=== PATIENT | male | born 1945 | race Caucasian/White ===

== ENCOUNTER 2019-05-29 05:34 | Outpatient (RCR) | payer MEDICARE, OTHER, SELFPAY | END 2019-06-03 00:01 | LOC: ONCMED 05:34 | PROVIDERS: Family Provider Family Medicine; Visit Provider Internal Medicine Hematology & Oncology | DX: Z51.11 Encounter for antineoplastic chemotherapy (principal); C77.1 Secondary and unspecified malignant neoplasm of intrathoracic lymph nodes; C18.3 Malignant neoplasm of hepatic flexure; C78.01 Secondary malignant neoplasm of right lung; I10 Essential (primary) hypertension; E78.5 Hyperlipidemia, unspecified; E11.9 Type 2 diabetes mellitus without complications; Z79.84 Long term (current) use of oral hypoglycemic drugs; Z90.49 Acquired absence of other specified parts of digestive tract | CPT/HCPCS: 36415; 36591; 80053 ×2; 81003; 85025 ×2; 96367 ×2; 96368 ×2; 96375 ×2; 96413 ×2; 96415 ×2; 96416 ×2; 96417 ×2; 96523 ×2; 99211; 99214 ×2; J0640 ×2; J1100 ×2; J1642 ×3; J2469 ×2; J7050 ×2; J9035 ×2; J9206 ×4 ==

== ENCOUNTER 2019-06-26 05:48 | Outpatient (RCR) | payer MEDICARE, OTHER, SELFPAY ==
[2019-06-10 09:46] LABS: Basophils % 0.4 %; Eosinophils # 0.2 10^3/uL (0.0-0.8); Eosinophils % 2.3 %; Hematocrit 38.8 % (42.0-52.0); Lymphocytes # 1.8 10^3/uL (0.8-4.8); Lymphocytes % 23.1 %; Mean Corpuscular HGB Conc 33.5 g/dL (30.0-36.0); Mean Corpuscular Volume 92.4 fL (80-94); Mean Platelet Volume 9.1 fL (7.4-10.4); Monocytes # 0.7 10^3/uL (0.2-0.9); Monocytes % 9.2 %; Neutrophils % 64.7 %; Nucleated Red Blood Cells % 0 %; Platelet Count 300 10^3/cmm (130-400); Red Cell Distribution Width 13.2 % (12.1-15.1); White Blood Count 7.7 10^3/uL (4.0-10.0)
[2019-06-10 10:00] LABS: Alanine Aminotransferase 27 U/L (0-41); Albumin Level 4.1 g/dL (3.5-5.2); Alkaline Phosphatase 68 IU/L (40-130); Anion Gap 13.7 (5-19); Aspartate Amino Transferase 26 U/L (0-40); Blood Urea Nitrogen 17 mg/dL (8-23); Calcium 9.7 mg/Dl (8.8-10.2); Carbon Dioxide 27 mmol/L (22-29); Chloride 101 mmol/L (98-107); Globulin 2.5 g/dL (1.3-4.6); Glucose 98 mg/dL (74-106); Potassium 4.7 mmol/L (3.5-5.1); Sodium 137 mmol/L (136-145); Total Bilirubin 0.3 mg/dL (0.15-1.2); Total Protein 6.6 g/dL (6.6-8.7)
[2019-06-10] MEDS: sodium chloride 0.9% 250 ML 75 ML IV (14:01)
--- NOTE | 2019-06-16 10:39 | ONC FU_ITS ---
[facility] Patient Note Patient: Geoff Yu Unit #: [id number]: 1945 Dictated By: Tripp GibsonDate of Visit: Jun 10, 2019 Onc MED Follow-Up/Prog Note Chief Complaint: Colon cancer. 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 He had presented with symptoms of abdominal pain and early satiety. CT abdomen/pelvis on 01/05/2017 showed an apple core appearing lesion at the hepatic flexure with associated obstruction involving the ascending colon, cecum, and ileum. The appearance was suspicious for neoplasm. There was a small amount of pelvic ascites. A 6.9 mm right lower lobe noncalcified pulmonary nodule was felt to be nonspecific. There was otherwise no evidence of metastatic disease. Colonoscopy on 01/09/2017 showed a partially obstructing malignant appearing mass at the hepatic flexure estimated at 5 x 4 cm. An additional sessile polyp was noted in the distal sigmoid colon and excised by hot snare. Biopsy of the hepatic flexure mass showed poorly differentiated infiltrating adenocarcinoma. The distal sigmoid lesion was a hyperplastic polyp. He underwent laparoscopic right hemicolectomy with ileocolic anastomosis and partial omentectomy on 01/10/2017. Pathology showed moderately differentiated infiltrating adenocarcinoma with invasion of the muscularis propria into rehana-colic tissue. The tumor measured 2.3 x 1.8 cm. The margins were free of tumor. There was evidence of lymphovascular space invasion. A total of 7 lymph nodes were identified in the sample and all were negative for metastatic disease. Final pathologic staging was T3, N0. He had several high risk features including a near obstructing primary tumor, evidence of lymphovascular space invasion, and less then 12 lymph nodes sampled. 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 Follow-up colonoscopy done on 02/06/2018 showed ileocolic anastomosis looked intact without evidence of recurrence and wide patent. In the proximal transverse colon, an abnormality was noted. He was followed by Dr. Willingham His other medical illnesses include hypertension, hyperlipidemia, and type II diabetes. He is a nonsmoker. Follow-up colonoscopy done on 02/26/2019 showed normal findings. Ileocolic anastomosis is widely patent without evidence of local recurrence. CEA repeated on 03/04/2019 was 7.7 compared to 7.2 on 01/07/2019 CT PET scan done on 03/15/2019 showed 3.1 x 2.2 cm mass in the right middle lobe with SUV of 22.1, and an adjacent right middle lobe FDG positive satellite nodule was noted. The right lower lobe perihilar nodule measuring 1.6 cm with SUV of 21.6. Multiple mediastinal nodes are FDG positive, consistent with metastatic disease and index node in the right 4R peritracheal territory measures 1.6 cm with SUV of 23.0 and other similar nodes are evident in the right pericardial, right superior mediastinal, right periesophageal territory. No evidence of metastatic disease to bone or below diaphragm Underwent mediastinoscopy on 04/28/2019 and lymph node biopsy was obtained from paratracheal, station 4R, final pathology report showed metastatic adenocarcinoma, consistent with GI origin. The tumor was positive for CD X2, CK 20; negative for CK 7 and TTF-1. Dr Goodman recommended 6 cycles of FOLFIRI/Avastin the restage with followup PET/CT. Mr Yu began cycle 1 on 05/13/2019. Mr. Yu is here today for follow-up. He states overall he feels great . His only concern is that his incision at the base of his neck/upper chest had some drainage about 2 days ago. He denies fever or chills. He denies any trouble swallowing. It has not been warm or swollen or painful. It is not been hot to touch. He states he just had spontaneous drainage that looked kind of pussy but has not had any at least 2 days. He denies any other concerns. He denies any pain. States his appetite is good. He is very active. He states his been doing all of his normal chores and feels good. He does tire some but then recovers well with rest. He denies any diarrhea or constipation. He denies any lower extremity edema or shortness of breath. He denies cough. He denies any angina or palpitations. His ECOG is 0. . Past Medical History: Diabetes type II Hyperlipidemia Hypertension Past Surgical History: Pneumonia Vaccine in 2017 - Given in left deltoid./ Flu Vacccine in 2017 - Pt stated he had flu vaccine at [facility] 02/26/17./ Left subclavian venous access device-Dr Willingham in 2017 Right Hemicolectomy in 2017 Allergies: Isosorbide Mononitrate and Succinylcholine Chloride. Medications: Ativan 1 (0.5 mg) Tablet Oral q 4 hours PRN Atorvastatin Calcium 1 Tablet (of 40 mg) Oral daily Cholecalciferol 1 Tablet (of 1000 Units) Oral daily Cinnamon 1 (500 mg) Capsule Oral b.i.d. Compazine Tablet Oral q 4 hours PRN Fish Oil 1 (1000 mg) Capsule Oral daily hydroCHLOROthiazide 1 Capsule (of 12.5 mg) Oral at bedtime Lisinopril 1 Tablet (of 40 mg) Oral daily MetFORMIN HCl 2 Tablet (of 500 mg) Oral b.i.d. Metoprolol Tartrate 0.5 Tablet (of 25 mg) Oral b.i.d. Multivitamin Adult 1 Tablet Oral daily Nitroglycerin 1 (0.4 mg) Tablet, sublingual Sublingual PRN PriLOSEC 1 Capsule (of 20 mg) Capsule Delayed Release Oral daily Family History: Mr. Yu's mother at age 74: lung cancer. Mr. Yu's father at age 48: heart attack. Social History: Mr. Yu is and he is retired. Mr. Yu has never smoked. He has no history of drinking. Mr. Yu reports the following support systems: lives with spouse, significant other, family, or friends, lives in own house, supportive family/friends willing to assist with needs, and adequate transportation available for expected visits. His diet consists of regular meals. He indicates his activity level as: daily activities. Review Of Symptoms: Constitutional Denies fevers, chills, night sweats, excessive fatigue or weight loss. Allergic/Immunologic No reactions. Eyes Denies significant visual changes. No diplopia. No amaurosis. ENMT Denies changes in hearing, sore throat, mouth sores, difficulty or changes in swallowing ability, and/or sinus drainage. He did report drainage from the incision at his neck face/upper chest. He states it was just a little pussy looking for about a day and that has resolved. He is had no further drainage. He said no fever or chills. The drainage was about 2 days ago. Endocrine No diabetes, thyroid disease or hormone replacement. Denies hot flashes or night sweats. Hematologic/Lymphatic Denies easy bruising or bleeding. The patient denies any tender or palpable lymph nodes. Respiratory Denies dyspnea on exertion, chest pain, cough or hemoptysis. Denies orthopnea. Cardiovascular Denies anginal chest pain, palpitations or orthopnea. Gastrointestinal Denies nausea, vomiting, diarrhea, GI bleeding, or constipation. Denies change in bowel habits and/or stool color, no heartburn or early satiety. Genitourinary (M) Denies hematuria, dysuria, increased frequency, urgency, hesitancy or incontinence. Musculoskeletal Denies joint pain, swelling or redness. No decreased range of motion. Integumentary Denies chronic rashes, inflammation, ulcerations or skin changes. Neurologic Denies headache, blurred vision, and no areas of focal weakness or numbness. Normal gait. No sensory problems. Psychiatric Denies insomnia, depression, alex or mood swings. Vital Signs: Performed on Jun 10, 2019 11:17 Height - 64.00 in Weight - 151.2 lbs (HIGH) BSA - 1.74 sq.m BMI - 25.95 Temperature - 97.6 F (LOW) Pulse - 62 /min Respiration - 20 /min BP - 127/64 mm(hg) O2 Sat - 98 % Pain - 0,0 - Fully active, able to carry on all predisease activities without restrictions. (ECOG) Physical Examination: Constitutional Alert, oriented, no acute distress. Skin pink, warm and dry. Head Normocephalic; atraumatic. Eyes Conjunctivae and sclerae are clear and without icterus. Pupils are reactive and equal. ENMT No oral exudates, ulcers, masses, thrush or mucositis. Oropharynx clear. Tongue normal. Neck Supple without masses or thyromegaly. No jugular venous distension. The incision on his lower neck/upper chest area is slightly pink but no active drainage and no swelling or warmth. I can see a slight opening in the incision line but otherwise it is intact. There is no odor. Hematologic/Lymphatic No petechiae or purpura. Respiratory Lungs are clear to auscultation without rhonchi or wheezing. Cardiovascular Regular rate and rhythm of heart without murmurs,clicks, gallops or rubs. Chest Chest is symmetric without chest wall deformities. Left subclavian venous access device insertion site is unremarkable. Back/Spine Non-tender to palpation. Extremities No visible deformities, no cyanosis, clubbing or edema. Pulses 4+ and equal bilaterally. Musculoskeletal No tenderness or swelling, normal range of motion without obvious weakness. Integumentary No rashes or lesions. Neurologic No sensory or motor deficits, normal cerebellar function, normal gait. Psychiatric Alert and oriented times three. Coherent speech. Verbalizes understanding of our discussions today. Laboratory:Test performed on Jun 10, 2019 09:32 Glucose 98 mg/dL BUN 17 mg/dL Creatinine 1.1 mg/dL Cr Clearance (Est) 55.25 mL/min Sodium 137 mmol/L Potassium 4.7 mmol/L Chloride 101 mmol/L CO2 27 mmol/L Calcium 9.7 mg/dL Protein, Total 6.6 g/dL Albumin 4.1 g/dL Globulin 2.5 g/dL Bilirubin, Total 0.3 mg/dL Alkaline Phosphatase 63 IU/L AST (SGOT) 26 IU/L ALT (SGPT) 27 IU/L WBC 7.7 10^9/L RBC 4.20 10^12/L HGB 13.0 g/dL HCT 38.8 % MCV 92.4 fl MCH 31.0 pg MCHC 33.5 g/dL RDW 13.2 % Platelet Count 300 10^9/L MPV 9.1 fL Neutrophils (Gran) 5.0 10^9/L Lymphocytes 1.7787 10^9/L Monocytes 0.7084 10^9/L Eosinophils 0.1771 10^9/L Basophils 0.0308 10^9/L Manual Lymphocytes 1.8 % Manual Monocytes 0.7 % Manual Eosinophils 0.2 % Manual Basophils 0.0 % NRBCs 0.0 /100 WBC Test performed on May 27, 2019 08:35 Anion Gap 13.7 Ua Color YELLOW Ua Appearance CLEAR Ua Glucose NORM Ua Bilirubin NEG Colored urine samples may result in false positive dipstick reactions. Ua Ketones NEG Ua Specific [place] 1.015 Ua Blood NEG Ua pH 5 Ua Protein NEG Ua Nitrites NEG Ua Leukocyte Esterase NEG Neutrophil % 68.7 % Lymphocyte % 20.6 % Monocyte % 7.7 % Eosinophil % 2.2 % Basophils % 0.5 % Test performed on May 05, 2019 13:45 CEA 10.6 ng/mL Impression: 1. Recurrent adenocarcinoma involving paratracheal lymph node per bronchoscopy/ mediastinoscopy done on 04/28/2019 Immunohistochemistry positive for CDX -2, CK 20 Negative for CK 7, TTF-1 and CEA checked on 05/05/2019 was 10.6 2. 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 He underwent laparoscopic right hemicolectomy on 01/10/2017. High risk features included near obstructing primary tumor, pathologic evidence of lymphovascular space invasion, and less than 12 lymph nodes sampled. 3. s/p adjuvant chemotherapy with modified FOLFOX.???4 from 01/30/2017 through 04/02/2017, FOLFOX minus oxaliplatin ???8 from 04/23/2017 through 07/23/2017. 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 4. He has iron deficiency anemia , resolved . His other medical illnesses include: 5. Hypertension. 6. Hyperlipidemia. 7. Type II diabetes .Follow-up colonoscopy done on 02/06/2018 showed ileocolic anastomosis looked intact without evidence of recurrence, and wide patent. In the proximal transverse colon, an abnormality was noted. Follow-up colonoscopy done on 02/26/2019 showed no abnormality seen, ileocolic anastomosis widely patent without evidence of local recurrence. CEA checked on 01/07/2019 was 7.2 compared to 2.4 on 07/05/2018 and repeat CEA on 03/04/[address] PET scan done on 03/15/2019 showed 3.1 x 2.2 cm mass in the right middle lobe with SUV of 22.1, and adjust in the right middle lobe FDG positive satellite nodule noted. The right lower lobe perihilar nodule measuring 1.6 cm with SUV of 21.6. Multiple mediastinal nodes are FDG positive, consistent with metastatic disease and index node in the right 4R peritracheal territory measures 1.6 cm with SUV of 23.0 and other similar nodes are evident in the right pericardial, right superior mediastinal, right periesophageal territory. No evidence of metastatic disease to bone or below diaphragm. Clinically, patient is doing well, tolerated mediastinoscopy well now surgical wound is healing well. And final pathology report came back metastatic adenocarcinoma, probably GI in origin. Discussed with patient regarding treatment options. 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 He began cycle 1 of 6 on 03/13/2019. He has tolerated it extremly well at this time. Plan: 1. Proceed with FOLFIRI (Adding ADDENDUM: Avastin) cycle 3 day 1 He has tolerated it well. 2. Labs from today were reviewed in detail and discussed with and Mrs. Yu and a copy was given to them. CBC 7.7, hemoglobin 13, platelets 300,000, ANC is 5000 creatinine is 1.1 LFTs are normal. His blood pressure today was 127/64. Baseline CEA on 05/05/2019 was 10.6. 3. We will plan to see Mr. Yu back in 1 week for cycle 2 FOLFIRI/Avastin. I have asked for a CBC, CMP and a UA for Avastin monitoring. His blood pressures are normal at this time. 4. We will plan to see Mr. Yu back in 2 weeks for cycle 4 FOLFIRI. He has tolerated it well. He will need a CBC CMP and follow-up UA at that time. He will also need a CEA. 5. Mr. Yu has been instructed to contact us in the interim should questions or problems arise. 6. I did go ahead and send a prescription for Keflex 500 mg 3 times daily to [facility] pharmacy in the event that the incision drained, becomes swollen or warm/red or uncomfortable. Signed By: Tripp Gibson-, AOCNP Hayley Goodman MD <<Signature on File>>
[2019-06-24 09:12] LABS: Add Urine Microscopic? NO
[2019-06-24 09:14] LABS: Basophils % 0.6 %; Eosinophils # 0.2 10^3/uL (0.0-0.8); Eosinophils % 3.1 %; Hematocrit 37.2 % (42.0-52.0); Lymphocytes # 1.5 10^3/uL (0.8-4.8); Lymphocytes % 23.6 %; Mean Corpuscular HGB Conc 34.9 g/dL (30.0-36.0); Mean Corpuscular Hemoglobin 32.3 pg (28.0-34.0); Mean Corpuscular Volume 92.3 fL (80-94); Mean Platelet Volume 9.5 fL (7.4-10.4); Monocytes # 0.6 10^3/uL (0.2-0.9); Monocytes % 9.3 %; Neutrophils # 3.9 10^3/uL (1.8-7.7); Neutrophils % 63.2 %; Nucleated Red Blood Cells % 0 %; Platelet Count 265 10^3/cmm (130-400); Red Blood Count 4.03 10^6/uL (4.1-5.3); Red Cell Distribution Width 13.6 % (12.1-15.1); White Blood Count 6.2 10^3/uL (4.0-10.0)
[2019-06-24 09:16] LABS: Bilirubin Urine Neg (NEGATIVE); Blood Urine Neg (Negative); Glucose Urine UA Norm (Normal); Ketones Urine Negative (Negative); Leukocyte Esterase Urine Negative (Negative); Nitrate Urine Negative (Negative); Protein Urine Neg (Negative); Urine Appearance Clear (CLEAR); Urine Color Straw (Yellow); Urobilinogen Urine Norm (Negative)
[2019-06-24 10:30] LABS: Carcinoembryonic Antigen 6.2 ng/mL (0.0-4.7)
[2019-06-24 10:42] LABS: Alanine Aminotransferase 32 U/L (0-41); Albumin Level 3.8 g/dL (3.5-5.2); Alkaline Phosphatase 62 IU/L (40-130); Anion Gap 16.3 (5-19); Aspartate Amino Transferase 29 U/L (0-40); Blood Urea Nitrogen 18 mg/dL (8-23); Calcium 9.7 mg/Dl (8.8-10.2); Carbon Dioxide 26 mmol/L (22-29); Chloride 100 mmol/L (98-107); Globulin 3.3 g/dL (1.3-4.6); Glucose 125 mg/dL (74-106); Potassium 4.3 mmol/L (3.5-5.1); Sodium 138 mmol/L (136-145); Total Bilirubin 0.4 mg/dL (0.15-1.2); Total Protein 7.1 g/dL (6.6-8.7)
--- NOTE | 2019-06-24 11:13 | ONC FU_ITS ---
Dr. 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 He had presented with symptoms of abdominal pain and early satiety. CT abdomen/pelvis on 01/05/2017 showed an apple core appearing lesion at the hepatic flexure with associated obstruction involving the ascending colon, cecum, and ileum. The appearance was suspicious for neoplasm. There was a small amount of pelvic ascites. A 6.9 mm right lower lobe noncalcified pulmonary nodule was felt to be nonspecific. There was otherwise no evidence of metastatic disease. Colonoscopy on 01/09/2017 showed a partially obstructing malignant appearing mass at the hepatic flexure estimated at 5 x 4 cm. An additional sessile polyp was noted in the distal sigmoid colon and excised by hot snare. Biopsy of the hepatic flexure mass showed poorly differentiated infiltrating adenocarcinoma. The distal sigmoid lesion was a hyperplastic polyp. He underwent laparoscopic right hemicolectomy with ileocolic anastomosis and partial omentectomy on 01/10/2017. Pathology showed moderately differentiated infiltrating adenocarcinoma with invasion of the muscularis propria into rehana-colic tissue. The tumor measured 2.3 x 1.8 cm. The margins were free of tumor. There was evidence of lymphovascular space invasion. A total of 7 lymph nodes were identified in the sample and all were negative for metastatic disease. Final pathologic staging was T3, N0. He had several high risk features including a near obstructing primary tumor, evidence of lymphovascular space invasion, and less then 12 lymph nodes sampled. 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 Follow-up colonoscopy done on 02/06/2018 showed ileocolic anastomosis looked intact without evidence of recurrence and wide patent. In the proximal transverse colon, an abnormality was noted. He was followed by Dr. Willingham His other medical illnesses include hypertension, hyperlipidemia, and type II diabetes. He is a nonsmoker. Follow-up colonoscopy done on 02/26/2019 showed normal findings. Ileocolic anastomosis is widely patent without evidence of local recurrence. CEA repeated on 03/04/2019 was 7.7 compared to 7.2 on 01/07/2019 CT PET scan done on 03/15/2019 showed 3.1 x 2.2 cm mass in the right middle lobe with SUV of 22.1, and an adjacent right middle lobe FDG positive satellite nodule was noted. The right lower lobe perihilar nodule measuring 1.6 cm with SUV of 21.6. Multiple mediastinal nodes are FDG positive, consistent with metastatic disease and index node in the right 4R peritracheal territory measures 1.6 cm with SUV of 23.0 and other similar nodes are evident in the right pericardial, right superior mediastinal, right periesophageal territory. No evidence of metastatic disease to bone or below diaphragm Underwent mediastinoscopy on 04/28/2019 and lymph node biopsy was obtained from paratracheal, station 4R, final pathology report showed metastatic adenocarcinoma, consistent with GI origin. The tumor was positive for CD X2, CK 20; negative for CK 7 and TTF-1. recommended 6 cycles of FOLFIRI/Avastin the restage with followup PET/CT. Mr Yu began cycle 1 on 05/13/2019. Came for follow-up, denies any specific complaints, no fever or chills, no nausea or vomiting, no diarrhea constipation, no mouth sores, no jaundice, no skin rash. Tolerating systemic chemotherapy with Avastin/FOLFIRI well . Medications: Aspirin 1 Tablet (of 81 mg) Oral daily, Ativan 1 (0.5 mg) Tablet Oral q 4 hours PRN, Atorvastatin Calcium 1 Tablet (of 40 mg) Oral daily, B-12 1 Tablet (of 1000 mcg) Oral daily, Calcium Carb-Cholecalciferol 1 Capsule (of 500-125 Units/mg) Oral daily, Cephalexin 1 Capsule (of 500 mg) Oral t.i.d. for 7 days, Cholecalciferol 1 Tablet (of 25 mcg) Oral daily, Cinnamon 1 (500 mg) Capsule Oral b.i.d., Compazine Tablet Oral q 4 hours PRN, Fish Oil 1 (1000 mg) Capsule Oral daily, hydroCHLOROthiazide 1 Capsule (of 12.5 mg) Oral at bedtime, Lisinopril 1 Tablet (of 40 mg) Oral daily, MetFORMIN HCl 1 Tablet (of 500 mg) Oral b.i.d., Metoprolol Tartrate 0.5 Tablet (of 25 mg) Oral b.i.d., Multivitamin Adult 1 Tablet Oral daily, Nitroglycerin 1 (0.4 mg) Tablet, sublingual Sublingual PRN, Pepcid 1 (20 mg) Tablet Oral daily PRN, PriLOSEC 1 Capsule (of 20 mg) Capsule Delayed Release Oral daily PRN, Vitamin C 1 Tablet (of 500 mg) Oral daily, Vitamin E 1 Capsule (of 400 Units) Oral daily Allergies: Isosorbide Mononitrate and Succinylcholine Chloride. Review of Systems: Review of Systems is not available for this patient. Vital Signs: Performed on Jun 24, 2019 09:56 Height - 64.00 in Weight - 150.6 lbs (LOW) BSA - 1.73 sq.m BMI - 25.85 Temperature - 97.1 F (LOW) Pulse - 58 /min (LOW) Respiration - 18 /min BP - 140/67 mm(hg) O2 Sat - 98 % Pain - 0 Performance Status: 1 - No physically strenuous activity, but ambulatory and able to carry out light or sedentary work (e.g. office work, light house work). (ECOG) Physical Examination: ENMT - No oral exudates, ulcers, masses, thrush or mucositis. Oropharynx clear. Tongue normal, Respiratory - Lungs are clear to auscultation without rhonchi or wheezing, Cardiovascular - Regular rate and rhythm of heart, Abdomen - Non-tender, non-distended, . Good bowel sounds. No guarding or rebound tenderness. No pulsatile masses, Extremities - no edema. Lab/Imaging: Test performed on Jun 10, 2019 09:32 Glucose 98 mg/dL BUN 17 mg/dL Creatinine 1.1 mg/dL Cr Clearance (Est) 55.25 mL/min Sodium 137 mmol/L Potassium 4.7 mmol/L Chloride 101 mmol/L CO2 27 mmol/L Calcium 9.7 mg/dL Protein, Total 6.6 g/dL Albumin 4.1 g/dL Globulin 2.5 g/dL Bilirubin, Total 0.3 mg/dL Alkaline Phosphatase 63 IU/L AST (SGOT) 26 IU/L ALT (SGPT) 27 IU/L WBC 7.7 10^9/L RBC 4.20 10^12/L HGB 13.0 g/dL HCT 38.8 % MCV 92.4 fl MCH 31.0 pg MCHC 33.5 g/dL RDW 13.2 % Platelet Count 300 10^9/L MPV 9.1 fL Neutrophils (Gran) 5.0 10^9/L Lymphocytes 1.7787 10^9/L Monocytes 0.7084 10^9/L Eosinophils 0.1771 10^9/L Basophils 0.0308 10^9/L Manual Lymphocytes 1.8 % Manual Monocytes 0.7 % Manual Eosinophils 0.2 % Manual Basophils 0.0 % NRBCs 0.0 /100 WBC Test performed on May 27, 2019 08:35 Anion Gap 13.7 Ua Color YELLOW Ua Appearance CLEAR Ua Glucose NORM Ua Bilirubin NEG Colored urine samples may result in false positive dipstick reactions. Ua Ketones NEG Ua Specific [place] 1.015 Ua Blood NEG Ua pH 5 Ua Protein NEG Ua Nitrites NEG Ua Leukocyte Esterase NEG Neutrophil % 68.7 % Lymphocyte % 20.6 % Monocyte % 7.7 % Eosinophil % 2.2 % Basophils % 0.5 % Test performed on May 21, 2019 09:50 CBC Slide Review SLIDE REVIEW PERFORM Test performed on May 05, 2019 13:45 CEA 10.6 ng/mL Impression: 1. Recurrent adenocarcinoma involving paratracheal lymph node per bronchoscopy/ mediastinoscopy done on 04/28/2019 Immunohistochemistry positive for CDX -2, CK 20 Negative for CK 7, TTF-1 and CEA checked on 05/05/2019 was 10.6 2. 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 He underwent laparoscopic right hemicolectomy on 01/10/2017. High risk features included near obstructing primary tumor, pathologic evidence of lymphovascular space invasion, and less than 12 lymph nodes sampled. 3. s/p adjuvant chemotherapy with modified FOLFOX.???4 from 01/30/2017 through 04/02/2017, FOLFOX minus oxaliplatin ???8 from 04/23/2017 through 07/23/2017. 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 4. He has iron deficiency anemia , resolved . His other medical illnesses include: 5. Hypertension. 6. Hyperlipidemia. 7. Type II diabetes .Follow-up colonoscopy done on 02/06/2018 showed ileocolic anastomosis looked intact without evidence of recurrence, and wide patent. In the proximal transverse colon, an abnormality was noted. Follow-up colonoscopy done on 02/26/2019 showed no abnormality seen, ileocolic anastomosis widely patent without evidence of local recurrence. CEA checked on 01/07/2019 was 7.2 compared to 2.4 on 07/05/2018 and repeat CEA on 03/04/[address] PET scan done on 03/15/2019 showed 3.1 x 2.2 cm mass in the right middle lobe with SUV of 22.1, and adjust in the right middle lobe FDG positive satellite nodule noted. The right lower lobe perihilar nodule measuring 1.6 cm with SUV of 21.6. Multiple mediastinal nodes are FDG positive, consistent with metastatic disease and index node in the right 4R peritracheal territory measures 1.6 cm with SUV of 23.0 and other similar nodes are evident in the right pericardial, right superior mediastinal, right periesophageal territory. No evidence of metastatic disease to bone or below diaphragm. Clinically, patient is doing well, tolerated mediastinoscopy well now surgical wound is healing well. And final pathology report came back metastatic adenocarcinoma, probably GI in origin. Discussed with patient regarding treatment options. 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 He began cycle 1 of 6 on 03/13/2019. He has tolerated it extremly well at this time. Plan: Discussed with patient regarding his labs white blood count 6.2 hemoglobin 13 crit 37.2 platelets 265,000 CMP within normal limits CEA 6.2 compared to 10.6 on 05/05/2019 e.g. prior to initiation of chemotherapy. Clinically, patient is doing well with no signs symptoms suggestive of disease progression his follow-up lab looks reasonable and tumor marker CEA has improved after 3 cycles of chemotherapy, we'll proceed with next cycle #4 chemotherapy with Avastin/FOLFIRI today and then return to clinic in 2 weeks with CBC CMP and planning was to do CT PET scan after 6 cycles of chemotherapy. Signed By: Hayley Goodman M.D. <<Signature on File>>
[2019-06-24] MEDS: sodium chloride 0.9% 250 ML 75 ML IV (11:19)
== END 2019-07-04 23:59 | disposition home or self-care (01) ==
LOC: ONCMED 05:48
PROVIDERS: Nurse Practitioner; Family Provider Family Medicine; Visit Provider Internal Medicine Hematology & Oncology
DX: Z51.11 Encounter for antineoplastic chemotherapy (principal); C77.1 Secondary and unspecified malignant neoplasm of intrathoracic lymph nodes; C78.01 Secondary malignant neoplasm of right lung; Z45.2 Encounter for adjustment and management of vascular access device; Z85.038 Personal history of other malignant neoplasm of large intestine; I10 Essential (primary) hypertension; E78.5 Hyperlipidemia, unspecified; E11.9 Type 2 diabetes mellitus without complications; Z79.84 Long term (current) use of oral hypoglycemic drugs; Z79.82 Long term (current) use of aspirin; Z90.49 Acquired absence of other specified parts of digestive tract
CPT/HCPCS: 80053; 81003; 82378; 85025; 96367; 96368; 96375; 96413; 96415; 96416; 96417; 96523; 99214; A4222; J0461; J0640; J1100; J2469; J7030; J7050; J9035; J9206

== ENCOUNTER 2019-07-24 05:41 | Outpatient (RCR) | payer MEDICARE, OTHER, SELFPAY ==
[2019-07-08 09:27] LABS: Basophils # 0.1 10^3/uL (0.0-0.1); Basophils % 0.7 %; Eosinophils # 0.2 10^3/uL (0.0-0.8); Eosinophils % 3.5 %; Hematocrit 38.3 % (42.0-52.0); Lymphocytes # 1.5 10^3/uL (0.8-4.8); Lymphocytes % 21.9 %; Mean Corpuscular HGB Conc 33.9 g/dL (30.0-36.0); Mean Corpuscular Hemoglobin 32.7 pg (28.0-34.0); Mean Corpuscular Volume 96.5 fL (80-94); Mean Platelet Volume 9.6 fL (7.4-10.4); Monocytes # 0.7 10^3/uL (0.2-0.9); Monocytes % 9.4 %; Neutrophils # 4.4 10^3/uL (1.8-7.7); Neutrophils % 64.2 %; Nucleated Red Blood Cells % 0 %; Platelet Count 254 10^3/cmm (130-400); Red Blood Count 3.97 10^6/uL (4.1-5.3); White Blood Count 6.9 10^3/uL (4.0-10.0)
[2019-07-08 09:47] LABS: Alanine Aminotransferase 30 U/L (0-41); Albumin Level 3.8 g/dL (3.5-5.2); Alkaline Phosphatase 62 IU/L (40-130); Anion Gap 14.5 (5-19); Aspartate Amino Transferase 28 U/L (0-40); Blood Urea Nitrogen 17 mg/dL (8-23); Calcium 9.4 mg/dL (8.5-10.5); Carbon Dioxide 26 mmol/L (22-29); Chloride 104 mmol/L (98-107); Globulin 3.2 g/dL (1.3-4.6); Glucose 115 mg/dL (74-106); Potassium 4.5 mmol/L (3.5-5.1); Sodium 140 mmol/L (136-145); Total Bilirubin 0.4 mg/dL (0.15-1.2)
--- NOTE | 2019-07-08 10:31 | ONC FU_ITS ---
Dr. 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 He had presented with symptoms of abdominal pain and early satiety. CT abdomen/pelvis on 01/05/2017 showed an apple core appearing lesion at the hepatic flexure with associated obstruction involving the ascending colon, cecum, and ileum. The appearance was suspicious for neoplasm. There was a small amount of pelvic ascites. A 6.9 mm right lower lobe noncalcified pulmonary nodule was felt to be nonspecific. There was otherwise no evidence of metastatic disease. Colonoscopy on 01/09/2017 showed a partially obstructing malignant appearing mass at the hepatic flexure estimated at 5 x 4 cm. An additional sessile polyp was noted in the distal sigmoid colon and excised by hot snare. Biopsy of the hepatic flexure mass showed poorly differentiated infiltrating adenocarcinoma. The distal sigmoid lesion was a hyperplastic polyp. He underwent laparoscopic right hemicolectomy with ileocolic anastomosis and partial omentectomy on 01/10/2017. Pathology showed moderately differentiated infiltrating adenocarcinoma with invasion of the muscularis propria into rehana-colic tissue. The tumor measured 2.3 x 1.8 cm. The margins were free of tumor. There was evidence of lymphovascular space invasion. A total of 7 lymph nodes were identified in the sample and all were negative for metastatic disease. Final pathologic staging was T3, N0. He had several high risk features including a near obstructing primary tumor, evidence of lymphovascular space invasion, and less then 12 lymph nodes sampled. 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 Follow-up colonoscopy done on 02/06/2018 showed ileocolic anastomosis looked intact without evidence of recurrence and wide patent. In the proximal transverse colon, an abnormality was noted. He was followed by Dr. Willingham His other medical illnesses include hypertension, hyperlipidemia, and type II diabetes. He is a nonsmoker. Follow-up colonoscopy done on 02/26/2019 showed normal findings. Ileocolic anastomosis is widely patent without evidence of local recurrence. CEA repeated on 03/04/2019 was 7.7 compared to 7.2 on 01/07/2019 CT PET scan done on 03/15/2019 showed 3.1 x 2.2 cm mass in the right middle lobe with SUV of 22.1, and an adjacent right middle lobe FDG positive satellite nodule was noted. The right lower lobe perihilar nodule measuring 1.6 cm with SUV of 21.6. Multiple mediastinal nodes are FDG positive, consistent with metastatic disease and index node in the right 4R peritracheal territory measures 1.6 cm with SUV of 23.0 and other similar nodes are evident in the right pericardial, right superior mediastinal, right periesophageal territory. No evidence of metastatic disease to bone or below diaphragm Underwent mediastinoscopy on 04/28/2019 and lymph node biopsy was obtained from paratracheal, station 4R, final pathology report showed metastatic adenocarcinoma, consistent with GI origin. The tumor was positive for CD X2, CK 20; negative for CK 7 and TTF-1. recommended 6 cycles of FOLFIRI/Avastin the restage with followup PET/CT. Mr Yu began cycle 1 on 05/13/2019. Came for follow-up, denies any specific complaints, no fever or chills, no nausea or vomiting, no diarrhea constipation, no abdominal pain, no mouth sores, no jaundice, tolerating systemic chemotherapy/Avastin well . Medications: Aspirin 1 Tablet (of 81 mg) Oral daily, Ativan 1 (0.5 mg) Tablet Oral q 4 hours PRN, Atorvastatin Calcium 1 Tablet (of 40 mg) Oral daily, B-12 1 Tablet (of 1000 mcg) Oral daily, Calcium Carb-Cholecalciferol 1 Capsule (of 500-125 Units/mg) Oral daily, Cephalexin 1 Capsule (of 500 mg) Oral t.i.d. for 7 days, Cholecalciferol 1 Tablet (of 25 mcg) Oral daily, Cinnamon 1 (500 mg) Capsule Oral b.i.d., Compazine Tablet Oral q 4 hours PRN, Fish Oil 1 (1000 mg) Capsule Oral daily, hydroCHLOROthiazide 1 Capsule (of 12.5 mg) Oral at bedtime, Lisinopril 1 Tablet (of 40 mg) Oral daily, MetFORMIN HCl 1 Tablet (of 500 mg) Oral b.i.d., Metoprolol Tartrate 0.5 Tablet (of 25 mg) Oral b.i.d., Multivitamin Adult 1 Tablet Oral daily, Nitroglycerin 1 (0.4 mg) Tablet, sublingual Sublingual PRN, Pepcid 1 (20 mg) Tablet Oral daily PRN, PriLOSEC 1 Capsule (of 20 mg) Capsule Delayed Release Oral daily PRN, Vitamin C 1 Tablet (of 500 mg) Oral daily, Vitamin E 1 Capsule (of 400 Units) Oral daily Allergies: Isosorbide Mononitrate and Succinylcholine Chloride. Review of Systems: Constitutional - Appetite is good and weight is stable. No fever, chills, hot flashes, or night sweats. Energy level is good, ENMT - No sinus congestion/drainage. No mouth sores. No sore throat or difficulty swallowing, Hematologic/Lymphatic - No abnormal bruising or bleeding, Respiratory - No shortness of breath. No cough. No pleuritic pain or hemoptysis, Cardiovascular - No angina pain. No palpitations, Gastrointestinal - No nausea or vomiting. No heartburn or acid reflux. No diarrhea or constipation. No blood in the stool or black stools, Genitourinary (M) - No dysuria or hematuria. No urinary frequency. No urgency or incontinence, Musculoskeletal - No joint or bone pain, Integumentary - No rashes or lesions, Neurologic - No headache or dizziness. No numbness/paresthesias or other focal neurologic symptoms, Psychiatric - No anxiety or depression. No insomnia. Vital Signs: Performed on Jul 08, 2019 10:09 Height - 64.00 in Weight - 151.8 lbs (HIGH) BSA - 1.74 sq.m BMI - 26.06 Temperature - 97.6 F (LOW) Pulse - 70 /min Respiration - 22 /min BP - 139/71 mm(hg) O2 Sat - 99 % Pain - 0 Performance Status: 0 - Fully active, able to carry on all predisease activities without restrictions. (ECOG) Physical Examination: ENMT - No oral exudates, ulcers, masses, thrush or mucositis. Oropharynx clear. Tongue normal, Respiratory - Lungs are clear to auscultation without rhonchi or wheezing, Cardiovascular - Regular rate and rhythm of heart, Abdomen - Non-tender, non-distended, Good bowel sounds. No guarding or rebound tenderness. No pulsatile masses, Extremities - no edema. Lab/Imaging: Test performed on Jun 24, 2019 08:44 Sodium 138 mmol/L Potassium 4.3 mmol/L Chloride 100 mmol/L CO2 26 mmol/L Anion Gap 16.3 BUN 18 mg/dL Creatinine 1.0 mg/dL Cr Clearance (Est) 60.7700 mL/min Glucose 125 mg/dL Calcium 9.7 mg/Dl Protein, Total 7.1 g/dL Albumin 3.8 g/dL Globulin 3.3 g/dL Bilirubin, Total 0.4 mg/dL ALT (SGPT) 32 U/L AST (SGOT) 29 U/L WBC 6.2 10 3/uL RBC 4.03 10 6/uL HGB 13.0 g/dL HCT 37.2 % MCV 92.3 fL MCH 32.3 pg MCHC 34.9 g/dL RDW 13.6 % Platelet Count 265 10 3/cmm MPV 9.5 fL Neutrophils 3.9 10 3/uL Lymphocytes 1.5 10 3/uL Monocytes 0.6 10 3/uL Eosinophils 0.2 10 3/uL Basophils 0.0 10 3/uL Neutrophil % 63.2 % Lymphocyte % 23.6 % Monocyte % 9.3 % Eosinophil % 3.1 % Basophils % 0.6 % CEA 6.2 ng/mL Test performed on Jun 10, 2019 09:32 Alkaline Phosphatase 63 IU/L Manual Lymphocytes 1.8 % Manual Monocytes 0.7 % Manual Eosinophils 0.2 % Manual Basophils 0.0 % NRBCs 0.0 /100 WBC Test performed on May 27, 2019 08:35 Ua Color YELLOW Ua Appearance CLEAR Ua Glucose NORM Ua Bilirubin NEG Colored urine samples may result in false positive dipstick reactions. Ua Ketones NEG Ua Specific [place] 1.015 Ua Blood NEG Ua pH 5 Ua Protein NEG Ua Nitrites NEG Ua Leukocyte Esterase NEG Test performed on May 21, 2019 09:50 CBC Slide Review SLIDE REVIEW PERFORM Impression: 1. Recurrent adenocarcinoma involving paratracheal lymph node per bronchoscopy/ mediastinoscopy done on 04/28/2019 Immunohistochemistry positive for CDX -2, CK 20 Negative for CK 7, TTF-1 and CEA checked on 05/05/2019 was 10.6 2. 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 He underwent laparoscopic right hemicolectomy on 01/10/2017. High risk features included near obstructing primary tumor, pathologic evidence of lymphovascular space invasion, and less than 12 lymph nodes sampled. 3. s/p adjuvant chemotherapy with modified FOLFOX.???4 from 01/30/2017 through 04/02/2017, FOLFOX minus oxaliplatin ???8 from 04/23/2017 through 07/23/2017. 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 4. He has iron deficiency anemia , resolved . His other medical illnesses include: 5. Hypertension. 6. Hyperlipidemia. 7. Type II diabetes .Follow-up colonoscopy done on 02/06/2018 showed ileocolic anastomosis looked intact without evidence of recurrence, and wide patent. In the proximal transverse colon, an abnormality was noted. Follow-up colonoscopy done on 02/26/2019 showed no abnormality seen, ileocolic anastomosis widely patent without evidence of local recurrence. CEA checked on 01/07/2019 was 7.2 compared to 2.4 on 07/05/2018 and repeat CEA on 03/04/[address] PET scan done on 03/15/2019 showed 3.1 x 2.2 cm mass in the right middle lobe with SUV of 22.1, and adjust in the right middle lobe FDG positive satellite nodule noted. The right lower lobe perihilar nodule measuring 1.6 cm with SUV of 21.6. Multiple mediastinal nodes are FDG positive, consistent with metastatic disease and index node in the right 4R peritracheal territory measures 1.6 cm with SUV of 23.0 and other similar nodes are evident in the right pericardial, right superior mediastinal, right periesophageal territory. No evidence of metastatic disease to bone or below diaphragm. Clinically, patient is doing well, tolerated mediastinoscopy well now surgical wound is healing well. And final pathology report came back metastatic adenocarcinoma, probably GI in origin. Discussed with patient regarding treatment options. 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 He began cycle 1 of 6 on 03/13/2019. He has tolerated it extremly well at this time. Plan: Discussed with patient regarding his labs white blood count 6.9 globin 13 crit 38.3 platelets 254,000 CMP within normal limits Clinically, patient is doing well, tolerating systemic chemotherapy with FOLFIRI/Avastin well but with expected side effects. We'll proceed with next cycle #5 today and then return to clinic in 2 weeks with CBC CMP and if looks reasonable then for cycle #6 of FOLFIRI/Avastin, followed by follow-up CT PET scan to assess disease response. Signed By: Hayley Goodman M.D. <<Signature on File>>
[2019-07-08] MEDS: sodium chloride 0.9% 250 ML 75 ML IV (10:42)
[2019-07-22 09:46] LABS: Basophils % 0.5 %; Eosinophils # 0.2 10^3/uL (0.0-0.8); Eosinophils % 2.3 %; Hematocrit 39.8 % (42.0-52.0); Hemoglobin 13.8 g/dL (11.7-16.6); Lymphocytes # 1.8 10^3/uL (0.8-4.8); Lymphocytes % 27.6 %; Mean Corpuscular HGB Conc 34.7 g/dL (30.0-36.0); Mean Corpuscular Hemoglobin 33.3 pg (28.0-34.0); Mean Corpuscular Volume 95.9 fL (80-94); Mean Platelet Volume 9.4 fL (7.4-10.4); Monocytes # 0.6 10^3/uL (0.2-0.9); Neutrophils # 3.8 10^3/uL (1.8-7.7); Neutrophils % 59.4 %; Nucleated Red Blood Cells % 0 %; Platelet Count 272 10^3/cmm (130-400); Red Blood Count 4.15 10^6/uL (4.1-5.3); Red Cell Distribution Width 14.3 % (12.1-15.1); White Blood Count 6.4 10^3/uL (4.0-10.0)
[2019-07-22 10:04] LABS: Alanine Aminotransferase 32 U/L (0-41); Albumin Level 4.2 g/dL (3.5-5.2); Alkaline Phosphatase 74 IU/L (40-130); Anion Gap 14.7 (5-19); Aspartate Amino Transferase 31 U/L (0-40); Blood Urea Nitrogen 18 mg/dL (8-23); Calcium 9.9 mg/dL (8.5-10.5); Carbon Dioxide 27 mmol/L (22-29); Chloride 100 mmol/L (98-107); Globulin 3.1 g/dL (1.3-4.6); Glucose 109 mg/dL (65-115); Potassium 4.7 mmol/L (3.5-5.1); Sodium 137 mmol/L (136-145); Total Bilirubin 0.4 mg/dL (0.15-1.2); Total Protein 7.3 g/dL (6.6-8.7)
[2019-07-22] MEDS: sodium chloride 0.9% 250 ML 300 ML IV (11:48)
[2019-07-22 15:12] LABS: Add Urine Microscopic? NO
[2019-07-22 15:24] LABS: Bilirubin Urine Neg (NEGATIVE); Blood Urine Neg (Negative); Glucose Urine UA 1+ (Normal); Ketones Urine Negative (Negative); Leukocyte Esterase Urine Negative (Negative); Nitrate Urine Negative (Negative); Protein Urine Neg (Negative); Urine Appearance Clear (CLEAR); Urine Color Yellow (Yellow); Urobilinogen Urine Norm (Negative); pH Urine 6 (5-7)
--- NOTE | 2019-07-24 15:28 | ONC FU_ITS ---
[facility] Patient Note Patient: Geoff Yu Unit #: [id number]: 1945 Dictated By: Tripp GibsonDate of Visit: Jul 22, 2019 Onc MED Follow-Up/Prog Note Chief Complaint: Colon cancer. 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 He had presented with symptoms of abdominal pain and early satiety. CT abdomen/pelvis on 01/05/2017 showed an apple core appearing lesion at the hepatic flexure with associated obstruction involving the ascending colon, cecum, and ileum. The appearance was suspicious for neoplasm. There was a small amount of pelvic ascites. A 6.9 mm right lower lobe noncalcified pulmonary nodule was felt to be nonspecific. There was otherwise no evidence of metastatic disease. Colonoscopy on 01/09/2017 showed a partially obstructing malignant appearing mass at the hepatic flexure estimated at 5 x 4 cm. An additional sessile polyp was noted in the distal sigmoid colon and excised by hot snare. Biopsy of the hepatic flexure mass showed poorly differentiated infiltrating adenocarcinoma. The distal sigmoid lesion was a hyperplastic polyp. He underwent laparoscopic right hemicolectomy with ileocolic anastomosis and partial omentectomy on 01/10/2017. Pathology showed moderately differentiated infiltrating adenocarcinoma with invasion of the muscularis propria into rehana-colic tissue. The tumor measured 2.3 x 1.8 cm. The margins were free of tumor. There was evidence of lymphovascular space invasion. A total of 7 lymph nodes were identified in the sample and all were negative for metastatic disease. Final pathologic staging was T3, N0. He had several high risk features including a near obstructing primary tumor, evidence of lymphovascular space invasion, and less then 12 lymph nodes sampled. 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 Follow-up colonoscopy done on 02/06/2018 showed ileocolic anastomosis looked intact without evidence of recurrence and wide patent. In the proximal transverse colon, an abnormality was noted. He was followed by Dr. Willingham His other medical illnesses include hypertension, hyperlipidemia, and type II diabetes. He is a nonsmoker. Follow-up colonoscopy done on 02/26/2019 showed normal findings. Ileocolic anastomosis is widely patent without evidence of local recurrence. CEA repeated on 03/04/2019 was 7.7 compared to 7.2 on 01/07/2019 CT PET scan done on 03/15/2019 showed 3.1 x 2.2 cm mass in the right middle lobe with SUV of 22.1, and an adjacent right middle lobe FDG positive satellite nodule was noted. The right lower lobe perihilar nodule measuring 1.6 cm with SUV of 21.6. Multiple mediastinal nodes are FDG positive, consistent with metastatic disease and index node in the right 4R peritracheal territory measures 1.6 cm with SUV of 23.0 and other similar nodes are evident in the right pericardial, right superior mediastinal, right periesophageal territory. No evidence of metastatic disease to bone or below diaphragm Underwent mediastinoscopy on 04/28/2019 and lymph node biopsy was obtained from paratracheal, station 4R, final pathology report showed metastatic adenocarcinoma, consistent with GI origin. The tumor was positive for CD X2, CK 20; negative for CK 7 and TTF-1. Dr Goodman recommended 6 cycles of FOLFIRI/Avastin the restage with followup PET/CT. Mr Yu began cycle 1 on 05/13/2019. He has tolerated it well. Mr. Yu had follow-up PET/CT on 07/19/2019 with [facility]. The findings reported were continued physiological tracer activity at the colonic anastomosis. The right middle lobe mass that previously measured 3.1 x 2.2 cm with an SUV of 22.1 now measures 1.0 x 1.3 cm with an SUV of 7.7, indicating a positive response to therapy. There are similar improvement in the secondary right middle lobe nodule and in the right lower lobe nodule. The index node in the right 4R paratracheal territory now measures 1.5 with an SUV of 5.7 and previously was 1.8 cm with an SUV of 23. Multiple other mediastinal nodes demonstrate similar improvement . Dr. Goodman has reviewed the PET/CT and has recommended that Mr. Yu pursue 6 more cycles of chemotherapy. Mr. uY is here today for follow-up. He states overall he continues to feel really good. He states it is hard for him to believe he is even taking chemotherapy he is feeling so good. He remains very active. He denies any nausea or vomiting. He has had no fever or chills. He states his appetite is good. He denies any neuropathy symptoms. He denies any diarrhea. He states he does have some fatigue off and on but recovers well with rest. He remains very active around home and with community activities. His ECOG is 0. . Past Medical History: Diabetes type II Hyperlipidemia Hypertension Past Surgical History: Pneumonia Vaccine in 2017 - Given in left deltoid./lc Flu Vacccine in 2017 - Pt stated he had flu vaccine at [facility] 02/26/17./lc Left subclavian venous access device-Dr Willingham in 2017 Right Hemicolectomy in 2017 Allergies: Isosorbide Mononitrate and Succinylcholine Chloride. Medications: Aspirin 1 Tablet (of 81 mg) Oral daily Ativan 1 (0.5 mg) Tablet Oral q 4 hours PRN Atorvastatin Calcium 1 Tablet (of 40 mg) Oral daily B-12 1 Tablet (of 1000 mcg) Oral daily Calcium Carb-Cholecalciferol 1 Capsule (of 500-125 Units/mg) Oral daily Cholecalciferol 1 Tablet (of 25 mcg) Oral daily Cinnamon 1 (500 mg) Capsule Oral b.i.d. Compazine Tablet Oral q 4 hours PRN Fish Oil 1 (1000 mg) Capsule Oral daily hydroCHLOROthiazide 1 Capsule (of 12.5 mg) Oral at bedtime Lisinopril 1 Tablet (of 40 mg) Oral daily MetFORMIN HCl 1 Tablet (of 500 mg) Oral b.i.d. Metoprolol Tartrate 0.5 Tablet (of 25 mg) Oral b.i.d. Multivitamin Adult 1 Tablet Oral daily Nitroglycerin 1 (0.4 mg) Tablet, sublingual Sublingual PRN Pepcid 1 (20 mg) Tablet Oral daily PRN PriLOSEC 1 Capsule (of 20 mg) Capsule Delayed Release Oral daily PRN Vitamin C 1 Tablet (of 500 mg) Oral daily Vitamin E 1 Capsule (of 400 Units) Oral daily Family History: Mr. Yu's mother at age 74: lung cancer. Mr. Yu's father at age 48: heart attack. Social History: Mr. Yu is and he is retired. Mr. Yu has never smoked. He has no history of drinking. Mr. Yu reports the following support systems: lives with spouse, significant other, family, or friends, lives in own house, supportive family/friends willing to assist with needs, and adequate transportation available for expected visits. His diet consists of regular meals. He indicates his activity level as: daily activities. Review Of Symptoms: Constitutional Denies fevers, chills, night sweats, excessive fatigue or weight loss. Allergic/Immunologic No reactions. Eyes Denies significant visual changes. No diplopia. No amaurosis. ENMT Denies changes in hearing, sore throat, mouth sores, difficulty or changes in swallowing ability, and/or sinus drainage. Endocrine No diabetes, thyroid disease or hormone replacement. Denies hot flashes or night sweats. Hematologic/Lymphatic Denies easy bruising or bleeding. The patient denies any tender or palpable lymph nodes. Respiratory Denies dyspnea on exertion, chest pain, cough or hemoptysis. Denies orthopnea. Cardiovascular Denies anginal chest pain, palpitations or orthopnea. Gastrointestinal Denies nausea, vomiting, diarrhea, GI bleeding, or constipation. Denies change in bowel habits and/or stool color, no heartburn or early satiety. Genitourinary (M) Denies hematuria, dysuria, increased frequency, urgency, hesitancy or incontinence. Musculoskeletal Denies joint pain, swelling or redness. No decreased range of motion. Integumentary Denies chronic rashes, inflammation, ulcerations or skin changes. Neurologic Denies headache, blurred vision, and no areas of focal weakness or numbness. Normal gait. No sensory problems. Psychiatric Denies insomnia, depression, alex or mood swings. Vital Signs: Performed on Jul 22, 2019 10:58 Height - 64.00 in Weight - 150.0 lbs (LOW) BSA - 1.73 sq.m BMI - 25.75 Temperature - 97.3 F (LOW) Pulse - 66 /min Respiration - 16 /min BP - 132/68 mm(hg) O2 Sat - 98 % Pain - 0 Fatigue - 1,0 - Fully active, able to carry on all predisease activities without restrictions. (ECOG) Physical Examination: Constitutional Alert, oriented, no acute distress. Skin pink, warm and dry. Head Normocephalic; atraumatic. Eyes Conjunctivae and sclerae are clear and without icterus. Pupils are reactive and equal. ENMT No oral exudates, ulcers, masses, thrush or mucositis. Oropharynx clear. Tongue normal. Neck Supple without masses or thyromegaly. No jugular venous distension. Hematologic/Lymphatic No petechiae or purpura. Respiratory Lungs are clear to auscultation without rhonchi or wheezing. Cardiovascular Regular rate and rhythm of heart without murmurs,clicks, gallops or rubs. Chest Chest is symmetric without chest wall deformities. Left subclavian venous access device insertion site is unremarkable. Breasts Back/Spine Non-tender to palpation. Extremities No visible deformities, no cyanosis, clubbing or edema. Pulses 4+ and equal bilaterally. Musculoskeletal No tenderness or swelling, normal range of motion without obvious weakness. Integumentary No rashes or lesions. Neurologic No sensory or motor deficits, normal cerebellar function, normal gait. Psychiatric Alert and oriented times three. Coherent speech. Verbalizes understanding of our discussions today. Laboratory:Test performed on Jul 22, 2019 09:25 Sodium 137 mmol/L Potassium 4.7 mmol/L Chloride 100 mmol/L CO2 27 mmol/L Anion Gap 14.7 BUN 18 mg/dL Creatinine 1.2 mg/dL Cr Clearance (Est) 50.6400 mL/min Glucose 109 mg/dL Calcium 9.9 mg/dL Protein, Total 7.3 g/dL Albumin 4.2 g/dL Globulin 3.1 g/dL Bilirubin, Total 0.4 mg/dL ALT (SGPT) 32 U/L AST (SGOT) 31 U/L Alkaline Phosphatase 74 IU/L WBC 6.4 10 3/uL RBC 4.15 10 6/uL HGB 13.8 g/dL HCT 39.8 % MCV 95.9 fL MCH 33.3 pg MCHC 34.7 g/dL RDW 14.3 % Platelet Count 272 10 3/cmm MPV 9.4 fL Neutrophils 3.8 10 3/uL Lymphocytes 1.8 10 3/uL Monocytes 0.6 10 3/uL Eosinophils 0.2 10 3/uL Basophils 0.0 10 3/uL Neutrophil % 59.4 % Lymphocyte % 27.6 % Monocyte % 10.0 % Eosinophil % 2.3 % Basophils % 0.5 % Test performed on Jun 24, 2019 08:44 CEA 6.2 ng/mL Test performed on Jun 10, 2019 09:32 Manual Lymphocytes 1.8 % Manual Monocytes 0.7 % Manual Eosinophils 0.2 % Manual Basophils 0.0 % NRBCs 0.0 /100 WBC Test performed on May 27, 2019 08:35 Ua Color YELLOW Ua Appearance CLEAR Ua Glucose NORM Ua Bilirubin NEG Colored urine samples may result in false positive dipstick reactions. Ua Ketones NEG Ua Specific Wolverine 1.015 Ua Blood NEG Ua pH 5 Ua Protein NEG Ua Nitrites NEG Ua Leukocyte Esterase NEG Test performed on May 21, 2019 09:50 CBC Slide Review SLIDE REVIEW PERFORM Impression: 1. Recurrent adenocarcinoma involving paratracheal lymph node per bronchoscopy/ mediastinoscopy done on 04/28/2019 Immunohistochemistry positive for CDX -2, CK 20 Negative for CK 7, TTF-1 and CEA checked on 05/05/2019 was 10.6 2. 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 He underwent laparoscopic right hemicolectomy on 01/10/2017. High risk features included near obstructing primary tumor, pathologic evidence of lymphovascular space invasion, and less than 12 lymph nodes sampled. 3. s/p adjuvant chemotherapy with modified FOLFOX.???4 from 01/30/2017 through 04/02/2017, FOLFOX minus oxaliplatin ???8 from 04/23/2017 through 07/23/2017. 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 4. He has iron deficiency anemia , resolved . His other medical illnesses include: 5. Hypertension. 6. Hyperlipidemia. 7. Type II diabetes .Follow-up colonoscopy done on 02/06/2018 showed ileocolic anastomosis looked intact without evidence of recurrence, and wide patent. In the proximal transverse colon, an abnormality was noted. Follow-up colonoscopy done on 02/26/2019 showed no abnormality seen, ileocolic anastomosis widely patent without evidence of local recurrence. CEA checked on 01/07/2019 was 7.2 compared to 2.4 on 07/05/2018 and repeat CEA on 03/04/[address] PET scan done on 03/15/2019 showed 3.1 x 2.2 cm mass in the right middle lobe with SUV of 22.1, and adjust in the right middle lobe FDG positive satellite nodule noted. The right lower lobe perihilar nodule measuring 1.6 cm with SUV of 21.6. Multiple mediastinal nodes are FDG positive, consistent with metastatic disease and index node in the right 4R peritracheal territory measures 1.6 cm with SUV of 23.0 and other similar nodes are evident in the right pericardial, right superior mediastinal, right periesophageal territory. No evidence of metastatic disease to bone or below diaphragm. Clinically, patient is doing well, tolerated mediastinoscopy well now surgical wound is healing well. And final pathology report came back metastatic adenocarcinoma, probably GI in origin. Discussed with patient regarding treatment options. 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 He began cycle 1 of 6 on 03/13/2019. He has tolerated it extremly well at this time. Dr Goodman recommended 6 cycles of FOLFIRI/Avastin the restage with followup PET/CT. Mr Yu began cycle 1 on 05/13/2019. He has tolerated it well. After 5 cycles of chemotherapy, Mr. Yu had follow-up PET/CT on 07/19/2019 with [facility]. The findings reported were continued physiological tracer activity at the colonic anastomosis. The right middle lobe mass that previously measured 3.1 x 2.2 cm with an SUV of 22.1 now measures 1.0 x 1.3 cm with an SUV of 7.7, indicating a positive response to therapy. There are similar improvement in the secondary right middle lobe nodule and in the right lower lobe nodule. The index node in the right 4R paratracheal territory now measures 1.5 with an SUV of 5.7 and previously was 1.8 cm with an SUV of 23. Multiple other mediastinal nodes demonstrate similar improvement . Dr. Goodman has reviewed the PET/CT and has recommended that Mr. Yu pursue 6 more cycles of chemotherapy. Plan: 1. Proceed with FOLFIRI/Avastin) cycle 6/12 day 1 He has tolerated it well. 2. Labs from today were reviewed in detail and discussed with and Mrs. Yu and a copy was given to them. CBC 6.4, hemoglobin 13.8, platelets 272,000, ANC is 3800 creatinine is 1.2 LFTs are normal. His blood pressure today was 132/68. Baseline CEA on 05/05/2019 was 10.6 and CEA on 06/24/2019 was 6.2. Urine was negative for protein. 3. We will plan to see Mr. Yu back in 2 week for cycle 7/12 FOLFIRI/Avastin. I have asked for a CBC, CMP and a CEA. He will need a UA for Avastin monitoring with cycle 7 or 8. His blood pressures are normal at this time. 4. We did review the PET/CT from 07/19/2019 in detail and a copy was given to them. They were informed of Dr Bob recommendation to continue with 6 more cycles. 5. Mr. Yu has been instructed to contact us in the interim should questions or problems arise. Signed By: Tripp Gibson-, [facility] Hayley Goodman MD <<Signature on File>>
== END 2019-08-02 23:59 | disposition home or self-care (01) ==
LOC: ONCMED 05:41
PROVIDERS: Internal Medicine Hematology & Oncology; Family Provider Family Medicine; PCP Family Medicine; Visit Provider Nurse Practitioner
DX: Z51.11 Encounter for antineoplastic chemotherapy (principal); C18.0 Malignant neoplasm of cecum; C77.1 Secondary and unspecified malignant neoplasm of intrathoracic lymph nodes; C78.01 Secondary malignant neoplasm of right lung; Z45.2 Encounter for adjustment and management of vascular access device; I10 Essential (primary) hypertension; E78.5 Hyperlipidemia, unspecified; E11.42 Type 2 diabetes mellitus with diabetic polyneuropathy; Z79.899 Other long term (current) drug therapy; Z90.49 Acquired absence of other specified parts of digestive tract; Z79.82 Long term (current) use of aspirin; Z79.84 Long term (current) use of oral hypoglycemic drugs
CPT/HCPCS: 80053; 81003; 85025; 96367; 96368; 96375; 96413; 96415; 96416; 96417; 96523; 99214; J0461; J0640; J1100; J1453; J2469; J3490; J7050; J9035; J9206

== ENCOUNTER 2019-09-02 06:36 | Outpatient (RCR) | payer MEDICARE, OTHER, SELFPAY ==
[2019-08-05] MEDS: alteplase 1 mg/mL SDV 2 mL 2 MG IV (09:10)
[2019-08-05 09:38] LABS: Add Urine Microscopic? NO
[2019-08-05 09:45] LABS: Basophils % 0.3 %; Eosinophils # 0.1 10^3/uL (0.0-0.8); Eosinophils % 1.4 %; Hematocrit 37.3 % (42.0-52.0); Hemoglobin 12.7 g/dL (11.7-16.6); Lymphocytes # 1.6 10^3/uL (0.8-4.8); Lymphocytes % 22.4 %; Mean Corpuscular Hemoglobin 32.2 pg (28.0-34.0); Mean Corpuscular Volume 94.4 fL (80-94); Mean Platelet Volume 9.5 fL (7.4-10.4); Monocytes # 0.6 10^3/uL (0.2-0.9); Monocytes % 8.4 %; Neutrophils # 4.8 10^3/uL (1.8-7.7); Neutrophils % 67.2 %; Nucleated Red Blood Cells % 0 %; Platelet Count 250 10^3/cmm (130-400); Red Blood Count 3.95 10^6/uL (4.1-5.3); Red Cell Distribution Width 14.1 % (12.1-15.1); White Blood Count 7.2 10^3/uL (4.0-10.0)
[2019-08-05 09:45] LABS: Bilirubin Urine Neg (NEGATIVE); Blood Urine Neg (Negative); Glucose Urine UA Norm (Normal); Ketones Urine Negative (Negative); Leukocyte Esterase Urine Negative (Negative); Nitrate Urine Negative (Negative); Protein Urine Neg (Negative); Urine Appearance Clear (CLEAR); Urine Color Yellow (Yellow); Urobilinogen Urine Norm (Negative)
[2019-08-05 10:07] LABS: Carcinoembryonic Antigen 4.1 ng/mL (0.0-4.7)
[2019-08-05 10:18] LABS: Alanine Aminotransferase 35 U/L (0-41); Alkaline Phosphatase 69 IU/L (40-130); Anion Gap 16.6 (5-19); Aspartate Amino Transferase 31 U/L (0-40); Blood Urea Nitrogen 14 mg/dL (8-23); Calcium 9.5 mg/dL (8.5-10.5); Carbon Dioxide 24 mmol/L (22-29); Chloride 101 mmol/L (98-107); Globulin 2.9 g/dL (1.3-4.6); Glucose 95 mg/dL (65-115); Potassium 4.6 mmol/L (3.5-5.1); Sodium 137 mmol/L (136-145); Total Bilirubin 0.3 mg/dL (0.15-1.2); Total Protein 6.9 g/dL (6.6-8.7)
--- NOTE | 2019-08-05 11:07 | ONC FU_ITS ---
[facility] Patient Note Patient: Geoff Yu Unit #: [id number]: [id number] Dictated By: Tripp GibsonDate of Visit: Aug 05, 2019 Onc MED Follow-Up/Prog Note Chief Complaint: Colon cancer. 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 He had presented with symptoms of abdominal pain and early satiety. CT abdomen/pelvis on 01/05/2017 showed an apple core appearing lesion at the hepatic flexure with associated obstruction involving the ascending colon, cecum, and ileum. The appearance was suspicious for neoplasm. There was a small amount of pelvic ascites. A 6.9 mm right lower lobe noncalcified pulmonary nodule was felt to be nonspecific. There was otherwise no evidence of metastatic disease. Colonoscopy on 01/09/2017 showed a partially obstructing malignant appearing mass at the hepatic flexure estimated at 5 x 4 cm. An additional sessile polyp was noted in the distal sigmoid colon and excised by hot snare. Biopsy of the hepatic flexure mass showed poorly differentiated infiltrating adenocarcinoma. The distal sigmoid lesion was a hyperplastic polyp. He underwent laparoscopic right hemicolectomy with ileocolic anastomosis and partial omentectomy on 01/10/2017. Pathology showed moderately differentiated infiltrating adenocarcinoma with invasion of the muscularis propria into rehana-colic tissue. The tumor measured 2.3 x 1.8 cm. The margins were free of tumor. There was evidence of lymphovascular space invasion. A total of 7 lymph nodes were identified in the sample and all were negative for metastatic disease. Final pathologic staging was T3, N0. He had several high risk features including a near obstructing primary tumor, evidence of lymphovascular space invasion, and less then 12 lymph nodes sampled. 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 Follow-up colonoscopy done on 02/06/2018 showed ileocolic anastomosis looked intact without evidence of recurrence and wide patent. In the proximal transverse colon, an abnormality was noted. He was followed by Dr. Willingham His other medical illnesses include hypertension, hyperlipidemia, and type II diabetes. He is a nonsmoker. Follow-up colonoscopy done on 02/26/2019 showed normal findings. Ileocolic anastomosis is widely patent without evidence of local recurrence. CEA repeated on 03/04/2019 was 7.7 compared to 7.2 on 01/07/2019 CT PET scan done on 03/15/2019 showed 3.1 x 2.2 cm mass in the right middle lobe with SUV of 22.1, and an adjacent right middle lobe FDG positive satellite nodule was noted. The right lower lobe perihilar nodule measuring 1.6 cm with SUV of 21.6. Multiple mediastinal nodes are FDG positive, consistent with metastatic disease and index node in the right 4R peritracheal territory measures 1.6 cm with SUV of 23.0 and other similar nodes are evident in the right pericardial, right superior mediastinal, right periesophageal territory. No evidence of metastatic disease to bone or below diaphragm Underwent mediastinoscopy on 04/28/2019 and lymph node biopsy was obtained from paratracheal, station 4R, final pathology report showed metastatic adenocarcinoma, consistent with GI origin. The tumor was positive for CD X2, CK 20; negative for CK 7 and TTF-1. Dr Goodman recommended 6 cycles of FOLFIRI/Avastin the restage with followup PET/CT. Mr Yu began cycle 1 on 05/13/2019. He has tolerated it well. Mr. Yu had follow-up PET/CT on 07/19/2019 with [facility]. The findings reported were continued physiological tracer activity at the colonic anastomosis. The right middle lobe mass that previously measured 3.1 x 2.2 cm with an SUV of 22.1 now measures 1.0 x 1.3 cm with an SUV of 7.7, indicating a positive response to therapy. There are similar improvement in the secondary right middle lobe nodule and in the right lower lobe nodule. The index node in the right 4R paratracheal territory now measures 1.5 with an SUV of 5.7 and previously was 1.8 cm with an SUV of 23. Multiple other mediastinal nodes demonstrate similar improvement . Dr. Goodman has reviewed the PET/CT and has recommended that Mr. Yu pursue 6 more cycles of chemotherapy. Mr. Yu is here today for follow-up. He is due for cycle 7. He states overall he continues to feel really good. He has been working in his yard and fighting with his manju bushes. He remains very active. He did have some cold induced numbness in his lips and tongue after the last chemo, but that resolved a day after the pump was removed. He denies any nausea or vomiting. He has had no fever or chills. He states his appetite is good. He denies any diarrhea. He states he does have some fatigue off and on but recovers well with rest. He states about 2 days after the pump come off, he feels good and can't tell he has had any chemotherapy. His ECOG is 0. . Past Medical History: Diabetes type II Hyperlipidemia Hypertension Past Surgical History: Pneumonia Vaccine in 2017 - Given in left deltoid./lc Flu Vacccine in 2017 - Pt stated he had flu vaccine at [facility] 02/26/17./lc Left subclavian venous access device-Dr Willingham in 2017 Right Hemicolectomy in 2017 Allergies: Isosorbide Mononitrate and Succinylcholine Chloride. Medications: Aspirin 1 Tablet (of 81 mg) Oral daily Ativan 1 (0.5 mg) Tablet Oral q 4 hours PRN Atorvastatin Calcium 1 Tablet (of 40 mg) Oral daily B-12 1 Tablet (of 1000 mcg) Oral daily Calcium Carb-Cholecalciferol 1 Capsule (of 500-125 Units/mg) Oral daily Cholecalciferol 1 Tablet (of 25 mcg) Oral daily Cinnamon 1 (500 mg) Capsule Oral b.i.d. Compazine Tablet Oral q 4 hours PRN Fish Oil 1 (1000 mg) Capsule Oral daily hydroCHLOROthiazide 1 Capsule (of 12.5 mg) Oral at bedtime Lisinopril 1 Tablet (of 40 mg) Oral daily MetFORMIN HCl 1 Tablet (of 500 mg) Oral b.i.d. Metoprolol Tartrate 0.5 Tablet (of 25 mg) Oral b.i.d. Multivitamin Adult 1 Tablet Oral daily Nitroglycerin 1 (0.4 mg) Tablet, sublingual Sublingual PRN Pepcid 1 (20 mg) Tablet Oral daily PRN PriLOSEC 1 Capsule (of 20 mg) Capsule Delayed Release Oral daily PRN Vitamin C 1 Tablet (of 500 mg) Oral daily Vitamin E 1 Capsule (of 400 Units) Oral daily Family History: Mr. Yu's mother at age 74: lung cancer. Mr. Yu's father at age 48: heart attack. Social History: Mr. Yu is and he is retired. Mr. Yu has never smoked. He has no history of drinking. Mr. Yu reports the following support systems: lives with spouse, significant other, family, or friends, lives in own house, supportive family/friends willing to assist with needs, and adequate transportation available for expected visits. His diet consists of regular meals. He indicates his activity level as: daily activities. Review Of Symptoms: Constitutional Denies fevers, chills, night sweats, excessive fatigue or weight loss. Allergic/Immunologic No reactions. Eyes Denies significant visual changes. No diplopia. No amaurosis. ENMT Denies changes in hearing, sore throat, mouth sores, difficulty or changes in swallowing ability, and/or sinus drainage. Endocrine No diabetes, thyroid disease or hormone replacement. Denies hot flashes or night sweats. Hematologic/Lymphatic Denies easy bruising or bleeding. The patient denies any tender or palpable lymph nodes. Respiratory Denies dyspnea on exertion, chest pain, cough or hemoptysis. Denies orthopnea. Cardiovascular Denies anginal chest pain, palpitations or orthopnea. Gastrointestinal Denies nausea, vomiting, diarrhea, GI bleeding, or constipation. Denies change in bowel habits and/or stool color, no heartburn or early satiety. Genitourinary (M) Denies hematuria, dysuria, increased frequency, urgency, hesitancy or incontinence. Musculoskeletal Denies joint pain, swelling or redness. No decreased range of motion. Integumentary Denies chronic rashes, inflammation, ulcerations or skin changes. Neurologic Denies headache, blurred vision, and no areas of focal weakness or numbness. Normal gait. No sensory problems. Psychiatric Denies insomnia, depression, alex or mood swings. Vital Signs: Performed on Aug 05, 2019 10:19 Height - 64.00 in Weight - 151 lbs (HIGH) BSA - 1.74 sq.m BMI - 25.92 Temperature - 98.1 F (LOW) Pulse - 61 /min Respiration - 16 /min BP - 131/70 mm(hg) O2 Sat - 96 % Pain - 0,0 - Fully active, able to carry on all predisease activities without restrictions. (ECOG) Physical Examination: Constitutional Alert, oriented, no acute distress. Skin pink, warm and dry. Head Normocephalic; atraumatic. Eyes Conjunctivae and sclerae are clear and without icterus. Pupils are reactive and equal. Neck Supple without masses or thyromegaly. No jugular venous distension. Hematologic/Lymphatic No petechiae or purpura. Respiratory Lungs are clear to auscultation without rhonchi or wheezing. Cardiovascular Regular rate and rhythm of heart without murmurs,clicks, gallops or rubs. Chest Chest is symmetric without chest wall deformities. Left subclavian venous access device insertion site is unremarkable. Breasts Back/Spine Non-tender to palpation. Extremities No visible deformities, no cyanosis, clubbing or edema. Pulses 4+ and equal bilaterally. Musculoskeletal No tenderness or swelling, normal range of motion without obvious weakness. Integumentary No rashes or lesions. Neurologic No sensory or motor deficits, normal cerebellar function, normal gait. Psychiatric Alert and oriented times three. Coherent speech. Verbalizes understanding of our discussions today. Laboratory:Test performed on Aug 05, 2019 09:30 Sodium 137 mmol/L Potassium 4.6 mmol/L Chloride 101 mmol/L CO2 24 mmol/L Anion Gap 16.6 BUN 14 mg/dL Creatinine 1.0 mg/dL Cr Clearance (Est) 60.7700 mL/min Glucose 95 mg/dL Calcium 9.5 mg/dL Protein, Total 6.9 g/dL Albumin 4.0 g/dL Globulin 2.9 g/dL Bilirubin, Total 0.3 mg/dL ALT (SGPT) 35 U/L AST (SGOT) 31 U/L Alkaline Phosphatase 69 IU/L WBC 7.2 10 3/uL RBC 3.95 10 6/uL HGB 12.7 g/dL HCT 37.3 % MCV 94.4 fL MCH 32.2 pg MCHC 34.0 g/dL RDW 14.1 % Platelet Count 250 10 3/cmm MPV 9.5 fL Neutrophils 4.8 10 3/uL Lymphocytes 1.6 10 3/uL Monocytes 0.6 10 3/uL Eosinophils 0.1 10 3/uL Basophils 0.0 10 3/uL Neutrophil % 67.2 % Lymphocyte % 22.4 % Monocyte % 8.4 % Eosinophil % 1.4 % Basophils % 0.3 % CEA 4.1 ng/mL Impression: 1. Recurrent adenocarcinoma involving paratracheal lymph node per bronchoscopy/ mediastinoscopy done on 04/28/2019 Immunohistochemistry positive for CDX -2, CK 20 Negative for CK 7, TTF-1 and CEA checked on 05/05/2019 was 10.6 2. 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 He underwent laparoscopic right hemicolectomy on 01/10/2017. High risk features included near obstructing primary tumor, pathologic evidence of lymphovascular space invasion, and less than 12 lymph nodes sampled. 3. s/p adjuvant chemotherapy with modified FOLFOX.???4 from 01/30/2017 through 04/02/2017, FOLFOX minus oxaliplatin ???8 from 04/23/2017 through 07/23/2017. 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 4. He has iron deficiency anemia , resolved . His other medical illnesses include: 5. Hypertension. 6. Hyperlipidemia. 7. Type II diabetes .Follow-up colonoscopy done on 02/06/2018 showed ileocolic anastomosis looked intact without evidence of recurrence, and wide patent. In the proximal transverse colon, an abnormality was noted. Follow-up colonoscopy done on 02/26/2019 showed no abnormality seen, ileocolic anastomosis widely patent without evidence of local recurrence. CEA checked on 01/07/2019 was 7.2 compared to 2.4 on 07/05/2018 and repeat CEA on 03/04/[address] PET scan done on 03/15/2019 showed 3.1 x 2.2 cm mass in the right middle lobe with SUV of 22.1, and adjust in the right middle lobe FDG positive satellite nodule noted. The right lower lobe perihilar nodule measuring 1.6 cm with SUV of 21.6. Multiple mediastinal nodes are FDG positive, consistent with metastatic disease and index node in the right 4R peritracheal territory measures 1.6 cm with SUV of 23.0 and other similar nodes are evident in the right pericardial, right superior mediastinal, right periesophageal territory. No evidence of metastatic disease to bone or below diaphragm. Clinically, patient is doing well, tolerated mediastinoscopy well now surgical wound is healing well. And final pathology report came back metastatic adenocarcinoma, probably GI in origin. Discussed with patient regarding treatment options. 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 He began cycle 1 of 6 on 03/13/2019. He has tolerated it extremly well at this time. Dr Goodman recommended 6 cycles of FOLFIRI/Avastin the restage with followup PET/CT. Mr Yu began cycle 1 on 05/13/2019. He has tolerated it well. After 5 cycles of chemotherapy, Mr. Yu had follow-up PET/CT on 07/19/2019 with [facility] radiology out [facility]. The findings reported were continued physiological tracer activity at the colonic anastomosis. The right middle lobe mass that previously measured 3.1 x 2.2 cm with an SUV of 22.1 now measures 1.0 x 1.3 cm with an SUV of 7.7, indicating a positive response to therapy. There are similar improvement in the secondary right middle lobe nodule and in the right lower lobe nodule. The index node in the right 4R paratracheal territory now measures 1.5 with an SUV of 5.7 and previously was 1.8 cm with an SUV of 23. Multiple other mediastinal nodes demonstrate similar improvement . Dr. Goodman has reviewed the PET/CT and has recommended that Mr. Yu pursue 6 more cycles of chemotherapy. Mr Yu will proceed with cycle 7 today. Plan: 1. Proceed with FOLFIRI/Avastin day 1 of cycle 12/13. He continues to tolerate it well. 2. Labs from today were reviewed in detail and discussed with and Mrs. Yu and a copy was given to them. CBC 67.2, hemoglobin 12.7, platelets 250,000, ANC is 4800 creatinine is 1.0 LFTs are normal. His blood pressure today was 131/70.. Baseline CEA on 05/05/2019 was 10.6 and CEA on 06/24/2019 was 6.2. Urine was negative for protein in May 2019-pending for today. 3. We will plan to see Mr. Yu back in 2 week for cycle 8/ FOLFIRI/Avastin. I have asked for a CBC, CMP and CEA. 4. Mr. Yu has been instructed to contact us in the interim should questions or problems arise. Signed By: Tripp Gibson-, [facility] Hayley Goodman MD <<Signature on File>>
[2019-08-05] MEDS: sodium chloride 0.9% 250 ML 75 ML IV (11:10)
[2019-08-19 09:46] LABS: Add Urine Microscopic? NO
[2019-08-19 09:52] LABS: Basophils # 0.1 10^3/uL (0.0-0.1); Basophils % 0.7 %; Eosinophils # 0.4 10^3/uL (0.0-0.8); Hemoglobin 13.2 g/dL (11.7-16.6); Lymphocytes # 1.6 10^3/uL (0.8-4.8); Lymphocytes % 22.9 %; Mean Corpuscular HGB Conc 33.8 g/dL (30.0-36.0); Mean Corpuscular Hemoglobin 32.9 pg (28.0-34.0); Mean Corpuscular Volume 97.3 fL (80-94); Mean Platelet Volume 9.6 fL (7.4-10.4); Monocytes # 0.7 10^3/uL (0.2-0.9); Monocytes % 10.1 %; Neutrophils # 4.3 10^3/uL (1.8-7.7); Nucleated Red Blood Cells % 0 %; Platelet Count 274 10^3/cmm (130-400); Red Blood Count 4.01 10^6/uL (4.1-5.3); Red Cell Distribution Width 14.3 % (12.1-15.1); White Blood Count 7.1 10^3/uL (4.0-10.0)
[2019-08-19 09:52] LABS: Bilirubin Urine Neg (NEGATIVE); Blood Urine Neg (Negative); Glucose Urine UA Norm (Normal); Ketones Urine Negative (Negative); Leukocyte Esterase Urine Negative (Negative); Nitrate Urine Negative (Negative); Protein Urine Neg (Negative); Urine Appearance Clear (CLEAR); Urine Color Yellow (Yellow); Urobilinogen Urine Norm (Negative); pH Urine 6 (5-7)
[2019-08-19 10:14] LABS: Carcinoembryonic Antigen 3.6 ng/mL (0.0-4.7)
[2019-08-19 10:25] LABS: Alanine Aminotransferase 35 U/L (0-41); Albumin Level 3.8 g/dL (3.5-5.2); Alkaline Phosphatase 67 IU/L (40-130); Anion Gap 11.6 (5-19); Aspartate Amino Transferase 31 U/L (0-40); Blood Urea Nitrogen 15 mg/dL (8-23); Carbon Dioxide 29 mmol/L (22-29); Chloride 103 mmol/L (98-107); Globulin 3.3 g/dL (1.3-4.6); Glucose 104 mg/dL (65-115); Osmolality Calculated 285 mOsm/kg (285-295); Potassium 4.6 mmol/L (3.5-5.1); Sodium 139 mmol/L (136-145); Total Bilirubin 0.3 mg/dL (0.15-1.2); Total Protein 7.1 g/dL (6.6-8.7)
[2019-08-19] MEDS: sodium chloride 0.9% 250 ML 300 ML IV (11:32)
--- NOTE | 2019-08-19 11:58 | ONC FU_ITS ---
[facility] Patient Note Patient: Geoff Yu Unit #: [id number]: 1945 Dictated By: Tripp GibsonDate of Visit: Aug 19, 2019 Onc MED Follow-Up/Prog Note Chief Complaint: Colon cancer. 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 He had presented with symptoms of abdominal pain and early satiety. CT abdomen/pelvis on 01/05/2017 showed an apple core appearing lesion at the hepatic flexure with associated obstruction involving the ascending colon, cecum, and ileum. The appearance was suspicious for neoplasm. There was a small amount of pelvic ascites. A 6.9 mm right lower lobe noncalcified pulmonary nodule was felt to be nonspecific. There was otherwise no evidence of metastatic disease. Colonoscopy on 01/09/2017 showed a partially obstructing malignant appearing mass at the hepatic flexure estimated at 5 x 4 cm. An additional sessile polyp was noted in the distal sigmoid colon and excised by hot snare. Biopsy of the hepatic flexure mass showed poorly differentiated infiltrating adenocarcinoma. The distal sigmoid lesion was a hyperplastic polyp. He underwent laparoscopic right hemicolectomy with ileocolic anastomosis and partial omentectomy on 01/10/2017. Pathology showed moderately differentiated infiltrating adenocarcinoma with invasion of the muscularis propria into rehana-colic tissue. The tumor measured 2.3 x 1.8 cm. The margins were free of tumor. There was evidence of lymphovascular space invasion. A total of 7 lymph nodes were identified in the sample and all were negative for metastatic disease. Final pathologic staging was T3, N0. He had several high risk features including a near obstructing primary tumor, evidence of lymphovascular space invasion, and less then 12 lymph nodes sampled. 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 Follow-up colonoscopy done on 02/06/2018 showed ileocolic anastomosis looked intact without evidence of recurrence and wide patent. In the proximal transverse colon, an abnormality was noted. He was followed by Dr. Willingham His other medical illnesses include hypertension, hyperlipidemia, and type II diabetes. He is a nonsmoker. Follow-up colonoscopy done on 02/26/2019 showed normal findings. Ileocolic anastomosis is widely patent without evidence of local recurrence. CEA repeated on 03/04/2019 was 7.7 compared to 7.2 on 01/07/2019 CT PET scan done on 03/15/2019 showed 3.1 x 2.2 cm mass in the right middle lobe with SUV of 22.1, and an adjacent right middle lobe FDG positive satellite nodule was noted. The right lower lobe perihilar nodule measuring 1.6 cm with SUV of 21.6. Multiple mediastinal nodes are FDG positive, consistent with metastatic disease and index node in the right 4R peritracheal territory measures 1.6 cm with SUV of 23.0 and other similar nodes are evident in the right pericardial, right superior mediastinal, right periesophageal territory. No evidence of metastatic disease to bone or below diaphragm Underwent mediastinoscopy on 04/28/2019 and lymph node biopsy was obtained from paratracheal, station 4R, final pathology report showed metastatic adenocarcinoma, consistent with GI origin. The tumor was positive for CD X2, CK 20; negative for CK 7 and TTF-1. Dr Goodman recommended 6 cycles of FOLFIRI/Avastin the restage with followup PET/CT. Mr Yu began cycle 1 on 05/13/2019. He has tolerated it well. Mr. Yu had follow-up PET/CT on 07/19/2019 with [facility]. The findings reported were continued physiological tracer activity at the colonic anastomosis. The right middle lobe mass that previously measured 3.1 x 2.2 cm with an SUV of 22.1 now measures 1.0 x 1.3 cm with an SUV of 7.7, indicating a positive response to therapy. There are similar improvement in the secondary right middle lobe nodule and in the right lower lobe nodule. The index node in the right 4R paratracheal territory now measures 1.5 with an SUV of 5.7 and previously was 1.8 cm with an SUV of 23. Multiple other mediastinal nodes demonstrate similar improvement . Dr. Goodman has reviewed the PET/CT and has recommended that Mr. Yu pursue 6 more cycles of chemotherapy. Mr. Yu is here today for follow-up. He is due for cycle 8. He continues to do well overall. He is working in his yard and tolerating this well. He states his post treatment nausea that had been having previous cycles was gone with what ever we did last treatment . I did add Emend on cycle 7. His appetite is good. He denies any pain. He has no new concerns today. He denies any fever or chills. He has had no cough or shortness of breath. He denies any diarrhea. He has had no mouth sores. His ECOG is 0. . Past Medical History: Diabetes type II Hyperlipidemia Hypertension Past Surgical History: Pneumonia Vaccine in 2017 - Given in left deltoid./lc Flu Vacccine in 2017 - Pt stated he had flu vaccine at [facility] 02/26/17./lc Left subclavian venous access device-Dr Willingham in 2017 Right Hemicolectomy in 2017 Allergies: Isosorbide Mononitrate and Succinylcholine Chloride. Medications: Aspirin 1 Tablet (of 81 mg) Oral daily Ativan 1 (0.5 mg) Tablet Oral q 4 hours PRN Atorvastatin Calcium 1 Tablet (of 40 mg) Oral daily B-12 1 Tablet (of 1000 mcg) Oral daily Calcium Carb-Cholecalciferol 1 Capsule (of 500-125 Units/mg) Oral daily Cinnamon 1 (500 mg) Capsule Oral b.i.d. Compazine Tablet Oral q 4 hours PRN Fish Oil 1 (1000 mg) Capsule Oral daily hydroCHLOROthiazide 1 Capsule (of 12.5 mg) Oral at bedtime Lisinopril 1 Tablet (of 40 mg) Oral daily MetFORMIN HCl 1 Tablet (of 500 mg) Oral b.i.d. Metoprolol Tartrate 0.5 Tablet (of 25 mg) Oral b.i.d. Multivitamin Adult 1 Tablet Oral daily Nitroglycerin 1 (0.4 mg) Tablet, sublingual Sublingual PRN Pepcid 1 (20 mg) Tablet Oral daily PRN PriLOSEC 1 Capsule (of 20 mg) Capsule Delayed Release Oral daily PRN Vitamin C 1 Tablet (of 500 mg) Oral daily Vitamin E 1 Capsule (of 400 Units) Oral daily Family History: Mr. Yu's mother at age 74: lung cancer. Mr. Yu's father at age 48: heart attack. Social History: Mr. Yu is and he is retired. Mr. Yu has never smoked. He has no history of drinking. Mr. Yu reports the following support systems: lives with spouse, significant other, family, or friends, lives in own house, supportive family/friends willing to assist with needs, and adequate transportation available for expected visits. His diet consists of regular meals. He indicates his activity level as: daily activities. Review Of Symptoms: Constitutional Denies fevers, chills, night sweats, excessive fatigue or weight loss. Has been working in his yard. Allergic/Immunologic No reactions. Eyes Denies significant visual changes. No diplopia. No amaurosis. ENMT Denies changes in hearing, sore throat, mouth sores, difficulty or changes in swallowing ability, and/or sinus drainage. Endocrine No diabetes, thyroid disease or hormone replacement. Denies hot flashes or night sweats. Hematologic/Lymphatic Denies easy bruising or bleeding. The patient denies any tender or palpable lymph nodes. Respiratory Denies dyspnea on exertion, chest pain, cough or hemoptysis. Denies orthopnea. Cardiovascular Denies anginal chest pain, palpitations or orthopnea. Gastrointestinal Denies nausea, vomiting, diarrhea, GI bleeding, or constipation. Denies change in bowel habits and/or stool color, no heartburn or early satiety. Nausea post chemo from previous cycles did not occur last cycle with addition of Emend. Genitourinary (M) Denies hematuria, dysuria, increased frequency, urgency, hesitancy or incontinence. Musculoskeletal Denies joint pain, swelling or redness. No decreased range of motion. Integumentary Denies chronic rashes, inflammation, ulcerations or skin changes. Neurologic Denies headache, blurred vision, and no areas of focal weakness or numbness. Normal gait. No sensory problems. Psychiatric Denies insomnia, depression, alex or mood swings. Vital Signs: Performed on Aug 19, 2019 10:54 Height - 64.00 in Weight - 151.0 lbs BSA - 1.74 sq.m BMI - 25.92 Temperature - 97.7 F (LOW) Pulse - 62 /min Respiration - 18 /min BP - 144/68 mm(hg) (HIGH) O2 Sat - 97 % Pain - 0,0 - Fully active, able to carry on all predisease activities without restrictions. (ECOG) Physical Examination: Constitutional Alert, oriented, no acute distress. Skin pink, warm and dry. Head Normocephalic; atraumatic. Eyes Conjunctivae and sclerae are clear and without icterus. Pupils are reactive and equal. Neck Supple without masses or thyromegaly. No jugular venous distension. Hematologic/Lymphatic No petechiae or purpura. Respiratory Lungs are clear to auscultation without rhonchi or wheezing. Cardiovascular Regular rate and rhythm of heart without murmurs,clicks, gallops or rubs. Chest Left subclavian venous access device insertion site is unremarkable. Back/Spine Non-tender to palpation. Extremities No visible deformities, no cyanosis, clubbing or edema. Musculoskeletal No tenderness or swelling, normal range of motion without obvious weakness. Integumentary No rashes or lesions. Neurologic No sensory or motor deficits, normal cerebellar function, normal gait. Psychiatric Alert and oriented times three. Coherent speech. Verbalizes understanding of our discussions today. Laboratory:Test performed on Aug 19, 2019 09:28 Sodium 139 mmol/L Potassium 4.6 mmol/L Chloride 103 mmol/L CO2 29 mmol/L Anion Gap 11.6 BUN 15 mg/dL Creatinine 1.0 mg/dL Cr Clearance (Est) 60.7700 mL/min Glucose 104 mg/dL Calcium 9.0 mg/dL Protein, Total 7.1 g/dL Albumin 3.8 g/dL Globulin 3.3 g/dL Bilirubin, Total 0.3 mg/dL ALT (SGPT) 35 U/L AST (SGOT) 31 U/L Alkaline Phosphatase 67 IU/L WBC 7.1 10 3/uL RBC 4.01 10 6/uL HGB 13.2 g/dL HCT 39.0 % MCV 97.3 fL MCH 32.9 pg MCHC 33.8 g/dL RDW 14.3 % Platelet Count 274 10 3/cmm MPV 9.6 fL Neutrophils 4.3 10 3/uL Lymphocytes 1.6 10 3/uL Monocytes 0.7 10 3/uL Eosinophils 0.4 10 3/uL Basophils 0.1 10 3/uL Neutrophil % 61.0 % Lymphocyte % 22.9 % Monocyte % 10.1 % Eosinophil % 5.0 % Basophils % 0.7 % CEA 3.6 ng/mL Impression: 1. Recurrent adenocarcinoma involving paratracheal lymph node per bronchoscopy/ mediastinoscopy done on 04/28/2019 Immunohistochemistry positive for CDX -2, CK 20 Negative for CK 7, TTF-1 and CEA checked on 05/05/2019 was 10.6 2. 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 He underwent laparoscopic right hemicolectomy on 01/10/2017. High risk features included near obstructing primary tumor, pathologic evidence of lymphovascular space invasion, and less than 12 lymph nodes sampled. 3. s/p adjuvant chemotherapy with modified FOLFOX.???4 from 01/30/2017 through 04/02/2017, FOLFOX minus oxaliplatin ???8 from 04/23/2017 through 07/23/2017. 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 4. He has iron deficiency anemia , resolved . His other medical illnesses include: 5. Hypertension. 6. Hyperlipidemia. 7. Type II diabetes .Follow-up colonoscopy done on 02/06/2018 showed ileocolic anastomosis looked intact without evidence of recurrence, and wide patent. In the proximal transverse colon, an abnormality was noted. Follow-up colonoscopy done on 02/26/2019 showed no abnormality seen, ileocolic anastomosis widely patent without evidence of local recurrence. CEA checked on 01/07/2019 was 7.2 compared to 2.4 on 07/05/2018 and repeat CEA on 03/04/[address] PET scan done on 03/15/2019 showed 3.1 x 2.2 cm mass in the right middle lobe with SUV of 22.1, and adjust in the right middle lobe FDG positive satellite nodule noted. The right lower lobe perihilar nodule measuring 1.6 cm with SUV of 21.6. Multiple mediastinal nodes are FDG positive, consistent with metastatic disease and index node in the right 4R peritracheal territory measures 1.6 cm with SUV of 23.0 and other similar nodes are evident in the right pericardial, right superior mediastinal, right periesophageal territory. No evidence of metastatic disease to bone or below diaphragm. Clinically, patient is doing well, tolerated mediastinoscopy well now surgical wound is healing well. And final pathology report came back metastatic adenocarcinoma, probably GI in origin. Discussed with patient regarding treatment options. 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 He began cycle 1 of 6 on 03/13/2019. He has tolerated it extremly well at this time. Dr Goodman recommended 6 cycles of FOLFIRI/Avastin the restage with followup PET/CT. Mr Yu began cycle 1 on 05/13/2019. He has tolerated it well. After 5 cycles of chemotherapy, Mr. Yu had follow-up PET/CT on 07/19/2019 with [facility] radiology out [facility]. The findings reported were continued physiological tracer activity at the colonic anastomosis. The right middle lobe mass that previously measured 3.1 x 2.2 cm with an SUV of 22.1 now measures 1.0 x 1.3 cm with an SUV of 7.7, indicating a positive response to therapy. There are similar improvement in the secondary right middle lobe nodule and in the right lower lobe nodule. The index node in the right 4R paratracheal territory now measures 1.5 with an SUV of 5.7 and previously was 1.8 cm with an SUV of 23. Multiple other mediastinal nodes demonstrate similar improvement . Dr. Goodman has reviewed the PET/CT and has recommended that Mr. Yu pursue 6 more cycles of chemotherapy. Mr Yu will proceed with cycle 8/12 today. Plan: 1. Proceed with FOLFIRI/Avastin day 1 of cycle 8/12. He continues to tolerate it well. 2. Continue with Emend premed (it was added on cycle 7 for post treatment nausea) as he did not have the post treatment nausea last cycle. 3. Labs from today were reviewed in detail and discussed with and Mrs. Yu and a copy was given to them. WBC 7.1, hemoglobin 13.2, platelets 274,000, ANC is 4300 creatinine is 1.0 LFTs are normal. His blood pressure today was 144/68.. Baseline CEA on 05/05/2019 was 10.6 and CEA on 08/19/2019 was 3.6. Urine was negative for protein in May 2019-and is still negative today. 3. We will plan to see Mr. Yu back in 2 week for cycle 02/13 FOLFIRI/Avastin. I have asked for a CBC, CMP and CEA. His UA's have not reported any protein, so I will decrease the frequency to every other treatment as he nears completion of the current plan of care/ 4. Mr. Yu has been instructed to contact us in the interim should questions or problems arise. Signed By: Tripp Gibson-, AOCNP Hayley Goodman MD <<Signature on File>>
[2019-09-02 10:00] LABS: Add Urine Microscopic? NO
[2019-09-02 10:14] LABS: Basophils # 0.1 10^3/uL (0.0-0.1); Basophils % 0.7 %; Eosinophils # 0.3 10^3/uL (0.0-0.8); Eosinophils % 4.4 %; Hematocrit 37.5 % (42.0-52.0); Hemoglobin 12.7 g/dL (11.7-16.6); Lymphocytes # 1.5 10^3/uL (0.8-4.8); Mean Corpuscular HGB Conc 33.9 g/dL (30.0-36.0); Mean Corpuscular Hemoglobin 33.3 pg (28.0-34.0); Mean Corpuscular Volume 98.4 fL (80-94); Mean Platelet Volume 9.7 fL (7.4-10.4); Monocytes # 0.7 10^3/uL (0.2-0.9); Monocytes % 9.6 %; Neutrophils # 4.8 10^3/uL (1.8-7.7); Nucleated Red Blood Cells % 0 %; Platelet Count 258 10^3/cmm (130-400); Red Blood Count 3.81 10^6/uL (4.1-5.3); White Blood Count 7.3 10^3/uL (4.0-10.0)
[2019-09-02 10:20] LABS: Bilirubin Urine Neg (NEGATIVE); Blood Urine Neg (Negative); Glucose Urine UA Norm (Normal); Ketones Urine Negative (Negative); Leukocyte Esterase Urine Negative (Negative); Nitrate Urine Negative (Negative); Protein Urine Neg (Negative); Specific Gravity, Urine 1.015 (1.005-1.030); Urine Appearance Clear (CLEAR); Urine Color Yellow (Yellow); Urobilinogen Urine Norm (Negative)
[2019-09-02 10:30] LABS: Carcinoembryonic Antigen 3.9 ng/mL (0.0-4.7)
[2019-09-02 10:41] LABS: Alanine Aminotransferase 27 U/L (0-41); Albumin Level 3.9 g/dL (3.5-5.2); Alkaline Phosphatase 70 IU/L (40-130); Anion Gap 14.5 (5-19); Aspartate Amino Transferase 27 U/L (0-40); Blood Urea Nitrogen 14 mg/dL (8-23); Calcium 9.1 mg/dL (8.5-10.5); Carbon Dioxide 25 mmol/L (22-29); Chloride 101 mmol/L (98-107); Globulin 2.5 g/dL (1.3-4.6); Glucose 133 mg/dL (65-115); Osmolality Calculated 280 mOsm/kg (285-295); Potassium 4.5 mmol/L (3.5-5.1); Sodium 136 mmol/L (136-145); Total Bilirubin 0.3 mg/dL (0.15-1.2); Total Protein 6.4 g/dL (6.6-8.7)
[2019-09-02] MEDS: sodium chloride 0.9% 250 ML 75 ML IV (11:40)
--- NOTE | 2019-09-03 15:01 | ONC FU_ITS ---
Dr. 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 He had presented with symptoms of abdominal pain and early satiety. CT abdomen/pelvis on 01/05/2017 showed an apple core appearing lesion at the hepatic flexure with associated obstruction involving the ascending colon, cecum, and ileum. The appearance was suspicious for neoplasm. There was a small amount of pelvic ascites. A 6.9 mm right lower lobe noncalcified pulmonary nodule was felt to be nonspecific. There was otherwise no evidence of metastatic disease. Colonoscopy on 01/09/2017 showed a partially obstructing malignant appearing mass at the hepatic flexure estimated at 5 x 4 cm. An additional sessile polyp was noted in the distal sigmoid colon and excised by hot snare. Biopsy of the hepatic flexure mass showed poorly differentiated infiltrating adenocarcinoma. The distal sigmoid lesion was a hyperplastic polyp. He underwent laparoscopic right hemicolectomy with ileocolic anastomosis and partial omentectomy on 01/10/2017. Pathology showed moderately differentiated infiltrating adenocarcinoma with invasion of the muscularis propria into rehana-colic tissue. The tumor measured 2.3 x 1.8 cm. The margins were free of tumor. There was evidence of lymphovascular space invasion. A total of 7 lymph nodes were identified in the sample and all were negative for metastatic disease. Final pathologic staging was T3, N0. He had several high risk features including a near obstructing primary tumor, evidence of lymphovascular space invasion, and less then 12 lymph nodes sampled. 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 Follow-up colonoscopy done on 02/06/2018 showed ileocolic anastomosis looked intact without evidence of recurrence and wide patent. In the proximal transverse colon, an abnormality was noted. He was followed by Dr. Willingham His other medical illnesses include hypertension, hyperlipidemia, and type II diabetes. He is a nonsmoker. Follow-up colonoscopy done on 02/26/2019 showed normal findings. Ileocolic anastomosis is widely patent without evidence of local recurrence. CEA repeated on 03/04/2019 was 7.7 compared to 7.2 on 01/07/2019 CT PET scan done on 03/15/2019 showed 3.1 x 2.2 cm mass in the right middle lobe with SUV of 22.1, and an adjacent right middle lobe FDG positive satellite nodule was noted. The right lower lobe perihilar nodule measuring 1.6 cm with SUV of 21.6. Multiple mediastinal nodes are FDG positive, consistent with metastatic disease and index node in the right 4R peritracheal territory measures 1.6 cm with SUV of 23.0 and other similar nodes are evident in the right pericardial, right superior mediastinal, right periesophageal territory. No evidence of metastatic disease to bone or below diaphragm Underwent mediastinoscopy on 04/28/2019 and lymph node biopsy was obtained from paratracheal, station 4R, final pathology report showed metastatic adenocarcinoma, consistent with GI origin. The tumor was positive for CD X2, CK 20; negative for CK 7 and TTF-1. recommended 6 cycles of FOLFIRI/Avastin the restage with followup PET/CT. Mr Yu began cycle 1 on 05/13/2019. He has tolerated it well. Mr. uY had follow-up PET/CT on 07/19/2019 with [facility] radiology out [facility]. The findings reported were continued physiological tracer activity at the colonic anastomosis. The right middle lobe mass that previously measured 3.1 x 2.2 cm with an SUV of 22.1 now measures 1.0 x 1.3 cm with an SUV of 7.7, indicating a positive response to therapy. There are similar improvement in the secondary right middle lobe nodule and in the right lower lobe nodule. The index node in the right 4R paratracheal territory now measures 1.5 with an SUV of 5.7 and previously was 1.8 cm with an SUV of 23. Multiple other mediastinal nodes demonstrate similar improvement . has reviewed the PET/CT and has recommended that Mr. Yu pursue 6 more cycles of chemotherapy. Came for follow-up came for follow-up, denies any specific complaint today, no fever or chills, no nausea or vomiting, no diarrhea constipation, no abdominal pain, tolerating systemic therapy with folfiri/Avastin well . Medications: Aspirin 1 Tablet (of 81 mg) Oral daily, Ativan 1 (0.5 mg) Tablet Oral q 4 hours PRN, Atorvastatin Calcium 1 Tablet (of 40 mg) Oral daily, B-12 1 Tablet (of 1000 mcg) Oral daily, Calcium Carb-Cholecalciferol 1 Capsule (of 500-125 Units/mg) Oral daily, Cinnamon 1 (500 mg) Capsule Oral b.i.d., Compazine Tablet Oral q 4 hours PRN, Fish Oil 1 (1000 mg) Capsule Oral daily, hydroCHLOROthiazide 1 Capsule (of 12.5 mg) Oral at bedtime, Lisinopril 1 Tablet (of 40 mg) Oral daily, MetFORMIN HCl 1 Tablet (of 500 mg) Oral b.i.d., Metoprolol Tartrate 0.5 Tablet (of 25 mg) Oral b.i.d., Multivitamin Adult 1 Tablet Oral daily, Nitroglycerin 1 (0.4 mg) Tablet, sublingual Sublingual PRN, Pepcid 1 (20 mg) Tablet Oral daily PRN, PriLOSEC 1 Capsule (of 20 mg) Capsule Delayed Release Oral daily PRN, Vitamin C 1 Tablet (of 500 mg) Oral daily, Vitamin E 1 Capsule (of 400 Units) Oral daily Allergies: Isosorbide Mononitrate and Succinylcholine Chloride. Review of Systems: Review of Systems is not available for this patient. Vital Signs: Performed on Sep 02, 2019 10:51 Height - 64.00 in Weight - 152.2 lbs (HIGH) BSA - 1.74 sq.m BMI - 26.13 Temperature - 98.1 F (LOW) Pulse - 67 /min Respiration - 18 /min BP - 153/85 mm(hg) (HIGH) O2 Sat - 98 % Pain - 0 Performance Status: 0 - Fully active, able to carry on all predisease activities without restrictions. (ECOG) Physical Examination: ENMT - No oral exudates, ulcers, masses, thrush or mucositis. Oropharynx clear. Tongue normal, Respiratory - Lungs are clear to auscultation without rhonchi or wheezing, Cardiovascular - Regular rate and rhythm of heart, Abdomen - Non-tender, non-distended, . Good bowel sounds. No guarding or rebound tenderness. No pulsatile masses, Extremities - no edema. Lab/Imaging: Test performed on Sep 02, 2019 09:28 Sodium 136 mmol/L Potassium 4.5 mmol/L Chloride 101 mmol/L CO2 25 mmol/L Anion Gap 14.5 BUN 14 mg/dL Creatinine 1.1 mg/dL Cr Clearance (Est) 55.2500 mL/min Glucose 133 mg/dL Calcium 9.1 mg/dL Protein, Total 6.4 g/dL Albumin 3.9 g/dL Globulin 2.5 g/dL Bilirubin, Total 0.3 mg/dL ALT (SGPT) 27 U/L AST (SGOT) 27 U/L Alkaline Phosphatase 70 IU/L WBC 7.3 10 3/uL RBC 3.81 10 6/uL HGB 12.7 g/dL HCT 37.5 % MCV 98.4 fL MCH 33.3 pg MCHC 33.9 g/dL RDW 14.0 % Platelet Count 258 10 3/cmm MPV 9.7 fL Neutrophils 4.8 10 3/uL Lymphocytes 1.5 10 3/uL Monocytes 0.7 10 3/uL Eosinophils 0.3 10 3/uL Basophils 0.1 10 3/uL Neutrophil % 65.0 % Lymphocyte % 20.0 % Monocyte % 9.6 % Eosinophil % 4.4 % Basophils % 0.7 % CEA 3.9 ng/mL Test performed on Aug 19, 2019 09:30 Ua Color Yellow Ua Appearance Clear Ua Specific [place] 1.010 Ua pH 6 Ua Protein Neg Ua Glucose Norm Ua Ketones Negative Ua Blood Neg Ua Leuk Esterase Negative Ua Nitrites Negative Ua Bilirubin Neg Ua Urobilinogen Norm Test performed on Jun 10, 2019 09:32 Manual Lymphocytes 1.8 % Manual Monocytes 0.7 % Manual Eosinophils 0.2 % Manual Basophils 0.0 % NRBCs 0.0 /100 WBC Test performed on May 21, 2019 09:50 CBC Slide Review SLIDE REVIEW PERFORM Impression: 1. Recurrent adenocarcinoma involving paratracheal lymph node per bronchoscopy/ mediastinoscopy done on 04/28/2019 Immunohistochemistry positive for CDX -2, CK 20 Negative for CK 7, TTF-1 and CEA checked on 05/05/2019 was 10.6 2. 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 He underwent laparoscopic right hemicolectomy on 01/10/2017. High risk features included near obstructing primary tumor, pathologic evidence of lymphovascular space invasion, and less than 12 lymph nodes sampled. 3. s/p adjuvant chemotherapy with modified FOLFOX.???4 from 01/30/2017 through 04/02/2017, FOLFOX minus oxaliplatin ???8 from 04/23/2017 through 07/23/2017. 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 4. He has iron deficiency anemia , resolved . His other medical illnesses include: 5. Hypertension. 6. Hyperlipidemia. 7. Type II diabetes .Follow-up colonoscopy done on 02/06/2018 showed ileocolic anastomosis looked intact without evidence of recurrence, and wide patent. In the proximal transverse colon, an abnormality was noted. Follow-up colonoscopy done on 02/26/2019 showed no abnormality seen, ileocolic anastomosis widely patent without evidence of local recurrence. CEA checked on 01/07/2019 was 7.2 compared to 2.4 on 07/05/2018 and repeat CEA on 03/04/[address] PET scan done on 03/15/2019 showed 3.1 x 2.2 cm mass in the right middle lobe with SUV of 22.1, and adjust in the right middle lobe FDG positive satellite nodule noted. The right lower lobe perihilar nodule measuring 1.6 cm with SUV of 21.6. Multiple mediastinal nodes are FDG positive, consistent with metastatic disease and index node in the right 4R peritracheal territory measures 1.6 cm with SUV of 23.0 and other similar nodes are evident in the right pericardial, right superior mediastinal, right periesophageal territory. No evidence of metastatic disease to bone or below diaphragm. Clinically, patient is doing well, tolerated mediastinoscopy well now surgical wound is healing well. And final pathology report came back metastatic adenocarcinoma, probably GI in origin. Discussed with patient regarding treatment options. 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 He began cycle 1 of 6 on 03/13/2019. He has tolerated it extremly well at this time. recommended 6 cycles of FOLFIRI/Avastin the restage with followup PET/CT. Mr Yu began cycle 1 on 05/13/2019. He has tolerated it well. After 5 cycles of chemotherapy, Mr. Yu had follow-up PET/CT on 07/19/2019 with [facility] radiology out [facility]. The findings reported were continued physiological tracer activity at the colonic anastomosis. The right middle lobe mass that previously measured 3.1 x 2.2 cm with an SUV of 22.1 now measures 1.0 x 1.3 cm with an SUV of 7.7, indicating a positive response to therapy. There are similar improvement in the secondary right middle lobe nodule and in the right lower lobe nodule. The index node in the right 4R paratracheal territory now measures 1.5 with an SUV of 5.7 and previously was 1.8 cm with an SUV of 23. Multiple other mediastinal nodes demonstrate similar improvement . has reviewed the PET/CT and has recommended that Mr. Yu pursue 6 more cycles of chemotherapy. Mr Yu will proceed with cycle 8/12 today. Plan: Discussed with patient regarding his labs white blood count 7.3 hemoglobin 12.7 crit 37.5 platelets 258,000 CMP within normal limits except glucose 133 and CEA 3.9 Clinically, patient is doing well, tolerating systemic therapy with Avastin/ folfiri well but with expected side effects. We'll proceed with cycle #9 with folfiri/Avastin today and then return to clinic in 2 weeks with CBC CMP Signed By: Hayley Goodman M.D. <<Signature on File>>
== END 2019-09-02 23:59 | disposition home or self-care (01) ==
LOC: ONCMED 06:36
PROVIDERS: Nurse Practitioner; Family Provider Family Medicine; PCP Family Medicine; Visit Provider Internal Medicine Hematology & Oncology
DX: Z51.11 Encounter for antineoplastic chemotherapy (principal); C78.01 Secondary malignant neoplasm of right lung; C77.8 Secondary and unspecified malignant neoplasm of lymph nodes of multiple regions; T82.594A Other mechanical complication of infusion catheter, initial encounter; Y80.1 Therapeutic (nonsurgical) and rehabilitative physical medicine devices associated with adverse incidents; Z45.2 Encounter for adjustment and management of vascular access device; I10 Essential (primary) hypertension; E78.5 Hyperlipidemia, unspecified; E11.9 Type 2 diabetes mellitus without complications; Z79.82 Long term (current) use of aspirin; Z79.84 Long term (current) use of oral hypoglycemic drugs; Z79.899 Other long term (current) drug therapy; Z85.038 Personal history of other malignant neoplasm of large intestine; Z90.49 Acquired absence of other specified parts of digestive tract
CPT/HCPCS: 36593; 80053; 81003; 82378; 85025; 96367; 96368; 96375; 96413; 96415; 96416; 96417; 96523; 99214; J0461; J0640; J1100; J1453; J2469; J2997; J3490; J7050; J9035; J9206

== ENCOUNTER 2019-10-01 06:39 | Outpatient (RCR) | payer MEDICARE, OTHER, SELFPAY ==
[2019-09-17] MEDS: alteplase 1 mg/mL SDV 2 mL 2 MG IV (09:40)
[2019-09-17 10:36] LABS: Add Urine Microscopic? NO
[2019-09-17 10:38] LABS: Basophils # 0.1 10^3/uL (0.0-0.1); Basophils % 0.9 %; Eosinophils # 0.4 10^3/uL (0.0-0.8); Eosinophils % 5.6 %; Hemoglobin 12.3 g/dL (11.7-16.6); Lymphocytes # 1.4 10^3/uL (0.8-4.8); Lymphocytes % 21.4 %; Mean Corpuscular HGB Conc 33.2 g/dL (30.0-36.0); Mean Corpuscular Volume 99.2 fL (80-94); Mean Platelet Volume 9.2 fL (7.4-10.4); Monocytes # 0.8 10^3/uL (0.2-0.9); Monocytes % 11.3 %; Neutrophils % 60.5 %; Nucleated Red Blood Cells % 0 %; Platelet Count 251 10^3/cmm (130-400); Red Blood Count 3.73 10^6/uL (4.1-5.3); Red Cell Distribution Width 13.6 % (12.1-15.1); White Blood Count 6.6 10^3/uL (4.0-10.0)
[2019-09-17 11:06] LABS: Bilirubin Urine Neg (NEGATIVE); Blood Urine Neg (Negative); Glucose Urine UA Norm (Normal); Ketones Urine Negative (Negative); Leukocyte Esterase Urine Negative (Negative); Nitrate Urine Negative (Negative); Protein Urine Neg (Negative); Specific Gravity, Urine 1.015 (1.005-1.030); Urine Appearance Clear (CLEAR); Urine Color Yellow (Yellow); Urobilinogen Urine Norm (Negative); pH Urine 5 (5-7)
[2019-09-17 11:07] LABS: Alanine Aminotransferase 27 U/L (0-41); Albumin Level 3.9 g/dL (3.5-5.2); Alkaline Phosphatase 67 IU/L (40-130); Anion Gap 15.8 (5-19); Aspartate Amino Transferase 26 U/L (0-40); Blood Urea Nitrogen 19 mg/dL (8-23); Calcium 9.4 mg/dL (8.5-10.5); Carbon Dioxide 25 mmol/L (22-29); Chloride 102 mmol/L (98-107); Globulin 2.7 g/dL (1.3-4.6); Glucose 149 mg/dL (65-115); Osmolality Calculated 285 mOsm/kg (285-295); Potassium 4.8 mmol/L (3.5-5.1); Sodium 138 mmol/L (136-145); Total Bilirubin 0.3 mg/dL (0.15-1.2); Total Protein 6.6 g/dL (6.6-8.7)
[2019-09-17] MEDS: sodium chloride 0.9% 250 ML 75 ML IV (12:00)
--- NOTE | 2019-09-17 12:17 | ONC FU_ITS ---
Dr. 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 He had presented with symptoms of abdominal pain and early satiety. CT abdomen/pelvis on 01/05/2017 showed an apple core appearing lesion at the hepatic flexure with associated obstruction involving the ascending colon, cecum, and ileum. The appearance was suspicious for neoplasm. There was a small amount of pelvic ascites. A 6.9 mm right lower lobe noncalcified pulmonary nodule was felt to be nonspecific. There was otherwise no evidence of metastatic disease. Colonoscopy on 01/09/2017 showed a partially obstructing malignant appearing mass at the hepatic flexure estimated at 5 x 4 cm. An additional sessile polyp was noted in the distal sigmoid colon and excised by hot snare. Biopsy of the hepatic flexure mass showed poorly differentiated infiltrating adenocarcinoma. The distal sigmoid lesion was a hyperplastic polyp. He underwent laparoscopic right hemicolectomy with ileocolic anastomosis and partial omentectomy on 01/10/2017. Pathology showed moderately differentiated infiltrating adenocarcinoma with invasion of the muscularis propria into rehana-colic tissue. The tumor measured 2.3 x 1.8 cm. The margins were free of tumor. There was evidence of lymphovascular space invasion. A total of 7 lymph nodes were identified in the sample and all were negative for metastatic disease. Final pathologic staging was T3, N0. He had several high risk features including a near obstructing primary tumor, evidence of lymphovascular space invasion, and less then 12 lymph nodes sampled. 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 Follow-up colonoscopy done on 02/06/2018 showed ileocolic anastomosis looked intact without evidence of recurrence and wide patent. In the proximal transverse colon, an abnormality was noted. He was followed by Dr. Willingham His other medical illnesses include hypertension, hyperlipidemia, and type II diabetes. He is a nonsmoker. Follow-up colonoscopy done on 02/26/2019 showed normal findings. Ileocolic anastomosis is widely patent without evidence of local recurrence. CEA repeated on 03/04/2019 was 7.7 compared to 7.2 on 01/07/2019 CT PET scan done on 03/15/2019 showed 3.1 x 2.2 cm mass in the right middle lobe with SUV of 22.1, and an adjacent right middle lobe FDG positive satellite nodule was noted. The right lower lobe perihilar nodule measuring 1.6 cm with SUV of 21.6. Multiple mediastinal nodes are FDG positive, consistent with metastatic disease and index node in the right 4R peritracheal territory measures 1.6 cm with SUV of 23.0 and other similar nodes are evident in the right pericardial, right superior mediastinal, right periesophageal territory. No evidence of metastatic disease to bone or below diaphragm Underwent mediastinoscopy on 04/28/2019 and lymph node biopsy was obtained from paratracheal, station 4R, final pathology report showed metastatic adenocarcinoma, consistent with GI origin. The tumor was positive for CD X2, CK 20; negative for CK 7 and TTF-1. recommended 6 cycles of FOLFIRI/Avastin the restage with followup PET/CT. Mr Yu began cycle 1 on 05/13/2019. He has tolerated it well. Mr. Yu had follow-up PET/CT on 07/19/2019 with [facility] radiology out [facility]. The findings reported were continued physiological tracer activity at the colonic anastomosis. The right middle lobe mass that previously measured 3.1 x 2.2 cm with an SUV of 22.1 now measures 1.0 x 1.3 cm with an SUV of 7.7, indicating a positive response to therapy. There are similar improvement in the secondary right middle lobe nodule and in the right lower lobe nodule. The index node in the right 4R paratracheal territory now measures 1.5 with an SUV of 5.7 and previously was 1.8 cm with an SUV of 23. Multiple other mediastinal nodes demonstrate similar improvement . has reviewed the PET/CT and has recommended that Mr. Yu pursue 6 more cycles of chemotherapy .Came for follow-up, denies any specific complaints, no fever or chills, no nausea or vomiting, no diarrhea constipation no abdominal pain. No melena or hematochezia. No jaundice. Tolerating systemic therapy with folfiri /Avastin well . Medications: Aspirin 1 Tablet (of 81 mg) Oral daily, Ativan 1 (0.5 mg) Tablet Oral q 4 hours PRN, Atorvastatin Calcium 1 Tablet (of 40 mg) Oral daily, B-12 1 Tablet (of 1000 mcg) Oral daily, Calcium Carb-Cholecalciferol 1 Capsule (of 500-125 Units/mg) Oral daily, Cinnamon 1 (500 mg) Capsule Oral b.i.d., Compazine Tablet Oral q 4 hours PRN, Fish Oil 1 (1000 mg) Capsule Oral daily, hydroCHLOROthiazide 1 Capsule (of 12.5 mg) Oral at bedtime, Lisinopril 1 Tablet (of 40 mg) Oral daily, MetFORMIN HCl 1 Tablet (of 500 mg) Oral b.i.d., Metoprolol Tartrate 0.5 Tablet (of 25 mg) Oral b.i.d., Multivitamin Adult 1 Tablet Oral daily, Nitroglycerin 1 (0.4 mg) Tablet, sublingual Sublingual PRN, Pepcid 1 (20 mg) Tablet Oral daily PRN, PriLOSEC 1 Capsule (of 20 mg) Capsule Delayed Release Oral daily PRN, Vitamin C 1 Tablet (of 500 mg) Oral daily, Vitamin E 1 Capsule (of 400 Units) Oral daily Allergies: Isosorbide Mononitrate and Succinylcholine Chloride. Review of Systems: Review of Systems is not available for this patient. Vital Signs: Performed on Sep 17, 2019 10:45 Height - 64.00 in Weight - 151.2 lbs (LOW) BSA - 1.74 sq.m BMI - 25.95 Temperature - 97.7 F (LOW) Pulse - 77 /min Respiration - 18 /min BP - 178/65 mm(hg) (HIGH) O2 Sat - 96 % Pain - 5 Performance Status: 0 - Fully active, able to carry on all predisease activities without restrictions. (ECOG) Physical Examination: ENMT - No oral exudates, ulcers, masses, thrush or mucositis. Tongue normal, Respiratory - Lungs are clear, Cardiovascular - Regular rate and rhythm, Abdomen - Non-tender, Good bowel sounds, Extremities - no edema. Lab/Imaging: Test performed on Sep 02, 2019 09:28 Sodium 136 mmol/L Potassium 4.5 mmol/L Chloride 101 mmol/L CO2 25 mmol/L Anion Gap 14.5 BUN 14 mg/dL Creatinine 1.1 mg/dL Cr Clearance (Est) 55.2500 mL/min Glucose 133 mg/dL Calcium 9.1 mg/dL Protein, Total 6.4 g/dL Albumin 3.9 g/dL Globulin 2.5 g/dL Bilirubin, Total 0.3 mg/dL ALT (SGPT) 27 U/L AST (SGOT) 27 U/L Alkaline Phosphatase 70 IU/L WBC 7.3 10 3/uL RBC 3.81 10 6/uL HGB 12.7 g/dL HCT 37.5 % MCV 98.4 fL MCH 33.3 pg MCHC 33.9 g/dL RDW 14.0 % Platelet Count 258 10 3/cmm MPV 9.7 fL Neutrophils 4.8 10 3/uL Lymphocytes 1.5 10 3/uL Monocytes 0.7 10 3/uL Eosinophils 0.3 10 3/uL Basophils 0.1 10 3/uL Neutrophil % 65.0 % Lymphocyte % 20.0 % Monocyte % 9.6 % Eosinophil % 4.4 % Basophils % 0.7 % CEA 3.9 ng/mL Test performed on Aug 19, 2019 09:30 Ua Color Yellow Ua Appearance Clear Ua Specific [place] 1.010 Ua pH 6 Ua Protein Neg Ua Glucose Norm Ua Ketones Negative Ua Blood Neg Ua Leuk Esterase Negative Ua Nitrites Negative Ua Bilirubin Neg Ua Urobilinogen Norm Test performed on Jun 10, 2019 09:32 Manual Lymphocytes 1.8 % Manual Monocytes 0.7 % Manual Eosinophils 0.2 % Manual Basophils 0.0 % NRBCs 0.0 /100 WBC Test performed on May 21, 2019 09:50 CBC Slide Review SLIDE REVIEW PERFORM Impression: 1. Recurrent adenocarcinoma involving paratracheal lymph node per bronchoscopy/ mediastinoscopy done on 04/28/2019 Immunohistochemistry positive for CDX -2, CK 20 Negative for CK 7, TTF-1 and CEA checked on 05/05/2019 was 10.6 2. 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 He underwent laparoscopic right hemicolectomy on 01/10/2017. High risk features included near obstructing primary tumor, pathologic evidence of lymphovascular space invasion, and less than 12 lymph nodes sampled. 3. s/p adjuvant chemotherapy with modified FOLFOX.???4 from 01/30/2017 through 04/02/2017, FOLFOX minus oxaliplatin ???8 from 04/23/2017 through 07/23/2017. 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 4. He has iron deficiency anemia , resolved . His other medical illnesses include: 5. Hypertension. 6. Hyperlipidemia. 7. Type II diabetes .Follow-up colonoscopy done on 02/06/2018 showed ileocolic anastomosis looked intact without evidence of recurrence, and wide patent. In the proximal transverse colon, an abnormality was noted. Follow-up colonoscopy done on 02/26/2019 showed no abnormality seen, ileocolic anastomosis widely patent without evidence of local recurrence. CEA checked on 01/07/2019 was 7.2 compared to 2.4 on 07/05/2018 and repeat CEA on 03/04/[address] PET scan done on 03/15/2019 showed 3.1 x 2.2 cm mass in the right middle lobe with SUV of 22.1, and adjust in the right middle lobe FDG positive satellite nodule noted. The right lower lobe perihilar nodule measuring 1.6 cm with SUV of 21.6. Multiple mediastinal nodes are FDG positive, consistent with metastatic disease and index node in the right 4R peritracheal territory measures 1.6 cm with SUV of 23.0 and other similar nodes are evident in the right pericardial, right superior mediastinal, right periesophageal territory. No evidence of metastatic disease to bone or below diaphragm. Clinically, patient is doing well, tolerated mediastinoscopy well now surgical wound is healing well. And final pathology report came back metastatic adenocarcinoma, probably GI in origin. Discussed with patient regarding treatment options. 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 He began cycle 1 of 6 on 03/13/2019. He has tolerated it extremly well at this time. recommended 6 cycles of FOLFIRI/Avastin the restage with followup PET/CT. Mr Yu began cycle 1 on 05/13/2019. He has tolerated it well. After 5 cycles of chemotherapy, Mr. Yu had follow-up PET/CT on 07/19/2019 with [facility] radiology out [facility]. The findings reported were continued physiological tracer activity at the colonic anastomosis. The right middle lobe mass that previously measured 3.1 x 2.2 cm with an SUV of 22.1 now measures 1.0 x 1.3 cm with an SUV of 7.7, indicating a positive response to therapy. There are similar improvement in the secondary right middle lobe nodule and in the right lower lobe nodule. The index node in the right 4R paratracheal territory now measures 1.5 with an SUV of 5.7 and previously was 1.8 cm with an SUV of 23. Multiple other mediastinal nodes demonstrate similar improvement . has reviewed the PET/CT and has recommended that Mr. Yu pursue 6 more cycles of chemotherapy. Mr Yu will proceed with cycle 12 today. Plan: Discussed with patient regarding his labs white blood count 6.6 and globin 12.3 crit 37 platelets 251,000 CMP within normal limit except glucose 149 Clinically, patient is doing well, tolerating systemic therapy with folfiri/Avastin well but with expected side effects. Occasionally mouth sores for day or 2. We'll proceed with next biweekly dose of folfiri /Avastin today and then he will return to clinic in 2 weeks with CBC CMP Signed By: Hayley Goodman M.D. <<Signature on File>>
[2019-10-01 08:39] LABS: Add Urine Microscopic? NO
[2019-10-01 08:41] LABS: Basophils % 0.5 %; Eosinophils # 0.4 10^3/uL (0.0-0.8); Eosinophils % 4.7 %; Hemoglobin 12.1 g/dL (11.7-16.6); Lymphocytes # 1.4 10^3/uL (0.8-4.8); Lymphocytes % 18.2 %; Mean Corpuscular HGB Conc 33.6 g/dL (30.0-36.0); Mean Corpuscular Hemoglobin 34.3 pg (28.0-34.0); Mean Platelet Volume 9.4 fL (7.4-10.4); Monocytes # 0.7 10^3/uL (0.2-0.9); Monocytes % 9.4 %; Neutrophils % 66.9 %; Nucleated Red Blood Cells % 0 %; Platelet Count 245 10^3/cmm (130-400); Red Blood Count 3.53 10^6/uL (4.1-5.3); Red Cell Distribution Width 13.6 % (12.1-15.1); White Blood Count 7.4 10^3/uL (4.0-10.0)
[2019-10-01 08:46] LABS: Bilirubin Urine Neg (NEGATIVE); Blood Urine Neg (Negative); Glucose Urine UA Norm (Normal); Ketones Urine Negative (Negative); Leukocyte Esterase Urine Negative (Negative); Nitrate Urine Negative (Negative); Protein Urine Neg (Negative); Urine Appearance Clear (CLEAR); Urine Color Yellow (Yellow); Urobilinogen Urine Norm (Negative)
[2019-10-01 09:02] LABS: Alanine Aminotransferase 30 U/L (0-41); Alkaline Phosphatase 68 IU/L (40-130); Anion Gap 13.5 (5-19); Aspartate Amino Transferase 26 U/L (0-40); Blood Urea Nitrogen 16 mg/dL (8-23); Calcium 9.3 mg/dL (8.5-10.5); Carbon Dioxide 26 mmol/L (22-29); Chloride 103 mmol/L (98-107); Globulin 2.7 g/dL (1.3-4.6); Glucose 185 mg/dL (65-115); Osmolality Calculated 287 mOsm/kg (285-295); Potassium 4.5 mmol/L (3.5-5.1); Sodium 138 mmol/L (136-145); Total Bilirubin 0.2 mg/dL (0.15-1.2); Total Protein 6.7 g/dL (6.6-8.7)
[2019-10-01] MEDS: sodium chloride 0.9% 250 ML 75 ML IV (10:30)
--- NOTE | 2019-10-01 10:53 | ONC FU_ITS ---
Dr. 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 He had presented with symptoms of abdominal pain and early satiety. CT abdomen/pelvis on 01/05/2017 showed an apple core appearing lesion at the hepatic flexure with associated obstruction involving the ascending colon, cecum, and ileum. The appearance was suspicious for neoplasm. There was a small amount of pelvic ascites. A 6.9 mm right lower lobe noncalcified pulmonary nodule was felt to be nonspecific. There was otherwise no evidence of metastatic disease. Colonoscopy on 01/09/2017 showed a partially obstructing malignant appearing mass at the hepatic flexure estimated at 5 x 4 cm. An additional sessile polyp was noted in the distal sigmoid colon and excised by hot snare. Biopsy of the hepatic flexure mass showed poorly differentiated infiltrating adenocarcinoma. The distal sigmoid lesion was a hyperplastic polyp. He underwent laparoscopic right hemicolectomy with ileocolic anastomosis and partial omentectomy on 01/10/2017. Pathology showed moderately differentiated infiltrating adenocarcinoma with invasion of the muscularis propria into rehana-colic tissue. The tumor measured 2.3 x 1.8 cm. The margins were free of tumor. There was evidence of lymphovascular space invasion. A total of 7 lymph nodes were identified in the sample and all were negative for metastatic disease. Final pathologic staging was T3, N0. He had several high risk features including a near obstructing primary tumor, evidence of lymphovascular space invasion, and less then 12 lymph nodes sampled. 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 Follow-up colonoscopy done on 02/06/2018 showed ileocolic anastomosis looked intact without evidence of recurrence and wide patent. In the proximal transverse colon, an abnormality was noted. He was followed by Dr. Willingham His other medical illnesses include hypertension, hyperlipidemia, and type II diabetes. He is a nonsmoker. Follow-up colonoscopy done on 02/26/2019 showed normal findings. Ileocolic anastomosis is widely patent without evidence of local recurrence. CEA repeated on 03/04/2019 was 7.7 compared to 7.2 on 01/07/2019 CT PET scan done on 03/15/2019 showed 3.1 x 2.2 cm mass in the right middle lobe with SUV of 22.1, and an adjacent right middle lobe FDG positive satellite nodule was noted. The right lower lobe perihilar nodule measuring 1.6 cm with SUV of 21.6. Multiple mediastinal nodes are FDG positive, consistent with metastatic disease and index node in the right 4R peritracheal territory measures 1.6 cm with SUV of 23.0 and other similar nodes are evident in the right pericardial, right superior mediastinal, right periesophageal territory. No evidence of metastatic disease to bone or below diaphragm Underwent mediastinoscopy on 04/28/2019 and lymph node biopsy was obtained from paratracheal, station 4R, final pathology report showed metastatic adenocarcinoma, consistent with GI origin. The tumor was positive for CD X2, CK 20; negative for CK 7 and TTF-1. recommended 6 cycles of FOLFIRI/Avastin the restage with followup PET/CT. Mr Yu began cycle 1 on 05/13/2019. He has tolerated it well. Mr. Yu had follow-up PET/CT on 07/19/[address] [facility] out [facility]. The findings reported were continued physiological tracer activity at the colonic anastomosis. The right middle lobe mass that previously measured 3.1 x 2.2 cm with an SUV of 22.1 now measures 1.0 x 1.3 cm with an SUV of 7.7, indicating a positive response to therapy. There are similar improvement in the secondary right middle lobe nodule and in the right lower lobe nodule. The index node in the right 4R paratracheal territory now measures 1.5 with an SUV of 5.7 and previously was 1.8 cm with an SUV of 23. Multiple other mediastinal nodes demonstrate similar improvement . has reviewed the PET/CT and has recommended that Mr. Yu pursue 6 -8 more cycles of chemotherapy Came for follow-up, denies any specific complaints, no fever or chills, no nausea or vomiting, no mouth sores, no jaundice, no diarrhea constipation. Tolerating systemic therapy well . Medications: Aspirin 1 Tablet (of 81 mg) Oral daily, Ativan 1 (0.5 mg) Tablet Oral q 4 hours PRN, Atorvastatin Calcium 1 Tablet (of 40 mg) Oral daily, B-12 1 Tablet (of 1000 mcg) Oral daily, Calcium Carb-Cholecalciferol 1 Capsule (of 500-125 Units/mg) Oral daily, Cinnamon 1 (500 mg) Capsule Oral b.i.d., Compazine Tablet Oral q 4 hours PRN, Fish Oil 1 (1000 mg) Capsule Oral daily, hydroCHLOROthiazide 1 Capsule (of 12.5 mg) Oral at bedtime, Lisinopril 1 Tablet (of 40 mg) Oral daily, MetFORMIN HCl 1 Tablet (of 500 mg) Oral b.i.d., Metoprolol Tartrate 0.5 Tablet (of 25 mg) Oral b.i.d., Multivitamin Adult 1 Tablet Oral daily, Nitroglycerin 1 (0.4 mg) Tablet, sublingual Sublingual PRN, Pepcid 1 (20 mg) Tablet Oral daily PRN, Vitamin C 1 Tablet (of 500 mg) Oral daily, Vitamin E 1 Capsule (of 400 Units) Oral daily Allergies: Isosorbide Mononitrate and Succinylcholine Chloride. Review of Systems: Constitutional - Appetite is good and weight is stable. No fever, chills, hot flashes, or night sweats. Energy level is good, ENMT - No sinus congestion/drainage. No mouth sores. No sore throat or difficulty swallowing, Hematologic/Lymphatic - No abnormal bruising or bleeding, Respiratory - No shortness of breath. No cough. No pleuritic pain or hemoptysis, Cardiovascular - No angina pain. No palpitations, Gastrointestinal - No nausea or vomiting. No heartburn or acid reflux. No diarrhea or constipation. No blood in the stool or black stools, Genitourinary (M) - No dysuria or hematuria. No urinary frequency. No urgency or incontinence, Musculoskeletal - No joint or bone pain, Integumentary - No rashes or lesions, Neurologic - No headache or dizziness. No numbness/paresthesias or other focal neurologic symptoms, Psychiatric - No anxiety or depression. No insomnia. Vital Signs: Performed on Oct 01, 2019 09:42 Height - 64.00 in Weight - 151.4 lbs (HIGH) BSA - 1.74 sq.m BMI - 25.99 Temperature - 98.3 F (LOW) Pulse - 70 /min Respiration - 18 /min BP - 165/69 mm(hg) (HIGH) O2 Sat - 98 % Pain - 0 Performance Status: 0 - Fully active, able to carry on all predisease activities without restrictions. (ECOG) Physical Examination: ENMT - no mouth sores, no thrush, Respiratory - Lungs are clear, Cardiovascular - Regular rate and rhythm of heart, Abdomen - bowel sounds present, nontender, Extremities - no visible edema. Lab/Imaging: Test performed on Sep 17, 2019 10:15 Sodium 138 mmol/L Potassium 4.8 mmol/L Chloride 102 mmol/L CO2 25 mmol/L Anion Gap 15.8 BUN 19 mg/dL Creatinine 1.0 mg/dL Cr Clearance (Est) 60.7700 mL/min Glucose 149 mg/dL Calcium 9.4 mg/dL Protein, Total 6.6 g/dL Albumin 3.9 g/dL Globulin 2.7 g/dL Bilirubin, Total 0.3 mg/dL ALT (SGPT) 27 U/L AST (SGOT) 26 U/L Alkaline Phosphatase 67 IU/L WBC 6.6 10 3/uL RBC 3.73 10 6/uL HGB 12.3 g/dL HCT 37.0 % MCV 99.2 fL MCH 33.0 pg MCHC 33.2 g/dL RDW 13.6 % Platelet Count 251 10 3/cmm MPV 9.2 fL Neutrophils 4.0 10 3/uL Lymphocytes 1.4 10 3/uL Monocytes 0.8 10 3/uL Eosinophils 0.4 10 3/uL Basophils 0.1 10 3/uL Neutrophil % 60.5 % Lymphocyte % 21.4 % Monocyte % 11.3 % Eosinophil % 5.6 % Basophils % 0.9 % Test performed on Sep 02, 2019 09:28 CEA 3.9 ng/mL Test performed on Aug 19, 2019 09:30 Ua Color Yellow Ua Appearance Clear Ua Specific [place] 1.010 Ua pH 6 Ua Protein Neg Ua Glucose Norm Ua Ketones Negative Ua Blood Neg Ua Leuk Esterase Negative Ua Nitrites Negative Ua Bilirubin Neg Ua Urobilinogen Norm Test performed on Jun 10, 2019 09:32 Manual Lymphocytes 1.8 % Manual Monocytes 0.7 % Manual Eosinophils 0.2 % Manual Basophils 0.0 % NRBCs 0.0 /100 WBC Test performed on May 21, 2019 09:50 CBC Slide Review SLIDE REVIEW PERFORM Impression: 1. Recurrent adenocarcinoma involving paratracheal lymph node per bronchoscopy/ mediastinoscopy done on 04/28/2019 Immunohistochemistry positive for CDX -2, CK 20 Negative for CK 7, TTF-1 and CEA checked on 05/05/2019 was 10.6 2. 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 He underwent laparoscopic right hemicolectomy on 01/10/2017. High risk features included near obstructing primary tumor, pathologic evidence of lymphovascular space invasion, and less than 12 lymph nodes sampled. 3. s/p adjuvant chemotherapy with modified FOLFOX.???4 from 01/30/2017 through 04/02/2017, FOLFOX minus oxaliplatin ???8 from 04/23/2017 through 07/23/2017. 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 4. He has iron deficiency anemia , resolved . His other medical illnesses include: 5. Hypertension. 6. Hyperlipidemia. 7. Type II diabetes .Follow-up colonoscopy done on 02/06/2018 showed ileocolic anastomosis looked intact without evidence of recurrence, and wide patent. In the proximal transverse colon, an abnormality was noted. Follow-up colonoscopy done on 02/26/2019 showed no abnormality seen, ileocolic anastomosis widely patent without evidence of local recurrence. CEA checked on 01/07/2019 was 7.2 compared to 2.4 on 07/05/2018 and repeat CEA on 03/04/[address] PET scan done on 03/15/2019 showed 3.1 x 2.2 cm mass in the right middle lobe with SUV of 22.1, and adjust in the right middle lobe FDG positive satellite nodule noted. The right lower lobe perihilar nodule measuring 1.6 cm with SUV of 21.6. Multiple mediastinal nodes are FDG positive, consistent with metastatic disease and index node in the right 4R peritracheal territory measures 1.6 cm with SUV of 23.0 and other similar nodes are evident in the right pericardial, right superior mediastinal, right periesophageal territory. No evidence of metastatic disease to bone or below diaphragm. Clinically, patient is doing well, tolerated mediastinoscopy well now surgical wound is healing well. And final pathology report came back metastatic adenocarcinoma, probably GI in origin. Discussed with patient regarding treatment options. 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 He began cycle 1 of 6 on 03/13/2019. He has tolerated it extremly well at this time. recommended 6 cycles of FOLFIRI/Avastin the restage with followup PET/CT. Mr Yu began cycle 1 on 05/13/2019. He has tolerated it well. After 5 cycles of chemotherapy, Mr. Yu had follow-up PET/CT on 07/19/[address] [facility] out [facility]. The findings reported were continued physiological tracer activity at the colonic anastomosis. The right middle lobe mass that previously measured 3.1 x 2.2 cm with an SUV of 22.1 now measures 1.0 x 1.3 cm with an SUV of 7.7, indicating a positive response to therapy. There are similar improvement in the secondary right middle lobe nodule and in the right lower lobe nodule. The index node in the right 4R paratracheal territory now measures 1.5 with an SUV of 5.7 and previously was 1.8 cm with an SUV of 23. Multiple other mediastinal nodes demonstrate similar improvement . has reviewed the PET/CT and has recommended that Mr. Yu pursue 6 more cycles of chemotherapy. Mr Yu will proceed with cycle 8/12 today. Plan: Discussed with patient regarding his labs white blood count 7.4 hemoglobin 12.1 crit 36 platelets 245,000 CMP within normal limits Clinically, patient doing well tolerating systemic therapy with Avastin/folfiri well but with expected side effects. We'll proceed with the next cycle today and then return to clinic in 2 weeks with CBC CMP if looks reasonable, per the chemotherapy and planning to repeat follow-up CT PET scan after next dose of chemotherapy. Signed By: Hayley Goodman M.D. <<Signature on File>>
== END 2019-10-02 23:59 | disposition home or self-care (01) ==
LOC: ONCMED 06:39
PROVIDERS: Family Provider Family Medicine; PCP Family Medicine; Visit Provider Internal Medicine Hematology & Oncology
DX: Z51.11 Encounter for antineoplastic chemotherapy (principal); C18.0 Malignant neoplasm of cecum; C77.1 Secondary and unspecified malignant neoplasm of intrathoracic lymph nodes; I10 Essential (primary) hypertension; E78.5 Hyperlipidemia, unspecified; E11.42 Type 2 diabetes mellitus with diabetic polyneuropathy; Z90.49 Acquired absence of other specified parts of digestive tract; Z79.899 Other long term (current) drug therapy; Z45.2 Encounter for adjustment and management of vascular access device; T82.594A Other mechanical complication of infusion catheter, initial encounter; Y80.1 Therapeutic (nonsurgical) and rehabilitative physical medicine devices associated with adverse incidents
CPT/HCPCS: 36593; 80053; 81003; 85025; 96367; 96368; 96375; 96413; 96415; 96416; 96417; 96523; 99214; J0461; J0640; J1100; J1453; J2469; J2997; J3490; J7050; J9035; J9206

== ENCOUNTER 2019-10-29 06:41 | Outpatient (RCR) | payer MEDICARE, OTHER, SELFPAY ==
[2019-10-15 08:27] LABS: Add Urine Microscopic? NO
[2019-10-15 08:29] LABS: Hemoglobin 12.5 g/dL (11.7-16.6); Mean Corpuscular HGB Conc 32.9 g/dL (30.0-36.0); Mean Corpuscular Hemoglobin 33.2 pg (28.0-34.0); Mean Corpuscular Volume 100.8 fL (80-94); Mean Platelet Volume 9.7 fL (7.4-10.4); Platelet Count 267 10^3/cmm (130-400); Red Blood Count 3.77 10^6/uL (4.1-5.3); Red Cell Distribution Width 13.2 % (12.1-15.1); White Blood Count 6.4 10^3/uL (4.0-10.0)
[2019-10-15 08:33] LABS: Bilirubin Urine Neg (NEGATIVE); Blood Urine Neg (Negative); Glucose Urine UA Norm (Normal); Ketones Urine Negative (Negative); Leukocyte Esterase Urine Negative (Negative); Nitrate Urine Negative (Negative); Protein Urine Neg (Negative); Urine Appearance Clear (CLEAR); Urine Color Yellow (Yellow); Urobilinogen Urine Norm (Negative)
[2019-10-15 08:55] LABS: Absolute Eosinophils 0.4 10^3/cmm (0.0-0.7); Absolute Segmented Neutrophil 3.9 10/cmm (1.6-7.1); Band Neutrophils Absolute 0.1 10^3/cmm (0.0-1.2); Eosinophils 7 %; Lymphocytes 22 %; Monocytes Absolute 0.4 10^3/cmm (0.1-0.6); Segmented Neutrophils 62 %; Total Cells Counted 100 (0-100)
[2019-10-15 08:56] LABS: Platelet Estimate Normal (Normal)
[2019-10-15 09:11] LABS: Alanine Aminotransferase 33 U/L (0-41); Alkaline Phosphatase 66 IU/L (40-130); Anion Gap 14.5 (5-19); Aspartate Amino Transferase 27 U/L (0-40); Blood Urea Nitrogen 17 mg/dL (8-23); Calcium 9.5 mg/dL (8.5-10.5); Carbon Dioxide 23 mmol/L (22-29); Chloride 102 mmol/L (98-107); Globulin 2.9 g/dL (1.3-4.6); Glucose 171 mg/dL (65-115); Osmolality Calculated 280 mOsm/kg (285-295); Potassium 4.5 mmol/L (3.5-5.1); Sodium 135 mmol/L (136-145); Total Bilirubin 0.2 mg/dL (0.15-1.2); Total Protein 6.9 g/dL (6.6-8.7)
[2019-10-15] MEDS: sodium chloride 0.9% 250 ML 75 ML IV (10:30)
--- NOTE | 2019-10-15 10:30 | ONC FU_ITS ---
Dr. 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 He had presented with symptoms of abdominal pain and early satiety. CT abdomen/pelvis on 01/05/2017 showed an apple core appearing lesion at the hepatic flexure with associated obstruction involving the ascending colon, cecum, and ileum. The appearance was suspicious for neoplasm. There was a small amount of pelvic ascites. A 6.9 mm right lower lobe noncalcified pulmonary nodule was felt to be nonspecific. There was otherwise no evidence of metastatic disease. Colonoscopy on 01/09/2017 showed a partially obstructing malignant appearing mass at the hepatic flexure estimated at 5 x 4 cm. An additional sessile polyp was noted in the distal sigmoid colon and excised by hot snare. Biopsy of the hepatic flexure mass showed poorly differentiated infiltrating adenocarcinoma. The distal sigmoid lesion was a hyperplastic polyp. He underwent laparoscopic right hemicolectomy with ileocolic anastomosis and partial omentectomy on 01/10/2017. Pathology showed moderately differentiated infiltrating adenocarcinoma with invasion of the muscularis propria into rehana-colic tissue. The tumor measured 2.3 x 1.8 cm. The margins were free of tumor. There was evidence of lymphovascular space invasion. A total of 7 lymph nodes were identified in the sample and all were negative for metastatic disease. Final pathologic staging was T3, N0. He had several high risk features including a near obstructing primary tumor, evidence of lymphovascular space invasion, and less then 12 lymph nodes sampled. 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 Follow-up colonoscopy done on 02/06/2018 showed ileocolic anastomosis looked intact without evidence of recurrence and wide patent. In the proximal transverse colon, an abnormality was noted. He was followed by Dr. Willingham His other medical illnesses include hypertension, hyperlipidemia, and type II diabetes. He is a nonsmoker. Follow-up colonoscopy done on 02/26/2019 showed normal findings. Ileocolic anastomosis is widely patent without evidence of local recurrence. CEA repeated on 03/04/2019 was 7.7 compared to 7.2 on 01/07/2019 CT PET scan done on 03/15/2019 showed 3.1 x 2.2 cm mass in the right middle lobe with SUV of 22.1, and an adjacent right middle lobe FDG positive satellite nodule was noted. The right lower lobe perihilar nodule measuring 1.6 cm with SUV of 21.6. Multiple mediastinal nodes are FDG positive, consistent with metastatic disease and index node in the right 4R peritracheal territory measures 1.6 cm with SUV of 23.0 and other similar nodes are evident in the right pericardial, right superior mediastinal, right periesophageal territory. No evidence of metastatic disease to bone or below diaphragm Underwent mediastinoscopy on 04/28/2019 and lymph node biopsy was obtained from paratracheal, station 4R, final pathology report showed metastatic adenocarcinoma, consistent with GI origin. The tumor was positive for CD X2, CK 20; negative for CK 7 and TTF-1. recommended 6 cycles of FOLFIRI/Avastin the restage with followup PET/CT. Mr Yu began cycle 1 on 05/13/2019. He has tolerated it well. Mr. Yu had follow-up PET/CT on 07/19/2019 with [facility] radiology out [facility]. The findings reported were continued physiological tracer activity at the colonic anastomosis. The right middle lobe mass that previously measured 3.1 x 2.2 cm with an SUV of 22.1 now measures 1.0 x 1.3 cm with an SUV of 7.7, indicating a positive response to therapy. There are similar improvement in the secondary right middle lobe nodule and in the right lower lobe nodule. The index node in the right 4R paratracheal territory now measures 1.5 with an SUV of 5.7 and previously was 1.8 cm with an SUV of 23. Multiple other mediastinal nodes demonstrate similar improvement . has reviewed the PET/CT and has recommended that Mr. Yu pursue 6 -8 more cycles of chemotherapy Came for follow-up, denies any specific complaints, no nausea vomiting no fever or chills no diarrhea constipation, no hematuria. No skin rash no jaundice, no abdominal pain. Tolerating systemic chemotherapy with folfiri /Avastin well . Medications: Aspirin 1 Tablet (of 81 mg) Oral daily, Ativan 1 (0.5 mg) Tablet Oral q 4 hours PRN, Atorvastatin Calcium 1 Tablet (of 40 mg) Oral daily, B-12 1 Tablet (of 1000 mcg) Oral daily, Calcium Carb-Cholecalciferol 1 Capsule (of 500-125 Units/mg) Oral daily, Cinnamon 1 (500 mg) Capsule Oral b.i.d., Compazine Tablet Oral q 4 hours PRN, Fish Oil 1 (1000 mg) Capsule Oral daily, hydroCHLOROthiazide 1 Capsule (of 12.5 mg) Oral at bedtime, Lisinopril 1 Tablet (of 40 mg) Oral daily, MetFORMIN HCl 1 Tablet (of 500 mg) Oral b.i.d., Metoprolol Tartrate 0.5 Tablet (of 25 mg) Oral b.i.d., Multivitamin Adult 1 Tablet Oral daily, Nitroglycerin 1 (0.4 mg) Tablet, sublingual Sublingual PRN, Pepcid 1 (20 mg) Tablet Oral daily PRN, Vitamin C 1 Tablet (of 500 mg) Oral daily, Vitamin E 1 Capsule (of 400 Units) Oral daily Allergies: Isosorbide Mononitrate and Succinylcholine Chloride. Review of Systems: Constitutional - Appetite is good and weight is stable. No fever, chills, hot flashes, or night sweats. Energy level is good, ENMT - No sinus congestion/drainage. No mouth sores. No sore throat or difficulty swallowing, Hematologic/Lymphatic - No abnormal bruising or bleeding, Respiratory - No shortness of breath. No cough. No pleuritic pain or hemoptysis, Cardiovascular - No angina pain. No palpitations, Gastrointestinal - No nausea or vomiting. No heartburn or acid reflux. No diarrhea or constipation. No blood in the stool or black stools, Genitourinary (M) - No dysuria or hematuria. No urinary frequency. No urgency or incontinence, Musculoskeletal - No joint or bone pain, Integumentary - No rashes or lesions, Neurologic - No headache or dizziness. No numbness/paresthesias or other focal neurologic symptoms, Psychiatric - No anxiety or depression. No insomnia. Vital Signs: Performed on October 15, 2019 09:21 Height - 64.00 in Weight - 151.2 lbs (LOW) BSA - 1.74 sq.m BMI - 25.95 Temperature - 98.0 F (LOW) Pulse - 60 /min Respiration - 18 /min BP - 160/73 mm(hg) (HIGH) O2 Sat - 96 % Pain - 0 Performance Status: 0 - Fully active, able to carry on all predisease activities without restrictions. (ECOG) Physical Examination: ENMT - no mouth sores, or thrush, Respiratory - Lungs are clear, Cardiovascular - Regular rate and rhythm of heart, Abdomen - soft, bowel sounds present, Extremities - no edema or rash. Lab/Imaging: Test performed on October 15, 2019 09:33 Ua Color Yellow Ua Appearance Clear Ua Specific [place] 1.020 Ua pH 5.0 Ua Protein Negative Ua Glucose Normal Ua Ketones Negative Ua Blood Negative Ua Leuk Esterase Negative Ua Nitrites Negative Ua Bilirubin Negative Ua Urobilinogen Normal Test performed on October 15, 2019 09:27 Glucose 171 mg/dL BUN 17 mg/dL Creatinine 1.0 mg/dL Cr Clearance (Est) 60.77 mL/min Sodium 135 mmol/L Potassium 4.5 mmol/L Chloride 102 mmol/L CO2 23 mmol/L Calcium 9.5 mg/dL Protein, Total 6.9 g/dL Albumin 4.0 g/dL Globulin 2.9 g/dL Bilirubin, Total 0.2 mg/dL Alkaline Phosphatase 66 IU/L AST (SGOT) 27 IU/L ALT (SGPT) 33 IU/L WBC 6.4 10^9/L RBC 3.77 10^12/L HGB 12.5 g/dL HCT 38.0 % MCV 100.8 fl MCH 33.2 pg MCHC 32.9 g/dL RDW 13.2 % Platelet Count 267 10^9/L MPV 9.7 fL Manual Lymphocytes 22 % Manual Monocytes 7.0 % Manual Eosinophils 7 % Test performed on October 15, 2019 09:23 Lymphocytes 1.408 10^9/L Monocytes 0.448 10^9/L Eosinophils 0.448 10^9/L Manual Segs 3.9 % Manual Bands 2.0 % Platelet Estimate normal Test performed on Oct 01, 2019 08:20 Anion Gap 13.5 Neutrophils 5.0 10 3/uL Basophils 0.0 10 3/uL Neutrophil % 66.9 % Lymphocyte % 18.2 % Monocyte % 9.4 % Eosinophil % 4.7 % Basophils % 0.5 % Test performed on Sep 02, 2019 09:28 CEA 3.9 ng/mL Test performed on Jun 10, 2019 09:32 Manual Basophils 0.0 % NRBCs 0.0 /100 WBC Test performed on May 21, 2019 09:50 CBC Slide Review SLIDE REVIEW PERFORM Impression: 1. Recurrent adenocarcinoma involving paratracheal lymph node per bronchoscopy/ mediastinoscopy done on 04/28/2019 Immunohistochemistry positive for CDX -2, CK 20 Negative for CK 7, TTF-1 and CEA checked on 05/05/2019 was 10.6 2. 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 He underwent laparoscopic right hemicolectomy on 01/10/2017. High risk features included near obstructing primary tumor, pathologic evidence of lymphovascular space invasion, and less than 12 lymph nodes sampled. 3. s/p adjuvant chemotherapy with modified FOLFOX.???4 from 01/30/2017 through 04/02/2017, FOLFOX minus oxaliplatin ???8 from 04/23/2017 through 07/23/2017. 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 4. He has iron deficiency anemia , resolved . His other medical illnesses include: 5. Hypertension. 6. Hyperlipidemia. 7. Type II diabetes .Follow-up colonoscopy done on 02/06/2018 showed ileocolic anastomosis looked intact without evidence of recurrence, and wide patent. In the proximal transverse colon, an abnormality was noted. Follow-up colonoscopy done on 02/26/2019 showed no abnormality seen, ileocolic anastomosis widely patent without evidence of local recurrence. CEA checked on 01/07/2019 was 7.2 compared to 2.4 on 07/05/2018 and repeat CEA on 03/04/[address] PET scan done on 03/15/2019 showed 3.1 x 2.2 cm mass in the right middle lobe with SUV of 22.1, and adjust in the right middle lobe FDG positive satellite nodule noted. The right lower lobe perihilar nodule measuring 1.6 cm with SUV of 21.6. Multiple mediastinal nodes are FDG positive, consistent with metastatic disease and index node in the right 4R peritracheal territory measures 1.6 cm with SUV of 23.0 and other similar nodes are evident in the right pericardial, right superior mediastinal, right periesophageal territory. No evidence of metastatic disease to bone or below diaphragm. Clinically, patient is doing well, tolerated mediastinoscopy well now surgical wound is healing well. And final pathology report came back metastatic adenocarcinoma, probably GI in origin. Discussed with patient regarding treatment options. 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 He began cycle 1 of 6 on 03/13/2019. He has tolerated it extremly well at this time. recommended 6 cycles of FOLFIRI/Avastin the restage with followup PET/CT. Mr Yu began cycle 1 on 05/13/2019. He has tolerated it well. After 5 cycles of chemotherapy, Mr. Yu had follow-up PET/CT on 07/19/2019 with [facility] radiology out [facility]. The findings reported were continued physiological tracer activity at the colonic anastomosis. The right middle lobe mass that previously measured 3.1 x 2.2 cm with an SUV of 22.1 now measures 1.0 x 1.3 cm with an SUV of 7.7, indicating a positive response to therapy. There are similar improvement in the secondary right middle lobe nodule and in the right lower lobe nodule. The index node in the right 4R paratracheal territory now measures 1.5 with an SUV of 5.7 and previously was 1.8 cm with an SUV of 23. Multiple other mediastinal nodes demonstrate similar improvement . has reviewed the PET/CT and has recommended that Mr. Yu pursue 6 more cycles of chemotherapy. Mr Yu will proceed with cycle 12 today. Plan: Discussed with patient regarding his labs white blood count 6.4 hemoglobin 12.5 crit 38 platelets 267,000 and CMP within normal limits except glucose 171 Clinically, patient is doing well, tolerating systemic chemotherapy with folfiri and Avastin well but with expected side effects. We'll proceed with next dose today and then he will return to clinic in 2 weeks with CBC CMP and follow-up CT PET scan and based on that we will make further recommendations e.g. to continue same or consider maintenance therapy or changing the treatment. Signed By: Hayley Goodman M.D. <<Signature on File>>
[2019-10-29 08:42] LABS: Add Urine Microscopic? NO
[2019-10-29 08:45] LABS: Basophils % 0.6 %; Eosinophils # 0.3 10^3/uL (0.0-0.8); Eosinophils % 3.8 %; Hematocrit 36.7 % (42.0-52.0); Hemoglobin 12.3 g/dL (11.7-16.6); Lymphocytes # 1.3 10^3/uL (0.8-4.8); Lymphocytes % 19.1 %; Mean Corpuscular HGB Conc 33.5 g/dL (30.0-36.0); Mean Corpuscular Hemoglobin 33.8 pg (28.0-34.0); Mean Corpuscular Volume 100.8 fL (80-94); Mean Platelet Volume 9.7 fL (7.4-10.4); Monocytes # 0.7 10^3/uL (0.2-0.9); Neutrophils # 4.3 10^3/uL (1.8-7.7); Neutrophils % 66.3 %; Nucleated Red Blood Cells % 0 %; Platelet Count 253 10^3/cmm (130-400); Red Blood Count 3.64 10^6/uL (4.1-5.3); Red Cell Distribution Width 13.2 % (12.1-15.1); White Blood Count 6.5 10^3/uL (4.0-10.0)
[2019-10-29 09:00] LABS: Bilirubin Urine Neg (NEGATIVE); Blood Urine Neg (Negative); Glucose Urine UA Norm (Normal); Ketones Urine Negative (Negative); Leukocyte Esterase Urine Negative (Negative); Nitrate Urine Negative (Negative); Protein Urine Neg (Negative); Urine Appearance Clear (CLEAR); Urine Color Yellow (Yellow); Urobilinogen Urine Norm (Negative)
[2019-10-29 09:28] LABS: Alanine Aminotransferase 37 U/L (0-41); Alkaline Phosphatase 67 IU/L (40-130); Aspartate Amino Transferase 31 U/L (0-40); Blood Urea Nitrogen 17 mg/dL (8-23); Calcium 9.5 mg/dL (8.5-10.5); Carbon Dioxide 23 mmol/L (22-29); Globulin 2.9 g/dL (1.3-4.6); Glucose 154 mg/dL (65-115); Total Bilirubin 0.3 mg/dL (0.15-1.2); Total Protein 6.9 g/dL (6.6-8.7)
[2019-10-29 09:44] LABS: Anion Gap 16.5 (5-19); Chloride 102 mmol/L (98-107); Osmolality Calculated 285 mOsm/kg (285-295); Potassium 4.5 mmol/L (3.5-5.1); Sodium 138 mmol/L (136-145)
[2019-10-29] MEDS: sodium chloride 0.9% 250 ML 75 ML IV (11:00)
--- NOTE | 2019-10-30 09:11 | ONC FU_ITS ---
Dr. 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 He had presented with symptoms of abdominal pain and early satiety. CT abdomen/pelvis on 01/05/2017 showed an apple core appearing lesion at the hepatic flexure with associated obstruction involving the ascending colon, cecum, and ileum. The appearance was suspicious for neoplasm. There was a small amount of pelvic ascites. A 6.9 mm right lower lobe noncalcified pulmonary nodule was felt to be nonspecific. There was otherwise no evidence of metastatic disease. Colonoscopy on 01/09/2017 showed a partially obstructing malignant appearing mass at the hepatic flexure estimated at 5 x 4 cm. An additional sessile polyp was noted in the distal sigmoid colon and excised by hot snare. Biopsy of the hepatic flexure mass showed poorly differentiated infiltrating adenocarcinoma. The distal sigmoid lesion was a hyperplastic polyp. He underwent laparoscopic right hemicolectomy with ileocolic anastomosis and partial omentectomy on 01/10/2017. Pathology showed moderately differentiated infiltrating adenocarcinoma with invasion of the muscularis propria into rehana-colic tissue. The tumor measured 2.3 x 1.8 cm. The margins were free of tumor. There was evidence of lymphovascular space invasion. A total of 7 lymph nodes were identified in the sample and all were negative for metastatic disease. Final pathologic staging was T3, N0. He had several high risk features including a near obstructing primary tumor, evidence of lymphovascular space invasion, and less then 12 lymph nodes sampled. 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 Follow-up colonoscopy done on 02/06/2018 showed ileocolic anastomosis looked intact without evidence of recurrence and wide patent. In the proximal transverse colon, an abnormality was noted. He was followed by Dr. Willingham His other medical illnesses include hypertension, hyperlipidemia, and type II diabetes. He is a nonsmoker. Follow-up colonoscopy done on 02/26/2019 showed normal findings. Ileocolic anastomosis is widely patent without evidence of local recurrence. CEA repeated on 03/04/2019 was 7.7 compared to 7.2 on 01/07/2019 CT PET scan done on 03/15/2019 showed 3.1 x 2.2 cm mass in the right middle lobe with SUV of 22.1, and an adjacent right middle lobe FDG positive satellite nodule was noted. The right lower lobe perihilar nodule measuring 1.6 cm with SUV of 21.6. Multiple mediastinal nodes are FDG positive, consistent with metastatic disease and index node in the right 4R peritracheal territory measures 1.6 cm with SUV of 23.0 and other similar nodes are evident in the right pericardial, right superior mediastinal, right periesophageal territory. No evidence of metastatic disease to bone or below diaphragm Underwent mediastinoscopy on 04/28/2019 and lymph node biopsy was obtained from paratracheal, station 4R, final pathology report showed metastatic adenocarcinoma, consistent with GI origin. The tumor was positive for CD X2, CK 20; negative for CK 7 and TTF-1. recommended 6 cycles of FOLFIRI/Avastin the restage with followup PET/CT. Mr Yu began cycle 1 on 05/13/2019. He has tolerated it well. Mr. Yu had follow-up PET/CT on 07/19/2019 with [facility] radiology out [facility]. The findings reported were continued physiological tracer activity at the colonic anastomosis. The right middle lobe mass that previously measured 3.1 x 2.2 cm with an SUV of 22.1 now measures 1.0 x 1.3 cm with an SUV of 7.7, indicating a positive response to therapy. There are similar improvement in the secondary right middle lobe nodule and in the right lower lobe nodule. The index node in the right 4R paratracheal territory now measures 1.5 with an SUV of 5.7 and previously was 1.8 cm with an SUV of 23. Multiple other mediastinal nodes demonstrate similar improvement . has reviewed the PET/CT and has recommended that Mr. Yu pursue 6 -8 more cycles of chemotherapy Follow-up CT PET scan done on 10/25/2019, showed right middle lobe nodule that previously measured 1.0 x 1.3 cm with SUV of 7.7, now measure 1.1 x 0.7 cm with SUV of 4.3. A secondary right middle lobe nodule and the right lower lobe nodule are FDG negative. Similar improvement is noted in the mediastinal lymph nodes in the right paratracheal (4R) node now has SUV of 4.7 compared to 5.7 previously. Other nodes since subcarinal, right hilar, right pericardial regions are FDG negative Came for follow-up, denies any specific complaints, no fever or chills, no nausea or vomiting, no diarrhea constipation, no jaundice, no skin rash, no melena or hematochezia, no hemoptysis or hematemesis, mild stable peripheral neuropathy. Otherwise tolerating FOLFIRI/Avastin well . Medications: Aspirin 1 Tablet (of 81 mg) Oral daily, Ativan 1 (0.5 mg) Tablet Oral q 4 hours PRN, Atorvastatin Calcium 1 Tablet (of 40 mg) Oral daily, B-12 1 Tablet (of 1000 mcg) Oral daily, Calcium Carb-Cholecalciferol 1 Capsule (of 500-125 Units/mg) Oral daily, Cinnamon 1 (500 mg) Capsule Oral b.i.d., Compazine Tablet Oral q 4 hours PRN, Fish Oil 1 (1000 mg) Capsule Oral daily, hydroCHLOROthiazide 1 Capsule (of 12.5 mg) Oral at bedtime, Lisinopril 1 Tablet (of 40 mg) Oral daily, MetFORMIN HCl 1 Tablet (of 500 mg) Oral b.i.d., Metoprolol Tartrate 0.5 Tablet (of 25 mg) Oral b.i.d., Multivitamin Adult 1 Tablet Oral daily, Nitroglycerin 1 (0.4 mg) Tablet, sublingual Sublingual PRN, Pepcid 1 (20 mg) Tablet Oral daily PRN, Vitamin C 1 Tablet (of 500 mg) Oral daily, Vitamin E 1 Capsule (of 400 Units) Oral daily Allergies: Isosorbide Mononitrate and Succinylcholine Chloride. Review of Systems: Constitutional - Appetite is good and weight is stable. No fever, chills, hot flashes, or night sweats. Energy level is good, ENMT - No sinus congestion/drainage. No mouth sores. No sore throat or difficulty swallowing, Hematologic/Lymphatic - No abnormal bruising or bleeding, Respiratory - No shortness of breath. No cough. No pleuritic pain or hemoptysis, Cardiovascular - No angina pain. No palpitations, Gastrointestinal - No nausea or vomiting. No heartburn or acid reflux. No diarrhea or constipation. No blood in the stool or black stools, Genitourinary (M) - No dysuria or hematuria. No urinary frequency. No urgency or incontinence, Musculoskeletal - No joint or bone pain, Integumentary - No rashes or lesions, Neurologic - No headache or dizziness. No numbness/paresthesias or other focal neurologic symptoms, Psychiatric - No anxiety or depression. No insomnia. Vital Signs: Performed on October 29, 2019 10:29 Height - 64.00 in Weight - 148.8 lbs (LOW) BSA - 1.73 sq.m BMI - 25.54 Temperature - 97.9 F (LOW) Pulse - 68 /min Respiration - 18 /min BP - 147/74 mm(hg) (HIGH) O2 Sat - 97 % Pain - 0 Performance Status: 0 - Fully active, able to carry on all predisease activities without restrictions. (ECOG) Physical Examination: ENMT - no mouth sores, no thrush, Respiratory - Lungs are clear, Cardiovascular - Regular rate and rhythm of heart, Abdomen - soft, bowel sounds present, Extremities - no visible edema or rash. Lab/Imaging: Test performed on October 15, 2019 09:33 Ua Color Yellow Ua Appearance Clear Ua Specific [place] 1.020 Ua pH 5.0 Ua Protein Negative Ua Glucose Normal Ua Ketones Negative Ua Blood Negative Ua Leuk Esterase Negative Ua Nitrites Negative Ua Bilirubin Negative Ua Urobilinogen Normal Test performed on October 15, 2019 09:27 Glucose 171 mg/dL BUN 17 mg/dL Creatinine 1.0 mg/dL Cr Clearance (Est) 60.77 mL/min Sodium 135 mmol/L Potassium 4.5 mmol/L Chloride 102 mmol/L CO2 23 mmol/L Calcium 9.5 mg/dL Protein, Total 6.9 g/dL Albumin 4.0 g/dL Globulin 2.9 g/dL Bilirubin, Total 0.2 mg/dL Alkaline Phosphatase 66 IU/L AST (SGOT) 27 IU/L ALT (SGPT) 33 IU/L WBC 6.4 10^9/L RBC 3.77 10^12/L HGB 12.5 g/dL HCT 38.0 % MCV 100.8 fl MCH 33.2 pg MCHC 32.9 g/dL RDW 13.2 % Platelet Count 267 10^9/L MPV 9.7 fL Manual Lymphocytes 22 % Manual Monocytes 7.0 % Manual Eosinophils 7 % Test performed on October 15, 2019 09:23 Lymphocytes 1.408 10^9/L Monocytes 0.448 10^9/L Eosinophils 0.448 10^9/L Manual Segs 3.9 % Manual Bands 2.0 % Platelet Estimate normal Test performed on October 15, 2019 08:05 Manual Bands Abs 0.1 10 3/cmm Manual Monocytes Abs 0.4 10 3/cmm Manual Eosinophils Abs 0.4 10 3/cmm Test performed on Oct 01, 2019 08:20 Neutrophils 5.0 10 3/uL Basophils 0.0 10 3/uL Neutrophil % 66.9 % Lymphocyte % 18.2 % Monocyte % 9.4 % Eosinophil % 4.7 % Basophils % 0.5 % Test performed on Sep 02, 2019 09:28 CEA 3.9 ng/mL Test performed on Jun 10, 2019 09:32 Manual Basophils 0.0 % NRBCs 0.0 /100 WBC Test performed on May 21, 2019 09:50 CBC Slide Review SLIDE REVIEW PERFORM Impression: 1. Recurrent adenocarcinoma involving paratracheal lymph node per bronchoscopy/ mediastinoscopy done on 04/28/2019 Immunohistochemistry positive for CDX -2, CK 20 Negative for CK 7, TTF-1 and CEA checked on 05/05/2019 was 10.6 2. 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 He underwent laparoscopic right hemicolectomy on 01/10/2017. High risk features included near obstructing primary tumor, pathologic evidence of lymphovascular space invasion, and less than 12 lymph nodes sampled. 3. s/p adjuvant chemotherapy with modified FOLFOX.???4 from 01/30/2017 through 04/02/2017, FOLFOX minus oxaliplatin ???8 from 04/23/2017 through 07/23/2017. 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 4. He has iron deficiency anemia , resolved . His other medical illnesses include: 5. Hypertension. 6. Hyperlipidemia. 7. Type II diabetes .Follow-up colonoscopy done on 02/06/2018 showed ileocolic anastomosis looked intact without evidence of recurrence, and wide patent. In the proximal transverse colon, an abnormality was noted. Follow-up colonoscopy done on 02/26/2019 showed no abnormality seen, ileocolic anastomosis widely patent without evidence of local recurrence. CEA checked on 01/07/2019 was 7.2 compared to 2.4 on 07/05/2018 and repeat CEA on 03/04/[address] PET scan done on 03/15/2019 showed 3.1 x 2.2 cm mass in the right middle lobe with SUV of 22.1, and adjust in the right middle lobe FDG positive satellite nodule noted. The right lower lobe perihilar nodule measuring 1.6 cm with SUV of 21.6. Multiple mediastinal nodes are FDG positive, consistent with metastatic disease and index node in the right 4R peritracheal territory measures 1.6 cm with SUV of 23.0 and other similar nodes are evident in the right pericardial, right superior mediastinal, right periesophageal territory. No evidence of metastatic disease to bone or below diaphragm. Clinically, patient is doing well, tolerated mediastinoscopy well now surgical wound is healing well. And final pathology report came back metastatic adenocarcinoma, probably GI in origin. Discussed with patient regarding treatment options. Patient completed his adjuvant chemotherapy with FOLFOX( oxaliplatin was discontinued after 4 cycles of FOLFOX because of progressive neuropathy) more than 12 months ago, Mr uY was offered treatment with FOLFIRI/Avastin every 2 weeks ???[address] PET scan to assess disease response and also consider next generation sequencing to assess targetable therapy. He began cycle 1 of 6 on 03/13/2019. He has tolerated it extremly well at this time. recommended 6 cycles of FOLFIRI/Avastin the restage with followup PET/CT. Mr Yu began cycle 1 on 05/13/2019. He has tolerated it well. After 5 cycles of chemotherapy, Mr. Yu had follow-up PET/CT on 07/19/2019 with [facility]. The findings reported were continued physiological tracer activity at the colonic anastomosis. The right middle lobe mass that previously measured 3.1 x 2.2 cm with an SUV of 22.1 now measures 1.0 x 1.3 cm with an SUV of 7.7, indicating a positive response to therapy. There are similar improvement in the secondary right middle lobe nodule and in the right lower lobe nodule. The index node in the right 4R paratracheal territory now measures 1.5 with an SUV of 5.7 and previously was 1.8 cm with an SUV of 23. Multiple other mediastinal nodes demonstrate similar improvement . has reviewed the PET/CT and has recommended that Mr. Yu pursue 6 more cycles of chemotherapy. Mr Yu will proceed with cycle / today. Plan: Discussed with patient regarding his labs white blood count 6.5 hemoglobin 12.3 hematocrit 36.7 platelets 253,000 CMP within normal limits CEA 5.0 and follow-up CT PET scan findings which continued to show improvement in the lung and mediastinal lymph nodes Clinically, patient is doing well, with no new signs symptoms, tolerating FOLFIRI/Avastin well but with expected side effects e.g. mild peripheral neuropathy. His follow-up CT PET scan showed excellent response to the treatment is a further improvement in the right middle lobe lung lesions as well as extensive mediastinal lymphadenopathy both in size and SUV uptake. At this point we'll continue with same regimen for 6 doses and then repeat follow-up CT PET scan and if it shows complete remission then will consider consolidation followed by maintenance therapy, if it shows stable disease then will switch him to maintenance therapy with Avastin/Xeloda. In the meantime we'll proceed with next cycle of FOLFIRI/Avastin today then return to clinic in 2 weeks with CBC CMP, if reasonable, for next biweekly dose. Signed By: Hayley Goodman M.D. <<Signature on File>>
== END 2019-11-02 23:59 | disposition home or self-care (01) ==
LOC: ONCMED 06:41
PROVIDERS: Family Provider Family Medicine; PCP Family Medicine; Visit Provider Internal Medicine Hematology & Oncology
DX: Z51.11 Encounter for antineoplastic chemotherapy (principal); C18.0 Malignant neoplasm of cecum; C77.1 Secondary and unspecified malignant neoplasm of intrathoracic lymph nodes; D50.9 Iron deficiency anemia, unspecified; I10 Essential (primary) hypertension; E78.5 Hyperlipidemia, unspecified; E11.9 Type 2 diabetes mellitus without complications; Z79.899 Other long term (current) drug therapy
CPT/HCPCS: 80053; 81003; 82378; 85007; 85025; 85027; 96367; 96368; 96375; 96413; 96415; 96416; 96417; 96523; 99214; J0461; J0640; J1100; J1453; J2469; J3490; J7050; J9035; J9206

== ENCOUNTER 2019-11-26 06:50 | Outpatient (RCR) | payer MEDICARE, OTHER, SELFPAY ==
[2019-11-12 08:28] LABS: Basophils # 0.1 10^3/uL (0.0-0.1); Basophils % 0.8 %; Eosinophils # 0.3 10^3/uL (0.0-0.8); Eosinophils % 4.6 %; Hematocrit 39.7 % (42.0-52.0); Hemoglobin 13.3 g/dL (11.7-16.6); Lymphocytes # 1.3 10^3/uL (0.8-4.8); Lymphocytes % 17.4 %; Mean Corpuscular HGB Conc 33.5 g/dL (30.0-36.0); Mean Corpuscular Hemoglobin 34.1 pg (28.0-34.0); Mean Corpuscular Volume 101.8 fL (80-94); Mean Platelet Volume 9.6 fL (7.4-10.4); Monocytes # 0.7 10^3/uL (0.2-0.9); Monocytes % 8.8 %; Nucleated Red Blood Cells % 0 %; Platelet Count 251 10^3/cmm (130-400); Red Cell Distribution Width 13.3 % (12.1-15.1); White Blood Count 7.4 10^3/uL (4.0-10.0)
[2019-11-12 08:39] LABS: Alanine Aminotransferase 37 U/L (0-41); Albumin Level 4.3 g/dL (3.5-5.2); Alkaline Phosphatase 72 IU/L (40-130); Anion Gap 14.6 (5-19); Aspartate Amino Transferase 32 U/L (0-40); Blood Urea Nitrogen 15 mg/dL (8-23); Calcium 9.2 mg/dL (8.5-10.5); Carbon Dioxide 27 mmol/L (22-29); Chloride 102 mmol/L (98-107); Globulin 2.5 g/dL (1.3-4.6); Glucose 172 mg/dL (65-115); Osmolality Calculated 288 mOsm/kg (285-295); Potassium 4.6 mmol/L (3.5-5.1); Sodium 139 mmol/L (136-145); Total Bilirubin 0.4 mg/dL (0.15-1.2); Total Protein 6.8 g/dL (6.6-8.7)
[2019-11-12] MEDS: sodium chloride 0.9% 250 ML 75 ML IV (10:38)
--- NOTE | 2019-11-12 13:24 | ONC FU_ITS ---
Dr. 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 He had presented with symptoms of abdominal pain and early satiety. CT abdomen/pelvis on 01/05/2017 showed an apple core appearing lesion at the hepatic flexure with associated obstruction involving the ascending colon, cecum, and ileum. The appearance was suspicious for neoplasm. There was a small amount of pelvic ascites. A 6.9 mm right lower lobe noncalcified pulmonary nodule was felt to be nonspecific. There was otherwise no evidence of metastatic disease. Colonoscopy on 01/09/2017 showed a partially obstructing malignant appearing mass at the hepatic flexure estimated at 5 x 4 cm. An additional sessile polyp was noted in the distal sigmoid colon and excised by hot snare. Biopsy of the hepatic flexure mass showed poorly differentiated infiltrating adenocarcinoma. The distal sigmoid lesion was a hyperplastic polyp. He underwent laparoscopic right hemicolectomy with ileocolic anastomosis and partial omentectomy on 01/10/2017. Pathology showed moderately differentiated infiltrating adenocarcinoma with invasion of the muscularis propria into rehana-colic tissue. The tumor measured 2.3 x 1.8 cm. The margins were free of tumor. There was evidence of lymphovascular space invasion. A total of 7 lymph nodes were identified in the sample and all were negative for metastatic disease. Final pathologic staging was T3, N0. He had several high risk features including a near obstructing primary tumor, evidence of lymphovascular space invasion, and less then 12 lymph nodes sampled. 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 Follow-up colonoscopy done on 02/06/2018 showed ileocolic anastomosis looked intact without evidence of recurrence and wide patent. In the proximal transverse colon, an abnormality was noted. He was followed by Dr. Willingham His other medical illnesses include hypertension, hyperlipidemia, and type II diabetes. He is a nonsmoker. Follow-up colonoscopy done on 02/26/2019 showed normal findings. Ileocolic anastomosis is widely patent without evidence of local recurrence. CEA repeated on 03/04/2019 was 7.7 compared to 7.2 on 01/07/2019 CT PET scan done on 03/15/2019 showed 3.1 x 2.2 cm mass in the right middle lobe with SUV of 22.1, and an adjacent right middle lobe FDG positive satellite nodule was noted. The right lower lobe perihilar nodule measuring 1.6 cm with SUV of 21.6. Multiple mediastinal nodes are FDG positive, consistent with metastatic disease and index node in the right 4R peritracheal territory measures 1.6 cm with SUV of 23.0 and other similar nodes are evident in the right pericardial, right superior mediastinal, right periesophageal territory. No evidence of metastatic disease to bone or below diaphragm Underwent mediastinoscopy on 04/28/2019 and lymph node biopsy was obtained from paratracheal, station 4R, final pathology report showed metastatic adenocarcinoma, consistent with GI origin. The tumor was positive for CD X2, CK 20; negative for CK 7 and TTF-1. recommended 6 cycles of FOLFIRI/Avastin the restage with followup PET/CT. Mr Yu began cycle 1 on 05/13/2019. He has tolerated it well. Mr. Yu had follow-up PET/CT on 07/19/2019 with [facility]ology out [facility]. The findings reported were continued physiological tracer activity at the colonic anastomosis. The right middle lobe mass that previously measured 3.1 x 2.2 cm with an SUV of 22.1 now measures 1.0 x 1.3 cm with an SUV of 7.7, indicating a positive response to therapy. There are similar improvement in the secondary right middle lobe nodule and in the right lower lobe nodule. The index node in the right 4R paratracheal territory now measures 1.5 with an SUV of 5.7 and previously was 1.8 cm with an SUV of 23. Multiple other mediastinal nodes demonstrate similar improvement . has reviewed the PET/CT and has recommended that Mr. Yu pursue 6 -8 more cycles of chemotherapy Follow-up CT PET scan done on 10/25/2019, showed right middle lobe nodule that previously measured 1.0 x 1.3 cm with SUV of 7.7, now measure 1.1 x 0.7 cm with SUV of 4.3. A secondary right middle lobe nodule and the right lower lobe nodule are FDG negative. Similar improvement is noted in the mediastinal lymph nodes in the right paratracheal (4R) node now has SUV of 4.7 compared to 5.7 previously. Other nodes since subcarinal, right hilar, right pericardial regions are FDG negative Came for follow-up, denies any specific complaints, no nausea vomiting, no fever chills, no mouth sores, no jaundice, no peripheral neuropathy, no skin rash, no abdominal pain Otherwise tolerating FOLFIRI/Avastin well . Medications: Aspirin 1 Tablet (of 81 mg) Oral daily, Ativan 1 (0.5 mg) Tablet Oral q 4 hours PRN, Atorvastatin Calcium 1 Tablet (of 40 mg) Oral daily, B-12 1 Tablet (of 1000 mcg) Oral daily, Calcium Carb-Cholecalciferol 1 Capsule (of 500-125 Units/mg) Oral daily, Cinnamon 1 (500 mg) Capsule Oral b.i.d., Compazine Tablet Oral q 4 hours PRN, Fish Oil 1 (1000 mg) Capsule Oral daily, hydroCHLOROthiazide 1 Capsule (of 12.5 mg) Oral at bedtime, Lisinopril 1 Tablet (of 40 mg) Oral daily, MetFORMIN HCl 1 Tablet (of 500 mg) Oral b.i.d., Metoprolol Tartrate 0.5 Tablet (of 25 mg) Oral b.i.d., Multivitamin Adult 1 Tablet Oral daily, Nitroglycerin 1 (0.4 mg) Tablet, sublingual Sublingual PRN, Pepcid 1 (20 mg) Tablet Oral daily PRN, Vitamin C 1 Tablet (of 500 mg) Oral daily, Vitamin E 1 Capsule (of 400 Units) Oral daily Allergies: Isosorbide Mononitrate and Succinylcholine Chloride. Review of Systems: Review of Systems is not available for this patient. Vital Signs: Performed on Nov 12, 2019 09:28 Height - 64.00 in Weight - 148.8 lbs BSA - 1.73 sq.m BMI - 25.54 Temperature - 98.0 F (LOW) Pulse - 60 /min Respiration - 18 /min BP - 147/72 mm(hg) (HIGH) O2 Sat - 97 % Pain - 0 Performance Status: 0 - Fully active, able to carry on all predisease activities without restrictions. (ECOG) Physical Examination: ENMT - No mouth sores, no thrush, no jaundice, Respiratory - Lungs are clear, Cardiovascular - Regular rate and rhythm of heart, Abdomen - Soft, bowel sounds present, nontender, Extremities - No visible edema or rash. Lab/Imaging: Test performed on October 29, 2019 09:09 Ua Color Yellow Ua Appearance Clear Ua Glucose Norm Ua Bilirubin Neg Ua Ketones Negative Ua Specific [place] 1.020 Ua Blood Neg Ua pH 5.0 Ua Protein Neg Ua Nitrites Negative Ua Leukocyte Esterase Negative Test performed on October 29, 2019 08:23 Sodium 138 mmol/L Potassium 4.5 mmol/L Chloride 102 mmol/L CO2 23 mmol/L Anion Gap 16.5 BUN 17 mg/dL Creatinine 1.0 mg/dL Cr Clearance (Est) 59.8300 mL/min Glucose 154 mg/dL Calcium 9.5 mg/dL Protein, Total 6.9 g/dL Albumin 4.0 g/dL Globulin 2.9 g/dL Bilirubin, Total 0.3 mg/dL ALT (SGPT) 37 U/L AST (SGOT) 31 U/L Alkaline Phosphatase 67 IU/L WBC 6.5 10 3/uL RBC 3.64 10 6/uL HGB 12.3 g/dL HCT 36.7 % MCV 100.8 fL MCH 33.8 pg MCHC 33.5 g/dL RDW 13.2 % Platelet Count 253 10 3/cmm MPV 9.7 fL Neutrophils 4.3 10 3/uL Lymphocytes 1.3 10 3/uL Monocytes 0.7 10 3/uL Eosinophils 0.3 10 3/uL Basophils 0.0 10 3/uL Neutrophil % 66.3 % Lymphocyte % 19.1 % Monocyte % 10.0 % Eosinophil % 3.8 % Basophils % 0.6 % CEA 5.0 ng/mL Test performed on October 15, 2019 09:33 Ua Urobilinogen Normal Test performed on October 15, 2019 09:27 Manual Lymphocytes 22 % Manual Monocytes 7.0 % Manual Eosinophils 7 % Test performed on October 15, 2019 09:23 Manual Segs 3.9 % Manual Bands 2.0 % Platelet Estimate normal Test performed on October 15, 2019 08:05 Manual Bands Abs 0.1 10 3/cmm Manual Monocytes Abs 0.4 10 3/cmm Manual Eosinophils Abs 0.4 10 3/cmm Test performed on Jun 10, 2019 09:32 Manual Basophils 0.0 % NRBCs 0.0 /100 WBC Test performed on May 21, 2019 09:50 CBC Slide Review SLIDE REVIEW PERFORM Impression: 1. Recurrent adenocarcinoma involving paratracheal lymph node per bronchoscopy/ mediastinoscopy done on 04/28/2019 Immunohistochemistry positive for CDX -2, CK 20 Negative for CK 7, TTF-1 and CEA checked on 05/05/2019 was 10.6 2. 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 He underwent laparoscopic right hemicolectomy on 01/10/2017. High risk features included near obstructing primary tumor, pathologic evidence of lymphovascular space invasion, and less than 12 lymph nodes sampled. 3. s/p adjuvant chemotherapy with modified FOLFOX.???4 from 01/30/2017 through 04/02/2017, FOLFOX minus oxaliplatin ???8 from 04/23/2017 through 07/23/2017. 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 4. He has iron deficiency anemia , resolved . His other medical illnesses include: 5. Hypertension. 6. Hyperlipidemia. 7. Type II diabetes .Follow-up colonoscopy done on 02/06/2018 showed ileocolic anastomosis looked intact without evidence of recurrence, and wide patent. In the proximal transverse colon, an abnormality was noted. Follow-up colonoscopy done on 02/26/2019 showed no abnormality seen, ileocolic anastomosis widely patent without evidence of local recurrence. CEA checked on 01/07/2019 was 7.2 compared to 2.4 on 07/05/2018 and repeat CEA on 03/04/[address] PET scan done on 03/15/2019 showed 3.1 x 2.2 cm mass in the right middle lobe with SUV of 22.1, and adjust in the right middle lobe FDG positive satellite nodule noted. The right lower lobe perihilar nodule measuring 1.6 cm with SUV of 21.6. Multiple mediastinal nodes are FDG positive, consistent with metastatic disease and index node in the right 4R peritracheal territory measures 1.6 cm with SUV of 23.0 and other similar nodes are evident in the right pericardial, right superior mediastinal, right periesophageal territory. No evidence of metastatic disease to bone or below diaphragm. Clinically, patient is doing well, tolerated mediastinoscopy well now surgical wound is healing well. And final pathology report came back metastatic adenocarcinoma, probably GI in origin. Discussed with patient regarding treatment options. 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 He began cycle 1 of 6 on 03/13/2019. He has tolerated it extremly well at this time. recommended 6 cycles of FOLFIRI/Avastin the restage with followup PET/CT. Mr Yu began cycle 1 on 05/13/2019. He has tolerated it well. After 5 cycles of chemotherapy, Mr. Yu had follow-up PET/CT on 07/19/2019 with [facility] radiology out [facility]. The findings reported were continued physiological tracer activity at the colonic anastomosis. The right middle lobe mass that previously measured 3.1 x 2.2 cm with an SUV of 22.1 now measures 1.0 x 1.3 cm with an SUV of 7.7, indicating a positive response to therapy. There are similar improvement in the secondary right middle lobe nodule and in the right lower lobe nodule. The index node in the right 4R paratracheal territory now measures 1.5 with an SUV of 5.7 and previously was 1.8 cm with an SUV of 23. Multiple other mediastinal nodes demonstrate similar improvement . has reviewed the PET/CT and has recommended that Mr. Yu pursue 6 more cycles of chemotherapy. Mr Yu will proceed with cycle 8/12 today. Plan: Discussed with patient regarding his labs white blood count 7.4 hemoglobin 13.3. Hematocrit 39.7 platelets 251,000 CMP within normal limits Clinically, patient doing well, no signs symptom suggestive of recurrence of disease, tolerating palliative systemic therapy well. His lab work-up looks reasonable we'll proceed with next cycle of FOLFIRI/Avastin today then return to clinic in 2 weeks with CBC CMP, if reasonable, for next biweekly dose. Signed By: Hayley Goodman M.D. <<Signature on File>>
[2019-11-26 09:18] LABS: Basophils # 0.1 10^3/uL (0.0-0.1); Basophils % 0.7 %; Eosinophils # 0.3 10^3/uL (0.0-0.8); Eosinophils % 3.6 %; Hematocrit 37.3 % (42.0-52.0); Hemoglobin 12.4 g/dL (11.7-16.6); Lymphocytes # 1.4 10^3/uL (0.8-4.8); Lymphocytes % 19.9 %; Mean Corpuscular HGB Conc 33.2 g/dL (30.0-36.0); Mean Corpuscular Hemoglobin 33.9 pg (28.0-34.0); Mean Corpuscular Volume 101.9 fL (80-94); Mean Platelet Volume 10.2 fL (7.4-10.4); Monocytes # 0.7 10^3/uL (0.2-0.9); Monocytes % 10.3 %; Neutrophils # 4.7 10^3/uL (1.8-7.7); Neutrophils % 65.2 %; Nucleated Red Blood Cells % 0 %; Platelet Count 265 10^3/cmm (130-400); Red Blood Count 3.66 10^6/uL (4.1-5.3); White Blood Count 7.2 10^3/uL (4.0-10.0)
[2019-11-26 09:29] LABS: Alanine Aminotransferase 33 U/L (0-41); Albumin Level 3.9 g/dL (3.5-5.2); Alkaline Phosphatase 64 IU/L (40-130); Anion Gap 15.6 (5-19); Aspartate Amino Transferase 31 U/L (0-40); Blood Urea Nitrogen 19 mg/dL (8-23); Carbon Dioxide 24 mmol/L (22-29); Chloride 105 mmol/L (98-107); Chol HDL Ratio 4.12 mg/dL (1.0-5.00); Cholesterol 140 mg/dL (0-200); Globulin 2.9 g/dL (1.3-4.6); Glucose 118 mg/dL (65-115); HDL Cholesterol 34 mg/dL (60-100); LDL Cholesterol Calculated 86 mg/dL (50-129); LDL HDL Ratio 2.53 RATIO (0.00-3.22); Osmolality Calculated 288 mOsm/kg (285-295); Potassium 4.6 mmol/L (3.5-5.1); Sodium 140 mmol/L (136-145); Total Bilirubin 0.3 mg/dL (0.15-1.2); Total Protein 6.8 g/dL (6.6-8.7); Triglycerides 99 mg/dL (0-150)
[2019-11-26] MEDS: sodium chloride 0.9% 250 ML 75 ML IV (10:40)
--- NOTE | 2019-11-29 15:19 | ONC FU_ITS ---
[facility] Patient Note Patient: Geoff Yu Unit #: [id number]: 1945 Dictated By: Tripp GibsonDate of Visit: Nov 26, 2019 Onc MED Follow-Up/Prog Note Chief Complaint: Colon cancer. 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 He had presented with symptoms of abdominal pain and early satiety. CT abdomen/pelvis on 01/05/2017 showed an apple core appearing lesion at the hepatic flexure with associated obstruction involving the ascending colon, cecum, and ileum. The appearance was suspicious for neoplasm. There was a small amount of pelvic ascites. A 6.9 mm right lower lobe noncalcified pulmonary nodule was felt to be nonspecific. There was otherwise no evidence of metastatic disease. Colonoscopy on 01/09/2017 showed a partially obstructing malignant appearing mass at the hepatic flexure estimated at 5 x 4 cm. An additional sessile polyp was noted in the distal sigmoid colon and excised by hot snare. Biopsy of the hepatic flexure mass showed poorly differentiated infiltrating adenocarcinoma. The distal sigmoid lesion was a hyperplastic polyp. He underwent laparoscopic right hemicolectomy with ileocolic anastomosis and partial omentectomy on 01/10/2017. Pathology showed moderately differentiated infiltrating adenocarcinoma with invasion of the muscularis propria into rehana-colic tissue. The tumor measured 2.3 x 1.8 cm. The margins were free of tumor. There was evidence of lymphovascular space invasion. A total of 7 lymph nodes were identified in the sample and all were negative for metastatic disease. Final pathologic staging was T3, N0. He had several high risk features including a near obstructing primary tumor, evidence of lymphovascular space invasion, and less then 12 lymph nodes sampled. 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 Follow-up colonoscopy done on 02/06/2018 showed ileocolic anastomosis looked intact without evidence of recurrence and wide patent. In the proximal transverse colon, an abnormality was noted. He was followed by Dr. Willingham His other medical illnesses include hypertension, hyperlipidemia, and type II diabetes. He is a nonsmoker. Follow-up colonoscopy done on 02/26/2019 showed normal findings. Ileocolic anastomosis is widely patent without evidence of local recurrence. CEA repeated on 03/04/2019 was 7.7 compared to 7.2 on 01/07/2019 CT PET scan done on 03/15/2019 showed 3.1 x 2.2 cm mass in the right middle lobe with SUV of 22.1, and an adjacent right middle lobe FDG positive satellite nodule was noted. The right lower lobe perihilar nodule measuring 1.6 cm with SUV of 21.6. Multiple mediastinal nodes are FDG positive, consistent with metastatic disease and index node in the right 4R peritracheal territory measures 1.6 cm with SUV of 23.0 and other similar nodes are evident in the right pericardial, right superior mediastinal, right periesophageal territory. No evidence of metastatic disease to bone or below diaphragm Underwent mediastinoscopy on 04/28/2019 and lymph node biopsy was obtained from paratracheal, station 4R, final pathology report showed metastatic adenocarcinoma, consistent with GI origin. The tumor was positive for CD X2, CK 20; negative for CK 7 and TTF-1. recommended 6 cycles of FOLFIRI/Avastin the restage with followup PET/CT. Mr Yu began cycle 1 on 05/13/2019. He has tolerated it well. Mr. Yu had follow-up PET/CT on 07/19/2019 with [facility] out [facility]. The findings reported were continued physiological tracer activity at the colonic anastomosis. The right middle lobe mass that previously measured 3.1 x 2.2 cm with an SUV of 22.1 now measures 1.0 x 1.3 cm with an SUV of 7.7, indicating a positive response to therapy. There are similar improvement in the secondary right middle lobe nodule and in the right lower lobe nodule. The index node in the right 4R paratracheal territory now measures 1.5 with an SUV of 5.7 and previously was 1.8 cm with an SUV of 23. Multiple other mediastinal nodes demonstrate similar improvement . has reviewed the PET/CT and has recommended that Mr. Yu pursue 6 -8 more cycles of chemotherapy Follow-up CT PET scan done on 10/25/2019, showed right middle lobe nodule that previously measured 1.0 x 1.3 cm with SUV of 7.7, now measure 1.1 x 0.7 cm with SUV of 4.3. A secondary right middle lobe nodule and the right lower lobe nodule are FDG negative. Similar improvement is noted in the mediastinal lymph nodes in the right paratracheal (4R) node now has SUV of 4.7 compared to 5.7 previously. Other nodes since subcarinal, right hilar, right pericardial regions are FDG negative. He has tolerated treatment well. Dr Goodman did recommend 6 additional cycles of treatment then restage to determin further plan of care. Mr. Yu is here today for follow-up. He continues to do well. This is cycle 15/18 FOLFIRI and Avastin. He is tolerating it well. His performance status is good. He has been working in his yard and staying very busy. He denies any new concerns. He denies any neuropathy, diarrhea, headaches vision changes. He states he has had no nausea or vomiting. He states he is eating well. His energy is good. He denies any neuropathy. He denies any urinary complaints. He denies any headaches he states he really has been doing well and feels good overall. His ECOG is 0. . Past Medical History: Diabetes type II Hyperlipidemia Hypertension Past Surgical History: Pneumonia Vaccine in 2017 - Given in left deltoid./lc Flu Vacccine in 2017 - Pt stated he had flu vaccine at [facility] 02/26/17./lc Left subclavian venous access device-Dr Willingham in 2017 Right Hemicolectomy in 2017 Allergies: Isosorbide Mononitrate and Succinylcholine Chloride. Medications: Aspirin 1 Tablet (of 81 mg) Oral daily Ativan 1 (0.5 mg) Tablet Oral q 4 hours PRN Atorvastatin Calcium 1 Tablet (of 40 mg) Oral daily B-12 1 Tablet (of 1000 mcg) Oral daily Calcium Carb-Cholecalciferol 1 Capsule (of 500-125 Units/mg) Oral daily Cinnamon 1 (500 mg) Capsule Oral b.i.d. Compazine Tablet Oral q 4 hours PRN Fish Oil 1 (1000 mg) Capsule Oral daily hydroCHLOROthiazide 1 Capsule (of 12.5 mg) Oral at bedtime Lisinopril 1 Tablet (of 40 mg) Oral daily MetFORMIN HCl 1 Tablet (of 500 mg) Oral b.i.d. Metoprolol Tartrate 0.5 Tablet (of 25 mg) Oral b.i.d. Multivitamin Adult 1 Tablet Oral daily Nitroglycerin 1 (0.4 mg) Tablet, sublingual Sublingual PRN Pepcid 1 (20 mg) Tablet Oral daily PRN Vitamin C 1 Tablet (of 500 mg) Oral daily Vitamin E 1 Capsule (of 400 Units) Oral daily Family History: Mr. Yu's mother at age 74: lung cancer. Mr. Yu's father at age 48: heart attack. Social History: Mr. Yu is and he is retired. Mr. Yu has never smoked. He has no history of drinking. Mr. Yu reports the following support systems: lives with spouse, significant other, family, or friends, lives in own house, supportive family/friends willing to assist with needs, and adequate transportation available for expected visits. His diet consists of regular meals. He indicates his activity level as: daily activities. Review Of Symptoms: Constitutional Denies fevers, chills, night sweats, excessive fatigue or weight loss. Has been working in his yard. Allergic/Immunologic No reactions. Eyes Denies significant visual changes. No diplopia. No amaurosis. ENMT Denies changes in hearing, sore throat, mouth sores, difficulty or changes in swallowing ability, and/or sinus drainage. Endocrine No diabetes, thyroid disease or hormone replacement. Denies hot flashes or night sweats. Hematologic/Lymphatic Denies easy bruising or bleeding. The patient denies any tender or palpable lymph nodes. Respiratory Denies dyspnea on exertion, chest pain, cough or hemoptysis. Denies orthopnea. Cardiovascular Denies anginal chest pain, palpitations or orthopnea. Gastrointestinal Denies nausea, vomiting, diarrhea, GI bleeding, or constipation. Denies change in bowel habits and/or stool color, no heartburn or early satiety. Genitourinary (M) Denies hematuria, dysuria, increased frequency, urgency, hesitancy or incontinence. Musculoskeletal Denies joint pain, swelling or redness. No decreased range of motion. Integumentary Denies chronic rashes, inflammation, ulcerations or skin changes. Neurologic Denies headache, blurred vision, and no areas of focal weakness or numbness. Normal gait. No sensory problems. Psychiatric Denies insomnia, depression, alex or mood swings. Vital Signs: Performed on Nov 26, 2019 10:02 Height - 64.00 in Weight - 151.2 lbs (HIGH) BSA - 1.74 sq.m BMI - 25.95 Temperature - 98.1 F (LOW) Pulse - 74 /min Respiration - 20 /min BP - 163/74 mm(hg) (HIGH) O2 Sat - 96 % Pain - 0,0 - Fully active, able to carry on all predisease activities without restrictions. (ECOG) Physical Examination: Constitutional Alert, oriented, no acute distress. Skin pink, warm and dry. Head Normocephalic; atraumatic. Eyes Conjunctivae and sclerae are clear and without icterus. Pupils are reactive and equal. Neck Supple without masses or thyromegaly. No jugular venous distension. Hematologic/Lymphatic No petechiae or purpura. Respiratory Lungs are clear to auscultation without rhonchi or wheezing. Cardiovascular Regular rate and rhythm of heart without murmurs,clicks, gallops or rubs. Chest Left subclavian venous access device insertion site is unremarkable. Back/Spine Non-tender to palpation. Extremities No visible deformities, no cyanosis, clubbing or edema. Musculoskeletal No tenderness or swelling, normal range of motion without obvious weakness. Integumentary No rashes or lesions. Neurologic No sensory or motor deficits, normal cerebellar function, normal gait. Psychiatric Alert and oriented times three. Coherent speech. Verbalizes understanding of our discussions today. Laboratory:Test performed on Nov 26, 2019 08:25 Cholesterol, Total 140 mg/dL Sodium 140 mmol/L Potassium 4.6 mmol/L Triglycerides 99 mg/dL Chloride 105 mmol/L LDL Cholesterol 86 mg/dL CO2 24 mmol/L Anion Gap 15.6 HDL Cholesterol 34 mg/dL BUN 19 mg/dL Cholesterol/HDL Ratio 4.12 mg/dL Creatinine 0.9 mg/dL LDL / HDL Ratio 2.53 RATIO Cr Clearance (Est) 66.4800 mL/min Glucose 118 mg/dL Calcium 9.0 mg/dL Protein, Total 6.8 g/dL Albumin 3.9 g/dL Globulin 2.9 g/dL Bilirubin, Total 0.3 mg/dL ALT (SGPT) 33 U/L AST (SGOT) 31 U/L Alkaline Phosphatase 64 IU/L WBC 7.2 10 3/uL RBC 3.66 10 6/uL HGB 12.4 g/dL HCT 37.3 % MCV 101.9 fL MCH 33.9 pg MCHC 33.2 g/dL RDW 13.0 % Platelet Count 265 10 3/cmm MPV 10.2 fL Neutrophils 4.7 10 3/uL Lymphocytes 1.4 10 3/uL Monocytes 0.7 10 3/uL Eosinophils 0.3 10 3/uL Basophils 0.1 10 3/uL Neutrophil % 65.2 % Lymphocyte % 19.9 % Monocyte % 10.3 % Eosinophil % 3.6 % Basophils % 0.7 % NRBC % 0 % Test performed on October 29, 2019 09:09 Ua Color Yellow Ua Appearance Clear Ua Glucose Norm Ua Bilirubin Neg Ua Ketones Negative Ua Specific [place] 1.020 Ua Blood Neg Ua pH 5.0 Ua Protein Neg Ua Nitrites Negative Ua Leukocyte Esterase Negative Test performed on October 29, 2019 08:23 CEA 5.0 ng/mL Test performed on October 15, 2019 09:33 Ua Urobilinogen Normal Test performed on October 15, 2019 09:27 Manual Lymphocytes 22 % Manual Monocytes 7.0 % Manual Eosinophils 7 % Test performed on October 15, 2019 09:23 Manual Segs 3.9 % Manual Bands 2.0 % Platelet Estimate normal Test performed on October 15, 2019 08:05 Manual Bands Abs 0.1 10 3/cmm Manual Monocytes Abs 0.4 10 3/cmm Manual Eosinophils Abs 0.4 10 3/cmm Test performed on Jun 10, 2019 09:32 Manual Basophils 0.0 % NRBCs 0.0 /100 WBC Impression: 1. Recurrent adenocarcinoma involving paratracheal lymph node per bronchoscopy/ mediastinoscopy done on 04/28/2019 Immunohistochemistry positive for CDX -2, CK 20 Negative for CK 7, TTF-1 and CEA checked on 05/05/2019 was 10.6 2. 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 He underwent laparoscopic right hemicolectomy on 01/10/2017. High risk features included near obstructing primary tumor, pathologic evidence of lymphovascular space invasion, and less than 12 lymph nodes sampled. 3. s/p adjuvant chemotherapy with modified FOLFOX.???4 from 01/30/2017 through 04/02/2017, FOLFOX minus oxaliplatin ???8 from 04/23/2017 through 07/23/2017. 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 4. He has iron deficiency anemia , resolved . His other medical illnesses include: 5. Hypertension. 6. Hyperlipidemia. 7. Type II diabetes Follow-up colonoscopy done on 02/06/2018 showed ileocolic anastomosis looked intact without evidence of recurrence, and wide patent. In the proximal transverse colon, an abnormality was noted. Follow-up colonoscopy done on 02/26/2019 showed no abnormality seen, ileocolic anastomosis widely patent without evidence of local recurrence. CEA checked on 01/07/2019 was 7.2 compared to 2.4 on 07/05/2018 and repeat CEA on 03/04/[address] PET scan done on 03/15/2019 showed 3.1 x 2.2 cm mass in the right middle lobe with SUV of 22.1, and adjust in the right middle lobe FDG positive satellite nodule noted. The right lower lobe perihilar nodule measuring 1.6 cm with SUV of 21.6. Multiple mediastinal nodes are FDG positive, consistent with metastatic disease and index node in the right 4R peritracheal territory measures 1.6 cm with SUV of 23.0 and other similar nodes are evident in the right pericardial, right superior mediastinal, right periesophageal territory. No evidence of metastatic disease to bone or below diaphragm. Clinically, patient is doing well, tolerated mediastinoscopy well now surgical wound is healing well. And final pathology report came back metastatic adenocarcinoma, probably GI in origin. Discussed with patient regarding treatment options. 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 He began cycle 1 of 6 on 03/13/2019. He has tolerated it extremly well at this time. Dr Goodman recommended 6 cycles of FOLFIRI/Avastin the restage with followup PET/CT. Mr Yu began cycle 1 on 05/13/2019. He has tolerated it well. After 5 cycles of chemotherapy, Mr. Yu had follow-up PET/CT on 07/19/2019 with [facility] radiology out [facility]. The findings reported were continued physiological tracer activity at the colonic anastomosis. The right middle lobe mass that previously measured 3.1 x 2.2 cm with an SUV of 22.1 now measures 1.0 x 1.3 cm with an SUV of 7.7, indicating a positive response to therapy. There are similar improvement in the secondary right middle lobe nodule and in the right lower lobe nodule. The index node in the right 4R paratracheal territory now measures 1.5 with an SUV of 5.7 and previously was 1.8 cm with an SUV of 23. Multiple other mediastinal nodes demonstrate similar improvement . Dr Goodman has reviewed the PET/CT and has recommended that Mr. Yu pursue 6 more cycles of chemotherapy. Mr Yu will proceed with cycle 15/18 today. He is tolerating it well. Plan: 1. Proceed with FOLFIRI/Avastin day 1 of cycle 15/18. He continues to tolerate it well. 2. Continue with Emend premed (it was added on cycle 7 for post treatment nausea) as he did not have the post treatment nausea last cycle. 3. Labs from today were reviewed in detail and discussed with Mr. Yu and a copy was given to them. WBC 7.2, hemoglobin 12.4, platelets 265,000, ANC is 10,200 creatinine is 0.9. LFTs are normal. His blood pressure today was 163/74. Baseline CEA on 05/05/2019 was 10.6 and CEA on 10/29/2019 was 5.0. Urine has been negative for protein. 3. We will plan to see Mr. Yu back in 2 week for cycle 16/18 FOLFIRI/Avastin. I have asked for a CBC, CMP, UA and CEA. 4. Mr. Yu has been instructed to contact us in the interim should questions or problems arise. Signed By: Tripp Gibson <<Signature on File>>
== END 2019-12-02 23:59 | disposition home or self-care (01) ==
LOC: ONCMED 06:50
PROVIDERS: Internal Medicine Hematology & Oncology; PCP Family Medicine; Visit Provider Nurse Practitioner
DX: Z51.11 Encounter for antineoplastic chemotherapy (principal); C18.0 Malignant neoplasm of cecum; C77.1 Secondary and unspecified malignant neoplasm of intrathoracic lymph nodes; E11.9 Type 2 diabetes mellitus without complications; E78.5 Hyperlipidemia, unspecified; I10 Essential (primary) hypertension; Z79.899 Other long term (current) drug therapy
CPT/HCPCS: 36415; 80053; 80061; 85025; 96367; 96368; 96375; 96413; 96415; 96416; 96417; 99214; G0463; J0461; J0640; J1100; J1453; J2469; J3490; J7050; J9035; J9206

== ENCOUNTER 2019-12-24 06:42 | Outpatient (RCR) | payer MEDICARE, OTHER, SELFPAY ==
[2019-12-10 08:29] LABS: Basophils # 0.1 10^3/uL (0.0-0.1); Basophils % 0.7 %; Eosinophils # 0.3 10^3/uL (0.0-0.8); Eosinophils % 3.7 %; Hematocrit 38.1 % (42.0-52.0); Hemoglobin 12.8 g/dL (11.7-16.6); Lymphocytes # 1.5 10^3/uL (0.8-4.8); Lymphocytes % 21.6 %; Mean Corpuscular HGB Conc 33.6 g/dL (30.0-36.0); Mean Corpuscular Hemoglobin 33.9 pg (28.0-34.0); Mean Corpuscular Volume 100.8 fL (80-94); Mean Platelet Volume 9.8 fL (7.4-10.4); Monocytes # 0.7 10^3/uL (0.2-0.9); Monocytes % 9.8 %; Neutrophils # 4.3 10^3/uL (1.8-7.7); Neutrophils % 64.1 %; Nucleated Red Blood Cells % 0 %; Platelet Count 232 10^3/cmm (130-400); Red Blood Count 3.78 10^6/uL (4.1-5.3); Red Cell Distribution Width 12.9 % (12.1-15.1); White Blood Count 6.8 10^3/uL (4.0-10.0)
[2019-12-10 09:00] LABS: Carcinoembryonic Antigen 5.6 ng/mL (0.0-4.7)
[2019-12-10 09:04] LABS: Bilirubin Urine Neg (NEGATIVE); Blood Urine Neg (Negative); Glucose Urine UA Norm (Normal); Ketones Urine Negative (Negative); Leukocyte Esterase Urine Negative (Negative); Nitrate Urine Negative (Negative); Protein Urine Neg (Negative); Specific Gravity, Urine 1.015 (1.005-1.030); Urine Appearance Clear (CLEAR); Urine Color Yellow (Yellow); Urobilinogen Urine Norm (Negative); pH Urine 5 (5-7)
[2019-12-10 09:11] LABS: Add Urine Culture? No; Alanine Aminotransferase 30 U/L (0-41); Alkaline Phosphatase 66 IU/L (40-130); Anion Gap 14.4 (5-19); Aspartate Amino Transferase 25 U/L (0-40); Bacteria Urine TRACE; Blood Urea Nitrogen 17 mg/dL (8-23); Calcium 9.2 mg/dL (8.5-10.5); Carbon Dioxide 25 mmol/L (22-29); Chloride 102 mmol/L (98-107); Globulin 2.8 g/dL (1.3-4.6); Glucose 166 mg/dL (65-115); Hyaline Casts Urine 0-4; Mucus Urine 1+; Osmolality Calculated 284 mOsm/kg (285-295); Potassium 4.4 mmol/L (3.5-5.1); RBC Urine 0-4 /hpf (0-2); Sodium 137 mmol/L (136-145); Squamous Epithelial Cell Urine 0-4 (0-5); Total Bilirubin 0.2 mg/dL (0.15-1.2); Total Protein 6.8 g/dL (6.6-8.7); WBC Urine 0-4 /hpf (0-5)
[2019-12-10] MEDS: sodium chloride 0.9% 250 ML 75 ML IV (11:00)
[2019-12-10] MEDS: atropine 1 mg/mL SDV 1 mL 0.4 MG IV (11:33)
--- NOTE | 2019-12-10 14:21 | ONC FU_ITS ---
Dr. 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 He had presented with symptoms of abdominal pain and early satiety. CT abdomen/pelvis on 01/05/2017 showed an apple core appearing lesion at the hepatic flexure with associated obstruction involving the ascending colon, cecum, and ileum. The appearance was suspicious for neoplasm. There was a small amount of pelvic ascites. A 6.9 mm right lower lobe noncalcified pulmonary nodule was felt to be nonspecific. There was otherwise no evidence of metastatic disease. Colonoscopy on 01/09/2017 showed a partially obstructing malignant appearing mass at the hepatic flexure estimated at 5 x 4 cm. An additional sessile polyp was noted in the distal sigmoid colon and excised by hot snare. Biopsy of the hepatic flexure mass showed poorly differentiated infiltrating adenocarcinoma. The distal sigmoid lesion was a hyperplastic polyp. He underwent laparoscopic right hemicolectomy with ileocolic anastomosis and partial omentectomy on 01/10/2017. Pathology showed moderately differentiated infiltrating adenocarcinoma with invasion of the muscularis propria into rehana-colic tissue. The tumor measured 2.3 x 1.8 cm. The margins were free of tumor. There was evidence of lymphovascular space invasion. A total of 7 lymph nodes were identified in the sample and all were negative for metastatic disease. Final pathologic staging was T3, N0. He had several high risk features including a near obstructing primary tumor, evidence of lymphovascular space invasion, and less then 12 lymph nodes sampled. 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 Follow-up colonoscopy done on 02/06/2018 showed ileocolic anastomosis looked intact without evidence of recurrence and wide patent. In the proximal transverse colon, an abnormality was noted. He was followed by Dr. Willingham His other medical illnesses include hypertension, hyperlipidemia, and type II diabetes. He is a nonsmoker. Follow-up colonoscopy done on 02/26/2019 showed normal findings. Ileocolic anastomosis is widely patent without evidence of local recurrence. CEA repeated on 03/04/2019 was 7.7 compared to 7.2 on 01/07/2019 CT PET scan done on 03/15/2019 showed 3.1 x 2.2 cm mass in the right middle lobe with SUV of 22.1, and an adjacent right middle lobe FDG positive satellite nodule was noted. The right lower lobe perihilar nodule measuring 1.6 cm with SUV of 21.6. Multiple mediastinal nodes are FDG positive, consistent with metastatic disease and index node in the right 4R peritracheal territory measures 1.6 cm with SUV of 23.0 and other similar nodes are evident in the right pericardial, right superior mediastinal, right periesophageal territory. No evidence of metastatic disease to bone or below diaphragm Underwent mediastinoscopy on 04/28/2019 and lymph node biopsy was obtained from paratracheal, station 4R, final pathology report showed metastatic adenocarcinoma, consistent with GI origin. The tumor was positive for CD X2, CK 20; negative for CK 7 and TTF-1. recommended 6 cycles of FOLFIRI/Avastin the restage with followup PET/CT. Mr Yu began cycle 1 on 05/13/2019. He has tolerated it well. Mr. Yu had follow-up PET/CT on 07/19/2019 with [facility] radiology out [facility]. The findings reported were continued physiological tracer activity at the colonic anastomosis. The right middle lobe mass that previously measured 3.1 x 2.2 cm with an SUV of 22.1 now measures 1.0 x 1.3 cm with an SUV of 7.7, indicating a positive response to therapy. There are similar improvement in the secondary right middle lobe nodule and in the right lower lobe nodule. The index node in the right 4R paratracheal territory now measures 1.5 with an SUV of 5.7 and previously was 1.8 cm with an SUV of 23. Multiple other mediastinal nodes demonstrate similar improvement . has reviewed the PET/CT and has recommended that Mr. Yu pursue 6 -8 more cycles of chemotherapy Follow-up CT PET scan done on 10/25/2019, showed right middle lobe nodule that previously measured 1.0 x 1.3 cm with SUV of 7.7, now measure 1.1 x 0.7 cm with SUV of 4.3. A secondary right middle lobe nodule and the right lower lobe nodule are FDG negative. Similar improvement is noted in the mediastinal lymph nodes in the right paratracheal (4R) node now has SUV of 4.7 compared to 5.7 previously. Other nodes since subcarinal, right hilar, right pericardial regions are FDG negative. He has tolerated treatment well. did recommend 6 additional cycles of treatment then restage to determin further plan of care. Came for follow-up, denies any specific complaints, no fever chills, no nausea or vomiting, no diarrhea or constipation, no skin rash, no jaundice, tolerating systemic therapy with a Avastin/FOLFIRI well . Medications: Aspirin 1 Tablet (of 81 mg) Oral daily, Ativan 1 (0.5 mg) Tablet Oral q 4 hours PRN, Atorvastatin Calcium 1 Tablet (of 40 mg) Oral daily, B-12 1 Tablet (of 1000 mcg) Oral daily, Calcium Carb-Cholecalciferol 1 Capsule (of 500-125 Units/mg) Oral daily, Cinnamon 1 (500 mg) Capsule Oral b.i.d., Compazine Tablet Oral q 4 hours PRN, Fish Oil 1 (1000 mg) Capsule Oral daily, hydroCHLOROthiazide 1 Capsule (of 12.5 mg) Oral at bedtime, Lisinopril 1 Tablet (of 40 mg) Oral daily, MetFORMIN HCl 1 Tablet (of 500 mg) Oral b.i.d., Metoprolol Tartrate 0.5 Tablet (of 25 mg) Oral b.i.d., Multivitamin Adult 1 Tablet Oral daily, Nitroglycerin 1 (0.4 mg) Tablet, sublingual Sublingual PRN, Pepcid 1 (20 mg) Tablet Oral daily PRN, Vitamin C 1 Tablet (of 500 mg) Oral daily, Vitamin E 1 Capsule (of 400 Units) Oral daily Allergies: Isosorbide Mononitrate and Succinylcholine Chloride. Review of Systems: Constitutional - Appetite is good and weight is stable. No fever, chills, hot flashes, or night sweats. Energy level is good, ENMT - No sinus congestion/drainage. No mouth sores. No sore throat or difficulty swallowing, Hematologic/Lymphatic - No abnormal bruising or bleeding, Respiratory - No shortness of breath. No cough. No pleuritic pain or hemoptysis, Cardiovascular - No angina pain. No palpitations, Gastrointestinal - No nausea or vomiting. No heartburn or acid reflux. No diarrhea or constipation. No blood in the stool or black stools, Genitourinary (M) - No dysuria or hematuria. No urinary frequency. No urgency or incontinence, Musculoskeletal - No joint or bone pain, Integumentary - No rashes or lesions, Neurologic - No headache or dizziness. No numbness/paresthesias or other focal neurologic symptoms, Psychiatric - No anxiety or depression. No insomnia. Vital Signs: Performed on Dec 10, 2019 09:33 Height - 64.00 in Weight - 150 lbs (LOW) BSA - 1.73 sq.m BMI - 25.75 Temperature - 98.1 F (LOW) Pulse - 68 /min Respiration - 18 /min BP - 155/73 mm(hg) (HIGH) O2 Sat - 96 % Pain - 0 Performance Status: 0 - Fully active, able to carry on all predisease activities without restrictions. (ECOG) Physical Examination: ENMT - No mouth sores, no thrush, no jaundice, Respiratory - Lungs are clear, Cardiovascular - Regular rate and rhythm of heart, Abdomen - Soft, bowel sounds present, Extremities - No visible edema or rash. Lab/Imaging: Test performed on Dec 10, 2019 09:37 Ua Color Yellow Ua Appearance Clear Ua Specific [place] 1.015 Ua pH 5 Ua Protein Neg Ua Glucose Norm Ua Ketones Negative Ua Blood Neg Ua Leuk Esterase Negative Ua Nitrites Negative Ua Bilirubin Neg Ua Urobilinogen Norm U Micro: WBC 0-4 U Micro: RBC 0-4 U Micro: Bacteria Trace U Micro: Epithelial Cells 0-4 U Micro: Mucus 1+ Test performed on Nov 26, 2019 08:25 Cholesterol, Total 140 mg/dL Sodium 140 mmol/L Potassium 4.6 mmol/L Triglycerides 99 mg/dL Chloride 105 mmol/L LDL Cholesterol 86 mg/dL CO2 24 mmol/L Anion Gap 15.6 HDL Cholesterol 34 mg/dL BUN 19 mg/dL Cholesterol/HDL Ratio 4.12 mg/dL Creatinine 0.9 mg/dL LDL / HDL Ratio 2.53 RATIO Cr Clearance (Est) 66.4800 mL/min Glucose 118 mg/dL Calcium 9.0 mg/dL Protein, Total 6.8 g/dL Albumin 3.9 g/dL Globulin 2.9 g/dL Bilirubin, Total 0.3 mg/dL ALT (SGPT) 33 U/L AST (SGOT) 31 U/L Alkaline Phosphatase 64 IU/L WBC 7.2 10 3/uL RBC 3.66 10 6/uL HGB 12.4 g/dL HCT 37.3 % MCV 101.9 fL MCH 33.9 pg MCHC 33.2 g/dL RDW 13.0 % Platelet Count 265 10 3/cmm MPV 10.2 fL Neutrophils 4.7 10 3/uL Lymphocytes 1.4 10 3/uL Monocytes 0.7 10 3/uL Eosinophils 0.3 10 3/uL Basophils 0.1 10 3/uL Neutrophil % 65.2 % Lymphocyte % 19.9 % Monocyte % 10.3 % Eosinophil % 3.6 % Basophils % 0.7 % NRBC % 0 % Test performed on October 29, 2019 08:23 CEA 5.0 ng/mL Test performed on October 15, 2019 09:27 Manual Lymphocytes 22 % Manual Monocytes 7.0 % Manual Eosinophils 7 % Test performed on October 15, 2019 09:23 Manual Segs 3.9 % Manual Bands 2.0 % Platelet Estimate normal Test performed on October 15, 2019 08:05 Manual Bands Abs 0.1 10 3/cmm Manual Monocytes Abs 0.4 10 3/cmm Manual Eosinophils Abs 0.4 10 3/cmm Impression: 1. Recurrent adenocarcinoma involving paratracheal lymph node per bronchoscopy/ mediastinoscopy done on 04/28/2019 Immunohistochemistry positive for CDX -2, CK 20 Negative for CK 7, TTF-1 and CEA checked on 05/05/2019 was 10.6 2. 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 He underwent laparoscopic right hemicolectomy on 01/10/2017. High risk features included near obstructing primary tumor, pathologic evidence of lymphovascular space invasion, and less than 12 lymph nodes sampled. 3. s/p adjuvant chemotherapy with modified FOLFOX.???4 from 01/30/2017 through 04/02/2017, FOLFOX minus oxaliplatin ???8 from 04/23/2017 through 07/23/2017. 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 4. He has iron deficiency anemia , resolved . His other medical illnesses include: 5. Hypertension. 6. Hyperlipidemia. 7. Type II diabetes .Follow-up colonoscopy done on 02/06/2018 showed ileocolic anastomosis looked intact without evidence of recurrence, and wide patent. In the proximal transverse colon, an abnormality was noted. Follow-up colonoscopy done on 02/26/2019 showed no abnormality seen, ileocolic anastomosis widely patent without evidence of local recurrence. CEA checked on 01/07/2019 was 7.2 compared to 2.4 on 07/05/2018 and repeat CEA on 03/04/[address] PET scan done on 03/15/2019 showed 3.1 x 2.2 cm mass in the right middle lobe with SUV of 22.1, and adjust in the right middle lobe FDG positive satellite nodule noted. The right lower lobe perihilar nodule measuring 1.6 cm with SUV of 21.6. Multiple mediastinal nodes are FDG positive, consistent with metastatic disease and index node in the right 4R peritracheal territory measures 1.6 cm with SUV of 23.0 and other similar nodes are evident in the right pericardial, right superior mediastinal, right periesophageal territory. No evidence of metastatic disease to bone or below diaphragm. Clinically, patient is doing well, tolerated mediastinoscopy well now surgical wound is healing well. And final pathology report came back metastatic adenocarcinoma, probably GI in origin. Discussed with patient regarding treatment options. 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 He began cycle 1 of 6 on 03/13/2019. He has tolerated it extremly well at this time. recommended 6 cycles of FOLFIRI/Avastin the restage with followup PET/CT. Mr Yu began cycle 1 on 05/13/2019. He has tolerated it well. After 5 cycles of chemotherapy, Mr. Yu had follow-up PET/CT on 07/19/2019 with [facility] radiology out [facility]. The findings reported were continued physiological tracer activity at the colonic anastomosis. The right middle lobe mass that previously measured 3.1 x 2.2 cm with an SUV of 22.1 now measures 1.0 x 1.3 cm with an SUV of 7.7, indicating a positive response to therapy. There are similar improvement in the secondary right middle lobe nodule and in the right lower lobe nodule. The index node in the right 4R paratracheal territory now measures 1.5 with an SUV of 5.7 and previously was 1.8 cm with an SUV of 23. Multiple other mediastinal nodes demonstrate similar improvement . has reviewed the PET/CT and has recommended that Mr. Yu pursue 6 more cycles of chemotherapy. Mr Yu will proceed with cycle 15/18 today. He is tolerating it well. Plan: Discussed with patient regarding his labs white blood count 6.8 hemoglobin 12.8 hematocrit 38.1 platelets 232,000 within normal limits Clinically, patient is doing well with no signs symptoms suggestive of disease progression, tolerating Avastin/FOLFIRI well. We will proceed with next cycle today and then he will return to clinic in 2 weeks with CBC CMP if reasonable for next treatment Signed By: Hayley Goodman M.D. <<Signature on File>>
[2019-12-10] MEDS: LORazepam 2 mg/mL INJ 1 mL 0.5 MG IV (15:05)
[2019-12-24 09:40] LABS: Add Urine Microscopic? NO
[2019-12-24 09:44] LABS: Basophils # 0.1 10^3/uL (0.0-0.1); Basophils % 0.8 %; Eosinophils # 0.2 10^3/uL (0.0-0.8); Eosinophils % 3.8 %; Hematocrit 38.5 % (42.0-52.0); Hemoglobin 12.6 g/dL (11.7-16.6); Lymphocytes # 1.5 10^3/uL (0.8-4.8); Lymphocytes % 24.5 %; Mean Corpuscular HGB Conc 32.7 g/dL (30.0-36.0); Mean Corpuscular Hemoglobin 33.3 pg (28.0-34.0); Mean Corpuscular Volume 101.9 fL (80-94); Mean Platelet Volume 9.9 fL (7.4-10.4); Monocytes # 0.7 10^3/uL (0.2-0.9); Monocytes % 10.9 %; Neutrophils # 3.63 10^3/uL (1.8-7.7); Neutrophils % 59.8 %; Nucleated Red Blood Cells % 0 %; Platelet Count 262 10^3/cmm (130-400); Red Blood Count 3.78 10^6/uL (4.1-5.3); Red Cell Distribution Width 13.2 % (12.1-15.1); White Blood Count 6.1 10^3/uL (4.0-10.0)
[2019-12-24 09:49] LABS: Bilirubin Urine Neg (NEGATIVE); Blood Urine Neg (Negative); Glucose Urine UA Norm (Normal); Ketones Urine Negative (Negative); Leukocyte Esterase Urine Negative (Negative); Nitrate Urine Negative (Negative); Protein Urine Neg (Negative); Specific Gravity, Urine 1.015 (1.005-1.030); Urine Appearance Clear (CLEAR); Urine Color Yellow (Yellow); Urobilinogen Urine Norm (Negative); pH Urine 6 (5-7)
[2019-12-24 10:17] LABS: Alanine Aminotransferase 35 U/L (0-41); Alkaline Phosphatase 66 IU/L (40-130); Anion Gap 15.3 (5-19); Aspartate Amino Transferase 35 U/L (0-40); Blood Urea Nitrogen 22 mg/dL (8-23); Calcium 8.1 mg/dL (8.5-10.5); Carbon Dioxide 24 mmol/L (22-29); Chloride 100 mmol/L (98-107); Glucose 232 mg/dL (65-115); Osmolality Calculated 284 mOsm/kg (285-295); Potassium 4.3 mmol/L (3.5-5.1); Sodium 135 mmol/L (136-145); Total Bilirubin 0.5 mg/dL (0.15-1.2)
[2019-12-24] MEDS: LORazepam 2 mg/mL INJ 1 mL 0.5 MG IV (11:10)
[2019-12-24] MEDS: atropine 1 mg/mL SDV 1 mL 0.4 MG IV (11:10)
[2019-12-24] MEDS: sodium chloride 0.9% 250 ML 75 ML IV (11:10)
--- NOTE | 2019-12-24 11:14 | ONC FU_ITS ---
[facility] Patient Note Patient: Geoff Yu Unit #: [id number]: 1945 Dictated By: rTipp GibsonDate of Visit: Dec 24, 2019 Onc MED Follow-Up/Prog Note Chief Complaint: Colon cancer. 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 He had presented with symptoms of abdominal pain and early satiety. CT abdomen/pelvis on 01/05/2017 showed an apple core appearing lesion at the hepatic flexure with associated obstruction involving the ascending colon, cecum, and ileum. The appearance was suspicious for neoplasm. There was a small amount of pelvic ascites. A 6.9 mm right lower lobe noncalcified pulmonary nodule was felt to be nonspecific. There was otherwise no evidence of metastatic disease. Colonoscopy on 01/09/2017 showed a partially obstructing malignant appearing mass at the hepatic flexure estimated at 5 x 4 cm. An additional sessile polyp was noted in the distal sigmoid colon and excised by hot snare. Biopsy of the hepatic flexure mass showed poorly differentiated infiltrating adenocarcinoma. The distal sigmoid lesion was a hyperplastic polyp. He underwent laparoscopic right hemicolectomy with ileocolic anastomosis and partial omentectomy on 01/10/2017. Pathology showed moderately differentiated infiltrating adenocarcinoma with invasion of the muscularis propria into rehana-colic tissue. The tumor measured 2.3 x 1.8 cm. The margins were free of tumor. There was evidence of lymphovascular space invasion. A total of 7 lymph nodes were identified in the sample and all were negative for metastatic disease. Final pathologic staging was T3, N0. He had several high risk features including a near obstructing primary tumor, evidence of lymphovascular space invasion, and less then 12 lymph nodes sampled. 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 Follow-up colonoscopy done on 02/06/2018 showed ileocolic anastomosis looked intact without evidence of recurrence and wide patent. In the proximal transverse colon, an abnormality was noted. He was followed by Dr. Willingham His other medical illnesses include hypertension, hyperlipidemia, and type II diabetes. He is a nonsmoker. Follow-up colonoscopy done on 02/26/2019 showed normal findings. Ileocolic anastomosis is widely patent without evidence of local recurrence. CEA repeated on 03/04/2019 was 7.7 compared to 7.2 on 01/07/2019 CT PET scan done on 03/15/2019 showed 3.1 x 2.2 cm mass in the right middle lobe with SUV of 22.1, and an adjacent right middle lobe FDG positive satellite nodule was noted. The right lower lobe perihilar nodule measuring 1.6 cm with SUV of 21.6. Multiple mediastinal nodes are FDG positive, consistent with metastatic disease and index node in the right 4R peritracheal territory measures 1.6 cm with SUV of 23.0 and other similar nodes are evident in the right pericardial, right superior mediastinal, right periesophageal territory. No evidence of metastatic disease to bone or below diaphragm Underwent mediastinoscopy on 04/28/2019 and lymph node biopsy was obtained from paratracheal, station 4R, final pathology report showed metastatic adenocarcinoma, consistent with GI origin. The tumor was positive for CD X2, CK 20; negative for CK 7 and TTF-1. recommended 6 cycles of FOLFIRI/Avastin the restage with followup PET/CT. Mr Yu began cycle 1 on 05/13/2019. He has tolerated it well. Mr. Yu had follow-up PET/CT on 07/19/2019 with [facility] out [facility]. The findings reported were continued physiological tracer activity at the colonic anastomosis. The right middle lobe mass that previously measured 3.1 x 2.2 cm with an SUV of 22.1 now measures 1.0 x 1.3 cm with an SUV of 7.7, indicating a positive response to therapy. There are similar improvement in the secondary right middle lobe nodule and in the right lower lobe nodule. The index node in the right 4R paratracheal territory now measures 1.5 with an SUV of 5.7 and previously was 1.8 cm with an SUV of 23. Multiple other mediastinal nodes demonstrate similar improvement . Dr Goodman reviewed the PET/CT and recommended that Mr. Yu pursue 6 -8 more cycles of chemotherapy. Follow-up CT PET scan done on 10/25/2019, showed right middle lobe nodule that previously measured 1.0 x 1.3 cm with SUV of 7.7, now measure 1.1 x 0.7 cm with SUV of 4.3. A secondary right middle lobe nodule and the right lower lobe nodule are FDG negative. Similar improvement is noted in the mediastinal lymph nodes in the right paratracheal (4R) node now has SUV of 4.7 compared to 5.7 previously. Other nodes since subcarinal, right hilar, right pericardial regions are FDG negative. He has tolerated treatment well. It was recommended that he have 6 additional cycles of treatment then restage to determine further plan of care. He has now completed 4 of those 6 additional treatments. Mr. Yu is here today for follow-up. He is due for cycle 17 FOLFIRI. He continues to tolerate it extremely well. He remains active around the house. He has been camping. He denies any new concerns. He denies any pain. He has had no shortness of breath orthopnea. He states he has occasional numbness in his lips right after treatment but on last a couple days and it is not getting worse with continued treatments. He denies any diarrhea or constipation. He has had no lower extremity edema. He denies mouth sores, sore throat or difficulty swallowing. He denies fever or chills. He states overall he is doing well. His ECOG is 0. Past Medical History: Diabetes type II Hyperlipidemia Hypertension Past Surgical History: Pneumonia Vaccine in 2017 - Given in left deltoid./lc Flu Vacccine in 2017 - Pt stated he had flu vaccine at [facility] 02/26/17./lc Left subclavian venous access device-Dr Willingham in 2017 Right Hemicolectomy in 2017 Allergies: Isosorbide Mononitrate and Succinylcholine Chloride. Medications: Aspirin 1 Tablet (of 81 mg) Oral daily Ativan 1 (0.5 mg) Tablet Oral q 4 hours PRN Atorvastatin Calcium 1 Tablet (of 40 mg) Oral daily B-12 1 Tablet (of 1000 mcg) Oral daily Calcium Carb-Cholecalciferol 1 Capsule (of 500-125 Units/mg) Oral daily Cinnamon 1 (500 mg) Capsule Oral b.i.d. Compazine Tablet Oral q 4 hours PRN Fish Oil 1 (1000 mg) Capsule Oral daily hydroCHLOROthiazide 1 Capsule (of 12.5 mg) Oral at bedtime Lisinopril 1 Tablet (of 40 mg) Oral daily MetFORMIN HCl 1 Tablet (of 500 mg) Oral b.i.d. Metoprolol Tartrate 0.5 Tablet (of 25 mg) Oral b.i.d. Multivitamin Adult 1 Tablet Oral daily Nitroglycerin 1 (0.4 mg) Tablet, sublingual Sublingual PRN Pepcid 1 (20 mg) Tablet Oral daily PRN Vitamin C 1 Tablet (of 500 mg) Oral daily Vitamin E 1 Capsule (of 400 Units) Oral daily Family History: Mr. Yu's mother at age 74: lung cancer. Mr. Yu's father at age 48: heart attack. Social History: Mr. Yu is and he is retired. Mr. uY has never smoked. He has no history of drinking. Mr. Yu reports the following support systems: lives with spouse, significant other, family, or friends, lives in own house, supportive family/friends willing to assist with needs, and adequate transportation available for expected visits. His diet consists of regular meals. He indicates his activity level as: daily activities. Review Of Symptoms: Constitutional Denies fevers, chills, night sweats, excessive fatigue or weight loss. Has been working in his yard and camping. Allergic/Immunologic No reactions. Eyes Denies significant visual changes. No diplopia. No amaurosis. ENMT Denies changes in hearing, sore throat, mouth sores, difficulty or changes in swallowing ability, and/or sinus drainage. Lips a little numb after treatment but no worse than what it has been. Endocrine No diabetes, thyroid disease or hormone replacement. Denies hot flashes or night sweats. Hematologic/Lymphatic Denies easy bruising or bleeding. The patient denies any tender or palpable lymph nodes. Respiratory Denies dyspnea on exertion, chest pain, cough or hemoptysis. Denies orthopnea. Cardiovascular Denies anginal chest pain, palpitations or orthopnea. Gastrointestinal Denies nausea, vomiting, diarrhea, GI bleeding, or constipation. Denies change in bowel habits and/or stool color, no heartburn or early satiety. Genitourinary (M) Denies hematuria, dysuria, increased frequency, urgency, hesitancy or incontinence. Musculoskeletal Denies joint pain, swelling or redness. No decreased range of motion. Integumentary Denies chronic rashes, inflammation, ulcerations or skin changes. Neurologic Denies headache, blurred vision, and no areas of focal weakness or numbness. Normal gait. No sensory problems. Psychiatric Denies insomnia, depression, alex or mood swings. Vital Signs: Performed on Dec 24, 2019 10:28 Height - 64.00 in Weight - 149.0 lbs (LOW) BSA - 1.73 sq.m BMI - 25.58 Temperature - 97.6 F (LOW) Pulse - 78 /min Respiration - 17 /min BP - 141/65 mm(hg) (HIGH) O2 Sat - 97 % Pain - 0,0 - Fully active, able to carry on all predisease activities without restrictions. (ECOG) Physical Examination: Constitutional Alert, oriented, no acute distress. Skin pink, warm and dry. Head Normocephalic; atraumatic. Eyes Conjunctivae and sclerae are clear and without icterus. Pupils are reactive and equal. Wears glasses. Neck Supple without masses or thyromegaly. No jugular venous distension. Hematologic/Lymphatic No petechiae or purpura. Respiratory Lungs are clear to auscultation without rhonchi or wheezing. Cardiovascular Regular rate and rhythm of heart without murmurs,clicks, gallops or rubs. Chest Left subclavian venous access device insertion site is unremarkable. Back/Spine Non-tender to palpation. Extremities No visible deformities, no cyanosis, clubbing or edema. Musculoskeletal No tenderness or swelling, normal range of motion without obvious weakness. Integumentary No rashes or lesions. Neurologic No sensory or motor deficits, normal cerebellar function, normal gait. Psychiatric Alert and oriented times three. Coherent speech. Verbalizes understanding of our discussions today. Laboratory:Test performed on Dec 24, 2019 08:56 Sodium 135 mmol/L Potassium 4.3 mmol/L Chloride 100 mmol/L CO2 24 mmol/L Anion Gap 15.3 BUN 22 mg/dL Creatinine 1.1 mg/dL Cr Clearance (Est) 54.4000 mL/min Glucose 232 mg/dL Calcium 8.1 mg/dL Protein, Total 7.0 g/dL Albumin 4.0 g/dL Globulin 3.0 g/dL Bilirubin, Total 0.5 mg/dL ALT (SGPT) 35 U/L AST (SGOT) 35 U/L Alkaline Phosphatase 66 IU/L WBC 6.1 10 3/uL RBC 3.78 10 6/uL HGB 12.6 g/dL HCT 38.5 % MCV 101.9 fL MCH 33.3 pg MCHC 32.7 g/dL RDW 13.2 % Platelet Count 262 10 3/cmm MPV 9.9 fL Neutrophils 3.63 10 3/uL Lymphocytes 1.5 10 3/uL Monocytes 0.7 10 3/uL Eosinophils 0.2 10 3/uL Basophils 0.1 10 3/uL Neutrophil % 59.8 % Lymphocyte % 24.5 % Monocyte % 10.9 % Eosinophil % 3.8 % Basophils % 0.8 % NRBC % 0 % Test performed on Dec 10, 2019 09:37 Ua Color Yellow Ua Appearance Clear Ua Specific [place] 1.015 Ua pH 5 Ua Protein Neg Ua Glucose Norm Ua Ketones Negative Ua Blood Neg Ua Leuk Esterase Negative Ua Nitrites Negative Ua Bilirubin Neg Ua Urobilinogen Norm U Micro: WBC 0-4 U Micro: RBC 0-4 U Micro: Bacteria Trace U Micro: Epithelial Cells 0-4 U Micro: Mucus 1+ Test performed on Nov 26, 2019 08:25 Cholesterol, Total 140 mg/dL Triglycerides 99 mg/dL LDL Cholesterol 86 mg/dL HDL Cholesterol 34 mg/dL Cholesterol/HDL Ratio 4.12 mg/dL LDL / HDL Ratio 2.53 RATIO Impression: 1. Recurrent adenocarcinoma involving paratracheal lymph node per bronchoscopy/ mediastinoscopy done on 04/28/2019 Immunohistochemistry positive for CDX -2, CK 20 Negative for CK 7, TTF-1 and CEA checked on 05/05/2019 was 10.6 2. 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 He underwent laparoscopic right hemicolectomy on 01/10/2017. High risk features included near obstructing primary tumor, pathologic evidence of lymphovascular space invasion, and less than 12 lymph nodes sampled. 3. s/p adjuvant chemotherapy with modified FOLFOX.???4 from 01/30/2017 through 04/02/2017, FOLFOX minus oxaliplatin ???8 from 04/23/2017 through 07/23/2017. 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 4. He has iron deficiency anemia , resolved . His other medical illnesses include: 5. Hypertension. 6. Hyperlipidemia. 7. Type II diabetes .Follow-up colonoscopy done on 02/06/2018 showed ileocolic anastomosis looked intact without evidence of recurrence, and wide patent. In the proximal transverse colon, an abnormality was noted. Follow-up colonoscopy done on 02/26/2019 showed no abnormality seen, ileocolic anastomosis widely patent without evidence of local recurrence. CEA checked on 01/07/2019 was 7.2 compared to 2.4 on 07/05/2018 and repeat CEA on 03/04/[address] PET scan done on 03/15/2019 showed 3.1 x 2.2 cm mass in the right middle lobe with SUV of 22.1, and adjust in the right middle lobe FDG positive satellite nodule noted. The right lower lobe perihilar nodule measuring 1.6 cm with SUV of 21.6. Multiple mediastinal nodes are FDG positive, consistent with metastatic disease and index node in the right 4R peritracheal territory measures 1.6 cm with SUV of 23.0 and other similar nodes are evident in the right pericardial, right superior mediastinal, right periesophageal territory. No evidence of metastatic disease to bone or below diaphragm. Clinically, patient is doing well, tolerated mediastinoscopy well now surgical wound is healing well. And final pathology report came back metastatic adenocarcinoma, probably GI in origin. Discussed with patient regarding treatment options. 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 He began cycle 1 of 6 on 03/13/2019. He has tolerated it extremly well at this time. recommended 6 cycles of FOLFIRI/Avastin the restage with followup PET/CT. Mr Yu began cycle 1 on 05/13/2019. He has tolerated it well. After 5 cycles of chemotherapy, Mr. Yu had follow-up PET/CT on 07/19/2019 with [facility] radiology out [facility]. The findings reported were continued physiological tracer activity at the colonic anastomosis. The right middle lobe mass that previously measured 3.1 x 2.2 cm with an SUV of 22.1 now measures 1.0 x 1.3 cm with an SUV of 7.7, indicating a positive response to therapy. There are similar improvement in the secondary right middle lobe nodule and in the right lower lobe nodule. The index node in the right 4R paratracheal territory now measures 1.5 with an SUV of 5.7 and previously was 1.8 cm with an SUV of 23. Multiple other mediastinal nodes demonstrate similar improvement . has reviewed the PET/CT and has recommended that Mr. Yu pursue 6 more cycles of chemotherapy. Mr Yu will proceed with cycle 17/18 today. He is tolerating it well. Plan: 1. Proceed with FOLFIRI/Avastin day 1 of cycle 17/18. He continues to tolerate it well. 2. Continue with Emend premed (it was added on cycle 7 for post treatment nausea) as he did not have the post treatment nausea last cycle. 3. Labs from today were reviewed in detail and discussed with Mr. Yu and a copy was given to him. WBC 6.1 , hemoglobin 12.6 , platelets 262,000, ANC is 3600 creatinine is 1.1. LFTs are normal. His blood pressure today was 141/65. Baseline CEA on 05/05/2019 was 10.6 and CEA on 12/10/2019 was 5.8. Urine has been negative for protein. We did discuss his random glucose today of 232. He states he has been eating more sweets. He states he will watch his diet little closer. 3. We will plan to see Mr. Yu back in 2 week for cycle 18/18 FOLFIRI/Avastin. I have asked for a CBC, CMP, UA and CEA. 4. Mr. Yu has been instructed to contact us in the interim should questions or problems arise. 5. The current plan is to complete the next cycle of chemotherapy then restage to determine further plan of care. Signed By: Tripp Gibson-JACK, AOCNKarli Goodman MD <<Signature on File>>
== END 2020-01-02 23:59 | disposition home or self-care (01) ==
LOC: ONCMED 06:42
PROVIDERS: Internal Medicine Hematology & Oncology; PCP Family Medicine; Visit Provider Nurse Practitioner
DX: Z51.11 Encounter for antineoplastic chemotherapy (principal); C18.0 Malignant neoplasm of cecum; C77.1 Secondary and unspecified malignant neoplasm of intrathoracic lymph nodes; I10 Essential (primary) hypertension; E78.5 Hyperlipidemia, unspecified; E11.9 Type 2 diabetes mellitus without complications; Z79.82 Long term (current) use of aspirin; Z79.84 Long term (current) use of oral hypoglycemic drugs; Z90.49 Acquired absence of other specified parts of digestive tract
CPT/HCPCS: 80053; 81001; 81003; 82378; 85025; 96367; 96368; 96375; 96413; 96415; 96416; 96417; 99214; J0461; J0640; J1100; J1453; J2060; J2469; J3490; J7050; J9035; J9206

== ENCOUNTER 2020-01-27 05:36 | Outpatient (RCR) | payer MEDICARE, OTHER, SELFPAY ==
[2020-01-07 08:40] LABS: Basophils # 0.1 10^3/uL (0.0-0.1); Basophils % 0.6 %; Eosinophils # 0.3 10^3/uL (0.0-0.8); Eosinophils % 3.2 %; Hematocrit 39.1 % (42.0-52.0); Hemoglobin 12.7 g/dL (11.7-16.6); Lymphocytes # 1.3 10^3/uL (0.8-4.8); Lymphocytes % 17.2 %; Mean Corpuscular HGB Conc 32.5 g/dL (30.0-36.0); Mean Corpuscular Hemoglobin 32.6 pg (28.0-34.0); Mean Corpuscular Volume 100.3 fL (80-94); Mean Platelet Volume 9.8 fL (7.4-10.4); Monocytes # 0.7 10^3/uL (0.2-0.9); Monocytes % 9.3 %; Neutrophils # 5.42 10^3/uL (1.8-7.7); Neutrophils % 69.4 %; Nucleated Red Blood Cells % 0 %; Platelet Count 236 10^3/cmm (130-400); Red Cell Distribution Width 12.8 % (12.1-15.1); White Blood Count 7.8 10^3/uL (4.0-10.0)
[2020-01-07 08:48] LABS: Add Urine Microscopic? NO
[2020-01-07 08:54] LABS: Bilirubin Urine Neg (NEGATIVE); Blood Urine Neg (Negative); Glucose Urine UA Norm (Normal); Ketones Urine Negative (Negative); Leukocyte Esterase Urine Negative (Negative); Nitrate Urine Negative (Negative); Protein Urine Neg (Negative); Urine Appearance Clear (CLEAR); Urine Color Yellow (Yellow); Urobilinogen Urine Norm (Negative)
[2020-01-07 09:16] LABS: Carcinoembryonic Antigen 5.8 ng/mL (0.0-4.7)
[2020-01-07 09:27] LABS: Alanine Aminotransferase 28 U/L (0-41); Alkaline Phosphatase 67 IU/L (40-130); Anion Gap 14.3 (5-19); Aspartate Amino Transferase 23 U/L (0-40); Blood Urea Nitrogen 15 mg/dL (8-23); Calcium 8.9 mg/dL (8.5-10.5); Carbon Dioxide 26 mmol/L (22-29); Chloride 103 mmol/L (98-107); Globulin 2.9 g/dL (1.3-4.6); Glucose 172 mg/dL (65-115); Osmolality Calculated 288 mOsm/kg (285-295); Potassium 4.3 mmol/L (3.5-5.1); Sodium 139 mmol/L (136-145); Total Bilirubin 0.2 mg/dL (0.15-1.2); Total Protein 6.9 g/dL (6.6-8.7)
[2020-01-07] MEDS: sodium chloride 0.9% 250 ML 75 ML IV (10:35)
[2020-01-07] MEDS: atropine 1 mg/mL SDV 1 mL 0.4 MG IV (11:50)
--- NOTE | 2020-01-07 15:47 | ONC FU_ITS ---
Dr. 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 He had presented with symptoms of abdominal pain and early satiety. CT abdomen/pelvis on 01/05/2017 showed an apple core appearing lesion at the hepatic flexure with associated obstruction involving the ascending colon, cecum, and ileum. The appearance was suspicious for neoplasm. There was a small amount of pelvic ascites. A 6.9 mm right lower lobe noncalcified pulmonary nodule was felt to be nonspecific. There was otherwise no evidence of metastatic disease. Colonoscopy on 01/09/2017 showed a partially obstructing malignant appearing mass at the hepatic flexure estimated at 5 x 4 cm. An additional sessile polyp was noted in the distal sigmoid colon and excised by hot snare. Biopsy of the hepatic flexure mass showed poorly differentiated infiltrating adenocarcinoma. The distal sigmoid lesion was a hyperplastic polyp. He underwent laparoscopic right hemicolectomy with ileocolic anastomosis and partial omentectomy on 01/10/2017. Pathology showed moderately differentiated infiltrating adenocarcinoma with invasion of the muscularis propria into rehana-colic tissue. The tumor measured 2.3 x 1.8 cm. The margins were free of tumor. There was evidence of lymphovascular space invasion. A total of 7 lymph nodes were identified in the sample and all were negative for metastatic disease. Final pathologic staging was T3, N0. He had several high risk features including a near obstructing primary tumor, evidence of lymphovascular space invasion, and less then 12 lymph nodes sampled. 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 Follow-up colonoscopy done on 02/06/2018 showed ileocolic anastomosis looked intact without evidence of recurrence and wide patent. In the proximal transverse colon, an abnormality was noted. He was followed by Dr. Willingham His other medical illnesses include hypertension, hyperlipidemia, and type II diabetes. He is a nonsmoker. Follow-up colonoscopy done on 02/26/2019 showed normal findings. Ileocolic anastomosis is widely patent without evidence of local recurrence. CEA repeated on 03/04/2019 was 7.7 compared to 7.2 on 01/07/2019 CT PET scan done on 03/15/2019 showed 3.1 x 2.2 cm mass in the right middle lobe with SUV of 22.1, and an adjacent right middle lobe FDG positive satellite nodule was noted. The right lower lobe perihilar nodule measuring 1.6 cm with SUV of 21.6. Multiple mediastinal nodes are FDG positive, consistent with metastatic disease and index node in the right 4R peritracheal territory measures 1.6 cm with SUV of 23.0 and other similar nodes are evident in the right pericardial, right superior mediastinal, right periesophageal territory. No evidence of metastatic disease to bone or below diaphragm Underwent mediastinoscopy on 04/28/2019 and lymph node biopsy was obtained from paratracheal, station 4R, final pathology report showed metastatic adenocarcinoma, consistent with GI origin. The tumor was positive for CD X2, CK 20; negative for CK 7 and TTF-1. recommended 6 cycles of FOLFIRI/Avastin the restage with followup PET/CT. Mr Yu began cycle 1 on 05/13/2019. He has tolerated it well. Mr. uY had follow-up PET/CT on 07/19/2019 with [facility] radiology out [facility]. The findings reported were continued physiological tracer activity at the colonic anastomosis. The right middle lobe mass that previously measured 3.1 x 2.2 cm with an SUV of 22.1 now measures 1.0 x 1.3 cm with an SUV of 7.7, indicating a positive response to therapy. There are similar improvement in the secondary right middle lobe nodule and in the right lower lobe nodule. The index node in the right 4R paratracheal territory now measures 1.5 with an SUV of 5.7 and previously was 1.8 cm with an SUV of 23. Multiple other mediastinal nodes demonstrate similar improvement . Dr Goodman reviewed the PET/CT and recommended that Mr. Yu pursue 6 -8 more cycles of chemotherapy. Follow-up CT PET scan done on 10/25/2019, showed right middle lobe nodule that previously measured 1.0 x 1.3 cm with SUV of 7.7, now measure 1.1 x 0.7 cm with SUV of 4.3. A secondary right middle lobe nodule and the right lower lobe nodule are FDG negative. Similar improvement is noted in the mediastinal lymph nodes in the right paratracheal (4R) node now has SUV of 4.7 compared to 5.7 previously. Other nodes since subcarinal, right hilar, right pericardial regions are FDG negative. He has tolerated treatment well. It was recommended that he have 6 additional cycles of treatment then restage to determine further plan of care. Came for follow-up, denies any specific complaints, no fever chills, no nausea or vomiting, no diarrhea or constipation, no peripheral neuropathy. No mouth sores, no jaundice, no skin rash. Tolerating systemic treatment with a Avastin and FOLFIRI well. . Medications: Aspirin 1 Tablet (of 81 mg) Oral daily, Ativan 1 (0.5 mg) Tablet Oral q 4 hours PRN, Atorvastatin Calcium 1 Tablet (of 40 mg) Oral daily, B-12 1 Tablet (of 1000 mcg) Oral daily, Calcium Carb-Cholecalciferol 1 Capsule (of 500-125 Units/mg) Oral daily, Cinnamon 1 (500 mg) Capsule Oral b.i.d., Compazine Tablet Oral q 4 hours PRN, Fish Oil 1 (1000 mg) Capsule Oral daily, hydroCHLOROthiazide 1 Capsule (of 12.5 mg) Oral at bedtime, Lisinopril 1 Tablet (of 40 mg) Oral daily, MetFORMIN HCl 1 Tablet (of 500 mg) Oral b.i.d., Metoprolol Tartrate 0.5 Tablet (of 25 mg) Oral b.i.d., Multivitamin Adult 1 Tablet Oral daily, Nitroglycerin 1 (0.4 mg) Tablet, sublingual Sublingual PRN, Pepcid 1 (20 mg) Tablet Oral daily PRN, Vitamin C 1 Tablet (of 500 mg) Oral daily, Vitamin E 1 Capsule (of 400 Units) Oral daily Allergies: Isosorbide Mononitrate and Succinylcholine Chloride. Review of Systems: Constitutional - Appetite is good and weight is stable. No fever, chills, hot flashes, or night sweats. Energy level is good, ENMT - No sinus congestion/drainage. No mouth sores. No sore throat or difficulty swallowing, Hematologic/Lymphatic - No abnormal bruising or bleeding, Respiratory - No shortness of breath. No cough. No pleuritic pain or hemoptysis, Cardiovascular - No angina pain. No palpitations, Gastrointestinal - No nausea or vomiting. No heartburn or acid reflux. No diarrhea or constipation. No blood in the stool or black stools, Genitourinary (M) - No dysuria or hematuria. No urinary frequency. No urgency or incontinence, Musculoskeletal - No joint or bone pain, Integumentary - No rashes or lesions, Neurologic - No headache or dizziness. No numbness/paresthesias or other focal neurologic symptoms, Psychiatric - No anxiety or depression. No insomnia. Vital Signs: Performed on Jan 07, 2020 10:08 Height - 64.00 in Weight - 150.8 lbs (HIGH) BSA - 1.73 sq.m BMI - 25.88 Temperature - 97.9 F (LOW) Pulse - 67 /min Respiration - 18 /min BP - 181/87 mm(hg) (HIGH) O2 Sat - 97 % Pain - 0 Performance Status: 0 - Fully active, able to carry on all predisease activities without restrictions. (ECOG) Physical Examination: ENMT - No mouth sores, no thrush, no jaundice, Respiratory - Lungs are clear, Cardiovascular - Regular rate and rhythm of heart, Abdomen - Soft, bowel sounds, Extremities - No visible edema. Lab/Imaging: Test performed on Jan 07, 2020 08:10 WBC 7.8 10 3/uL RBC 3.90 10 6/uL HGB 12.7 g/dL HCT 39.1 % MCV 100.3 fL MCH 32.6 pg MCHC 32.5 g/dL RDW 12.8 % Platelet Count 236 10 3/cmm MPV 9.8 fL Neutrophils 5.42 10 3/uL Lymphocytes 1.3 10 3/uL Monocytes 0.7 10 3/uL Eosinophils 0.3 10 3/uL Basophils 0.1 10 3/uL Neutrophil % 69.4 % Lymphocyte % 17.2 % Monocyte % 9.3 % Eosinophil % 3.2 % Basophils % 0.6 % NRBC % 0 % Test performed on Dec 24, 2019 08:56 Sodium 135 mmol/L Potassium 4.3 mmol/L Chloride 100 mmol/L CO2 24 mmol/L Anion Gap 15.3 BUN 22 mg/dL Creatinine 1.1 mg/dL Cr Clearance (Est) 54.4000 mL/min Glucose 232 mg/dL Calcium 8.1 mg/dL Protein, Total 7.0 g/dL Albumin 4.0 g/dL Globulin 3.0 g/dL Bilirubin, Total 0.5 mg/dL ALT (SGPT) 35 U/L AST (SGOT) 35 U/L Alkaline Phosphatase 66 IU/L Test performed on Dec 10, 2019 09:37 Ua Color Yellow Ua Appearance Clear Ua Specific [place] 1.015 Ua pH 5 Ua Protein Neg Ua Glucose Norm Ua Ketones Negative Ua Blood Neg Ua Leuk Esterase Negative Ua Nitrites Negative Ua Bilirubin Neg Ua Urobilinogen Norm U Micro: WBC 0-4 U Micro: RBC 0-4 U Micro: Bacteria Trace U Micro: Epithelial Cells 0-4 U Micro: Mucus 1+ Test performed on Dec 10, 2019 08:11 CEA 5.6 ng/mL Test performed on Nov 26, 2019 08:25 Cholesterol, Total 140 mg/dL Triglycerides 99 mg/dL LDL Cholesterol 86 mg/dL HDL Cholesterol 34 mg/dL Cholesterol/HDL Ratio 4.12 mg/dL LDL / HDL Ratio 2.53 RATIO Test performed on October 15, 2019 09:27 Manual Lymphocytes 22 % Manual Monocytes 7.0 % Manual Eosinophils 7 % Test performed on October 15, 2019 09:23 Manual Segs 3.9 % Manual Bands 2.0 % Platelet Estimate normal Test performed on October 15, 2019 08:05 Manual Bands Abs 0.1 10 3/cmm Manual Monocytes Abs 0.4 10 3/cmm Manual Eosinophils Abs 0.4 10 3/cmm Impression: 1. Recurrent adenocarcinoma involving paratracheal lymph node per bronchoscopy/ mediastinoscopy done on 04/28/2019 Immunohistochemistry positive for CDX -2, CK 20 Negative for CK 7, TTF-1 and CEA checked on 05/05/2019 was 10.6 2. 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 He underwent laparoscopic right hemicolectomy on 01/10/2017. High risk features included near obstructing primary tumor, pathologic evidence of lymphovascular space invasion, and less than 12 lymph nodes sampled. 3. s/p adjuvant chemotherapy with modified FOLFOX.???4 from 01/30/2017 through 04/02/2017, FOLFOX minus oxaliplatin ???8 from 04/23/2017 through 07/23/2017. 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 4. He has iron deficiency anemia , resolved . His other medical illnesses include: 5. Hypertension. 6. Hyperlipidemia. 7. Type II diabetes .Follow-up colonoscopy done on 02/06/2018 showed ileocolic anastomosis looked intact without evidence of recurrence, and wide patent. In the proximal transverse colon, an abnormality was noted. Follow-up colonoscopy done on 02/26/2019 showed no abnormality seen, ileocolic anastomosis widely patent without evidence of local recurrence. CEA checked on 01/07/2019 was 7.2 compared to 2.4 on 07/05/2018 and repeat CEA on 03/04/[address] PET scan done on 03/15/2019 showed 3.1 x 2.2 cm mass in the right middle lobe with SUV of 22.1, and adjust in the right middle lobe FDG positive satellite nodule noted. The right lower lobe perihilar nodule measuring 1.6 cm with SUV of 21.6. Multiple mediastinal nodes are FDG positive, consistent with metastatic disease and index node in the right 4R peritracheal territory measures 1.6 cm with SUV of 23.0 and other similar nodes are evident in the right pericardial, right superior mediastinal, right periesophageal territory. No evidence of metastatic disease to bone or below diaphragm. Clinically, patient is doing well, tolerated mediastinoscopy well now surgical wound is healing well. And final pathology report came back metastatic adenocarcinoma, probably GI in origin. Discussed with patient regarding treatment options. 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 He began cycle 1 of 6 on 03/13/2019. He has tolerated it extremly well at this time. recommended 6 cycles of FOLFIRI/Avastin the restage with followup PET/CT. Mr Yu began cycle 1 on 05/13/2019. He has tolerated it well. After 5 cycles of chemotherapy, Mr. Yu had follow-up PET/CT on 07/19/2019 with [facility] radiology out of [place]. The findings reported were continued physiological tracer activity at the colonic anastomosis. The right middle lobe mass that previously measured 3.1 x 2.2 cm with an SUV of 22.1 now measures 1.0 x 1.3 cm with an SUV of 7.7, indicating a positive response to therapy. There are similar improvement in the secondary right middle lobe nodule and in the right lower lobe nodule. The index node in the right 4R paratracheal territory now measures 1.5 with an SUV of 5.7 and previously was 1.8 cm with an SUV of 23. Multiple other mediastinal nodes demonstrate similar improvement . has reviewed the PET/CT and has recommended that Mr. Yu pursue 6 more cycles of chemotherapy. Plan: Discussed with the patient regarding his labs white blood count 7.8 hemoglobin 12.7 hematocrit 39.1 platelets 226,000 CMP within normal limits Clinically, patient doing well with no signs suggestive of disease progression, tolerating systemic therapy with a Avastin/FOLFIRI well. We will proceed with next dose today and then he will return to clinic in 2 weeks with CBC CMP and follow-up CT PET scan, based on that we will make further recommendations. Signed By: Hayley Goodman M.D. <<Signature on File>>
[2020-01-27 14:50] LABS: Add Urine Microscopic? NO
[2020-01-27 14:55] LABS: Basophils % 0.7 %; Eosinophils # 0.3 10^3/uL (0.0-0.8); Eosinophils % 5.6 %; Hematocrit 41.3 % (42.0-52.0); Lymphocytes # 1.8 10^3/uL (0.8-4.8); Lymphocytes % 33.5 %; Mean Corpuscular HGB Conc 33.9 g/dL (30.0-36.0); Mean Corpuscular Hemoglobin 34.4 pg (28.0-34.0); Mean Corpuscular Volume 101.5 fL (80-94); Mean Platelet Volume 9.6 fL (7.4-10.4); Monocytes # 0.9 10^3/uL (0.2-0.9); Monocytes % 16.2 %; Neutrophils # 2.41 10^3/uL (1.8-7.7); Neutrophils % 43.8 %; Nucleated Red Blood Cells % 0 %; Platelet Count 283 10^3/cmm (130-400); Red Blood Count 4.07 10^6/uL (4.1-5.3); Red Cell Distribution Width 12.9 % (12.1-15.1); White Blood Count 5.5 10^3/uL (4.0-10.0)
[2020-01-27 14:58] LABS: Bilirubin Urine Neg (NEGATIVE); Blood Urine Neg (Negative); Glucose Urine UA Norm (Normal); Ketones Urine Negative (Negative); Leukocyte Esterase Urine Negative (Negative); Nitrate Urine Negative (Negative); Protein Urine Neg (Negative); Urine Appearance Clear (CLEAR); Urine Color Yellow (Yellow); Urobilinogen Urine 1 mg/dL (Negative); pH Urine 6.5 (5-7)
[2020-01-27 15:21] LABS: Alanine Aminotransferase 30 U/L (0-41); Albumin Level 4.2 g/dL (3.5-5.2); Alkaline Phosphatase 79 IU/L (40-130); Anion Gap 14.4 (5-19); Aspartate Amino Transferase 31 U/L (0-40); Blood Urea Nitrogen 23 mg/dL (8-23); Calcium 9.3 mg/dL (8.5-10.5); Carbon Dioxide 27 mmol/L (22-29); Chloride 102 mmol/L (98-107); Globulin 2.9 g/dL (1.3-4.6); Glucose 111 mg/dL (65-115); Osmolality Calculated 285 mOsm/kg (285-295); Potassium 4.4 mmol/L (3.5-5.1); Sodium 139 mmol/L (136-145); Total Bilirubin 0.2 mg/dL (0.15-1.2); Total Protein 7.1 g/dL (6.6-8.7)
[2020-01-27 16:10] LABS: Carcinoembryonic Antigen 7.1 ng/mL (0.0-4.7)
--- NOTE | 2020-01-27 16:47 | ONC FU_ITS ---
Dr. 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 He had presented with symptoms of abdominal pain and early satiety. CT abdomen/pelvis on 01/05/2017 showed an apple core appearing lesion at the hepatic flexure with associated obstruction involving the ascending colon, cecum, and ileum. The appearance was suspicious for neoplasm. There was a small amount of pelvic ascites. A 6.9 mm right lower lobe noncalcified pulmonary nodule was felt to be nonspecific. There was otherwise no evidence of metastatic disease. Colonoscopy on 01/09/2017 showed a partially obstructing malignant appearing mass at the hepatic flexure estimated at 5 x 4 cm. An additional sessile polyp was noted in the distal sigmoid colon and excised by hot snare. Biopsy of the hepatic flexure mass showed poorly differentiated infiltrating adenocarcinoma. The distal sigmoid lesion was a hyperplastic polyp. He underwent laparoscopic right hemicolectomy with ileocolic anastomosis and partial omentectomy on 01/10/2017. Pathology showed moderately differentiated infiltrating adenocarcinoma with invasion of the muscularis propria into rehana-colic tissue. The tumor measured 2.3 x 1.8 cm. The margins were free of tumor. There was evidence of lymphovascular space invasion. A total of 7 lymph nodes were identified in the sample and all were negative for metastatic disease. Final pathologic staging was T3, N0. He had several high risk features including a near obstructing primary tumor, evidence of lymphovascular space invasion, and less then 12 lymph nodes sampled. 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 Follow-up colonoscopy done on 02/06/2018 showed ileocolic anastomosis looked intact without evidence of recurrence and wide patent. In the proximal transverse colon, an abnormality was noted. He was followed by Dr. Willingham His other medical illnesses include hypertension, hyperlipidemia, and type II diabetes. He is a nonsmoker. Follow-up colonoscopy done on 02/26/2019 showed normal findings. Ileocolic anastomosis is widely patent without evidence of local recurrence. CEA repeated on 03/04/2019 was 7.7 compared to 7.2 on 01/07/2019 CT PET scan done on 03/15/2019 showed 3.1 x 2.2 cm mass in the right middle lobe with SUV of 22.1, and an adjacent right middle lobe FDG positive satellite nodule was noted. The right lower lobe perihilar nodule measuring 1.6 cm with SUV of 21.6. Multiple mediastinal nodes are FDG positive, consistent with metastatic disease and index node in the right 4R peritracheal territory measures 1.6 cm with SUV of 23.0 and other similar nodes are evident in the right pericardial, right superior mediastinal, right periesophageal territory. No evidence of metastatic disease to bone or below diaphragm Underwent mediastinoscopy on 04/28/2019 and lymph node biopsy was obtained from paratracheal, station 4R, final pathology report showed metastatic adenocarcinoma, consistent with GI origin. The tumor was positive for CD X2, CK 20; negative for CK 7 and TTF-1. recommended 6 cycles of FOLFIRI/Avastin the restage with followup PET/CT. Mr Yu began cycle 1 on 05/13/2019. He has tolerated it well. Mr. Yu had follow-up PET/CT on 07/19/2019 with [facility] radiology out [facility]. The findings reported were continued physiological tracer activity at the colonic anastomosis. The right middle lobe mass that previously measured 3.1 x 2.2 cm with an SUV of 22.1 now measures 1.0 x 1.3 cm with an SUV of 7.7, indicating a positive response to therapy. There are similar improvement in the secondary right middle lobe nodule and in the right lower lobe nodule. The index node in the right 4R paratracheal territory now measures 1.5 with an SUV of 5.7 and previously was 1.8 cm with an SUV of 23. Multiple other mediastinal nodes demonstrate similar improvement . Dr Goodman reviewed the PET/CT and recommended that Mr. Yu pursue 6 -8 more cycles of chemotherapy. Follow-up CT PET scan done on 10/25/2019, showed right middle lobe nodule that previously measured 1.0 x 1.3 cm with SUV of 7.7, now measure 1.1 x 0.7 cm with SUV of 4.3. A secondary right middle lobe nodule and the right lower lobe nodule are FDG negative. Similar improvement is noted in the mediastinal lymph nodes in the right paratracheal (4R) node now has SUV of 4.7 compared to 5.7 previously. Other nodes since subcarinal, right hilar, right pericardial regions are FDG negative. He has tolerated treatment well. It was recommended that he have 6 additional cycles of treatment then restage to determine further plan of care. Follow-up CT PET scan done on January 10, 2020 showed minimal progression is present in the dominant right middle lobe nodule now SUV 5.6 compared to 4.3. Secondary right middle lobe nodule now has SUV of 4.0 compared to negative on prior study. Medial right lower lobe nodule is unchanged at size 8 mm and remained FDG negative. FDG positive mediastinal adenopathy is generally unchanged, however a right sides. Prevascular node has SUV of 3.6. Came for follow-up, denies any specific complaints, no fever chills, no nausea or vomiting, no diarrhea or constipation, no jaundice, no hemoptysis or hematemesis. . Medications: Aspirin 1 Tablet (of 81 mg) Oral daily, Ativan 1 (0.5 mg) Tablet Oral q 4 hours PRN, Atorvastatin Calcium 1 Tablet (of 40 mg) Oral daily, B-12 1 Tablet (of 1000 mcg) Oral daily, Calcium Carb-Cholecalciferol 1 Capsule (of 500-125 Units/mg) Oral daily, Cinnamon 1 (500 mg) Capsule Oral b.i.d., Compazine Tablet Oral q 4 hours PRN, Fish Oil 1 (1000 mg) Capsule Oral daily, hydroCHLOROthiazide 1 Capsule (of 12.5 mg) Oral at bedtime, Lisinopril 1 Tablet (of 40 mg) Oral daily, MetFORMIN HCl 1 Tablet (of 500 mg) Oral b.i.d., Metoprolol Tartrate 0.5 Tablet (of 25 mg) Oral b.i.d., Multivitamin Adult 1 Tablet Oral daily, Nitroglycerin 1 (0.4 mg) Tablet, sublingual Sublingual PRN, Pepcid 1 (20 mg) Tablet Oral daily PRN, Vitamin C 1 Tablet (of 500 mg) Oral daily, Vitamin E 1 Capsule (of 400 Units) Oral daily Allergies: Isosorbide Mononitrate and Succinylcholine Chloride. Review of Systems: Constitutional - Appetite is good and weight is stable. No fever, chills, hot flashes, or night sweats. Energy level is good, ENMT - No sinus congestion/drainage. No mouth sores. No sore throat or difficulty swallowing, Hematologic/Lymphatic - No abnormal bruising or bleeding, Respiratory - No shortness of breath. No cough. No pleuritic pain or hemoptysis, Cardiovascular - No angina pain. No palpitations, Gastrointestinal - No nausea or vomiting. No heartburn or acid reflux. No diarrhea or constipation. No blood in the stool or black stools, Genitourinary (M) - No dysuria or hematuria. No urinary frequency. No urgency or incontinence, Musculoskeletal - No joint or bone pain, Integumentary - No rashes or lesions, Neurologic - No headache or dizziness. No numbness/paresthesias or other focal neurologic symptoms, Psychiatric - No anxiety or depression. No insomnia. Vital Signs: Performed on Jan 27, 2020 15:39 Height - 64.00 in Weight - 149.6 lbs (LOW) BSA - 1.73 sq.m BMI - 25.68 Temperature - 97.8 F (LOW) Pulse - 76 /min Respiration - 20 /min BP - 155/77 mm(hg) (HIGH) O2 Sat - 97 % Pain - 0 Performance Status: 0 - Fully active, able to carry on all predisease activities without restrictions. (ECOG) Physical Examination: ENMT - No mouth sores, no thrush, no jaundice, Respiratory - Lungs are clear, Cardiovascular - Regular rate and rhythm of heart, Abdomen - Soft, bowel sounds present, Extremities - No visible edema or rash. Lab/Imaging: Test performed on Jan 07, 2020 08:10 WBC 7.8 10 3/uL RBC 3.90 10 6/uL HGB 12.7 g/dL HCT 39.1 % MCV 100.3 fL MCH 32.6 pg MCHC 32.5 g/dL RDW 12.8 % Platelet Count 236 10 3/cmm MPV 9.8 fL Neutrophils 5.42 10 3/uL Lymphocytes 1.3 10 3/uL Monocytes 0.7 10 3/uL Eosinophils 0.3 10 3/uL Basophils 0.1 10 3/uL Neutrophil % 69.4 % Lymphocyte % 17.2 % Monocyte % 9.3 % Eosinophil % 3.2 % Basophils % 0.6 % NRBC % 0 % Test performed on Dec 24, 2019 08:56 Sodium 135 mmol/L Potassium 4.3 mmol/L Chloride 100 mmol/L CO2 24 mmol/L Anion Gap 15.3 BUN 22 mg/dL Creatinine 1.1 mg/dL Cr Clearance (Est) 54.4000 mL/min Glucose 232 mg/dL Calcium 8.1 mg/dL Protein, Total 7.0 g/dL Albumin 4.0 g/dL Globulin 3.0 g/dL Bilirubin, Total 0.5 mg/dL ALT (SGPT) 35 U/L AST (SGOT) 35 U/L Alkaline Phosphatase 66 IU/L Test performed on Dec 10, 2019 09:37 Ua Color Yellow Ua Appearance Clear Ua Specific [place] 1.015 Ua pH 5 Ua Protein Neg Ua Glucose Norm Ua Ketones Negative Ua Blood Neg Ua Leuk Esterase Negative Ua Nitrites Negative Ua Bilirubin Neg Ua Urobilinogen Norm U Micro: WBC 0-4 U Micro: RBC 0-4 U Micro: Bacteria Trace U Micro: Epithelial Cells 0-4 U Micro: Mucus 1+ Test performed on Dec 10, 2019 08:11 CEA 5.6 ng/mL Test performed on Nov 26, 2019 08:25 Cholesterol, Total 140 mg/dL Triglycerides 99 mg/dL LDL Cholesterol 86 mg/dL HDL Cholesterol 34 mg/dL Cholesterol/HDL Ratio 4.12 mg/dL LDL / HDL Ratio 2.53 RATIO Test performed on October 15, 2019 09:27 Manual Lymphocytes 22 % Manual Monocytes 7.0 % Manual Eosinophils 7 % Test performed on October 15, 2019 09:23 Manual Segs 3.9 % Manual Bands 2.0 % Platelet Estimate normal Test performed on October 15, 2019 08:05 Manual Bands Abs 0.1 10 3/cmm Manual Monocytes Abs 0.4 10 3/cmm Manual Eosinophils Abs 0.4 10 3/cmm Impression: 1. Recurrent adenocarcinoma involving paratracheal lymph node per bronchoscopy/ mediastinoscopy done on 04/28/2019 Immunohistochemistry positive for CDX -2, CK 20 Negative for CK 7, TTF-1 and CEA checked on 05/05/2019 was 10.6 2. 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 He underwent laparoscopic right hemicolectomy on 01/10/2017. High risk features included near obstructing primary tumor, pathologic evidence of lymphovascular space invasion, and less than 12 lymph nodes sampled. 3. s/p adjuvant chemotherapy with modified FOLFOX.???4 from 01/30/2017 through 04/02/2017, FOLFOX minus oxaliplatin ???8 from 04/23/2017 through 07/23/2017. 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 4. He has iron deficiency anemia , resolved . His other medical illnesses include: 5. Hypertension. 6. Hyperlipidemia. 7. Type II diabetes .Follow-up colonoscopy done on 02/06/2018 showed ileocolic anastomosis looked intact without evidence of recurrence, and wide patent. In the proximal transverse colon, an abnormality was noted. Follow-up colonoscopy done on 02/26/2019 showed no abnormality seen, ileocolic anastomosis widely patent without evidence of local recurrence. CEA checked on 01/07/2019 was 7.2 compared to 2.4 on 07/05/2018 and repeat CEA on 03/04/[address] PET scan done on 03/15/2019 showed 3.1 x 2.2 cm mass in the right middle lobe with SUV of 22.1, and adjust in the right middle lobe FDG positive satellite nodule noted. The right lower lobe perihilar nodule measuring 1.6 cm with SUV of 21.6. Multiple mediastinal nodes are FDG positive, consistent with metastatic disease and index node in the right 4R peritracheal territory measures 1.6 cm with SUV of 23.0 and other similar nodes are evident in the right pericardial, right superior mediastinal, right periesophageal territory. No evidence of metastatic disease to bone or below diaphragm. Clinically, patient is doing well, tolerated mediastinoscopy well now surgical wound is healing well. And final pathology report came back metastatic adenocarcinoma, probably GI in origin. Discussed with patient regarding treatment options. 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 He began cycle 1 of 6 on 03/13/2019. He has tolerated it extremly well at this time. recommended 6 cycles of FOLFIRI/Avastin the restage with followup PET/CT. Mr Yu began cycle 1 on 05/13/2019. He has tolerated it well. After 5 cycles of chemotherapy, Mr. Yu had follow-up PET/CT on 07/19/2019 with [facility] radiology out of [place]. The findings reported were continued physiological tracer activity at the colonic anastomosis. The right middle lobe mass that previously measured 3.1 x 2.2 cm with an SUV of 22.1 now measures 1.0 x 1.3 cm with an SUV of 7.7, indicating a positive response to therapy. There are similar improvement in the secondary right middle lobe nodule and in the right lower lobe nodule. The index node in the right 4R paratracheal territory now measures 1.5 with an SUV of 5.7 and previously was 1.8 cm with an SUV of 23. Multiple other mediastinal nodes demonstrate similar improvement . has reviewed the PET/CT and has recommended that Mr. Yu pursue 6 more cycles of chemotherapy. Plan: Discussed with patient regarding his labs white blood count 5.5 hemoglobin 14 crit 41.3 platelets 283,000 CMP within normal limits and follow-up CT PET scan report which shows minimal disease progression but no new lesion Clinically, patient is doing well with no signs symptom suggestive of disease progression tolerating systemic therapy with a Avastin and FOLFIRI well but with expected side effects his follow-up CT PET scan shows no new lesion but mild increase in SUV value in the right middle lobe lung nodule as well as another right middle lobe nodule, could be disease progression or inflammation. At this point we will refer him to GI oncology at [place] for second opinion or for clinical trial if available. We will hold his chemotherapy until his visit to [place]. Patient return to clinic 1 week after his visit to [place] for further discussion unless patient decides to go on clinical trial, if available. Signed By: Hayley Goodman M.D. <<Signature on File>>
== END 2020-02-02 23:59 | disposition home or self-care (01) ==
LOC: ONCMED 05:36
PROVIDERS: PCP Family Medicine; Visit Provider Internal Medicine Hematology & Oncology
DX: Z51.11 Encounter for antineoplastic chemotherapy (principal); C18.0 Malignant neoplasm of cecum; C77.1 Secondary and unspecified malignant neoplasm of intrathoracic lymph nodes; D50.9 Iron deficiency anemia, unspecified; E11.9 Type 2 diabetes mellitus without complications; E78.5 Hyperlipidemia, unspecified; I10 Essential (primary) hypertension
CPT/HCPCS: 36591; 36593; 80053; 81003; 82378; 85025; 96367; 96368; 96374; 96375; 96413; 96415; 96416; 96417; 99214; J0461; J0640; J1100; J1453; J2469; J3490; J7050; J9035; J9206

== ENCOUNTER 2020-03-02 06:00 | Outpatient (CLI) | payer MEDICARE, OTHER, SELFPAY | END 2020-03-02 06:01 | disposition home or self-care (01) | LOC: ONCMED 06:03 | PROVIDERS: PCP Family Medicine; Visit Provider Internal Medicine Hematology & Oncology | DX: Z45.2 Encounter for adjustment and management of vascular access device (principal) | CPT/HCPCS: 96523 ==

== ENCOUNTER 2020-03-09 12:39 | Outpatient (CLI) | payer MEDICARE, OTHER, SELFPAY ==
--- NOTE | 2020-03-09 12:56 | CT_ITS ---
WS: [id number] CT CHEST, ABDOMEN AND PELVIS WITH CONTRAST. HISTORY: COLON CANCER TECHNIQUE: Contiguous 5 mm axial imaging performed through the chest, abdomen and pelvis with IV cont rast, oral contrast has been provided. Coronal and sagittal reformats chest. Coronal and sagittal ref ormats through the abdomen and pelvis. All CT scans at [facility] use at least one of the se dose optimization techniques: automated exposure control; mA and/or kV adjustment per patient size (includes targeted exams where dose is matched to clinical indication); or iterative reconstruction. CONTRAST: Omnipaque 300; 95 mL IV. DLP: 2244.17 mGycm COMPARISON: 01/05/2017 and 01/10/[address]: Mild progression in size of the RIGHT pulmonary nodules since 01/10/2020. Lobulated cluster o f nodules at the RIGHT lung base in the RIGHT middle lobe measures 17 x 15 mm. There is an additional separate nodule measuring 8 x 13 mm. Posterior medial RIGHT lower lobe nodule measures 6 mm. No nodu les identified in the LEFT lung. Again noted are indeterminate mediastinal and hilar lymph nodes. Sev eral these lymph nodes were positive on the recent PET/CT. Largest lymph node in the subcarina measur es 11 mm. 8mm RIGHT hilar and 7 mm RIGHT inferior paratracheal lymph node. Additional pulmonary vein lymph node on the RIGHT at 8 mm. Heart size remains normal. No pleural effusions. Port-A-Cath with ti p terminating in the mid SVC. Abdomen CT: Hepatic steatosis. No metastatic disease in the liver. Negative gallbladder. Normal splee n and pancreas. No adrenal mass. Normal aorta other than mild atherosclerosis. No mesenteric or retro peritoneal adenopathy. No GI tract obstruction. Postsurgical changes in the RIGHT lower quadrant. There is a very small amou nt of soft tissue thickening adjacent to the sutures in the mid RIGHT abdomen at the anastomotic site with a few adjacent small lymph nodes. Sigmoid diverticulosis. Pelvic CT: No free fluid in the pelvis. Negative urinary bladder. Inguinal canals are patent containi ng fat. No osteoblastic or osteolytic disease is identified. CT/CT chest abd pel w con* IMPRESSION: 1. Numerous right-sided pulmonary nodules which have been previously described . These nodules have all increased slightly in size. 2. Indeterminate mediastinal and RIGHT hilar lymph nodes and subcarinal lymph nodes are all unchanged in size. Several of these were positive on the recent P ET/CT. 3. Small amount of soft tissue at the anastomotic site in the RIGHT abdomen wi th a few small adjacent lymph nodes. Recommend close follow-up evaluation. Cons ider CT evaluation in 2-3 months. 4. No adrenal mass.
[2020-03-09] MEDS: iohexol 300 mg/mL 50 mL Btl PO (13:53)
[2020-03-09] MEDS: iohexol 300 mg/mL 100 mL Btl IV (14:35)
[2020-03-12 11:21] LABS: Blood Urea Nitrogen 15 mg/dL (8-23)
== END 2020-03-09 12:40 | disposition home or self-care (01) ==
LOC: RADWPI 12:43
PROVIDERS: PCP Family Medicine; Visit Provider Internal Medicine Hematology & Oncology
DX: C18.0 Malignant neoplasm of cecum (principal); R91.8 Other nonspecific abnormal finding of lung field
CPT/HCPCS: 71260; 74177; 82565; 84520; Q9967

== ENCOUNTER 2020-03-29 05:58 | Outpatient (CLI) | payer MEDICARE, OTHER, SELFPAY ==
[2020-03-29 10:24] LABS: Basophils % 0.4 %; Eosinophils # 0.2 10^3/uL (0.0-0.8); Eosinophils % 2.2 %; Hematocrit 41.4 % (42.0-52.0); Hemoglobin 13.7 g/dL (11.7-16.6); Lymphocytes % 22.3 %; Mean Corpuscular HGB Conc 33.1 g/dL (30.0-36.0); Mean Corpuscular Hemoglobin 32.5 pg (28.0-34.0); Mean Corpuscular Volume 98.1 fL (80-94); Mean Platelet Volume 9.8 fL (7.4-10.4); Monocytes # 0.8 10^3/uL (0.2-0.9); Monocytes % 8.9 %; Neutrophils # 5.92 10^3/uL (1.8-7.7); Neutrophils % 66.1 %; Nucleated Red Blood Cells % 0 %; Platelet Count 261 10^3/cmm (130-400); Red Blood Count 4.22 10^6/uL (4.1-5.3); Red Cell Distribution Width 11.9 % (12.1-15.1)
[2020-03-29 10:46] LABS: Alanine Aminotransferase 23 U/L (0-41); Albumin Level 4.2 g/dL (3.5-5.2); Alkaline Phosphatase 71 IU/L (40-130); Anion Gap 12.3 (5-19); Aspartate Amino Transferase 24 U/L (0-40); Blood Urea Nitrogen 14 mg/dL (8-23); Carbon Dioxide 27 mmol/L (22-29); Chloride 102 mmol/L (98-107); Globulin 2.7 g/dL (1.3-4.6); Glucose 119 mg/dL (65-115); Osmolality Calculated 286 mOsm/kg (285-295); Potassium 4.3 mmol/L (3.5-5.1); Sodium 137 mmol/L (136-145); Total Bilirubin 0.2 mg/dL (0.15-1.2); Total Protein 6.9 g/dL (6.6-8.7)
--- NOTE | 2020-03-29 16:14 | ONC FU_ITS ---
Dr. 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 He had presented with symptoms of abdominal pain and early satiety. CT abdomen/pelvis on 01/05/2017 showed an apple core appearing lesion at the hepatic flexure with associated obstruction involving the ascending colon, cecum, and ileum. The appearance was suspicious for neoplasm. There was a small amount of pelvic ascites. A 6.9 mm right lower lobe noncalcified pulmonary nodule was felt to be nonspecific. There was otherwise no evidence of metastatic disease. Colonoscopy on 01/09/2017 showed a partially obstructing malignant appearing mass at the hepatic flexure estimated at 5 x 4 cm. An additional sessile polyp was noted in the distal sigmoid colon and excised by hot snare. Biopsy of the hepatic flexure mass showed poorly differentiated infiltrating adenocarcinoma. The distal sigmoid lesion was a hyperplastic polyp. He underwent laparoscopic right hemicolectomy with ileocolic anastomosis and partial omentectomy on 01/10/2017. Pathology showed moderately differentiated infiltrating adenocarcinoma with invasion of the muscularis propria into rehana-colic tissue. The tumor measured 2.3 x 1.8 cm. The margins were free of tumor. There was evidence of lymphovascular space invasion. A total of 7 lymph nodes were identified in the sample and all were negative for metastatic disease. Final pathologic staging was T3, N0. He had several high risk features including a near obstructing primary tumor, evidence of lymphovascular space invasion, and less then 12 lymph nodes sampled. 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 Follow-up colonoscopy done on 02/06/2018 showed ileocolic anastomosis looked intact without evidence of recurrence and wide patent. In the proximal transverse colon, an abnormality was noted. He was followed by Dr. Willingham His other medical illnesses include hypertension, hyperlipidemia, and type II diabetes. He is a nonsmoker. Follow-up colonoscopy done on 02/26/2019 showed normal findings. Ileocolic anastomosis is widely patent without evidence of local recurrence. CEA repeated on 03/04/2019 was 7.7 compared to 7.2 on 01/07/2019 CT PET scan done on 03/15/2019 showed 3.1 x 2.2 cm mass in the right middle lobe with SUV of 22.1, and an adjacent right middle lobe FDG positive satellite nodule was noted. The right lower lobe perihilar nodule measuring 1.6 cm with SUV of 21.6. Multiple mediastinal nodes are FDG positive, consistent with metastatic disease and index node in the right 4R peritracheal territory measures 1.6 cm with SUV of 23.0 and other similar nodes are evident in the right pericardial, right superior mediastinal, right periesophageal territory. No evidence of metastatic disease to bone or below diaphragm Underwent mediastinoscopy on 04/28/2019 and lymph node biopsy was obtained from paratracheal, station 4R, final pathology report showed metastatic adenocarcinoma, consistent with GI origin. The tumor was positive for CD X2, CK 20; negative for CK 7 and TTF-1. recommended 6 cycles of FOLFIRI/Avastin the restage with followup PET/CT. Mr Yu began cycle 1 on 05/13/2019. He has tolerated it well. Mr. Yu had follow-up PET/CT on 07/19/2019 with [facility] radiology out [facility]. The findings reported were continued physiological tracer activity at the colonic anastomosis. The right middle lobe mass that previously measured 3.1 x 2.2 cm with an SUV of 22.1 now measures 1.0 x 1.3 cm with an SUV of 7.7, indicating a positive response to therapy. There are similar improvement in the secondary right middle lobe nodule and in the right lower lobe nodule. The index node in the right 4R paratracheal territory now measures 1.5 with an SUV of 5.7 and previously was 1.8 cm with an SUV of 23. Multiple other mediastinal nodes demonstrate similar improvement . reviewed the PET/CT and recommended that Mr. Yu pursue 6 -8 more cycles of chemotherapy. Follow-up CT PET scan done on 10/25/2019, showed right middle lobe nodule that previously measured 1.0 x 1.3 cm with SUV of 7.7, now measure 1.1 x 0.7 cm with SUV of 4.3. A secondary right middle lobe nodule and the right lower lobe nodule are FDG negative. Similar improvement is noted in the mediastinal lymph nodes in the right paratracheal (4R) node now has SUV of 4.7 compared to 5.7 previously. Other nodes since subcarinal, right hilar, right pericardial regions are FDG negative. He has tolerated treatment well. It was recommended that he have 6 additional cycles of treatment then restage to determine further plan of care. Follow-up CT PET scan done on January 10, 2020 showed minimal progression is present in the dominant right middle lobe nodule now SUV 5.6 compared to 4.3. Secondary right middle lobe nodule now has SUV of 4.0 compared to negative on prior study. Medial right lower lobe nodule is unchanged at size 8 mm and remained FDG negative. FDG positive mediastinal adenopathy is generally unchanged, however a right sides. Prevascular node has SUV of 3.6.No herpetic involvement Patient was referred to GI oncology at [facility], as per patient's they were told that there is no clinical trial available at this point that the continue with the treatment locally. Follow-up CT scan of chest abdomen pelvis done on March 09, 2020 showed numerous right-sided pulmonary nodules which have been previously described. Nodules have all increased slight in size. Indeterminate mediastinal mass and right hilar lymph nodes and subcarinal lymph nodes are all unchanged in size. Small amount of soft tissue at anastomotic site in the right abdomen with a few smaller adjacent lymph nodes. No renal mass, no liver mets seen Came for follow-up, denies any specific complaints, no fever chills, no nausea or vomiting, no diarrhea constipation, no melena or hematochezia, no abdominal pain, no jaundice, no weight loss. . Medications: Aspirin 1 Tablet (of 81 mg) Oral daily, Ativan 1 (0.5 mg) Tablet Oral q 4 hours PRN, Atorvastatin Calcium 1 Tablet (of 40 mg) Oral daily, B-12 1 Tablet (of 1000 mcg) Oral daily, Calcium Carb-Cholecalciferol 1 Capsule (of 500-125 Units/mg) Oral daily, Cinnamon 1 (500 mg) Capsule Oral b.i.d., Compazine Tablet Oral q 4 hours PRN, Fish Oil 1 (1000 mg) Capsule Oral daily, hydroCHLOROthiazide 1 Capsule (of 12.5 mg) Oral at bedtime, Lisinopril 1 Tablet (of 40 mg) Oral daily, MetFORMIN HCl 1 Tablet (of 500 mg) Oral b.i.d., Metoprolol Tartrate 0.5 Tablet (of 25 mg) Oral b.i.d., Multivitamin Adult 1 Tablet Oral daily, Nitroglycerin 1 (0.4 mg) Tablet, sublingual Sublingual PRN, Pepcid 1 (20 mg) Tablet Oral daily PRN, Vitamin C 1 Tablet (of 500 mg) Oral daily, Vitamin E 1 Capsule (of 400 Units) Oral daily Allergies: Isosorbide Mononitrate and Succinylcholine Chloride. Review of Systems: Review of Systems is not available for this patient. Vital Signs: Performed on Mar 29, 2020 11:23 Height - 64.00 in Weight - 152.6 lbs (HIGH) BSA - 1.74 sq.m BMI - 26.19 Temperature - 97.4 F (LOW) Pulse - 75 /min Respiration - 16 /min BP - 156/63 mm(hg) (HIGH) O2 Sat - 98 % Pain - 0 Performance Status: 0 - Fully active, able to carry on all predisease activities without restrictions. (ECOG) Physical Examination: ENMT - No mouth sores, no thrush, no jaundice, Respiratory - Lungs are clear to auscultation, Cardiovascular - Regular rate and rhythm of heart, Abdomen - Soft, bowel sounds present, Extremities - No visible edema. Lab/Imaging: Test performed on Dec 24, 2019 08:56 Sodium 135 mmol/L Potassium 4.3 mmol/L Chloride 100 mmol/L CO2 24 mmol/L Anion Gap 15.3 BUN 22 mg/dL Creatinine 1.1 mg/dL Cr Clearance (Est) 54.4000 mL/min Glucose 232 mg/dL Calcium 8.1 mg/dL Protein, Total 7.0 g/dL Albumin 4.0 g/dL Globulin 3.0 g/dL Bilirubin, Total 0.5 mg/dL ALT (SGPT) 35 U/L AST (SGOT) 35 U/L Alkaline Phosphatase 66 IU/L Test performed on Dec 10, 2019 09:37 Ua Color Yellow Ua Appearance Clear Ua Specific [place] 1.015 Ua pH 5 Ua Protein Neg Ua Glucose Norm Ua Ketones Negative Ua Blood Neg Ua Leuk Esterase Negative Ua Nitrites Negative Ua Bilirubin Neg Ua Urobilinogen Norm U Micro: WBC 0-4 U Micro: RBC 0-4 U Micro: Bacteria Trace U Micro: Epithelial Cells 0-4 U Micro: Mucus 1+ Test performed on Dec 10, 2019 08:11 WBC 6.8 10 3/uL RBC 3.78 10 6/uL HGB 12.8 g/dL HCT 38.1 % MCV 100.8 fL MCH 33.9 pg MCHC 33.6 g/dL RDW 12.9 % Platelet Count 232 10 3/cmm MPV 9.8 fL Neutrophils 4.3 10 3/uL Lymphocytes 1.5 10 3/uL Monocytes 0.7 10 3/uL Eosinophils 0.3 10 3/uL Basophils 0.1 10 3/uL Neutrophil % 64.1 % Lymphocyte % 21.6 % Monocyte % 9.8 % Eosinophil % 3.7 % Basophils % 0.7 % NRBC % 0 % CEA 5.6 ng/mL Test performed on Nov 26, 2019 08:25 Cholesterol, Total 140 mg/dL Triglycerides 99 mg/dL LDL Cholesterol 86 mg/dL HDL Cholesterol 34 mg/dL Cholesterol/HDL Ratio 4.12 mg/dL LDL / HDL Ratio 2.53 RATIO Test performed on October 15, 2019 09:27 Manual Lymphocytes 22 % Manual Monocytes 7.0 % Manual Eosinophils 7 % Test performed on October 15, 2019 09:23 Manual Segs 3.9 % Manual Bands 2.0 % Platelet Estimate normal Test performed on October 15, 2019 08:05 Manual Bands Abs 0.1 10 3/cmm Manual Monocytes Abs 0.4 10 3/cmm Manual Eosinophils Abs 0.4 10 3/cmm Impression: 1. Recurrent adenocarcinoma involving paratracheal lymph node per bronchoscopy/ mediastinoscopy done on 04/28/2019 Immunohistochemistry positive for CDX -2, CK 20 Negative for CK 7, TTF-1 and CEA checked on 05/05/2019 was 10.6 2. 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 He underwent laparoscopic right hemicolectomy on 01/10/2017. High risk features included near obstructing primary tumor, pathologic evidence of lymphovascular space invasion, and less than 12 lymph nodes sampled. 3. s/p adjuvant chemotherapy with modified FOLFOX.???4 from 01/30/2017 through 04/02/2017, FOLFOX minus oxaliplatin ???8 from 04/23/2017 through 07/23/2017. 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 4. He has iron deficiency anemia , resolved . His other medical illnesses include: 5. Hypertension. 6. Hyperlipidemia. 7. Type II diabetes .Follow-up colonoscopy done on 02/06/2018 showed ileocolic anastomosis looked intact without evidence of recurrence, and wide patent. In the proximal transverse colon, an abnormality was noted. Follow-up colonoscopy done on 02/26/2019 showed no abnormality seen, ileocolic anastomosis widely patent without evidence of local recurrence. CEA checked on 01/07/2019 was 7.2 compared to 2.4 on 07/05/2018 and repeat CEA on 03/04/[address] PET scan done on 03/15/2019 showed 3.1 x 2.2 cm mass in the right middle lobe with SUV of 22.1, and adjust in the right middle lobe FDG positive satellite nodule noted. The right lower lobe perihilar nodule measuring 1.6 cm with SUV of 21.6. Multiple mediastinal nodes are FDG positive, consistent with metastatic disease and index node in the right 4R peritracheal territory measures 1.6 cm with SUV of 23.0 and other similar nodes are evident in the right pericardial, right superior mediastinal, right periesophageal territory. No evidence of metastatic disease to bone or below diaphragm. Clinically, patient is doing well, tolerated mediastinoscopy well now surgical wound is healing well. And final pathology report came back metastatic adenocarcinoma, probably GI in origin. Discussed with patient regarding treatment options. 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 He began cycle 1 of 6 on 03/13/2019. He has tolerated it extremly well at this time. recommended 6 cycles of FOLFIRI/Avastin the restage with followup PET/CT. Mr Yu began cycle 1 on 05/13/2019. He has tolerated it well. After 5 cycles of chemotherapy, Mr. Yu had follow-up PET/CT on 07/19/2019 with [facility] radiology out of [place]. The findings reported were continued physiological tracer activity at the colonic anastomosis. The right middle lobe mass that previously measured 3.1 x 2.2 cm with an SUV of 22.1 now measures 1.0 x 1.3 cm with an SUV of 7.7, indicating a positive response to therapy. There are similar improvement in the secondary right middle lobe nodule and in the right lower lobe nodule. The index node in the right 4R paratracheal territory now measures 1.5 with an SUV of 5.7 and previously was 1.8 cm with an SUV of 23. Multiple other mediastinal nodes demonstrate similar improvement . has reviewed the PET/CT and has recommended that Mr. Yu pursue 6 more cycles of chemotherapy. Plan: Discussed with patient regarding his labs white blood count 9 hemoglobin 13.7 hematocrit 41.4 platelets 261,000 CMP within normal limits and CT scan of chest abdomen findings Clinically, patient doing well with no new signs symptoms, he was referred to Dr. Willingham, for colonoscopy to evaluate abnormality seen around anastomotic site on CT scan as per patient he is scheduled for colonoscopy in mid April 2020. At this point, we will obtain records from [facility] regarding their evaluation regarding clinical trial or further treatment options. Patient will return to clinic in 1 week for further discussion regarding treatment plan. Signed By: Hayley Goodman M.D. <<Signature on File>>
== END 2020-03-29 05:59 | disposition home or self-care (01) ==
LOC: ONCMED 06:00
PROVIDERS: PCP Family Medicine; Visit Provider Internal Medicine Hematology & Oncology
DX: C77.1 Secondary and unspecified malignant neoplasm of intrathoracic lymph nodes (principal); Z85.038 Personal history of other malignant neoplasm of large intestine; R93.3 Abnormal findings on diagnostic imaging of other parts of digestive tract; R91.8 Other nonspecific abnormal finding of lung field; Z90.49 Acquired absence of other specified parts of digestive tract; Z92.21 Personal history of antineoplastic chemotherapy; I10 Essential (primary) hypertension; E78.5 Hyperlipidemia, unspecified; E11.9 Type 2 diabetes mellitus without complications
CPT/HCPCS: 36591; 80053; 85025; G0463

== ENCOUNTER 2020-04-21 05:30 | Outpatient (RCR) | payer MEDICARE, OTHER, SELFPAY ==
[2020-04-07 08:33] LABS: Basophils % 0.6 %; Eosinophils # 0.2 10^3/uL (0.0-0.8); Eosinophils % 2.5 %; Hematocrit 39.8 % (42.0-52.0); Hemoglobin 13.4 g/dL (11.7-16.6); Lymphocytes # 1.8 10^3/uL (0.8-4.8); Lymphocytes % 28.3 %; Mean Corpuscular HGB Conc 33.7 g/dL (30.0-36.0); Mean Corpuscular Hemoglobin 32.8 pg (28.0-34.0); Mean Corpuscular Volume 97.5 fL (80-94); Mean Platelet Volume 9.9 fL (7.4-10.4); Monocytes # 0.6 10^3/uL (0.2-0.9); Monocytes % 10.1 %; Neutrophils # 3.68 10^3/uL (1.8-7.7); Neutrophils % 58.3 %; Nucleated Red Blood Cells % 0 %; Platelet Count 225 10^3/cmm (130-400); Red Blood Count 4.08 10^6/uL (4.1-5.3); Red Cell Distribution Width 11.9 % (12.1-15.1); White Blood Count 6.3 10^3/uL (4.0-10.0)
[2020-04-07 08:56] LABS: Alanine Aminotransferase 26 U/L (0-41); Albumin Level 3.9 g/dL (3.5-5.2); Alkaline Phosphatase 69 IU/L (40-130); Anion Gap 12.2 (5-19); Aspartate Amino Transferase 25 U/L (0-40); Blood Urea Nitrogen 20 mg/dL (8-23); Calcium 8.6 mg/dL (8.5-10.5); Carbon Dioxide 27 mmol/L (22-29); Chloride 103 mmol/L (98-107); Globulin 2.7 g/dL (1.3-4.6); Glucose 182 mg/dL (65-115); Osmolality Calculated 293 mOsm/kg (285-295); Potassium 4.2 mmol/L (3.5-5.1); Sodium 138 mmol/L (136-145); Total Bilirubin 0.3 mg/dL (0.15-1.2); Total Protein 6.6 g/dL (6.6-8.7)
[2020-04-07] MEDS: sodium chloride 0.9% 250 ML 75 ML IV (10:45)
--- NOTE | 2020-04-07 10:52 | ONC FU_ITS ---
Dr. 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 He had presented with symptoms of abdominal pain and early satiety. CT abdomen/pelvis on 01/05/2017 showed an apple core appearing lesion at the hepatic flexure with associated obstruction involving the ascending colon, cecum, and ileum. The appearance was suspicious for neoplasm. There was a small amount of pelvic ascites. A 6.9 mm right lower lobe noncalcified pulmonary nodule was felt to be nonspecific. There was otherwise no evidence of metastatic disease. Colonoscopy on 01/09/2017 showed a partially obstructing malignant appearing mass at the hepatic flexure estimated at 5 x 4 cm. An additional sessile polyp was noted in the distal sigmoid colon and excised by hot snare. Biopsy of the hepatic flexure mass showed poorly differentiated infiltrating adenocarcinoma. The distal sigmoid lesion was a hyperplastic polyp. He underwent laparoscopic right hemicolectomy with ileocolic anastomosis and partial omentectomy on 01/10/2017. Pathology showed moderately differentiated infiltrating adenocarcinoma with invasion of the muscularis propria into rehana-colic tissue. The tumor measured 2.3 x 1.8 cm. The margins were free of tumor. There was evidence of lymphovascular space invasion. A total of 7 lymph nodes were identified in the sample and all were negative for metastatic disease. Final pathologic staging was T3, N0. He had several high risk features including a near obstructing primary tumor, evidence of lymphovascular space invasion, and less then 12 lymph nodes sampled. 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 Follow-up colonoscopy done on 02/06/2018 showed ileocolic anastomosis looked intact without evidence of recurrence and wide patent. In the proximal transverse colon, an abnormality was noted. He was followed by Dr. Willingham His other medical illnesses include hypertension, hyperlipidemia, and type II diabetes. He is a nonsmoker. Follow-up colonoscopy done on 02/26/2019 showed normal findings. Ileocolic anastomosis is widely patent without evidence of local recurrence. CEA repeated on 03/04/2019 was 7.7 compared to 7.2 on 01/07/2019 CT PET scan done on 03/15/2019 showed 3.1 x 2.2 cm mass in the right middle lobe with SUV of 22.1, and an adjacent right middle lobe FDG positive satellite nodule was noted. The right lower lobe perihilar nodule measuring 1.6 cm with SUV of 21.6. Multiple mediastinal nodes are FDG positive, consistent with metastatic disease and index node in the right 4R peritracheal territory measures 1.6 cm with SUV of 23.0 and other similar nodes are evident in the right pericardial, right superior mediastinal, right periesophageal territory. No evidence of metastatic disease to bone or below diaphragm Underwent mediastinoscopy on 04/28/2019 and lymph node biopsy was obtained from paratracheal, station 4R, final pathology report showed metastatic adenocarcinoma, consistent with GI origin. The tumor was positive for CD X2, CK 20; negative for CK 7 and TTF-1. recommended 6 cycles of FOLFIRI/Avastin the restage with followup PET/CT. Mr Yu began cycle 1 on 05/13/2019. He has tolerated it well. Mr. Yu had follow-up PET/CT on 07/19/2019 with [facility] radiology out [facility]. The findings reported were continued physiological tracer activity at the colonic anastomosis. The right middle lobe mass that previously measured 3.1 x 2.2 cm with an SUV of 22.1 now measures 1.0 x 1.3 cm with an SUV of 7.7, indicating a positive response to therapy. There are similar improvement in the secondary right middle lobe nodule and in the right lower lobe nodule. The index node in the right 4R paratracheal territory now measures 1.5 with an SUV of 5.7 and previously was 1.8 cm with an SUV of 23. Multiple other mediastinal nodes demonstrate similar improvement . reviewed the PET/CT and recommended that Mr. Yu pursue 6 -8 more cycles of chemotherapy. Follow-up CT PET scan done on 10/25/2019, showed right middle lobe nodule that previously measured 1.0 x 1.3 cm with SUV of 7.7, now measure 1.1 x 0.7 cm with SUV of 4.3. A secondary right middle lobe nodule and the right lower lobe nodule are FDG negative. Similar improvement is noted in the mediastinal lymph nodes in the right paratracheal (4R) node now has SUV of 4.7 compared to 5.7 previously. Other nodes since subcarinal, right hilar, right pericardial regions are FDG negative. He has tolerated treatment well. It was recommended that he have 6 additional cycles of treatment then restage to determine further plan of care. Follow-up CT PET scan done on January 10, 2020 showed minimal progression is present in the dominant right middle lobe nodule now SUV 5.6 compared to 4.3. Secondary right middle lobe nodule now has SUV of 4.0 compared to negative on prior study. Medial right lower lobe nodule is unchanged at size 8 mm and remained FDG negative. FDG positive mediastinal adenopathy is generally unchanged, however a right sides. Prevascular node has SUV of 3.6.No herpetic involvement Patient was referred to GI oncology at [facility], as per patient's they were told that there is no clinical trial available at this point that the continue with the treatment locally. Follow-up CT scan of chest abdomen pelvis done on March 09, 2020 showed numerous right-sided pulmonary nodules which have been previously described. Nodules have all increased slight in size. Indeterminate mediastinal mass and right hilar lymph nodes and subcarinal lymph nodes are all unchanged in size. Small amount of soft tissue at anastomotic site in the right abdomen with a few smaller adjacent lymph nodes. No renal mass, no liver mets seen Came for follow-up, denies any specific complaints, no fever chills, no nausea or vomiting, no diarrhea constipation, no mouth sores, no abdominal pain. . Medications: Aspirin 1 Tablet (of 81 mg) Oral daily, Ativan 1 (0.5 mg) Tablet Oral q 4 hours PRN, Atorvastatin Calcium 1 Tablet (of 40 mg) Oral daily, B-12 1 Tablet (of 1000 mcg) Oral daily, Calcium Carb-Cholecalciferol 1 Capsule (of 500-125 Units/mg) Oral daily, Cinnamon 1 (500 mg) Capsule Oral b.i.d., Compazine Tablet Oral q 4 hours PRN, Fish Oil 1 (1000 mg) Capsule Oral daily, hydroCHLOROthiazide 1 Capsule (of 12.5 mg) Oral at bedtime, Lisinopril 1 Tablet (of 40 mg) Oral daily, MetFORMIN HCl 1 Tablet (of 500 mg) Oral b.i.d., Metoprolol Tartrate 0.5 Tablet (of 25 mg) Oral b.i.d., Multivitamin Adult 1 Tablet Oral daily, Nitroglycerin 1 (0.4 mg) Tablet, sublingual Sublingual PRN, Pepcid 1 (20 mg) Tablet Oral daily PRN, Vitamin C 1 Tablet (of 500 mg) Oral daily, Vitamin E 1 Capsule (of 400 Units) Oral daily Allergies: Isosorbide Mononitrate and Succinylcholine Chloride. Review of Systems: Review of Systems is not available for this patient. Vital Signs: Performed on Apr 07, 2020 09:56 Height - 64.00 in Weight - 152.8 lbs (HIGH) BSA - 1.74 sq.m BMI - 26.23 Temperature - 98.2 F (LOW) Pulse - 72 /min Respiration - 24 /min BP - 151/65 mm(hg) (HIGH) O2 Sat - 97 % Pain - 0 Performance Status: 0 - Fully active, able to carry on all predisease activities without restrictions. (ECOG) Physical Examination: ENMT - No mouth sores, no thrush, no jaundice, Respiratory - Lungs are clear to auscultation, Cardiovascular - Regular rate and rhythm of heart, Abdomen - Soft, bowel sounds present, Extremities - No visible edema. Lab/Imaging: Test performed on Mar 29, 2020 10:00 Sodium 137 mmol/L Potassium 4.3 mmol/L Chloride 102 mmol/L CO2 27 mmol/L Anion Gap 12.3 BUN 14 mg/dL Creatinine 0.9 mg/dL Cr Clearance (Est) 66.4800 mL/min Glucose 119 mg/dL Osmolality - Calculated 286 mOsm/kg Calcium 9.0 mg/dL Protein, Total 6.9 g/dL Albumin 4.2 g/dL Globulin 2.7 g/dL Bilirubin, Total 0.2 mg/dL ALT (SGPT) 23 U/L AST (SGOT) 24 U/L Alkaline Phosphatase 71 IU/L WBC 9.0 10 3/uL RBC 4.22 10 6/uL HGB 13.7 g/dL HCT 41.4 % MCV 98.1 fL MCH 32.5 pg MCHC 33.1 g/dL RDW 11.9 % Platelet Count 261 10 3/cmm MPV 9.8 fL Neutrophils 5.92 10 3/uL Lymphocytes 2.0 10 3/uL Monocytes 0.8 10 3/uL Eosinophils 0.2 10 3/uL Basophils 0.0 10 3/uL Neutrophil % 66.1 % Lymphocyte % 22.3 % Monocyte % 8.9 % Eosinophil % 2.2 % Basophils % 0.4 % NRBC % 0 % Test performed on Jan 27, 2020 14:35 CEA 7.1 ng/mL Test performed on Jan 27, 2020 14:30 Ua Color Yellow Ua Appearance Clear Ua Glucose Norm Ua Bilirubin Neg Ua Ketones Negative Ua Specific [place] 1.010 Ua Blood Neg Ua pH 6.5 Ua Protein Neg Ua Urobilinogen 1 mg/dL Ua Nitrites Negative Ua Leukocyte Esterase Negative Test performed on Dec 10, 2019 09:37 Ua Urobilinogen Norm U Micro: WBC 0-4 U Micro: RBC 0-4 U Micro: Bacteria Trace U Micro: Epithelial Cells 0-4 U Micro: Mucus 1+ Test performed on Dec 10, 2019 08:11 Ua Micro: Hyaline Casts 0-4 Ua Micro: Squam Epith Cells 0-4 Test performed on Nov 26, 2019 08:25 Cholesterol, Total 140 mg/dL Triglycerides 99 mg/dL LDL Cholesterol 86 mg/dL HDL Cholesterol 34 mg/dL Cholesterol/HDL Ratio 4.12 mg/dL LDL / HDL Ratio 2.53 RATIO Test performed on October 15, 2019 09:27 Manual Lymphocytes 22 % Manual Monocytes 7.0 % Manual Eosinophils 7 % Test performed on October 15, 2019 09:23 Manual Segs 3.9 % Manual Bands 2.0 % Platelet Estimate normal Test performed on October 15, 2019 08:05 Manual Bands Abs 0.1 10 3/cmm Manual Monocytes Abs 0.4 10 3/cmm Manual Eosinophils Abs 0.4 10 3/cmm Impression: 1. Recurrent adenocarcinoma involving paratracheal lymph node per bronchoscopy/ mediastinoscopy done on 04/28/2019 Immunohistochemistry positive for CDX -2, CK 20 Negative for CK 7, TTF-1 and CEA checked on 05/05/2019 was 10.6 2. 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 He underwent laparoscopic right hemicolectomy on 01/10/2017. High risk features included near obstructing primary tumor, pathologic evidence of lymphovascular space invasion, and less than 12 lymph nodes sampled. 3. s/p adjuvant chemotherapy with modified FOLFOX.???4 from 01/30/2017 through 04/02/2017, FOLFOX minus oxaliplatin ???8 from 04/23/2017 through 07/23/2017. 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 4. He has iron deficiency anemia , resolved . His other medical illnesses include: 5. Hypertension. 6. Hyperlipidemia. 7. Type II diabetes .Follow-up colonoscopy done on 02/06/2018 showed ileocolic anastomosis looked intact without evidence of recurrence, and wide patent. In the proximal transverse colon, an abnormality was noted. Follow-up colonoscopy done on 02/26/2019 showed no abnormality seen, ileocolic anastomosis widely patent without evidence of local recurrence. CEA checked on 01/07/2019 was 7.2 compared to 2.4 on 07/05/2018 and repeat CEA on 03/04/[address] PET scan done on 03/15/2019 showed 3.1 x 2.2 cm mass in the right middle lobe with SUV of 22.1, and adjust in the right middle lobe FDG positive satellite nodule noted. The right lower lobe perihilar nodule measuring 1.6 cm with SUV of 21.6. Multiple mediastinal nodes are FDG positive, consistent with metastatic disease and index node in the right 4R peritracheal territory measures 1.6 cm with SUV of 23.0 and other similar nodes are evident in the right pericardial, right superior mediastinal, right periesophageal territory. No evidence of metastatic disease to bone or below diaphragm. Clinically, patient is doing well, tolerated mediastinoscopy well now surgical wound is healing well. And final pathology report came back metastatic adenocarcinoma, probably GI in origin. Discussed with patient regarding treatment options. 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 He began cycle 1 of 6 on 03/13/2019. He has tolerated it extremly well at this time. recommended 6 cycles of FOLFIRI/Avastin the restage with followup PET/CT. Mr Yu began cycle 1 on 05/13/2019. He has tolerated it well. After 5 cycles of chemotherapy, Mr. Yu had follow-up PET/CT on 07/19/2019 with [facility] radiology out [facility]. The findings reported were continued physiological tracer activity at the colonic anastomosis. The right middle lobe mass that previously measured 3.1 x 2.2 cm with an SUV of 22.1 now measures 1.0 x 1.3 cm with an SUV of 7.7, indicating a positive response to therapy. There are similar improvement in the secondary right middle lobe nodule and in the right lower lobe nodule. The index node in the right 4R paratracheal territory now measures 1.5 with an SUV of 5.7 and previously was 1.8 cm with an SUV of 23. Multiple other mediastinal nodes demonstrate similar improvement . has reviewed the PET/CT and has recommended that Mr. Yu pursue 6 more cycles of chemotherapy. Plan: Discussed with patient regarding his labs white blood count 6.3 hemoglobin 13.4 hematocrit 39.8 platelets 225,000 CMP within normal limits except glucose 182 Clinically, patient is doing well with no new signs symptoms, will proceed with next cycle of chemotherapy with FOLFIRI/Avastin today and planning to get in [address] PET scan to assess disease response. Patient is scheduled for colonoscopy on May 05, 2020 to assess anastomosis site to rule out local recurrence Clinic in 2 weeks with CBC CMP Signed By: Hayley Goodman M.D. <<Signature on File>>
[2020-04-07] MEDS: atropine 1 mg/mL SDV 1 mL 0.4 MG IV (11:21)
[2020-04-21 09:29] LABS: Add Urine Microscopic? NO
[2020-04-21 09:35] LABS: Basophils % 0.7 %; Eosinophils # 0.1 10^3/uL (0.0-0.8); Eosinophils % 2.3 %; Hematocrit 39.6 % (42.0-52.0); Hemoglobin 13.1 g/dL (11.7-16.6); Lymphocytes # 1.7 10^3/uL (0.8-4.8); Lymphocytes % 27.3 %; Mean Corpuscular HGB Conc 33.1 g/dL (30.0-36.0); Mean Corpuscular Hemoglobin 32.2 pg (28.0-34.0); Mean Corpuscular Volume 97.3 fL (80-94); Mean Platelet Volume 9.4 fL (7.4-10.4); Monocytes # 0.5 10^3/uL (0.2-0.9); Neutrophils # 3.77 10^3/uL (1.8-7.7); Neutrophils % 61.5 %; Nucleated Red Blood Cells % 0 %; Platelet Count 268 10^3/cmm (130-400); Red Blood Count 4.07 10^6/uL (4.1-5.3); Red Cell Distribution Width 12.1 % (12.1-15.1); White Blood Count 6.1 10^3/uL (4.0-10.0)
[2020-04-21 09:46] LABS: Bilirubin Urine Neg (Negative); Blood Urine Neg (Negative); Glucose Urine UA Norm (Normal); Ketones Urine Negative (Negative); Leukocyte Esterase Urine Negative (Negative); Nitrate Urine Negative (Negative); Protein Urine Neg (Negative); Specific Gravity, Urine 1.015 (1.005-1.030); Urine Appearance Clear (CLEAR); Urine Color Yellow (Yellow); Urobilinogen Urine Norm (Negative); pH Urine 6.5 (5-7)
[2020-04-21 09:55] LABS: Alanine Aminotransferase 28 U/L (0-41); Albumin Level 3.9 g/dL (3.5-5.2); Alkaline Phosphatase 77 IU/L (40-130); Anion Gap 12.6 (5-19); Aspartate Amino Transferase 23 U/L (0-40); Blood Urea Nitrogen 16 mg/dL (8-23); Calcium 8.6 mg/dL (8.5-10.5); Carbon Dioxide 26 mmol/L (22-29); Chloride 103 mmol/L (98-107); Globulin 2.8 g/dL (1.3-4.6); Glucose 164 mg/dL (65-115); Osmolality Calculated 289 mOsm/kg (285-295); Potassium 4.6 mmol/L (3.5-5.1); Sodium 137 mmol/L (136-145); Total Bilirubin 0.2 mg/dL (0.15-1.2); Total Protein 6.7 g/dL (6.6-8.7)
[2020-04-21] MEDS: sodium chloride 0.9% 250 ML 75 ML IV (11:45)
[2020-04-21] MEDS: atropine 1 mg/mL SDV 1 mL 0.4 MG IV (12:18)
--- NOTE | 2020-04-26 22:23 | ONC FU_ITS ---
[facility] Patient Note Patient: Geoff Yu Unit #: [id number]: 1945 Dictated By: Tripp GibsonDate of Visit: Apr 21, 2020 Onc MED Follow-Up/Prog Note Chief Complaint: Colon cancer. 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 He had presented with symptoms of abdominal pain and early satiety. CT abdomen/pelvis on 01/05/2017 showed an apple core appearing lesion at the hepatic flexure with associated obstruction involving the ascending colon, cecum, and ileum. The appearance was suspicious for neoplasm. There was a small amount of pelvic ascites. A 6.9 mm right lower lobe noncalcified pulmonary nodule was felt to be nonspecific. There was otherwise no evidence of metastatic disease. Colonoscopy on 01/09/2017 showed a partially obstructing malignant appearing mass at the hepatic flexure estimated at 5 x 4 cm. An additional sessile polyp was noted in the distal sigmoid colon and excised by hot snare. Biopsy of the hepatic flexure mass showed poorly differentiated infiltrating adenocarcinoma. The distal sigmoid lesion was a hyperplastic polyp. He underwent laparoscopic right hemicolectomy with ileocolic anastomosis and partial omentectomy on 01/10/2017. Pathology showed moderately differentiated infiltrating adenocarcinoma with invasion of the muscularis propria into rehana-colic tissue. The tumor measured 2.3 x 1.8 cm. The margins were free of tumor. There was evidence of lymphovascular space invasion. A total of 7 lymph nodes were identified in the sample and all were negative for metastatic disease. Final pathologic staging was T3, N0. He had several high risk features including a near obstructing primary tumor, evidence of lymphovascular space invasion, and less then 12 lymph nodes sampled. 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 Follow-up colonoscopy done on 02/06/2018 showed ileocolic anastomosis looked intact without evidence of recurrence and wide patent. In the proximal transverse colon, an abnormality was noted. He was followed by Dr. Willingham His other medical illnesses include hypertension, hyperlipidemia, and type II diabetes. He is a nonsmoker. Follow-up colonoscopy done on 02/26/2019 showed normal findings. Ileocolic anastomosis is widely patent without evidence of local recurrence. CEA repeated on 03/04/2019 was 7.7 compared to 7.2 on 01/07/2019 CT PET scan done on 03/15/2019 showed 3.1 x 2.2 cm mass in the right middle lobe with SUV of 22.1, and an adjacent right middle lobe FDG positive satellite nodule was noted. The right lower lobe perihilar nodule measuring 1.6 cm with SUV of 21.6. Multiple mediastinal nodes are FDG positive, consistent with metastatic disease and index node in the right 4R peritracheal territory measures 1.6 cm with SUV of 23.0 and other similar nodes are evident in the right pericardial, right superior mediastinal, right periesophageal territory. No evidence of metastatic disease to bone or below diaphragm Underwent mediastinoscopy on 04/28/2019 and lymph node biopsy was obtained from paratracheal, station 4R, final pathology report showed metastatic adenocarcinoma, consistent with GI origin. The tumor was positive for CD X2, CK 20; negative for CK 7 and TTF-1. recommended 6 cycles of FOLFIRI/Avastin the restage with followup PET/CT. Mr Yu began cycle 1 on 05/13/2019. He has tolerated it well. Mr. Yu had follow-up PET/CT on 07/19/2019 with [facility] out [facility]. The findings reported were continued physiological tracer activity at the colonic anastomosis. The right middle lobe mass that previously measured 3.1 x 2.2 cm with an SUV of 22.1 now measures 1.0 x 1.3 cm with an SUV of 7.7, indicating a positive response to therapy. There are similar improvement in the secondary right middle lobe nodule and in the right lower lobe nodule. The index node in the right 4R paratracheal territory now measures 1.5 with an SUV of 5.7 and previously was 1.8 cm with an SUV of 23. Multiple other mediastinal nodes demonstrate similar improvement . reviewed the PET/CT and recommended that Mr. Yu pursue 6 -8 more cycles of chemotherapy. Follow-up CT PET scan done on 10/25/2019, showed right middle lobe nodule that previously measured 1.0 x 1.3 cm with SUV of 7.7, now measure 1.1 x 0.7 cm with SUV of 4.3. A secondary right middle lobe nodule and the right lower lobe nodule are FDG negative. Similar improvement is noted in the mediastinal lymph nodes in the right paratracheal (4R) node now has SUV of 4.7 compared to 5.7 previously. Other nodes since subcarinal, right hilar, right pericardial regions are FDG negative. He has tolerated treatment well. It was recommended that he have 6 additional cycles of treatment then restage to determine further plan of care. Follow-up CT PET scan done on January 10, 2020 showed minimal progression is present in the dominant right middle lobe nodule now SUV 5.6 compared to 4.3. Secondary right middle lobe nodule now has SUV of 4.0 compared to negative on prior study. Medial right lower lobe nodule is unchanged at size 8 mm and remained FDG negative. FDG positive mediastinal adenopathy is generally unchanged, however a right sides. Prevascular node has SUV of 3.6.No herpetic involvement Patient was referred to GI oncology at [facility], as per patient's they were told that there is no clinical trial available at this point that the continue with the treatment locally. Follow-up CT scan of chest abdomen pelvis done on March 09, 2020 showed numerous right-sided pulmonary nodules which have been previously described. Nodules have all increased slight in size. Indeterminate mediastinal mass and right hilar lymph nodes and subcarinal lymph nodes are all unchanged in size. Small amount of soft tissue at anastomotic site in the right abdomen with a few smaller adjacent lymph nodes. No renal mass, no liver mets seen Mr. Yu resumed chemotherapy with FOLFIRI and Avastin on April 07, 2020. He has tolerated that well thus far. Mr. Yu is here today for follow-up. He is due for cycle 2 of his resume chemotherapy. The plan is to do 600 and repeat his PET/CT. He states overall he is doing well. He has a good appetite. He denies any fever or chills. He said no diarrhea or constipation. 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 He has been camping some. He denies any concerns. He states he has not had diarrhea and Mrs. Yu states she is unaware of any as well. He denies any neuropathy symptoms. Denies any urinary symptoms. His ECOG is 0. . Past Medical History: Diabetes type II Hyperlipidemia Hypertension Past Surgical History: Pneumonia Vaccine in 2017 - Given in left deltoid./lc Flu Vacccine in 2017 - Pt stated he had flu vaccine at [facility] 02/26/17./lc Left subclavian venous access device-Dr Willingham in 2017 Right Hemicolectomy in 2017 Allergies: Isosorbide Mononitrate and Succinylcholine Chloride. Medications: Aspirin 1 Tablet (of 81 mg) Oral daily Ativan 1 (0.5 mg) Tablet Oral q 4 hours PRN Atorvastatin Calcium 1 Tablet (of 40 mg) Oral daily B-12 1 Tablet (of 1000 mcg) Oral daily Calcium Carb-Cholecalciferol 1 Capsule (of 500-125 Units/mg) Oral daily Cinnamon 1 (500 mg) Capsule Oral b.i.d. Compazine Tablet Oral q 4 hours PRN Fish Oil 1 (1000 mg) Capsule Oral daily hydroCHLOROthiazide 1 Capsule (of 12.5 mg) Oral at bedtime Lisinopril 1 Tablet (of 40 mg) Oral daily MetFORMIN HCl 1 Tablet (of 500 mg) Oral b.i.d. Metoprolol Tartrate 0.5 Tablet (of 25 mg) Oral b.i.d. Multivitamin Adult 1 Tablet Oral daily Nitroglycerin 1 (0.4 mg) Tablet, sublingual Sublingual PRN Pepcid 1 (20 mg) Tablet Oral daily PRN Vitamin C 1 Tablet (of 500 mg) Oral daily Vitamin E 1 Capsule (of 400 Units) Oral daily Family History: Mr. Yu's mother at age 74: lung cancer. Mr. Yu's father at age 48: heart attack. Social History: Mr. Yu is and he is retired. Mr. Yu has never smoked. He has no history of drinking. Mr. Yu reports the following support systems: lives with spouse, significant other, family, or friends, lives in own house, supportive family/friends willing to assist with needs, and adequate transportation available for expected visits. His diet consists of regular meals. He indicates his activity level as: daily activities. Review Of Symptoms: Constitutional Denies fevers, chills, night sweats, excessive fatigue or weight loss. Has been working in his yard and camping. Allergic/Immunologic No reactions. Eyes Denies significant visual changes. No diplopia. No amaurosis. ENMT Denies changes in hearing, sore throat, mouth sores, difficulty or changes in swallowing ability, and/or sinus drainage. Endocrine No diabetes, thyroid disease or hormone replacement. Denies hot flashes or night sweats. Hematologic/Lymphatic Denies easy bruising or bleeding. The patient denies any tender or palpable lymph nodes. Respiratory Denies dyspnea on exertion, chest pain, cough or hemoptysis. Denies orthopnea. Cardiovascular Denies anginal chest pain, palpitations or orthopnea. Gastrointestinal Denies nausea, vomiting, diarrhea, GI bleeding, or constipation. Denies change in bowel habits and/or stool color, no heartburn or early satiety. Genitourinary (M) Denies hematuria, dysuria, increased frequency, urgency, hesitancy or incontinence. Musculoskeletal Denies joint pain, swelling or redness. No decreased range of motion. Integumentary Denies chronic rashes, inflammation, ulcerations or skin changes. Neurologic Denies headache, blurred vision, and no areas of focal weakness or numbness. Normal gait. No sensory problems. Psychiatric Denies insomnia, depression, alex or mood swings. Vital Signs: Performed on Apr 21, 2020 10:31 Height - 64.00 in Weight - 153.0 lbs (HIGH) BSA - 1.75 sq.m BMI - 26.26 Temperature - 98.0 F (LOW) Pulse - 60 /min Respiration - 20 /min BP - 150/69 mm(hg) (HIGH) O2 Sat - 95 % (LOW) Pain - 0,0 - Fully active, able to carry on all predisease activities without restrictions. (ECOG) Physical Examination: Constitutional Alert, oriented, no acute distress. Skin pink, warm and dry. Head Normocephalic; atraumatic. Eyes Conjunctivae and sclerae are clear and without icterus. Pupils are reactive and equal. Wears glasses. Neck Supple without masses or thyromegaly. No jugular venous distension. Hematologic/Lymphatic No petechiae or purpura. Respiratory Lungs are clear to auscultation without rhonchi or wheezing. Cardiovascular Regular rate and rhythm of heart without murmurs,clicks, gallops or rubs. Chest Left subclavian venous access device insertion site is unremarkable. Back/Spine Non-tender to palpation. Extremities No visible deformities, no cyanosis, clubbing or edema. Musculoskeletal No tenderness or swelling, normal range of motion without obvious weakness. Integumentary No rashes or lesions. Neurologic No sensory or motor deficits, normal cerebellar function, normal gait. Psychiatric Alert and oriented times three. Coherent speech. Verbalizes understanding of our discussions today. Laboratory:Test performed on Apr 21, 2020 09:08 Ua Color Yellow Ua Appearance Clear Ua Glucose Norm Ua Bilirubin Neg Ua Ketones Negative Ua Specific [place] 1.015 Ua Blood Neg Ua pH 6.5 Ua Protein Neg Ua Nitrites Negative Ua Leukocyte Esterase Negative Test performed on Apr 21, 2020 09:05 Sodium 137 mmol/L Potassium 4.6 mmol/L Chloride 103 mmol/L CO2 26 mmol/L Anion Gap 12.6 BUN 16 mg/dL Creatinine 0.9 mg/dL Cr Clearance (Est) 66.4800 mL/min Glucose 164 mg/dL Osmolality - Calculated 289 mOsm/kg Calcium 8.6 mg/dL Protein, Total 6.7 g/dL Albumin 3.9 g/dL Globulin 2.8 g/dL Bilirubin, Total 0.2 mg/dL ALT (SGPT) 28 U/L AST (SGOT) 23 U/L Alkaline Phosphatase 77 IU/L WBC 6.1 10 3/uL RBC 4.07 10 6/uL HGB 13.1 g/dL HCT 39.6 % MCV 97.3 fL MCH 32.2 pg MCHC 33.1 g/dL RDW 12.1 % Platelet Count 268 10 3/cmm MPV 9.4 fL Neutrophils 3.77 10 3/uL Lymphocytes 1.7 10 3/uL Monocytes 0.5 10 3/uL Eosinophils 0.1 10 3/uL Basophils 0.0 10 3/uL Neutrophil % 61.5 % Lymphocyte % 27.3 % Monocyte % 8.0 % Eosinophil % 2.3 % Basophils % 0.7 % NRBC % 0 % Test performed on Jan 27, 2020 14:35 CEA 7.1 ng/mL Test performed on Jan 27, 2020 14:30 Ua Urobilinogen 1 mg/dL Test performed on Dec 10, 2019 09:37 Ua Urobilinogen Norm U Micro: WBC 0-4 U Micro: RBC 0-4 U Micro: Bacteria Trace U Micro: Epithelial Cells 0-4 U Micro: Mucus 1+ Test performed on Dec 10, 2019 08:11 Ua Micro: Hyaline Casts 0-4 Ua Micro: Squam Epith Cells 0-4 Test performed on Nov 26, 2019 08:25 Cholesterol, Total 140 mg/dL Triglycerides 99 mg/dL LDL Cholesterol 86 mg/dL HDL Cholesterol 34 mg/dL Cholesterol/HDL Ratio 4.12 mg/dL LDL / HDL Ratio 2.53 RATIO Impression: 1.Recurrent adenocarcinoma involving paratracheal lymph node per bronchoscopy/ mediastinoscopy done on 04/28/2019 Immunohistochemistry positive for CDX -2, CK 20 Negative for CK 7, TTF-1 and CEA checked on 05/05/2019 was 10.6 2. 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 He underwent laparoscopic right hemicolectomy on 01/10/2017. High risk features included near obstructing primary tumor, pathologic evidence of lymphovascular space invasion, and less than 12 lymph nodes sampled. 3. s/p adjuvant chemotherapy with modified FOLFOX.???4 from 01/30/2017 through 04/02/2017, FOLFOX minus oxaliplatin ???8 from 04/23/2017 through 07/23/2017. 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 4. He has iron deficiency anemia , resolved . His other medical illnesses include: 5. Hypertension. 6. Hyperlipidemia. 7. Type II diabetes .Follow-up colonoscopy done on 02/06/2018 showed ileocolic anastomosis looked intact without evidence of recurrence, and wide patent. In the proximal transverse colon, an abnormality was noted. Follow-up colonoscopy done on 02/26/2019 showed no abnormality seen, ileocolic anastomosis widely patent without evidence of local recurrence. CEA checked on 01/07/2019 was 7.2 compared to 2.4 on 07/05/2018 and repeat CEA on 03/04/[address] PET scan done on 03/15/2019 showed 3.1 x 2.2 cm mass in the right middle lobe with SUV of 22.1, and adjust in the right middle lobe FDG positive satellite nodule noted. The right lower lobe perihilar nodule measuring 1.6 cm with SUV of 21.6. Multiple mediastinal nodes are FDG positive, consistent with metastatic disease and index node in the right 4R peritracheal territory measures 1.6 cm with SUV of 23.0 and other similar nodes are evident in the right pericardial, right superior mediastinal, right periesophageal territory. No evidence of metastatic disease to bone or below diaphragm. Clinically, patient is doing well, tolerated mediastinoscopy well now surgical wound is healing well. And final pathology report came back metastatic adenocarcinoma, probably GI in origin. Discussed with patient regarding treatment options. 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 He began cycle 1 of 6 on 03/13/2019. He has tolerated it extremly well at this time. recommended 6 cycles of FOLFIRI/Avastin the restage with followup PET/CT. Mr Yu began cycle 1 on 05/13/2019. He has tolerated it well. After 5 cycles of chemotherapy, Mr. Yu had follow-up PET/CT on 07/19/2019 with [facility] radiology out [facility]. The findings reported were continued physiological tracer activity at the colonic anastomosis. The right middle lobe mass that previously measured 3.1 x 2.2 cm with an SUV of 22.1 now measures 1.0 x 1.3 cm with an SUV of 7.7, indicating a positive response to therapy. There are similar improvement in the secondary right middle lobe nodule and in the right lower lobe nodule. The index node in the right 4R paratracheal territory now measures 1.5 with an SUV of 5.7 and previously was 1.8 cm with an SUV of 23. Multiple other mediastinal nodes demonstrate similar improvement . Dr Hernandez has reviewed the PET/CT and has recommended that Mr. Yu pursue 6 more cycles of chemotherapy. Plan: 1. Proceed with cycle 2 of chemotherapy with FOLFIRI/Avastin today and planning to get in [address] PET scan to assess disease response. 2. Mr Yu is scheduled for colonoscopy on May 05, 2020 to assess anastomosis site to rule out local recurrence 3. Today's labs were reviewed in detail and discussed with Mr. Mrs. Yu and a copy was given to them. WBC 6.1, hemoglobin 13.1 platelets are 68,000 ANC is 3770. UA is negative for protein; creatinine 0.9 LFTs are normal random glucose is 164. 4. We will plan to see Mr. Yu back in 2 weeks with CBC CMP & UA. His blood pressure is 150/69 today which is his normal. 5. Mr. Yu has been encouraged to contact us in the interim should questions or problems arise. Signed By: Tripp Gibson-, AOCNP Hayley Goodman MD <<Signature on File>>
== END 2020-05-03 23:59 | disposition home or self-care (01) ==
LOC: ONCMED 05:30
PROVIDERS: Internal Medicine Hematology & Oncology; PCP Family Medicine; Visit Provider Nurse Practitioner
DX: Z51.11 Encounter for antineoplastic chemotherapy (principal); C18.0 Malignant neoplasm of cecum; C77.1 Secondary and unspecified malignant neoplasm of intrathoracic lymph nodes; I10 Essential (primary) hypertension; E78.5 Hyperlipidemia, unspecified; E11.9 Type 2 diabetes mellitus without complications; Z79.899 Other long term (current) drug therapy
CPT/HCPCS: 80053; 81003; 85025; 96367; 96368; 96375; 96413; 96415; 96416; 96417; 99214; J0461; J0640; J1100; J1453; J2469; J3490; J7050; J9035; J9190; J9206

== ENCOUNTER → 2020-04-30 11:56 | Outpatient (BNVA) | payer MEDICARE, OTHER, SELFPAY | PROVIDERS: PCP Family Medicine; Visit Provider Surgery | DX: Z85.038 Personal history of other malignant neoplasm of large intestine (principal) | CPT/HCPCS: 87635 ==

== ENCOUNTER 2020-05-05 09:01 | Day surgery (SDC) | payer MEDICARE, OTHER, SELFPAY ==
[2020-05-05 09:46] LABS: Glucose Point of Care 126 mg/dL (70-110)
--- NOTE | 2020-05-05 09:51 | ANES.PREANE2 ---
Pre-Anesthetic Assessment Pre-Anesthetic Assessment: Height/Weight: Height 1.63 m Weight 67.132 kg Preop Diagnosis: History of colon cancer Proposed Procedure: Operation Date: 05/05/20 10:30 Proposed Procedures p Colonoscopy(Not Applicable) - Tony Willingham MD Was Beta Bozena taken within 24 hours: Yes Social: Social History: No alcohol and No tobacco Exam: Pre-Anes Outpt Exam: alert, oriented x 3, clear to auscultation bilaterally and regular rate & rhythm Airway: Submandibular: WNL Cervical ROM: WNL MP: 2 Dentition: Full Pulmonary: Pulmonary: None reported CV/HEM: CV/HEM: HTN : : None reported Hepatic: Hepatic: None reported GI: GI: None reported Metabolic: Metabolic: DM Musc/skel: Musc/skel: None reported Neuropsych: Neuropsych: None reported Anesthetic Plan: ASA status: 3 Anesthesia: MAC Risk of > 500 ml blood loss (7ml/kg in children): No Other Pertinent Information: Family H/O MH (daughter and grandson with actual episodes) PFSH Anesthesia PFSH: Medical History History of colon cancer Family History Denies family history of Anesthesia complication Bleeding disorder Social History Smoking and tobacco status: never smoked Alcohol intake: never Data Anesthesia Other Labs: Laboratory Results - last 48 hr 05/05/20 09:42 POC Glucose 126 Cardiac Studies: No Data to Display
[2020-05-05] MEDS: sodium chloride 0.9% 1,000 ML 30 ML IV (09:52)
--- NOTE | 2020-05-05 10:13 | W.PM.OPSFHP ---
Same Day Surgery H&P Indication for Procedure/HPI DATE OF PROCEDURE: May 05, 2020 CHIEF COMPLAINT/INDICATIONFOR SURGICAL PROCEDURE: Surveillance colonoscopy PREOP DIAGNOSIS: History of colon cancer PLANNED PROCEDRUE: Operation Date: 05/05/20 10:30 Proposed Procedures p Colonoscopy(Not Applicable) - Tony Willingham MD This is a pleasant 74 years old gentleman well-known to me from previous clinical encounter as he did undergo a laparoscopic right hemicolectomy for colon cancer back in 2017. Also the patient had a Port-A-Cath for chemotherapy. As he continues to do so,patient comes today to discuss surveillance colonoscopy, denies any bleeding per rectum or nonintentional weight loss. Interim history 05/05/2020 Patient comes today for surveillance colonoscopy status post laparoscopic right hemicolectomy for colon cancer. ROS All systems have been reviewed negative except as per the above or per problem list. Medications/Allergies* Home Medications Medication Instructions Recorded Confirmed Type aspirin [Baby Aspirin] 81 mg PO DAILY 05/05/20 05/05/20 History atorvastatin 40 mg PO DAILY 05/05/20 05/05/20 History metformin 500 mg PO DAILY 05/05/20 05/05/20 History metoprolol tartrate 25 mg PO DAILY 05/05/20 05/05/20 History Allergies/Adverse Reactions Allergy/AdvReac Type Severity Reaction Status Date / Time latex Allergy ADR-Itching Verified 05/05/20 10:14 morphine Allergy ADR/ALGY-Hy Verified 05/05/20 10:14 potension succinylcholine AdvReac Unknown Unknown Verified 05/05/20 10:14 Current Medications: Generic Name Dose Route Start Last Admin Trade Name Freq PRN Reason Stop Dose Admin Sodium Chloride 1,000 mls @ 30 mls/hr 05/05/20 09:30 05/05/20 09:52 Sodium Chloride 0.9% IV 30 mls/hr .Q24H [place] Administration Pertinent History/Comorbid Conditions* Medical History (Updated 04/01/20 @ 09:24 by Tony Willingham MD) History of colon cancer Family History (Updated 04/01/20 @ 09:20 by GRUPO Ramos) Denies family history of Anesthesia complication Bleeding disorder Social History Smoking and tobacco status: never smoked Alcohol intake: never Pertinent Exam Findings alert, oriented x 3, clear to auscultation bilaterally, regular rate & rhythm and procedure specific exam findings (Abdominal examination nontender nondistended soft) Recommendations Surgery/Procedure today (Surveillance colonoscopy) Coding Level of Care Code Acute Customer Experience Retail Clerk for [employer]
[2020-05-05 11:53] VITALS: BP 110/62; PULSE 61; RESP 18; TEMP 36.2; O2SAT 100
[2020-05-05 12:04] VITALS: BP 123/59; PULSE 63; RESP 18; O2SAT 100
--- NOTE | 2020-05-05 13:56 | ANE.PACU2 ---
Inpatient post-anesthesia follow up: Airway intact: Yes Vital signs: Temperature 97.1 F Pulse Rate 63 Respiratory Rate 18 Blood Pressure 123/59 Pulse Oximetry 100 Oxygen Delivery Me thod Room Air Oxygen Flow Rate Fraction of Inspir ed Oxygen Hydration adequate: Yes Nausea and vomiting: No Pain level: 1 Mental status: Baseline
== END 2020-05-05 12:18 | disposition home or self-care (01) ==
PROVIDERS: PCP Family Medicine; Visit Provider Surgery
PROC: 0DJD8ZZ Inspection of Lower Intestinal Tract, Via Natural or Artificial Opening Endoscopic (ICD-10-PCS; CPT 45378; principal; 2020-05-05 10:30)
DX: Z12.11 Encounter for screening for malignant neoplasm of colon (principal); Z85.038 Personal history of other malignant neoplasm of large intestine; I10 Essential (primary) hypertension; Z79.82 Long term (current) use of aspirin; E11.9 Type 2 diabetes mellitus without complications; Z79.84 Long term (current) use of oral hypoglycemic drugs; Z90.49 Acquired absence of other specified parts of digestive tract
CPT/HCPCS: 12345; 36416; 45378; 45386; 82962; J2704; J7030

== ENCOUNTER 2020-06-03 05:40 | Outpatient (RCR) | payer MEDICARE, OTHER, SELFPAY ==
[2020-05-06 10:07] LABS: Add Urine Microscopic? NO
[2020-05-06 10:11] LABS: Basophils % 0.6 %; Eosinophils # 0.1 10^3/uL (0.0-0.8); Eosinophils % 1.7 %; Hematocrit 40.2 % (42.0-52.0); Hemoglobin 13.5 g/dL (11.7-16.6); Lymphocytes # 1.9 10^3/uL (0.8-4.8); Lymphocytes % 29.3 %; Mean Corpuscular HGB Conc 33.6 g/dL (30.0-36.0); Mean Corpuscular Hemoglobin 32.1 pg (28.0-34.0); Mean Corpuscular Volume 95.7 fL (80-94); Mean Platelet Volume 9.5 fL (7.4-10.4); Monocytes # 0.8 10^3/uL (0.2-0.9); Neutrophils # 3.56 10^3/uL (1.8-7.7); Neutrophils % 56.2 %; Nucleated Red Blood Cells % 0 %; Platelet Count 235 10^3/cmm (130-400); Red Cell Distribution Width 12.9 % (12.1-15.1); White Blood Count 6.3 10^3/uL (4.0-10.0)
[2020-05-06 10:27] LABS: Alanine Aminotransferase 42 U/L (0-41); Alkaline Phosphatase 83 IU/L (40-130); Anion Gap 15.4 (5-19); Aspartate Amino Transferase 30 U/L (0-40); Blood Urea Nitrogen 15 mg/dL (8-23); Calcium 8.7 mg/dL (8.5-10.5); Carbon Dioxide 23 mmol/L (22-29); Chloride 102 mmol/L (98-107); Globulin 2.6 g/dL (1.3-4.6); Glucose 174 mg/dL (65-115); Osmolality Calculated 287 mOsm/kg (285-295); Potassium 4.4 mmol/L (3.5-5.1); Sodium 136 mmol/L (136-145); Total Bilirubin 0.3 mg/dL (0.15-1.2); Total Protein 6.6 g/dL (6.6-8.7)
[2020-05-06 10:44] LABS: Bilirubin Urine Neg (Negative); Blood Urine Neg (Negative); Glucose Urine UA Norm (Normal); Ketones Urine Negative (Negative); Leukocyte Esterase Urine Negative (Negative); Nitrate Urine Negative (Negative); Protein Urine Neg (Negative); Specific Gravity, Urine 1.025 (1.005-1.030); Urine Appearance Clear (CLEAR); Urine Color Yellow (Yellow); Urobilinogen Urine Norm (Negative); pH Urine 5 (5-7)
[2020-05-06] MEDS: sodium chloride 0.9% 250 ML 75 ML IV (11:15)
[2020-05-06] MEDS: famotidine 20 mg/2 mL INJ IVP (11:20)
[2020-05-06] MEDS: palonosetron 0.25 mg/5 mL SDV IV (11:41)
[2020-05-19 08:42] LABS: Add Urine Microscopic? NO
[2020-05-19 08:47] LABS: Basophils % 0.6 %; Eosinophils # 0.2 10^3/uL (0.0-0.8); Eosinophils % 2.1 %; Hematocrit 40.1 % (42.0-52.0); Hemoglobin 13.6 g/dL (11.7-16.6); Lymphocytes # 1.5 10^3/uL (0.8-4.8); Lymphocytes % 20.4 %; Mean Corpuscular HGB Conc 33.9 g/dL (30.0-36.0); Mean Corpuscular Hemoglobin 32.5 pg (28.0-34.0); Mean Corpuscular Volume 95.9 fL (80-94); Mean Platelet Volume 9.4 fL (7.4-10.4); Monocytes # 0.6 10^3/uL (0.2-0.9); Monocytes % 7.7 %; Neutrophils # 4.91 10^3/uL (1.8-7.7); Neutrophils % 68.9 %; Nucleated Red Blood Cells % 0 %; Platelet Count 248 10^3/cmm (130-400); Red Blood Count 4.18 10^6/uL (4.1-5.3); Red Cell Distribution Width 13.1 % (12.1-15.1); White Blood Count 7.1 10^3/uL (4.0-10.0)
[2020-05-19 09:04] LABS: Alanine Aminotransferase 31 U/L (0-41); Albumin Level 4.1 g/dL (3.5-5.2); Alkaline Phosphatase 83 IU/L (40-130); Anion Gap 13.6 (5-19); Aspartate Amino Transferase 25 U/L (0-40); Blood Urea Nitrogen 14 mg/dL (8-23); Carbon Dioxide 26 mmol/L (22-29); Chloride 100 mmol/L (98-107); Globulin 2.6 g/dL (1.3-4.6); Glucose 168 mg/dL (65-115); Osmolality Calculated 284 mOsm/kg (285-295); Potassium 4.6 mmol/L (3.5-5.1); Sodium 135 mmol/L (136-145); Total Bilirubin 0.2 mg/dL (0.15-1.2); Total Protein 6.7 g/dL (6.6-8.7)
[2020-05-19 09:13] LABS: Bilirubin Urine Neg (Negative); Blood Urine Neg (Negative); Glucose Urine UA Norm (Normal); Ketones Urine Negative (Negative); Leukocyte Esterase Urine Negative (Negative); Nitrate Urine Negative (Negative); Protein Urine Neg (Negative); Urine Appearance Clear (CLEAR); Urine Color Yellow (Yellow); Urobilinogen Urine Norm (Negative); pH Urine 5 (5-7)
[2020-05-19] MEDS: famotidine 20 mg/2 mL INJ IVP (11:03)
[2020-05-19] MEDS: sodium chloride 0.9% 250 ML 300 ML IV (11:08)
[2020-05-19 11:39] LABS: Carcinoembryonic Antigen 12.3 ng/mL (0.0-4.7)
[2020-05-19] MEDS: atropine 1 mg/mL SDV 1 mL 0.4 MG IVP (11:40)
[2020-05-19] MEDS: palonosetron 0.25 mg/5 mL SDV IVP (11:43)
--- NOTE | 2020-05-23 22:40 | ONC FU_ITS ---
[facility] Patient Note Patient: Geoff Yu Unit #: [id number]: 1945 Dictated By: Tripp GibsonDate of Visit: May 19, 2020 Onc MED Follow-Up/Prog Note Chief Complaint: Colon cancer. 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 He had presented with symptoms of abdominal pain and early satiety. CT abdomen/pelvis on 01/05/2017 showed an apple core appearing lesion at the hepatic flexure with associated obstruction involving the ascending colon, cecum, and ileum. The appearance was suspicious for neoplasm. There was a small amount of pelvic ascites. A 6.9 mm right lower lobe noncalcified pulmonary nodule was felt to be nonspecific. There was otherwise no evidence of metastatic disease. Colonoscopy on 01/09/2017 showed a partially obstructing malignant appearing mass at the hepatic flexure estimated at 5 x 4 cm. An additional sessile polyp was noted in the distal sigmoid colon and excised by hot snare. Biopsy of the hepatic flexure mass showed poorly differentiated infiltrating adenocarcinoma. The distal sigmoid lesion was a hyperplastic polyp. He underwent laparoscopic right hemicolectomy with ileocolic anastomosis and partial omentectomy on 01/10/2017. Pathology showed moderately differentiated infiltrating adenocarcinoma with invasion of the muscularis propria into rehana-colic tissue. The tumor measured 2.3 x 1.8 cm. The margins were free of tumor. There was evidence of lymphovascular space invasion. A total of 7 lymph nodes were identified in the sample and all were negative for metastatic disease. Final pathologic staging was T3, N0. He had several high risk features including a near obstructing primary tumor, evidence of lymphovascular space invasion, and less then 12 lymph nodes sampled. 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 Follow-up colonoscopy done on 02/06/2018 showed ileocolic anastomosis looked intact without evidence of recurrence and wide patent. In the proximal transverse colon, an abnormality was noted. He was followed by Dr. Willingham His other medical illnesses include hypertension, hyperlipidemia, and type II diabetes. He is a nonsmoker. Follow-up colonoscopy done on 02/26/2019 showed normal findings. Ileocolic anastomosis is widely patent without evidence of local recurrence. CEA repeated on 03/04/2019 was 7.7 compared to 7.2 on 01/07/2019 CT PET scan done on 03/15/2019 showed 3.1 x 2.2 cm mass in the right middle lobe with SUV of 22.1, and an adjacent right middle lobe FDG positive satellite nodule was noted. The right lower lobe perihilar nodule measuring 1.6 cm with SUV of 21.6. Multiple mediastinal nodes are FDG positive, consistent with metastatic disease and index node in the right 4R peritracheal territory measures 1.6 cm with SUV of 23.0 and other similar nodes are evident in the right pericardial, right superior mediastinal, right periesophageal territory. No evidence of metastatic disease to bone or below diaphragm Underwent mediastinoscopy on 04/28/2019 and lymph node biopsy was obtained from paratracheal, station 4R, final pathology report showed metastatic adenocarcinoma, consistent with GI origin. The tumor was positive for CD X2, CK 20; negative for CK 7 and TTF-1. recommended 6 cycles of FOLFIRI/Avastin the restage with followup PET/CT. Mr Yu began cycle 1 on 05/13/2019. He has tolerated it well. Mr. Yu had follow-up PET/CT on 07/19/2019 with [facility]. The findings reported were continued physiological tracer activity at the colonic anastomosis. The right middle lobe mass that previously measured 3.1 x 2.2 cm with an SUV of 22.1 now measures 1.0 x 1.3 cm with an SUV of 7.7, indicating a positive response to therapy. There are similar improvement in the secondary right middle lobe nodule and in the right lower lobe nodule. The index node in the right 4R paratracheal territory now measures 1.5 with an SUV of 5.7 and previously was 1.8 cm with an SUV of 23. Multiple other mediastinal nodes demonstrate similar improvement . reviewed the PET/CT and recommended that Mr. Yu pursue 6 -8 more cycles of chemotherapy. Follow-up CT PET scan done on 10/25/2019, showed right middle lobe nodule that previously measured 1.0 x 1.3 cm with SUV of 7.7, now measure 1.1 x 0.7 cm with SUV of 4.3. A secondary right middle lobe nodule and the right lower lobe nodule are FDG negative. Similar improvement is noted in the mediastinal lymph nodes in the right paratracheal (4R) node now has SUV of 4.7 compared to 5.7 previously. Other nodes since subcarinal, right hilar, right pericardial regions are FDG negative. He has tolerated treatment well. It was recommended that he have 6 additional cycles of treatment then restage to determine further plan of care. Follow-up CT PET scan done on January 10, 2020 showed minimal progression is present in the dominant right middle lobe nodule now SUV 5.6 compared to 4.3. Secondary right middle lobe nodule now has SUV of 4.0 compared to negative on prior study. Medial right lower lobe nodule is unchanged at size 8 mm and remained FDG negative. FDG positive mediastinal adenopathy is generally unchanged, however a right sides. Prevascular node has SUV of 3.6.No herpetic involvement Patient was referred to GI oncology at [facility], as per patient's they were told that there is no clinical trial available at this point that the continue with the treatment locally. Follow-up CT scan of chest abdomen pelvis done on March 09, 2020 showed numerous right-sided pulmonary nodules which have been previously described. Nodules have all increased slight in size. Indeterminate mediastinal mass and right hilar lymph nodes and subcarinal lymph nodes are all unchanged in size. Small amount of soft tissue at anastomotic site in the right abdomen with a few smaller adjacent lymph nodes. No renal mass, no liver mets seen Mr. Yu resumed chemotherapy with FOLFIRI and Avastin on April 07, 2020. He has tolerated that well thus far. Mr. Yu is here today for follow-up. He is due for cycle 4/6 of his resumed chemotherapy. The plan is to do 6 cycles and repeat his PET/CT. He states overall he feels well now. He did have about 3-4 days post treatment that he felt washed out and didn't do too much those days . That has resolved now. He states it wasn't anything real severe, he was just tired. He denies any nausea of vomiting. He has a good appetite. He denies any fever or chills. He states he has not had any diarrhea or constipation. 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 He denies any concerns. He denies any neuropathy symptoms. He denies any urinary symptoms. His ECOG is 0. . Past Medical History: Diabetes type II Hyperlipidemia Hypertension Past Surgical History: Pneumonia Vaccine in 2017 - Given in left deltoid./lc Flu Vacccine in 2017 - Pt stated he had flu vaccine at [facility] 02/26/17./ Left subclavian venous access device-Dr Willingham in 2017 Right Hemicolectomy in 2017 Allergies: Isosorbide Mononitrate and Succinylcholine Chloride. Medications: Aspirin 1 Tablet (of 81 mg) Oral daily Ativan 1 (0.5 mg) Tablet Oral q 4 hours PRN Atorvastatin Calcium 1 Tablet (of 40 mg) Oral daily B-12 1 Tablet (of 1000 mcg) Oral daily Calcium Carb-Cholecalciferol 1 Capsule (of 500-125 Units/mg) Oral daily Cinnamon 1 (500 mg) Capsule Oral b.i.d. Compazine Tablet Oral q 4 hours PRN Fish Oil 1 (1000 mg) Capsule Oral daily hydroCHLOROthiazide 1 Capsule (of 12.5 mg) Oral at bedtime Lisinopril 1 Tablet (of 40 mg) Oral daily MetFORMIN HCl 1 Tablet (of 500 mg) Oral b.i.d. Metoprolol Tartrate 0.5 Tablet (of 25 mg) Oral b.i.d. Multivitamin Adult 1 Tablet Oral daily Nitroglycerin 1 (0.4 mg) Tablet, sublingual Sublingual PRN Pepcid 1 (20 mg) Tablet Oral daily PRN Vitamin C 1 Tablet (of 500 mg) Oral daily Vitamin E 1 Capsule (of 400 Units) Oral daily Family History: Mr. Yu's mother at age 74: lung cancer. Mr. Yu's father at age 48: heart attack. Social History: Mr. Yu is and he is retired. Mr. Yu has never smoked. He has no history of drinking. Mr. Yu reports the following support systems: lives with spouse, significant other, family, or friends, lives in own house, supportive family/friends willing to assist with needs, and adequate transportation available for expected visits. His diet consists of regular meals. He indicates his activity level as: daily activities. Review Of Symptoms: Constitutional Denies fevers, chills, night sweats, excessive fatigue or weight loss. see above. Allergic/Immunologic No reactions. Eyes Denies significant visual changes. No diplopia. No amaurosis. ENMT Denies changes in hearing, sore throat, mouth sores, difficulty or changes in swallowing ability, and/or sinus drainage. Hematologic/Lymphatic Denies easy bruising or bleeding. The patient denies any tender or palpable lymph nodes. Respiratory Denies dyspnea on exertion, chest pain, cough or hemoptysis. Denies orthopnea. Cardiovascular Denies anginal chest pain, palpitations or orthopnea. Gastrointestinal Denies nausea, vomiting, diarrhea, GI bleeding, or constipation. Denies change in bowel habits and/or stool color, no heartburn or early satiety. Genitourinary (M) Denies hematuria, dysuria, increased frequency, urgency, hesitancy or incontinence. Musculoskeletal Denies joint pain, swelling or redness. No decreased range of motion. Integumentary Denies chronic rashes, inflammation, ulcerations or skin changes. Neurologic Denies headache, blurred vision, and no areas of focal weakness or numbness. Normal gait. No sensory problems. Psychiatric Denies insomnia, depression, alex or mood swings. Vital Signs: Performed on May 19, 2020 10:07 Height - 64.00 in Weight - 151.2 lbs (LOW) BSA - 1.74 sq.m BMI - 25.95 Temperature - 97.7 F (LOW) Pulse - 65 /min Respiration - 18 /min BP - 147/72 mm(hg) (HIGH) O2 Sat - 98 % Pain - 0,0 - Fully active, able to carry on all predisease activities without restrictions. (ECOG) Physical Examination: Constitutional Alert, oriented, no acute distress. Skin pink, warm and dry. Head Normocephalic; atraumatic. Eyes Conjunctivae and sclerae are clear and without icterus. Pupils are reactive and equal. Wears glasses. ENMT No oral exudates, ulcers, masses, thrush or mucositis. Oropharynx clear. Tongue normal. Neck Supple without masses or thyromegaly. No jugular venous distension. Hematologic/Lymphatic No petechiae or purpura. Respiratory Lungs are clear to auscultation without rhonchi or wheezing. Cardiovascular Regular rate and rhythm of heart without murmurs,clicks, gallops or rubs. Back/Spine Non-tender to palpation. Extremities No visible deformities, no cyanosis, clubbing or edema. Musculoskeletal No tenderness or swelling, normal range of motion without obvious weakness. Integumentary No rashes or lesions. Neurologic No sensory or motor deficits, normal cerebellar function, normal gait. Psychiatric Alert and oriented times three. Coherent speech. Verbalizes understanding of our discussions today. Laboratory:Test performed on May 19, 2020 08:26 Ua Color Yellow Ua Appearance Clear Ua Glucose Norm Ua Bilirubin Neg Ua Ketones Negative Ua Specific [place] 1.020 Ua Blood Neg Ua pH 5 Ua Protein Neg Ua Nitrites Negative Ua Leukocyte Esterase Negative Test performed on May 19, 2020 08:25 Sodium 135 mmol/L Potassium 4.6 mmol/L Chloride 100 mmol/L CO2 26 mmol/L Anion Gap 13.6 BUN 14 mg/dL Creatinine 0.9 mg/dL Cr Clearance (Est) 66.4800 mL/min Glucose 168 mg/dL Osmolality - Calculated 284 mOsm/kg Calcium 9.0 mg/dL Protein, Total 6.7 g/dL Albumin 4.1 g/dL Globulin 2.6 g/dL Bilirubin, Total 0.2 mg/dL ALT (SGPT) 31 U/L AST (SGOT) 25 U/L Alkaline Phosphatase 83 IU/L WBC 7.1 10 3/uL RBC 4.18 10 6/uL HGB 13.6 g/dL HCT 40.1 % MCV 95.9 fL MCH 32.5 pg MCHC 33.9 g/dL RDW 13.1 % Platelet Count 248 10 3/cmm MPV 9.4 fL Neutrophils 4.91 10 3/uL Lymphocytes 1.5 10 3/uL Monocytes 0.6 10 3/uL Eosinophils 0.2 10 3/uL Basophils 0.0 10 3/uL Neutrophil % 68.9 % Lymphocyte % 20.4 % Monocyte % 7.7 % Eosinophil % 2.1 % Basophils % 0.6 % NRBC % 0 % CEA 12.3 ng/mL Test performed on Jan 27, 2020 14:30 Ua Urobilinogen 1 mg/dL Test performed on Dec 10, 2019 09:37 Ua Urobilinogen Norm U Micro: WBC 0-4 U Micro: RBC 0-4 U Micro: Bacteria Trace U Micro: Epithelial Cells 0-4 U Micro: Mucus 1+ Test performed on Dec 10, 2019 08:11 Ua Micro: Hyaline Casts 0-4 Ua Micro: Squam Epith Cells 0-4 Test performed on Nov 26, 2019 08:25 Cholesterol, Total 140 mg/dL Triglycerides 99 mg/dL LDL Cholesterol 86 mg/dL HDL Cholesterol 34 mg/dL Cholesterol/HDL Ratio 4.12 mg/dL LDL / HDL Ratio 2.53 RATIO Impression: 1. Recurrent adenocarcinoma involving paratracheal lymph node per bronchoscopy/ mediastinoscopy done on 04/28/2019 Immunohistochemistry positive for CDX -2, CK 20 Negative for CK 7, TTF-1 and CEA checked on 05/05/2019 was 10.6 2. 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 He underwent laparoscopic right hemicolectomy on 01/10/2017. High risk features included near obstructing primary tumor, pathologic evidence of lymphovascular space invasion, and less than 12 lymph nodes sampled. 3. s/p adjuvant chemotherapy with modified FOLFOX.???4 from 01/30/2017 through 04/02/2017, FOLFOX minus oxaliplatin ???8 from 04/23/2017 through 07/23/2017. 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 4. He has iron deficiency anemia, resolved . His other medical illnesses include: 5. Hypertension. 6. Hyperlipidemia. 7. Type II diabetes .Follow-up colonoscopy done on 02/06/2018 showed ileocolic anastomosis looked intact without evidence of recurrence, and wide patent. In the proximal transverse colon, an abnormality was noted. Follow-up colonoscopy done on 02/26/2019 showed no abnormality seen, ileocolic anastomosis widely patent without evidence of local recurrence. CEA checked on 01/07/2019 was 7.2 compared to 2.4 on 07/05/2018 and repeat CEA on 03/04/[address] PET scan done on 03/15/2019 showed 3.1 x 2.2 cm mass in the right middle lobe with SUV of 22.1, and adjust in the right middle lobe FDG positive satellite nodule noted. The right lower lobe perihilar nodule measuring 1.6 cm with SUV of 21.6. Multiple mediastinal nodes are FDG positive, consistent with metastatic disease and index node in the right 4R peritracheal territory measures 1.6 cm with SUV of 23.0 and other similar nodes are evident in the right pericardial, right superior mediastinal, right periesophageal territory. No evidence of metastatic disease to bone or below diaphragm. Clinically, patient is doing well, tolerated mediastinoscopy well now surgical wound is healing well. And final pathology report came back metastatic adenocarcinoma, probably GI in origin. Discussed with patient regarding treatment options. 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 He began cycle 1 of 6 on 03/13/2019. He has tolerated it extremly well at this time. recommended 6 cycles of FOLFIRI/Avastin the restage with followup PET/CT. Mr Yu began cycle 1 on 05/13/2019. He has tolerated it well. After 5 cycles of chemotherapy, Mr. Yu had follow-up PET/CT on 07/19/2019 with [facility] radiology out [facility]. The findings reported were continued physiological tracer activity at the colonic anastomosis. The right middle lobe mass that previously measured 3.1 x 2.2 cm with an SUV of 22.1 now measures 1.0 x 1.3 cm with an SUV of 7.7, indicating a positive response to therapy. There are similar improvement in the secondary right middle lobe nodule and in the right lower lobe nodule. The index node in the right 4R paratracheal territory now measures 1.5 with an SUV of 5.7 and previously was 1.8 cm with an SUV of 23. Multiple other mediastinal nodes demonstrate similar improvement . Dr Hernandez has reviewed the PET/CT and has recommended that Mr. Yu pursue 6 more cycles of chemotherapy. He is due for cycle 4 of the additionally recommended 6 cycles today. He is tolerating it well overall. Plan: 1. Proceed with cycle 4/6 of chemotherapy with FOLFIRI/Avastin today and planning to get in [address] PET scan to assess disease response. 2. Mr Yu is scheduled for colonoscopy on May 05, 2020 to assess anastomosis site to rule out local recurrence 3. Today's labs were reviewed in detail and discussed with . Mrs. Yu and a copy was given to them. WBC 7.1, hemoglobin 13.6, platelets 248,000 ANC is 4900. Potassium 4.6 creatinine 0.9 LFTs are normal UA reveals negative for protein. His CEA was reported at 12.3 today. 4. We will plan to see Mr. Yu back in 2 weeks with CBC CMP & UA. His blood pressure is 147/72 today which is his normal. 5. Mr. Yu has been encouraged to contact us in the interim should questions or problems arise. 6. He reports that he is due for colonoscopy this first week in June 2020. Signed By: Tripp Gibson-, AOCNP Hayley Goodman MD <<Signature on File>>
[2020-06-03] MEDS: alteplase 1 mg/mL SDV 2 mL 2 MG INTRACATH (08:46)
[2020-06-03 08:52] LABS: Basophils % 0.6 %; Eosinophils # 0.1 10^3/uL (0.0-0.8); Eosinophils % 1.8 %; Hematocrit 41.1 % (42.0-52.0); Hemoglobin 13.9 g/dL (11.7-16.6); Lymphocytes # 1.7 10^3/uL (0.8-4.8); Lymphocytes % 25.6 %; Mean Corpuscular HGB Conc 33.8 g/dL (30.0-36.0); Mean Corpuscular Hemoglobin 33.1 pg (28.0-34.0); Mean Corpuscular Volume 97.9 fL (80-94); Mean Platelet Volume 9.6 fL (7.4-10.4); Monocytes # 0.8 10^3/uL (0.2-0.9); Monocytes % 12.9 %; Neutrophils # 3.84 10^3/uL (1.8-7.7); Neutrophils % 58.9 %; Nucleated Red Blood Cells % 0 %; Platelet Count 265 10^3/cmm (130-400); Red Cell Distribution Width 14.1 % (12.1-15.1); White Blood Count 6.5 10^3/uL (4.0-10.0)
[2020-06-03 09:04] LABS: Add Urine Microscopic? NO
[2020-06-03 09:09] LABS: Alanine Aminotransferase 38 U/L (0-41); Albumin Level 3.8 g/dL (3.5-5.2); Alkaline Phosphatase 77 IU/L (40-130); Anion Gap 14.5 (5-19); Aspartate Amino Transferase 29 U/L (0-40); Blood Urea Nitrogen 16 mg/dL (8-23); Calcium 9.1 mg/dL (8.5-10.5); Carbon Dioxide 23 mmol/L (22-29); Chloride 101 mmol/L (98-107); Globulin 2.9 g/dL (1.3-4.6); Glucose 230 mg/dL (65-115); Osmolality Calculated 286 mOsm/kg (285-295); Potassium 4.5 mmol/L (3.5-5.1); Sodium 134 mmol/L (136-145); Total Bilirubin 0.2 mg/dL (0.15-1.2); Total Protein 6.7 g/dL (6.6-8.7)
[2020-06-03 09:15] LABS: Bilirubin Urine Neg (Negative); Blood Urine Neg (Negative); Glucose Urine UA Norm (Normal); Ketones Urine Negative (Negative); Leukocyte Esterase Urine Negative (Negative); Nitrate Urine Negative (Negative); Protein Urine Neg (Negative); Urine Appearance Clear (CLEAR); Urine Color Yellow (Yellow); Urobilinogen Urine Norm (Negative); pH Urine 5 (5-7)
[2020-06-03] MEDS: famotidine 20 mg/2 mL INJ IVP (11:05)
[2020-06-03] MEDS: palonosetron 0.25 mg/5 mL SDV IVP (11:15)
[2020-06-03] MEDS: sodium chloride 0.9% 250 ML 75 ML IV (11:15)
[2020-06-03] MEDS: atropine 1 mg/mL SDV 1 mL 0.4 MG IVP (11:30)
--- NOTE | 2020-06-08 22:18 | ONC FU_ITS ---
[facility] Patient Note Patient: Geoff Yu Unit #: [id number]: 1945 Dictated By: Tripp GibsonDate of Visit: Jun 03, 2020 Onc MED Follow-Up/Prog Note Chief Complaint: Colon cancer. 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 He had presented with symptoms of abdominal pain and early satiety. CT abdomen/pelvis on 01/05/2017 showed an apple core appearing lesion at the hepatic flexure with associated obstruction involving the ascending colon, cecum, and ileum. The appearance was suspicious for neoplasm. There was a small amount of pelvic ascites. A 6.9 mm right lower lobe noncalcified pulmonary nodule was felt to be nonspecific. There was otherwise no evidence of metastatic disease. Colonoscopy on 01/09/2017 showed a partially obstructing malignant appearing mass at the hepatic flexure estimated at 5 x 4 cm. An additional sessile polyp was noted in the distal sigmoid colon and excised by hot snare. Biopsy of the hepatic flexure mass showed poorly differentiated infiltrating adenocarcinoma. The distal sigmoid lesion was a hyperplastic polyp. He underwent laparoscopic right hemicolectomy with ileocolic anastomosis and partial omentectomy on 01/10/2017. Pathology showed moderately differentiated infiltrating adenocarcinoma with invasion of the muscularis propria into rehana-colic tissue. The tumor measured 2.3 x 1.8 cm. The margins were free of tumor. There was evidence of lymphovascular space invasion. A total of 7 lymph nodes were identified in the sample and all were negative for metastatic disease. Final pathologic staging was T3, N0. He had several high risk features including a near obstructing primary tumor, evidence of lymphovascular space invasion, and less then 12 lymph nodes sampled. 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 Follow-up colonoscopy done on 02/06/2018 showed ileocolic anastomosis looked intact without evidence of recurrence and wide patent. In the proximal transverse colon, an abnormality was noted. He was followed by Dr. Willingham His other medical illnesses include hypertension, hyperlipidemia, and type II diabetes. He is a nonsmoker. Follow-up colonoscopy done on 02/26/2019 showed normal findings. Ileocolic anastomosis is widely patent without evidence of local recurrence. CEA repeated on 03/04/2019 was 7.7 compared to 7.2 on 01/07/2019 CT PET scan done on 03/15/2019 showed 3.1 x 2.2 cm mass in the right middle lobe with SUV of 22.1, and an adjacent right middle lobe FDG positive satellite nodule was noted. The right lower lobe perihilar nodule measuring 1.6 cm with SUV of 21.6. Multiple mediastinal nodes are FDG positive, consistent with metastatic disease and index node in the right 4R peritracheal territory measures 1.6 cm with SUV of 23.0 and other similar nodes are evident in the right pericardial, right superior mediastinal, right periesophageal territory. No evidence of metastatic disease to bone or below diaphragm Underwent mediastinoscopy on 04/28/2019 and lymph node biopsy was obtained from paratracheal, station 4R, final pathology report showed metastatic adenocarcinoma, consistent with GI origin. The tumor was positive for CD X2, CK 20; negative for CK 7 and TTF-1. recommended 6 cycles of FOLFIRI/Avastin the restage with followup PET/CT. Mr Yu began cycle 1 on 05/13/2019. He has tolerated it well. Mr. Yu had follow-up PET/CT on 07/19/2019 with [facility] out [facility]. The findings reported were continued physiological tracer activity at the colonic anastomosis. The right middle lobe mass that previously measured 3.1 x 2.2 cm with an SUV of 22.1 now measures 1.0 x 1.3 cm with an SUV of 7.7, indicating a positive response to therapy. There are similar improvement in the secondary right middle lobe nodule and in the right lower lobe nodule. The index node in the right 4R paratracheal territory now measures 1.5 with an SUV of 5.7 and previously was 1.8 cm with an SUV of 23. Multiple other mediastinal nodes demonstrate similar improvement . reviewed the PET/CT and recommended that Mr. Yu pursue 6 -8 more cycles of chemotherapy. Follow-up CT PET scan done on 10/25/2019, showed right middle lobe nodule that previously measured 1.0 x 1.3 cm with SUV of 7.7, now measure 1.1 x 0.7 cm with SUV of 4.3. A secondary right middle lobe nodule and the right lower lobe nodule are FDG negative. Similar improvement is noted in the mediastinal lymph nodes in the right paratracheal (4R) node now has SUV of 4.7 compared to 5.7 previously. Other nodes since subcarinal, right hilar, right pericardial regions are FDG negative. He has tolerated treatment well. It was recommended that he have 6 additional cycles of treatment then restage to determine further plan of care. Follow-up CT PET scan done on January 10, 2020 showed minimal progression is present in the dominant right middle lobe nodule now SUV 5.6 compared to 4.3. Secondary right middle lobe nodule now has SUV of 4.0 compared to negative on prior study. Medial right lower lobe nodule is unchanged at size 8 mm and remained FDG negative. FDG positive mediastinal adenopathy is generally unchanged, however a right sides. Prevascular node has SUV of 3.6.No herpetic involvement Patient was referred to GI oncology at [facility], as per patient's they were told that there is no clinical trial available at this point that the continue with the treatment locally. Follow-up CT scan of chest abdomen pelvis done on March 09, 2020 showed numerous right-sided pulmonary nodules which have been previously described. Nodules have all increased slight in size. Indeterminate mediastinal mass and right hilar lymph nodes and subcarinal lymph nodes are all unchanged in size. Small amount of soft tissue at anastomotic site in the right abdomen with a few smaller adjacent lymph nodes. No renal mass, no liver mets seen Mr. Yu resumed chemotherapy with FOLFIRI and Avastin on April 07, 2020. He has tolerated that well thus far. Mr. Yu is here today for follow-up. He is due for cycle 5/6 of his resumed chemotherapy. The plan is to do 6 cycles and repeat his PET/CT. He states overall he continues to feel well overall. He does have about 3-4 days post treatment that he felt washed out and doesn't do too much those days . He states it wasn't anything real severe, he was just tired. He states he does not have that concern now. His energy is good and he remains very active. He denies any fever or chills. He states his appetite is 'too good at times . He denies any nausea or vomiting. He states he has not had any diarrhea or constipation. He denies any urinary concerns. He denies any concerns. He denies any neuropathy symptoms. His ECOG is 0. . Past Medical History: Diabetes type II Hyperlipidemia Hypertension Past Surgical History: Pneumonia Vaccine in 2017 - Given in left deltoid./ Flu Vacccine in 2017 - Pt stated he had flu vaccine at [facility] 02/26/17./ Left subclavian venous access device-Dr Willingham in 2017 Right Hemicolectomy in 2017 Allergies: Isosorbide Mononitrate and Succinylcholine Chloride. Medications: Aspirin 1 Tablet (of 81 mg) Oral daily Ativan 1 (0.5 mg) Tablet Oral q 4 hours PRN Atorvastatin Calcium 1 Tablet (of 40 mg) Oral daily B-12 1 Tablet (of 1000 mcg) Oral daily Calcium Carb-Cholecalciferol 1 Capsule (of 500-125 Units/mg) Oral daily Cinnamon 1 (500 mg) Capsule Oral b.i.d. Compazine Tablet Oral q 4 hours PRN Fish Oil 1 (1000 mg) Capsule Oral daily hydroCHLOROthiazide 1 Capsule (of 12.5 mg) Oral at bedtime Lisinopril 1 Tablet (of 40 mg) Oral daily MetFORMIN HCl 1 Tablet (of 500 mg) Oral b.i.d. Metoprolol Tartrate 0.5 Tablet (of 25 mg) Oral b.i.d. Multivitamin Adult 1 Tablet Oral daily Nitroglycerin 1 (0.4 mg) Tablet, sublingual Sublingual PRN Pepcid 1 (20 mg) Tablet Oral daily PRN Vitamin C 1 Tablet (of 500 mg) Oral daily Vitamin E 1 Capsule (of 400 Units) Oral daily Family History: Mr. Yu's mother at age 74: lung cancer. Mr. Yu's father at age 48: heart attack. Social History: Mr. Yu is and he is retired. Mr. Yu has never smoked. He has no history of drinking. Mr. Yu reports the following support systems: lives with spouse, significant other, family, or friends, lives in own house, supportive family/friends willing to assist with needs, and adequate transportation available for expected visits. His diet consists of regular meals. He indicates his activity level as: daily activities. Review Of Symptoms: Constitutional Denies fevers, chills, night sweats, excessive fatigue or weight loss. see above. Allergic/Immunologic No reactions. Eyes Denies significant visual changes. No diplopia. No amaurosis. ENMT Denies changes in hearing, sore throat, mouth sores, difficulty or changes in swallowing ability, and/or sinus drainage. Hematologic/Lymphatic Denies easy bruising or bleeding. The patient denies any tender or palpable lymph nodes. Respiratory Denies dyspnea on exertion, chest pain, cough or hemoptysis. Denies orthopnea. Cardiovascular Denies anginal chest pain, palpitations or orthopnea. Gastrointestinal Denies nausea, vomiting, diarrhea, GI bleeding, or constipation. Denies change in bowel habits and/or stool color, no heartburn or early satiety. Genitourinary (M) Denies hematuria, dysuria, increased frequency, urgency, hesitancy or incontinence. Musculoskeletal Denies joint pain, swelling or redness. No decreased range of motion. Integumentary Denies chronic rashes, inflammation, ulcerations or skin changes. Neurologic Denies headache, blurred vision, and no areas of focal weakness or numbness. Normal gait. No sensory problems. Psychiatric Denies insomnia, depression, alex or mood swings. Vital Signs: Performed on Jun 03, 2020 10:31 Height - 64.00 in Weight - 151.0 lbs (LOW) BSA - 1.74 sq.m BMI - 25.92 Temperature - 98.2 F (LOW) Pulse - 65 /min Respiration - 18 /min BP - 135/75 mm(hg) O2 Sat - 97 % Pain - 0 Fatigue - 0,0 - Fully active, able to carry on all predisease activities without restrictions. (ECOG) Physical Examination: Constitutional Alert, oriented, no acute distress. Skin pink, warm and dry. Head Normocephalic; atraumatic. Eyes Conjunctivae and sclerae are clear and without icterus. Pupils are reactive and equal. Wears glasses. Hematologic/Lymphatic No petechiae or purpura. Respiratory Lungs are clear to auscultation without rhonchi or wheezing. Cardiovascular Regular rate and rhythm of heart without murmurs,clicks, gallops or rubs. Chest Left subclavian venous access device insertion site is unremarkable. Back/Spine Non-tender to palpation. Extremities No visible deformities, no cyanosis, clubbing or edema. Musculoskeletal No tenderness or swelling, normal range of motion without obvious weakness. Integumentary No rashes or lesions. Neurologic No sensory or motor deficits, normal cerebellar function, normal gait. Psychiatric Alert and oriented times three. Coherent speech. Verbalizes understanding of our discussions today. Laboratory:Test performed on Jun 03, 2020 08:40 Ua Color Yellow Ua Appearance Clear Ua Glucose Norm Ua Bilirubin Neg Ua Ketones Negative Ua Specific [place] 1.020 Ua Blood Neg Ua pH 5 Ua Protein Neg Ua Nitrites Negative Ua Leukocyte Esterase Negative Test performed on Jun 03, 2020 08:32 Sodium 134 mmol/L Potassium 4.5 mmol/L Chloride 101 mmol/L CO2 23 mmol/L Anion Gap 14.5 BUN 16 mg/dL Creatinine 1.0 mg/dL Cr Clearance (Est) 59.8300 mL/min Glucose 230 mg/dL Osmolality - Calculated 286 mOsm/kg Calcium 9.1 mg/dL Protein, Total 6.7 g/dL Albumin 3.8 g/dL Globulin 2.9 g/dL Bilirubin, Total 0.2 mg/dL ALT (SGPT) 38 U/L AST (SGOT) 29 U/L Alkaline Phosphatase 77 IU/L WBC 6.5 10 3/uL RBC 4.20 10 6/uL HGB 13.9 g/dL HCT 41.1 % MCV 97.9 fL MCH 33.1 pg MCHC 33.8 g/dL RDW 14.1 % Platelet Count 265 10 3/cmm MPV 9.6 fL Neutrophils 3.84 10 3/uL Lymphocytes 1.7 10 3/uL Monocytes 0.8 10 3/uL Eosinophils 0.1 10 3/uL Basophils 0.0 10 3/uL Neutrophil % 58.9 % Lymphocyte % 25.6 % Monocyte % 12.9 % Eosinophil % 1.8 % Basophils % 0.6 % NRBC % 0 % Test performed on May 19, 2020 08:25 CEA 12.3 ng/mL Test performed on Jan 27, 2020 14:30 Ua Urobilinogen 1 mg/dL Test performed on Dec 10, 2019 09:37 Ua Urobilinogen Norm U Micro: WBC 0-4 U Micro: RBC 0-4 U Micro: Bacteria Trace U Micro: Epithelial Cells 0-4 U Micro: Mucus 1+ Test performed on Dec 10, 2019 08:11 Ua Micro: Hyaline Casts 0-4 Ua Micro: Squam Epith Cells 0-4 Impression: 1. Recurrent adenocarcinoma involving paratracheal lymph node per bronchoscopy/ mediastinoscopy done on 04/28/2019 Immunohistochemistry positive for CDX -2, CK 20 Negative for CK 7, TTF-1 and CEA checked on 05/05/2019 was 10.6 2. 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 He underwent laparoscopic right hemicolectomy on 01/10/2017. High risk features included near obstructing primary tumor, pathologic evidence of lymphovascular space invasion, and less than 12 lymph nodes sampled. 3. s/p adjuvant chemotherapy with modified FOLFOX.???4 from 01/30/2017 through 04/02/2017, FOLFOX minus oxaliplatin ???8 from 04/23/2017 through 07/23/2017. 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 4. He has iron deficiency anemia, resolved . His other medical illnesses include: 5. Hypertension. 6. Hyperlipidemia. 7. Type II diabetes .Follow-up colonoscopy done on 02/06/2018 showed ileocolic anastomosis looked intact without evidence of recurrence, and wide patent. In the proximal transverse colon, an abnormality was noted. Follow-up colonoscopy done on 02/26/2019 showed no abnormality seen, ileocolic anastomosis widely patent without evidence of local recurrence. CEA checked on 01/07/2019 was 7.2 compared to 2.4 on 07/05/2018 and repeat CEA on 03/04/[address] PET scan done on 03/15/2019 showed 3.1 x 2.2 cm mass in the right middle lobe with SUV of 22.1, and adjust in the right middle lobe FDG positive satellite nodule noted. The right lower lobe perihilar nodule measuring 1.6 cm with SUV of 21.6. Multiple mediastinal nodes are FDG positive, consistent with metastatic disease and index node in the right 4R peritracheal territory measures 1.6 cm with SUV of 23.0 and other similar nodes are evident in the right pericardial, right superior mediastinal, right periesophageal territory. No evidence of metastatic disease to bone or below diaphragm. Clinically, patient is doing well, tolerated mediastinoscopy well now surgical wound is healing well. And final pathology report came back metastatic adenocarcinoma, probably GI in origin. Discussed with patient regarding treatment options. 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 He began cycle 1 of 6 on 03/13/2019. He has tolerated it extremly well at this time. recommended 6 cycles of FOLFIRI/Avastin the restage with followup PET/CT. Mr Yu began cycle 1 on 05/13/2019. He has tolerated it well. After 5 cycles of chemotherapy, Mr. Yu had follow-up PET/CT on 07/19/2019 with [facility] radiology out [facility]. The findings reported were continued physiological tracer activity at the colonic anastomosis. The right middle lobe mass that previously measured 3.1 x 2.2 cm with an SUV of 22.1 now measures 1.0 x 1.3 cm with an SUV of 7.7, indicating a positive response to therapy. There are similar improvement in the secondary right middle lobe nodule and in the right lower lobe nodule. The index node in the right 4R paratracheal territory now measures 1.5 with an SUV of 5.7 and previously was 1.8 cm with an SUV of 23. Multiple other mediastinal nodes demonstrate similar improvement . Dr Hernandez has reviewed the PET/CT and has recommended that Mr. Yu pursue 6 more cycles of chemotherapy. He is due for cycle 5 of the additionally recommended 6 cycles today. He is tolerating it well overall. Plan: 1. Proceed with cycle 5/6 of chemotherapy with FOLFIRI/Avastin today and planning to get in [address] PET scan to assess disease response. 2. Mr Yu was scheduled for colonoscopy on May 05, 2020 to assess anastomosis site to rule out local recurrence. He states he will have repeat colonoscopy next [place] as Dr. Peralta's could not advance due to scar tissue. He states he is being evaluated for possible stent or possible surgery. 3. Today's labs were reviewed in detail and discussed with MrPedro & Mrs. Yu and a copy was given to them. WBC 6.5, hemoglobin 13.9, platelets 265,000 ANC is 3840. Potassium 4.5, random glucose 230 (nonfasting) creatinine 1.0 LFTs are normal his last CEA on May 19, 2020 was 12.3 up from 7.1 on January 27, 2020. His UA remains negative for protein. His weight is stable at 151. He is afebrile. 4. We will plan to see Mr. Yu back in 2 weeks with CBC CMP & UA. His blood pressure is 135/75 today. 5. Mr. Yu has been encouraged to contact us in the interim should questions or problems arise. Signed By: Tripp Gibson-, AOCNP Hayley Goodman MD <<Signature on File>>
== END 2020-06-03 23:59 | disposition home or self-care (01) ==
LOC: ONCMED 05:40
PROVIDERS: Internal Medicine Hematology & Oncology; PCP Family Medicine; Visit Provider Nurse Practitioner
DX: C18.3 Malignant neoplasm of hepatic flexure (principal); C77.1 Secondary and unspecified malignant neoplasm of intrathoracic lymph nodes; Z90.49 Acquired absence of other specified parts of digestive tract; Z92.21 Personal history of antineoplastic chemotherapy; I10 Essential (primary) hypertension; E78.5 Hyperlipidemia, unspecified; E11.9 Type 2 diabetes mellitus without complications; Z51.81 Encounter for therapeutic drug level monitoring; Z79.899 Other long term (current) drug therapy
CPT/HCPCS: 36593; 80053; 81003; 82378; 85025; 87635; 96367; 96368; 96375; 96413; 96415; 96416; 96417; 99214; J0461; J0640; J1100; J1453; J2469; J2997; J3490; J7050; J9035; J9190; J9206

== ENCOUNTER 2020-06-07 05:58 | Day surgery (SDC) | payer MEDICARE, OTHER, SELFPAY ==
[2020-06-02 09:54] VITALS: BMI 25.7
[2020-06-07 06:15] VITALS: BP 159/82; PULSE 75; RESP 18; TEMP 36.1; O2SAT 93
--- NOTE | 2020-06-07 06:46 | W.PM.OPSUD ---
Surgery/Procedure H&P Update DATE OF PROCEDURE: June 07, 2020 DATE H&P PERFORMED: 05/05/20 H&P UPDATE INFORMATION: I have reviewed H&P completed within last 30 days, I have examined patient prior to procedure and No changes to prior documentation PREOP DIAGNOSIS: Colonic stricture PRIMARY INDICATION FOR PROCEDURE: The same PLANNED PROCEDURE: Operation Date: 06/07/20 07:00 Proposed Procedures p Colonoscopy Dilation W/ Balloon [id number] [id number](Not Applicable) - Tony Willingham MD
--- NOTE | 2020-06-07 06:47 | ANES.PREANE2 ---
Pre-Anesthetic Assessment Pre-Anesthetic Assessment: Height/Weight: Height 1.63 m Weight 68.039 kg Temp Pulse Resp BP Pulse Ox 97 F L 75 18 159/82 93 06/07/20 06:15 06/07/20 06:15 06/07/20 06:15 06/07/20 06:15 06/07/20 06:15 Preop Diagnosis: Colonic stricture Proposed Procedure: Operation Date: 06/07/20 07:00 Proposed Procedures p Colonoscopy Dilation W/ Balloon [id number] [id number](Not Applicable) - Tony Willingham MD Familial anesthetic complications: Family history of Malignant Hyperthermia Was Beta Bozena taken within 24 hours: Yes Last intake: Intake NPO > 8 hrs Last Liquid Date 06/06/20 Last Liquid Time 17:00 Last Solid Date 06/05/20 Last Solid Time 20:00 Social: Social History: No alcohol and No tobacco Exam: Pre-Anes Outpt Exam: alert, oriented x 3, clear to auscultation bilaterally and regular rate & rhythm Airway: Cervical ROM: WNL MP: 4 Dentition: Full Pulmonary: Comments: metastatic cancer (pulmonary nodule) CV/HEM: CV/HEM: CAD and HTN Comments: RCA ischemia on stress test (reversible) EF 73% GI: Comments: colon cancer - on chemotherapy Metabolic: Metabolic: DM and Hyperlipidemia Anesthetic Plan: ASA status: 4 Anesthesia: MAC Risk of > 500 ml blood loss (7ml/kg in children): No PFSH Anesthesia PFSH: Medical History (Updated 05/15/20 @ 10:46 by Alma Simons MD) Diabetes mellitus Diet Controlled History of colon cancer Hyperlipidemia Hypertension Surgical History (Updated 05/15/20 @ 10:45 by Alma Simons MD) History of colon resection Family History Other Malignant hyperthermia due to anesthesia Denies family history of Anesthesia complication Bleeding disorder Social History Smoking and tobacco status: never smoked Alcohol intake: never Data Anesthesia Cardiac Studies: No Data to Display
[2020-06-07] MEDS: sodium chloride 0.9% 1,000 ML 30 ML IV (06:58)
[2020-06-07 07:00] LABS: Glucose Point of Care 153 mg/dL (70-110)
[2020-06-07 07:32] VITALS: BP 124/76; PULSE 70; RESP 18; TEMP 36.3; O2SAT 97
[2020-06-07 07:45] VITALS: BP 142/92; PULSE 68; RESP 16; O2SAT 96
--- NOTE | 2020-06-07 18:35 | ANE.PACU2 ---
Inpatient post-anesthesia follow up: Airway intact: Yes Vital signs: Temperature 97.3 F Pulse Rate 68 Respiratory Rate 16 Blood Pressure 142/92 Pulse Oximetry 96 Oxygen Delivery Me thod Room Air Oxygen Flow Rate Fraction of Inspir ed Oxygen Hydration adequate: Yes Nausea and vomiting: No Pain level: 2 Mental status: Baseline
== END 2020-06-07 07:55 | disposition home or self-care (01) ==
PROVIDERS: PCP Family Medicine; Visit Provider Surgery
PROC: 0D7E8ZZ Dilation of Large Intestine, Via Natural or Artificial Opening Endoscopic (ICD-10-PCS; principal; 2020-06-07 07:00)
DX: K56.699 Other intestinal obstruction unspecified as to partial versus complete obstruction (principal); Z90.49 Acquired absence of other specified parts of digestive tract; Z79.82 Long term (current) use of aspirin; Z79.84 Long term (current) use of oral hypoglycemic drugs; I25.10 Atherosclerotic heart disease of native coronary artery without angina pectoris; I10 Essential (primary) hypertension; Z85.038 Personal history of other malignant neoplasm of large intestine; E11.9 Type 2 diabetes mellitus without complications; E78.5 Hyperlipidemia, unspecified
CPT/HCPCS: 12345; 36416; 45386; 82962; J2704; J7030; T1015-U1

== ENCOUNTER 2020-06-17 09:54 | Outpatient (CLI) | payer MEDICARE, OTHER, SELFPAY ==
[2020-06-17 10:17] LABS: Add Urine Microscopic? NO
[2020-06-17 10:19] LABS: Basophils % 0.5 %; Eosinophils # 0.1 10^3/uL (0.0-0.8); Eosinophils % 1.7 %; Hemoglobin 13.2 g/dL (11.7-16.6); Lymphocytes # 1.6 10^3/uL (0.8-4.8); Lymphocytes % 21.8 %; Mean Corpuscular HGB Conc 33.8 g/dL (30.0-36.0); Mean Corpuscular Hemoglobin 33.3 pg (28.0-34.0); Mean Corpuscular Volume 98.5 fL (80-94); Mean Platelet Volume 9.6 fL (7.4-10.4); Monocytes # 0.7 10^3/uL (0.2-0.9); Monocytes % 9.2 %; Neutrophils # 4.96 10^3/uL (1.8-7.7); Neutrophils % 66.5 %; Nucleated Red Blood Cells % 0 %; Platelet Count 255 10^3/cmm (130-400); Red Blood Count 3.96 10^6/uL (4.1-5.3); Red Cell Distribution Width 14.5 % (12.1-15.1); White Blood Count 7.5 10^3/uL (4.0-10.0)
[2020-06-17 10:24] LABS: Bilirubin Urine Neg (Negative); Blood Urine Neg (Negative); Glucose Urine UA Norm (Normal); Ketones Urine Negative (Negative); Leukocyte Esterase Urine Negative (Negative); Nitrate Urine Negative (Negative); Protein Urine Neg (Negative); Specific Gravity, Urine 1.015 (1.005-1.030); Urine Appearance Clear (CLEAR); Urine Color Yellow (Yellow); Urobilinogen Urine Norm (Negative); pH Urine 5 (5-7)
[2020-06-17 10:40] LABS: Alanine Aminotransferase 35 U/L (0-41); Alkaline Phosphatase 80 IU/L (40-130); Anion Gap 12.6 (5-19); Aspartate Amino Transferase 26 U/L (0-40); Blood Urea Nitrogen 15 mg/dL (8-23); Calcium 9.3 mg/dL (8.5-10.5); Carbon Dioxide 27 mmol/L (22-29); Chloride 100 mmol/L (98-107); Globulin 2.6 g/dL (1.3-4.6); Glucose 163 mg/dL (65-115); Osmolality Calculated 284 mOsm/kg (285-295); Potassium 4.6 mmol/L (3.5-5.1); Sodium 135 mmol/L (136-145); Total Bilirubin 0.2 mg/dL (0.15-1.2); Total Protein 6.6 g/dL (6.6-8.7)
[2020-06-17] MEDS: sodium chloride 0.9% 250 ML 75 ML IV (12:19)
[2020-06-17] MEDS: famotidine 20 mg/2 mL INJ IVP (12:19)
[2020-06-17] MEDS: atropine 1 mg/mL SDV 1 mL 0.4 MG IV (12:48)
[2020-06-17] MEDS: palonosetron 0.25 mg/5 mL SDV IV (12:50)
--- NOTE | 2020-06-18 18:13 | ONC FU_ITS ---
[facility] Patient Note Patient: Geoff Yu Unit #: [id number]: 1945 Dictated By: Tripp GibsonDate of Visit: Jun 17, 2020 Onc MED Follow-Up/Prog Note Chief Complaint: Colon cancer. 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 He had presented with symptoms of abdominal pain and early satiety. CT abdomen/pelvis on 01/05/2017 showed an apple core appearing lesion at the hepatic flexure with associated obstruction involving the ascending colon, cecum, and ileum. The appearance was suspicious for neoplasm. There was a small amount of pelvic ascites. A 6.9 mm right lower lobe noncalcified pulmonary nodule was felt to be nonspecific. There was otherwise no evidence of metastatic disease. Colonoscopy on 01/09/2017 showed a partially obstructing malignant appearing mass at the hepatic flexure estimated at 5 x 4 cm. An additional sessile polyp was noted in the distal sigmoid colon and excised by hot snare. Biopsy of the hepatic flexure mass showed poorly differentiated infiltrating adenocarcinoma. The distal sigmoid lesion was a hyperplastic polyp. He underwent laparoscopic right hemicolectomy with ileocolic anastomosis and partial omentectomy on 01/10/2017. Pathology showed moderately differentiated infiltrating adenocarcinoma with invasion of the muscularis propria into rehana-colic tissue. The tumor measured 2.3 x 1.8 cm. The margins were free of tumor. There was evidence of lymphovascular space invasion. A total of 7 lymph nodes were identified in the sample and all were negative for metastatic disease. Final pathologic staging was T3, N0. He had several high risk features including a near obstructing primary tumor, evidence of lymphovascular space invasion, and less then 12 lymph nodes sampled. 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 Follow-up colonoscopy done on 02/06/2018 showed ileocolic anastomosis looked intact without evidence of recurrence and wide patent. In the proximal transverse colon, an abnormality was noted. He was followed by Dr. Willingham His other medical illnesses include hypertension, hyperlipidemia, and type II diabetes. He is a nonsmoker. Follow-up colonoscopy done on 02/26/2019 showed normal findings. Ileocolic anastomosis is widely patent without evidence of local recurrence. CEA repeated on 03/04/2019 was 7.7 compared to 7.2 on 01/07/2019 CT PET scan done on 03/15/2019 showed 3.1 x 2.2 cm mass in the right middle lobe with SUV of 22.1, and an adjacent right middle lobe FDG positive satellite nodule was noted. The right lower lobe perihilar nodule measuring 1.6 cm with SUV of 21.6. Multiple mediastinal nodes are FDG positive, consistent with metastatic disease and index node in the right 4R peritracheal territory measures 1.6 cm with SUV of 23.0 and other similar nodes are evident in the right pericardial, right superior mediastinal, right periesophageal territory. No evidence of metastatic disease to bone or below diaphragm Underwent mediastinoscopy on 04/28/2019 and lymph node biopsy was obtained from paratracheal, station 4R, final pathology report showed metastatic adenocarcinoma, consistent with GI origin. The tumor was positive for CD X2, CK 20; negative for CK 7 and TTF-1. recommended 6 cycles of FOLFIRI/Avastin the restage with followup PET/CT. Mr Yu began cycle 1 on 05/13/2019. He has tolerated it well. Mr. Yu had follow-up PET/CT on 07/19/2019 with [facility] radiology out [facility]. The findings reported were continued physiological tracer activity at the colonic anastomosis. The right middle lobe mass that previously measured 3.1 x 2.2 cm with an SUV of 22.1 now measures 1.0 x 1.3 cm with an SUV of 7.7, indicating a positive response to therapy. There are similar improvement in the secondary right middle lobe nodule and in the right lower lobe nodule. The index node in the right 4R paratracheal territory now measures 1.5 with an SUV of 5.7 and previously was 1.8 cm with an SUV of 23. Multiple other mediastinal nodes demonstrate similar improvement . reviewed the PET/CT and recommended that Mr. Yu pursue 6 -8 more cycles of chemotherapy. Follow-up CT PET scan done on 10/25/2019, showed right middle lobe nodule that previously measured 1.0 x 1.3 cm with SUV of 7.7, now measure 1.1 x 0.7 cm with SUV of 4.3. A secondary right middle lobe nodule and the right lower lobe nodule are FDG negative. Similar improvement is noted in the mediastinal lymph nodes in the right paratracheal (4R) node now has SUV of 4.7 compared to 5.7 previously. Other nodes since subcarinal, right hilar, right pericardial regions are FDG negative. He has tolerated treatment well. It was recommended that he have 6 additional cycles of treatment then restage to determine further plan of care. Follow-up CT PET scan done on January 10, 2020 showed minimal progression is present in the dominant right middle lobe nodule now SUV 5.6 compared to 4.3. Secondary right middle lobe nodule now has SUV of 4.0 compared to negative on prior study. Medial right lower lobe nodule is unchanged at size 8 mm and remained FDG negative. FDG positive mediastinal adenopathy is generally unchanged, however a right sides. Prevascular node has SUV of 3.6.No herpetic involvement Patient was referred to GI oncology at [facility], as per patient's they were told that there is no clinical trial available at this point that the continue with the treatment locally. Follow-up CT scan of chest abdomen pelvis done on March 09, 2020 showed numerous right-sided pulmonary nodules which have been previously described. Nodules have all increased slight in size. Indeterminate mediastinal mass and right hilar lymph nodes and subcarinal lymph nodes are all unchanged in size. Small amount of soft tissue at anastomotic site in the right abdomen with a few smaller adjacent lymph nodes. No renal mass, no liver mets seen Mr. Yu resumed chemotherapy with FOLFIRI and Avastin on April 07, 2020. He has tolerated that well thus far. Mr. Yu is here today for follow-up. He is due for cycle 6/ of his resumed chemotherapy. The plan is to do 6 cycles and repeat his PET/CT. He states he is still doing well. He has recovered from laying around for a few days after the last chemo . He has been very active. He works out doing push ups/sit up most everyday. He denies any fever or chills. He states his appetite continues to be 'too good at times . He denies any nausea or vomiting. He states he has not had any diarrhea or constipation. He denies any urinary concerns. He denies any concerns. He denies any neuropathy symptoms. His ECOG is 0. . Past Medical History: Diabetes type II Hyperlipidemia Hypertension Past Surgical History: Pneumonia Vaccine in 2017 - Given in left deltoid./lc Flu Vacccine in 2017 - Pt stated he had flu vaccine at [facility] 02/26/17./ Left subclavian venous access device-Dr Willingham in 2017 Right Hemicolectomy in 2017 Allergies: Isosorbide Mononitrate and Succinylcholine Chloride. Medications: Aspirin 1 Tablet (of 81 mg) Oral daily Ativan 1 (0.5 mg) Tablet Oral q 4 hours PRN Atorvastatin Calcium 1 Tablet (of 40 mg) Oral daily B-12 1 Tablet (of 1000 mcg) Oral daily Calcium Carb-Cholecalciferol 1 Capsule (of 500-125 Units/mg) Oral daily Cinnamon 1 (500 mg) Capsule Oral b.i.d. Compazine Tablet Oral q 4 hours PRN Fish Oil 1 (1000 mg) Capsule Oral daily hydroCHLOROthiazide 1 Capsule (of 12.5 mg) Oral at bedtime Lisinopril 1 Tablet (of 40 mg) Oral daily MetFORMIN HCl 1 Tablet (of 500 mg) Oral b.i.d. Metoprolol Tartrate 0.5 Tablet (of 25 mg) Oral b.i.d. Multivitamin Adult 1 Tablet Oral daily Nitroglycerin 1 (0.4 mg) Tablet, sublingual Sublingual PRN Pepcid 1 (20 mg) Tablet Oral daily PRN Vitamin C 1 Tablet (of 500 mg) Oral daily Vitamin E 1 Capsule (of 400 Units) Oral daily Family History: Mr. Yu's mother at age 74: lung cancer. Mr. Yu's father at age 48: heart attack. Social History: Mr. Yu is and he is retired. Mr. Yu has never smoked. He has no history of drinking. Mr. Yu reports the following support systems: lives with spouse, significant other, family, or friends, lives in own house, supportive family/friends willing to assist with needs, and adequate transportation available for expected visits. His diet consists of regular meals. He indicates his activity level as: daily activities. Review Of Symptoms: Constitutional Denies fevers, chills, night sweats, excessive fatigue or weight loss. see above. Allergic/Immunologic No reactions. Eyes Denies significant visual changes. No diplopia. No amaurosis. ENMT Denies changes in hearing, sore throat, mouth sores, difficulty or changes in swallowing ability, and/or sinus drainage. Endocrine No diabetes, thyroid disease or hormone replacement. Denies hot flashes or night sweats. Hematologic/Lymphatic Denies easy bruising or bleeding. The patient denies any tender or palpable lymph nodes. Respiratory Denies dyspnea on exertion, chest pain, cough or hemoptysis. Denies orthopnea. Cardiovascular Denies anginal chest pain, palpitations or orthopnea. Gastrointestinal Denies nausea, vomiting, diarrhea, GI bleeding, or constipation. Denies change in bowel habits and/or stool color, no heartburn or early satiety. Genitourinary (M) Denies hematuria, dysuria, increased frequency, urgency, hesitancy or incontinence. Musculoskeletal Denies joint pain, swelling or redness. No decreased range of motion. Integumentary Denies chronic rashes, inflammation, ulcerations or skin changes. Neurologic Denies headache, blurred vision, and no areas of focal weakness or numbness. Normal gait. No sensory problems. Psychiatric Denies insomnia, depression, alex or mood swings. Vital Signs: Performed on Jun 17, 2020 11:59 Height - 64.00 in Weight - 151 lbs BSA - 1.74 sq.m BMI - 25.92 Temperature - 97.1 F (LOW) Pulse - 75 /min Respiration - 18 /min BP - 151/66 mm(hg) (HIGH) O2 Sat - 97 % Pain - 0 Fatigue - 0,0 - Fully active, able to carry on all predisease activities without restrictions. (ECOG) Physical Examination: Constitutional Alert, oriented, no acute distress. Skin pink, warm and dry. Head Normocephalic; atraumatic. Eyes Conjunctivae and sclerae are clear and without icterus. Pupils are reactive and equal. Wears glasses. Neck Supple without masses or thyromegaly. No jugular venous distension. Hematologic/Lymphatic No petechiae or purpura. Respiratory Lungs are clear to auscultation without rhonchi or wheezing. Cardiovascular Regular rate and rhythm of heart without murmurs,clicks, gallops or rubs. Back/Spine Non-tender to palpation. Extremities No visible deformities, no cyanosis, clubbing or edema. Musculoskeletal No tenderness or swelling, normal range of motion without obvious weakness. Integumentary No rashes or lesions. Neurologic No sensory or motor deficits, normal cerebellar function, normal gait. Psychiatric Alert and oriented times three. Coherent speech. Verbalizes understanding of our discussions today. Laboratory:Test performed on Jun 17, 2020 10:05 Ua Color Yellow Ua Appearance Clear Ua Glucose Norm Ua Bilirubin Neg Ua Ketones Negative Ua Specific [place] 1.015 Ua Blood Neg Ua pH 5 Ua Protein Neg Ua Nitrites Negative Ua Leukocyte Esterase Negative Test performed on Jun 17, 2020 09:50 Sodium 135 mmol/L Potassium 4.6 mmol/L Chloride 100 mmol/L CO2 27 mmol/L Anion Gap 12.6 BUN 15 mg/dL Creatinine 0.9 mg/dL Cr Clearance (Est) 66.4800 mL/min Glucose 163 mg/dL Osmolality - Calculated 284 mOsm/kg Calcium 9.3 mg/dL Protein, Total 6.6 g/dL Albumin 4.0 g/dL Globulin 2.6 g/dL Bilirubin, Total 0.2 mg/dL ALT (SGPT) 35 U/L AST (SGOT) 26 U/L Alkaline Phosphatase 80 IU/L WBC 7.5 10 3/uL RBC 3.96 10 6/uL HGB 13.2 g/dL HCT 39.0 % MCV 98.5 fL MCH 33.3 pg MCHC 33.8 g/dL RDW 14.5 % Platelet Count 255 10 3/cmm MPV 9.6 fL Neutrophils 4.96 10 3/uL Lymphocytes 1.6 10 3/uL Monocytes 0.7 10 3/uL Eosinophils 0.1 10 3/uL Basophils 0.0 10 3/uL Neutrophil % 66.5 % Lymphocyte % 21.8 % Monocyte % 9.2 % Eosinophil % 1.7 % Basophils % 0.5 % NRBC % 0 % Test performed on May 19, 2020 08:25 CEA 12.3 ng/mL Test performed on Jan 27, 2020 14:30 Ua Urobilinogen 1 mg/dL Impression: 1. Recurrent adenocarcinoma involving paratracheal lymph node per bronchoscopy/ mediastinoscopy done on 04/28/2019 Immunohistochemistry positive for CDX -2, CK 20 Negative for CK 7, TTF-1 and CEA checked on 05/05/2019 was 10.6 2. 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 He underwent laparoscopic right hemicolectomy on 01/10/2017. High risk features included near obstructing primary tumor, pathologic evidence of lymphovascular space invasion, and less than 12 lymph nodes sampled. 3. s/p adjuvant chemotherapy with modified FOLFOX.???4 from 01/30/2017 through 04/02/2017, FOLFOX minus oxaliplatin ???8 from 04/23/2017 through 07/23/2017. 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 4. He has iron deficiency anemia, resolved . His other medical illnesses include: 5. Hypertension. 6. Hyperlipidemia. 7. Type II diabetes .Follow-up colonoscopy done on 02/06/2018 showed ileocolic anastomosis looked intact without evidence of recurrence, and wide patent. In the proximal transverse colon, an abnormality was noted. Follow-up colonoscopy done on 02/26/2019 showed no abnormality seen, ileocolic anastomosis widely patent without evidence of local recurrence. CEA checked on 01/07/2019 was 7.2 compared to 2.4 on 07/05/2018 and repeat CEA on 03/04/[address] PET scan done on 03/15/2019 showed 3.1 x 2.2 cm mass in the right middle lobe with SUV of 22.1, and adjust in the right middle lobe FDG positive satellite nodule noted. The right lower lobe perihilar nodule measuring 1.6 cm with SUV of 21.6. Multiple mediastinal nodes are FDG positive, consistent with metastatic disease and index node in the right 4R peritracheal territory measures 1.6 cm with SUV of 23.0 and other similar nodes are evident in the right pericardial, right superior mediastinal, right periesophageal territory. No evidence of metastatic disease to bone or below diaphragm. Clinically, patient is doing well, tolerated mediastinoscopy well now surgical wound is healing well. And final pathology report came back metastatic adenocarcinoma, probably GI in origin. Discussed with patient regarding treatment options. 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 He began cycle 1 of 6 on 03/13/2019. He has tolerated it extremly well at this time. recommended 6 cycles of FOLFIRI/Avastin the restage with followup PET/CT. Mr Yu began cycle 1 on 05/13/2019. He has tolerated it well. After 5 cycles of chemotherapy, Mr. Yu had follow-up PET/CT on 07/19/2019 with [facility] radiology out [facility]. The findings reported were continued physiological tracer activity at the colonic anastomosis. The right middle lobe mass that previously measured 3.1 x 2.2 cm with an SUV of 22.1 now measures 1.0 x 1.3 cm with an SUV of 7.7, indicating a positive response to therapy. There are similar improvement in the secondary right middle lobe nodule and in the right lower lobe nodule. The index node in the right 4R paratracheal territory now measures 1.5 with an SUV of 5.7 and previously was 1.8 cm with an SUV of 23. Multiple other mediastinal nodes demonstrate similar improvement . Dr Hernandez has reviewed the PET/CT and has recommended that Mr. Yu pursue 6 more cycles of chemotherapy. He is due for cycle 6 of the additionally recommended 6 cycles today. He is tolerating it well overall. Plan: PROBLEMS ADDRESSED TODAY A. METASTATIC COLON CANCER 1. Proceed with cycle 6/6 of chemotherapy with FOLFIRI/Avastin today. 2. Mr Yu was scheduled for colonoscopy on May 05, 2020 to assess anastomosis site to rule out local recurrence. He had repeat colonoscopy on 06/07/[address] Willingham @ [facility]. 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 Serial balloon dilatations were done starting by 13.5 mmHg up to 16.[address] Willingham was able to traverse the stricture with the scope safely without complications. There is no signs of local recurrence . It was noted that a digital rectal exam was performed and an enlarged prostate was noted. The patient was referred to Dr. Zia Raya and recommend follow-up colonoscopy in 1 year. 3. Today's labs were reviewed in detail and discussed with MrPedro & Mrs. Yu and a copy was given to them. WBC 7.5, hemoglobin 13.2, platelets 255,000 ANC is 4960. Potassium 4.6, random glucose 163 (nonfasting) creatinine 0.9 LFTs are normal his last CEA on May 19, 2020 was 12.3 up from 7.1 on January 27, 2020. His UA remains negative for protein. His weight is stable at 151. He is afebrile. 4. We will plan to see Mr. Yu back in 2 weeks with CBC CMP & UA after his restaging PET/CT imaging which has been requested for . 5. Mr. uY has been encouraged to contact us in the interim should questions or problems arise. Signed By: Tripp Gibson-, AOCNP Hayley Goodman MD <<Signature on File>>
== END 2020-06-17 09:55 | disposition home or self-care (01) ==
LOC: ONCMED 10:00
PROVIDERS: PCP Family Medicine; Visit Provider Nurse Practitioner
DX: Z51.11 Encounter for antineoplastic chemotherapy (principal); C18.0 Malignant neoplasm of cecum; C77.1 Secondary and unspecified malignant neoplasm of intrathoracic lymph nodes; D50.9 Iron deficiency anemia, unspecified; E11.9 Type 2 diabetes mellitus without complications; E78.5 Hyperlipidemia, unspecified; I10 Essential (primary) hypertension; Z79.899 Other long term (current) drug therapy
CPT/HCPCS: 80053; 81003; 85025; 96367; 96368; 96375; 96413; 96416; 96417; 99215; J0461; J0640; J1100; J1453; J2469; J3490; J7050; J9035; J9190; J9206

== ENCOUNTER 2020-07-01 05:47 | Outpatient (CLI) | payer MEDICARE, OTHER, SELFPAY ==
[2020-07-01 08:44] LABS: Add Urine Microscopic? NO; Basophils % 0.6 %; Eosinophils # 0.2 10^3/uL (0.0-0.8); Eosinophils % 2.2 %; Hematocrit 39.4 % (42.0-52.0); Hemoglobin 12.9 g/dL (11.7-16.6); Lymphocytes # 1.5 10^3/uL (0.8-4.8); Lymphocytes % 21.9 %; Mean Corpuscular HGB Conc 32.7 g/dL (30.0-36.0); Mean Corpuscular Hemoglobin 32.7 pg (28.0-34.0); Mean Corpuscular Volume 99.7 fL (80-94); Mean Platelet Volume 9.5 fL (7.4-10.4); Monocytes # 0.8 10^3/uL (0.2-0.9); Monocytes % 11.4 %; Neutrophils # 4.31 10^3/uL (1.8-7.7); Neutrophils % 63.6 %; Nucleated Red Blood Cells % 0 %; Platelet Count 258 10^3/cmm (130-400); Red Blood Count 3.95 10^6/uL (4.1-5.3); Red Cell Distribution Width 14.8 % (12.1-15.1); White Blood Count 6.8 10^3/uL (4.0-10.0)
[2020-07-01 08:51] LABS: Bilirubin Urine Neg (Negative); Blood Urine Neg (Negative); Glucose Urine UA Norm (Normal); Ketones Urine Negative (Negative); Leukocyte Esterase Urine Negative (Negative); Nitrate Urine Negative (Negative); Protein Urine Neg (Negative); Urine Appearance Clear (CLEAR); Urine Color Yellow (Yellow); Urobilinogen Urine Norm (Negative); pH Urine 5 (5-7)
[2020-07-01 09:12] LABS: Alanine Aminotransferase 31 U/L (0-41); Albumin Level 3.9 g/dL (3.5-5.2); Alkaline Phosphatase 73 IU/L (40-130); Anion Gap 12.5 (5-19); Aspartate Amino Transferase 25 U/L (0-40); Blood Urea Nitrogen 18 mg/dL (8-23); Calcium 8.9 mg/dL (8.5-10.5); Carbon Dioxide 27 mmol/L (22-29); Chloride 103 mmol/L (98-107); Globulin 2.9 g/dL (1.3-4.6); Glucose 223 mg/dL (65-115); Osmolality Calculated 295 mOsm/kg (285-295); Potassium 4.5 mmol/L (3.5-5.1); Sodium 138 mmol/L (136-145); Total Bilirubin 0.3 mg/dL (0.15-1.2); Total Protein 6.8 g/dL (6.6-8.7)
[2020-07-01] MEDS: sodium chloride 0.9% 250 ML 75 ML IV (10:40)
[2020-07-01] MEDS: famotidine 20 mg/2 mL INJ IVP (10:40)
[2020-07-01] MEDS: palonosetron 0.25 mg/5 mL SDV IV (10:44)
[2020-07-01 11:01] LABS: Carcinoembryonic Antigen 9.2 ng/mL (0.0-4.7)
--- NOTE | 2020-07-02 12:04 | ONC FU_ITS ---
Dr. 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 He had presented with symptoms of abdominal pain and early satiety. CT abdomen/pelvis on 01/05/2017 showed an apple core appearing lesion at the hepatic flexure with associated obstruction involving the ascending colon, cecum, and ileum. The appearance was suspicious for neoplasm. There was a small amount of pelvic ascites. A 6.9 mm right lower lobe noncalcified pulmonary nodule was felt to be nonspecific. There was otherwise no evidence of metastatic disease. Colonoscopy on 01/09/2017 showed a partially obstructing malignant appearing mass at the hepatic flexure estimated at 5 x 4 cm. An additional sessile polyp was noted in the distal sigmoid colon and excised by hot snare. Biopsy of the hepatic flexure mass showed poorly differentiated infiltrating adenocarcinoma. The distal sigmoid lesion was a hyperplastic polyp. He underwent laparoscopic right hemicolectomy with ileocolic anastomosis and partial omentectomy on 01/10/2017. Pathology showed moderately differentiated infiltrating adenocarcinoma with invasion of the muscularis propria into rehana-colic tissue. The tumor measured 2.3 x 1.8 cm. The margins were free of tumor. There was evidence of lymphovascular space invasion. A total of 7 lymph nodes were identified in the sample and all were negative for metastatic disease. Final pathologic staging was T3, N0. He had several high risk features including a near obstructing primary tumor, evidence of lymphovascular space invasion, and less then 12 lymph nodes sampled. 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 Follow-up colonoscopy done on 02/06/2018 showed ileocolic anastomosis looked intact without evidence of recurrence and wide patent. In the proximal transverse colon, an abnormality was noted. He was followed by Dr. Willingham His other medical illnesses include hypertension, hyperlipidemia, and type II diabetes. He is a nonsmoker. Follow-up colonoscopy done on 02/26/2019 showed normal findings. Ileocolic anastomosis is widely patent without evidence of local recurrence. CEA repeated on 03/04/2019 was 7.7 compared to 7.2 on 01/07/2019 CT PET scan done on 03/15/2019 showed 3.1 x 2.2 cm mass in the right middle lobe with SUV of 22.1, and an adjacent right middle lobe FDG positive satellite nodule was noted. The right lower lobe perihilar nodule measuring 1.6 cm with SUV of 21.6. Multiple mediastinal nodes are FDG positive, consistent with metastatic disease and index node in the right 4R peritracheal territory measures 1.6 cm with SUV of 23.0 and other similar nodes are evident in the right pericardial, right superior mediastinal, right periesophageal territory. No evidence of metastatic disease to bone or below diaphragm Underwent mediastinoscopy on 04/28/2019 and lymph node biopsy was obtained from paratracheal, station 4R, final pathology report showed metastatic adenocarcinoma, consistent with GI origin. The tumor was positive for CD X2, CK 20; negative for CK 7 and TTF-1. recommended 6 cycles of FOLFIRI/Avastin the restage with followup PET/CT. Mr Yu began cycle 1 on 05/13/2019. He has tolerated it well. Mr. Yu had follow-up PET/CT on 07/19/2019 with [facility] radiology out [facility]. The findings reported were continued physiological tracer activity at the colonic anastomosis. The right middle lobe mass that previously measured 3.1 x 2.2 cm with an SUV of 22.1 now measures 1.0 x 1.3 cm with an SUV of 7.7, indicating a positive response to therapy. There are similar improvement in the secondary right middle lobe nodule and in the right lower lobe nodule. The index node in the right 4R paratracheal territory now measures 1.5 with an SUV of 5.7 and previously was 1.8 cm with an SUV of 23. Multiple other mediastinal nodes demonstrate similar improvement . reviewed the PET/CT and recommended that Mr. Yu pursue 6 -8 more cycles of chemotherapy. Follow-up CT PET scan done on 10/25/2019, showed right middle lobe nodule that previously measured 1.0 x 1.3 cm with SUV of 7.7, now measure 1.1 x 0.7 cm with SUV of 4.3. A secondary right middle lobe nodule and the right lower lobe nodule are FDG negative. Similar improvement is noted in the mediastinal lymph nodes in the right paratracheal (4R) node now has SUV of 4.7 compared to 5.7 previously. Other nodes since subcarinal, right hilar, right pericardial regions are FDG negative. He has tolerated treatment well. It was recommended that he have 6 additional cycles of treatment then restage to determine further plan of care. Follow-up CT PET scan done on January 10, 2020 showed minimal progression is present in the dominant right middle lobe nodule now SUV 5.6 compared to 4.3. Secondary right middle lobe nodule now has SUV of 4.0 compared to negative on prior study. Medial right lower lobe nodule is unchanged at size 8 mm and remained FDG negative. FDG positive mediastinal adenopathy is generally unchanged, however a right sides. Prevascular node has SUV of 3.6.No herpetic involvement Patient was referred to GI oncology at [facility], as per patient's they were told that there is no clinical trial available at this point that the continue with the treatment locally. Follow-up CT scan of chest abdomen pelvis done on March 09, 2020 showed numerous right-sided pulmonary nodules which have been previously described. Nodules have all increased slight in size. Indeterminate mediastinal mass and right hilar lymph nodes and subcarinal lymph nodes are all unchanged in size. Small amount of soft tissue at anastomotic site in the right abdomen with a few smaller adjacent lymph nodes. No renal mass, no liver mets seen Mr. Yu resumed chemotherapy with FOLFIRI and Avastin on April 07, 2020.And follow-up CT PET scan done on June 26, 2020 showed dominant right middle lobe nodule now measuring 1.1 x 2.0 cm with SUV of 5.8 up from 1.1 cm with SUV of 5.6 on January 10, 2020 and remaining right middle lobe lung nodule and right lower lobe lung nodule is unchanged at size 8 mm and the main FDG negative mediastinal lymph node are not significantly changed and there are again identified right prevascular, subcarinal, right paratracheal territories. CT PET scan findings were discussed with Dr. Morrow radiologist and his impression was increase in size of right middle lobe nodule could be due to disease progression or movements during scanning otherwise stable disease Came for follow-up, denies any specific complaints except generalized weakness and fatigue for couple of days after chemo infusion otherwise tolerating systemic therapy with FOLFIRI and Avastin well. No nausea or vomiting no diarrhea constipation, no hemoptysis hematemesis appetite is reasonable. . Medications: Aspirin 1 Tablet (of 81 mg) Oral daily, Ativan 1 (0.5 mg) Tablet Oral q 4 hours PRN, Atorvastatin Calcium 1 Tablet (of 40 mg) Oral daily, B-12 1 Tablet (of 1000 mcg) Oral daily, Calcium Carb-Cholecalciferol 1 Capsule (of 500-125 Units/mg) Oral daily, Cinnamon 1 (500 mg) Capsule Oral b.i.d., Compazine Tablet Oral q 4 hours PRN, Fish Oil 1 (1000 mg) Capsule Oral daily, hydroCHLOROthiazide 1 Capsule (of 12.5 mg) Oral at bedtime, Lisinopril 1 Tablet (of 40 mg) Oral daily, MetFORMIN HCl 1 Tablet (of 500 mg) Oral b.i.d., Metoprolol Tartrate 0.5 Tablet (of 25 mg) Oral b.i.d., Multivitamin Adult 1 Tablet Oral daily, Nitroglycerin 1 (0.4 mg) Tablet, sublingual Sublingual PRN, Pepcid 1 (20 mg) Tablet Oral daily PRN, Vitamin C 1 Tablet (of 500 mg) Oral daily, Vitamin E 1 Capsule (of 400 Units) Oral daily Allergies: Isosorbide Mononitrate and Succinylcholine Chloride. Review of Systems: Constitutional - Appetite is good and weight is stable. No fever, chills, hot flashes, or night sweats. Energy level is good, ENMT - No sinus congestion/drainage. No mouth sores. No sore throat or difficulty swallowing, Hematologic/Lymphatic - No abnormal bruising or bleeding, Respiratory - No shortness of breath. No cough. No pleuritic pain or hemoptysis, Cardiovascular - No angina pain. No palpitations, Gastrointestinal - No nausea or vomiting. No heartburn or acid reflux. No diarrhea or constipation. No blood in the stool or black stools, Genitourinary (M) - No dysuria or hematuria. No urinary frequency. No urgency or incontinence, Musculoskeletal - No joint or bone pain, Integumentary - No rashes or lesions, Neurologic - No headache or dizziness. No numbness/paresthesias or other focal neurologic symptoms, Psychiatric - No anxiety or depression. No insomnia. Vital Signs: Performed on Jul 01, 2020 09:16 Height - 64.00 in Weight - 151.6 lbs (HIGH) BSA - 1.74 sq.m BMI - 26.02 Temperature - 96.4 F (LOW) Pulse - 66 /min Respiration - 16 /min BP - 168/68 mm(hg) (HIGH) O2 Sat - 95 % (LOW) Pain - 0 Performance Status: 1 - No physically strenuous activity, but ambulatory and able to carry out light or sedentary work (e.g. office work, light house work). (ECOG) Physical Examination: ENMT - No mouth sores, no thrush, no jaundice, Respiratory - Lungs are clear to auscultation, Cardiovascular - Regular rate and rhythm of heart, Abdomen - Soft, bowel sounds present, Extremities - No visible edema or rash. Lab/Imaging: Test performed on Jun 17, 2020 10:05 Ua Color Yellow Ua Appearance Clear Ua Glucose Norm Ua Bilirubin Neg Ua Ketones Negative Ua Specific [place] 1.015 Ua Blood Neg Ua pH 5 Ua Protein Neg Ua Nitrites Negative Ua Leukocyte Esterase Negative Test performed on Jun 17, 2020 09:50 Sodium 135 mmol/L Potassium 4.6 mmol/L Chloride 100 mmol/L CO2 27 mmol/L Anion Gap 12.6 BUN 15 mg/dL Creatinine 0.9 mg/dL Cr Clearance (Est) 66.4800 mL/min Glucose 163 mg/dL Osmolality - Calculated 284 mOsm/kg Calcium 9.3 mg/dL Protein, Total 6.6 g/dL Albumin 4.0 g/dL Globulin 2.6 g/dL Bilirubin, Total 0.2 mg/dL ALT (SGPT) 35 U/L AST (SGOT) 26 U/L Alkaline Phosphatase 80 IU/L WBC 7.5 10 3/uL RBC 3.96 10 6/uL HGB 13.2 g/dL HCT 39.0 % MCV 98.5 fL MCH 33.3 pg MCHC 33.8 g/dL RDW 14.5 % Platelet Count 255 10 3/cmm MPV 9.6 fL Neutrophils 4.96 10 3/uL Lymphocytes 1.6 10 3/uL Monocytes 0.7 10 3/uL Eosinophils 0.1 10 3/uL Basophils 0.0 10 3/uL Neutrophil % 66.5 % Lymphocyte % 21.8 % Monocyte % 9.2 % Eosinophil % 1.7 % Basophils % 0.5 % NRBC % 0 % Test performed on May 19, 2020 08:25 CEA 12.3 ng/mL Test performed on Jan 27, 2020 14:30 Ua Urobilinogen 1 mg/dL Impression: 1. Recurrent adenocarcinoma involving paratracheal lymph node per bronchoscopy/ mediastinoscopy done on 04/28/2019 Immunohistochemistry positive for CDX -2, CK 20 Negative for CK 7, TTF-1 and CEA checked on 05/05/2019 was 10.6 2. 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 He underwent laparoscopic right hemicolectomy on 01/10/2017. High risk features included near obstructing primary tumor, pathologic evidence of lymphovascular space invasion, and less than 12 lymph nodes sampled. 3. s/p adjuvant chemotherapy with modified FOLFOX.???4 from 01/30/2017 through 04/02/2017, FOLFOX minus oxaliplatin ???8 from 04/23/2017 through 07/23/2017. 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 4. He has iron deficiency anemia, resolved . His other medical illnesses include: 5. Hypertension. 6. Hyperlipidemia. 7. Type II diabetes .Follow-up colonoscopy done on 02/06/2018 showed ileocolic anastomosis looked intact without evidence of recurrence, and wide patent. In the proximal transverse colon, an abnormality was noted. Follow-up colonoscopy done on 02/26/2019 showed no abnormality seen, ileocolic anastomosis widely patent without evidence of local recurrence. CEA checked on 01/07/2019 was 7.2 compared to 2.4 on 07/05/2018 and repeat CEA on 03/04/[address] PET scan done on 03/15/2019 showed 3.1 x 2.2 cm mass in the right middle lobe with SUV of 22.1, and adjust in the right middle lobe FDG positive satellite nodule noted. The right lower lobe perihilar nodule measuring 1.6 cm with SUV of 21.6. Multiple mediastinal nodes are FDG positive, consistent with metastatic disease and index node in the right 4R peritracheal territory measures 1.6 cm with SUV of 23.0 and other similar nodes are evident in the right pericardial, right superior mediastinal, right periesophageal territory. No evidence of metastatic disease to bone or below diaphragm. Clinically, patient is doing well, tolerated mediastinoscopy well now surgical wound is healing well. And final pathology report came back metastatic adenocarcinoma, probably GI in origin. Discussed with patient regarding treatment options. Patient completed his adjuvant chemotherapy with FOLFOX( oxaliplatin was discontinued after 4 cycles of FOLFOX because of progressive neuropathy) more than 12 months ago, Mr uY was offered treatment with FOLFIRI/Avastin every 2 weeks ???[address] PET scan to assess disease response and also consider next generation sequencing to assess targetable therapy. He began cycle 1 of 6 on 03/13/2019. He has tolerated it extremly well at this time. recommended 6 cycles of FOLFIRI/Avastin the restage with followup PET/CT. Mr Yu began cycle 1 on 05/13/2019. He has tolerated it well. After 5 cycles of chemotherapy, Mr. Yu had follow-up PET/CT on 07/19/2019 with [facility] radiology out [facility]. The findings reported were continued physiological tracer activity at the colonic anastomosis. The right middle lobe mass that previously measured 3.1 x 2.2 cm with an SUV of 22.1 now measures 1.0 x 1.3 cm with an SUV of 7.7, indicating a positive response to therapy. There are similar improvement in the secondary right middle lobe nodule and in the right lower lobe nodule. The index node in the right 4R paratracheal territory now measures 1.5 with an SUV of 5.7 and previously was 1.8 cm with an SUV of 23. Multiple other mediastinal nodes demonstrate similar improvement . has reviewed the PET/CT and has recommended that Mr. Yu pursue 6 more cycles of chemotherapy.Follow-up CT PET scan done on June 26, 2020 showed stable disease except right middle lobe of lung shows increased in size 1.1 x 2 cm compared to 1.1 cm with similar SUV on January 10, 2020 On July 01, 2020 irinotecan was discontinued because of related side effects e.g. generalized weakness and fatigue and was started on maintenance therapy with Avastin/5-FU alone. Plan: Discussed with patient regarding his labs white blood count 6.8 hemoglobin 12.9 hematocrit 39.4 platelets 258,000 CMP within normal limits urinalysis negative and CT PET scan finding which shows stable disease except right middle lobe nodule has increased in size 1.1 x 2.0 compared to 1.1 cm previously but similar SUV Patient also underwent colonoscopy on done before 2020 which showed ileocolonic stricture and underwent seated balloon dilations otherwise no evidence of local recurrence. Discussed with patient regarding further treatment options, clinically it appears current regimen FOLFIRI/Avastin now start interfering with performance status e.g. generalized weakness and fatigue for few days after each course, otherwise tolerating reasonably well and his follow-up CT PET scan shows stable disease except right middle lobe nodule has increased in size but with similar SUV, as per Dr. Morrow it could be due to movements during scanning so at this point we will consider switching him to maintenance therapy with Avastin/5-FU alone, hopefully he will maintain good performance status and disease control so we will proceed with maintenance therapy with Avastin/5-FU and discontinue irinotecan. Patient will return to clinic in 2 weeks with CBC CMP and for his maintenance therapy with Avastin/5-FU alone Patient was also noted to have mild hypertension, as per patient and his it happens usually when he comes to clinic otherwise at home his blood pressure is in normal range moreover he is being monitored by Dr. Simons cardiology. Patient was advised that hypertension is one of the side effect with Avastin and a blood pressure start staying up, then we may have to adjust his antihypertensive therapy. We will consider repeating CT PET scan after 6 doses of Avastin/5-FU to assess disease response. Signed By: Hayley Goodman M.D. <<Signature on File>>
== END 2020-07-01 05:48 | disposition home or self-care (01) ==
LOC: ONCMED 05:49
PROVIDERS: PCP Family Medicine; Visit Provider Internal Medicine Hematology & Oncology
DX: Z51.11 Encounter for antineoplastic chemotherapy (principal); C18.2 Malignant neoplasm of ascending colon; C77.1 Secondary and unspecified malignant neoplasm of intrathoracic lymph nodes; I10 Essential (primary) hypertension; Z79.899 Other long term (current) drug therapy; E78.5 Hyperlipidemia, unspecified; E11.9 Type 2 diabetes mellitus without complications; Z90.49 Acquired absence of other specified parts of digestive tract
CPT/HCPCS: 80053; 81003; 82378; 85025; 96367; 96375; 96413; 99214; J0640; J1100; J1453; J2469; J3490; J7050; J9035; J9190

== ENCOUNTER 2020-07-15 06:16 | Outpatient (CLI) | payer MEDICARE, OTHER, SELFPAY ==
[2020-07-15 10:41] LABS: Add Urine Microscopic? NO
[2020-07-15 10:43] LABS: Basophils # 0.1 10^3/uL (0.0-0.1); Basophils % 0.8 %; Eosinophils # 0.3 10^3/uL (0.0-0.8); Eosinophils % 3.5 %; Hematocrit 38.5 % (42.0-52.0); Lymphocytes # 1.6 10^3/uL (0.8-4.8); Lymphocytes % 16.2 %; Mean Corpuscular HGB Conc 33.8 g/dL (30.0-36.0); Mean Corpuscular Hemoglobin 33.3 pg (28.0-34.0); Mean Corpuscular Volume 98.7 fL (80-94); Mean Platelet Volume 9.6 fL (7.4-10.4); Monocytes # 0.9 10^3/uL (0.2-0.9); Monocytes % 8.7 %; Neutrophils # 6.93 10^3/uL (1.8-7.7); Neutrophils % 70.4 %; Nucleated Red Blood Cells % 0 %; Platelet Count 245 10^3/cmm (130-400); Red Cell Distribution Width 14.8 % (12.1-15.1); White Blood Count 9.8 10^3/uL (4.0-10.0)
[2020-07-15 10:49] LABS: Bilirubin Urine Neg (Negative); Blood Urine Neg (Negative); Glucose Urine UA Norm (Normal); Ketones Urine Negative (Negative); Leukocyte Esterase Urine Negative (Negative); Nitrate Urine Negative (Negative); Protein Urine Neg (Negative); Urine Appearance Clear (CLEAR); Urine Color Yellow (Yellow); Urobilinogen Urine Norm (Negative); pH Urine 6.5 (5-7)
[2020-07-15 10:58] LABS: Alanine Aminotransferase 32 U/L (0-41); Albumin Level 3.9 g/dL (3.5-5.2); Alkaline Phosphatase 75 IU/L (40-130); Anion Gap 10.5 (5-19); Aspartate Amino Transferase 27 U/L (0-40); Blood Urea Nitrogen 13 mg/dL (8-23); Carbon Dioxide 28 mmol/L (22-29); Chloride 102 mmol/L (98-107); Globulin 2.9 g/dL (1.3-4.6); Glucose 147 mg/dL (65-115); Osmolality Calculated 285 mOsm/kg (285-295); Potassium 4.5 mmol/L (3.5-5.1); Sodium 136 mmol/L (136-145); Total Bilirubin 0.3 mg/dL (0.15-1.2); Total Protein 6.8 g/dL (6.6-8.7)
[2020-07-15] MEDS: sodium chloride 0.9% 250 ML 75 ML IV (12:02)
[2020-07-15] MEDS: famotidine 20 mg/2 mL INJ IVP (12:02)
[2020-07-15] MEDS: palonosetron 0.25 mg/5 mL SDV IVP (12:06)
[2020-07-15] MEDS: fosaprepitant 150 MG in sodium chloride 0.9% 150 ML 300 MG IV (12:22)
== END 2020-07-15 06:17 | disposition home or self-care (01) ==
LOC: ONCMED 06:19
PROVIDERS: PCP Family Medicine; Visit Provider Internal Medicine Hematology & Oncology
DX: Z51.11 Encounter for antineoplastic chemotherapy (principal); C18.0 Malignant neoplasm of cecum; C77.1 Secondary and unspecified malignant neoplasm of intrathoracic lymph nodes; D50.9 Iron deficiency anemia, unspecified
CPT/HCPCS: 80053; 81003; 85025; 96367; 96375; 96413; J0640; J1100; J1453; J2469; J3490; J7050; J9035; J9190

== ENCOUNTER 2020-07-29 05:48 | Outpatient (CLI) | payer MEDICARE, OTHER, SELFPAY ==
[2020-07-29 08:26] LABS: Basophils # 0.1 10^3/uL (0.0-0.1); Basophils % 0.7 %; Eosinophils # 0.5 10^3/uL (0.0-0.8); Eosinophils % 5.8 %; Hematocrit 39.6 % (42.0-52.0); Hemoglobin 13.1 g/dL (11.7-16.6); Lymphocytes # 1.6 10^3/uL (0.8-4.8); Lymphocytes % 17.7 %; Mean Corpuscular HGB Conc 33.1 g/dL (30.0-36.0); Mean Corpuscular Hemoglobin 33.9 pg (28.0-34.0); Mean Corpuscular Volume 102.6 fL (80-94); Mean Platelet Volume 9.6 fL (7.4-10.4); Monocytes # 0.9 10^3/uL (0.2-0.9); Monocytes % 10.1 %; Neutrophils # 5.99 10^3/uL (1.8-7.7); Neutrophils % 65.3 %; Nucleated Red Blood Cells % 0 %; Platelet Count 238 10^3/cmm (130-400); Red Blood Count 3.86 10^6/uL (4.1-5.3); Red Cell Distribution Width 14.4 % (12.1-15.1); White Blood Count 9.2 10^3/uL (4.0-10.0)
[2020-07-29 08:41] LABS: Alanine Aminotransferase 26 U/L (0-41); Alkaline Phosphatase 70 IU/L (40-130); Anion Gap 11.6 (5-19); Aspartate Amino Transferase 24 U/L (0-40); Blood Urea Nitrogen 18 mg/dL (8-23); Calcium 8.9 mg/dL (8.5-10.5); Carbon Dioxide 27 mmol/L (22-29); Chloride 102 mmol/L (98-107); Globulin 2.7 g/dL (1.3-4.6); Glucose 189 mg/dL (65-115); Osmolality Calculated 289 mOsm/kg (285-295); Potassium 4.6 mmol/L (3.5-5.1); Sodium 136 mmol/L (136-145); Total Bilirubin 0.4 mg/dL (0.15-1.2); Total Protein 6.7 g/dL (6.6-8.7)
[2020-07-29 08:49] LABS: Add Urine Microscopic? NO
[2020-07-29 09:08] LABS: Urine Appearance Clear (CLEAR); Urine Color Yellow (Yellow); pH Urine 5 (5-7)
[2020-07-29 09:09] LABS: Bilirubin Urine Neg (Negative); Blood Urine Neg (Negative); Glucose Urine UA Norm (Normal); Ketones Urine Negative (Negative); Leukocyte Esterase Urine Negative (Negative); Nitrate Urine Negative (Negative); Protein Urine Neg (Negative); Urobilinogen Urine 1 mg/dL (Negative)
[2020-07-29] MEDS: famotidine 20 mg/2 mL INJ IVP (10:40)
[2020-07-29] MEDS: sodium chloride 0.9% 250 ML 75 ML IV (10:40)
[2020-07-29] MEDS: palonosetron 0.25 mg/5 mL SDV IV (10:43)
[2020-07-29] MEDS: fosaprepitant 150 MG in sodium chloride 0.9% 150 ML 300 MG IV (11:00)
--- NOTE | 2020-08-04 20:15 | ONC FU_ITS ---
[facility] Patient Note Patient: Geoff Yu Unit #: [id number]: 1945 Dictated By: Tripp GibsonDate of Visit: Jul 29, 2020 Onc MED Follow-Up/Prog Note Chief Complaint: Colon cancer. 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 He had presented with symptoms of abdominal pain and early satiety. CT abdomen/pelvis on 01/05/2017 showed an apple core appearing lesion at the hepatic flexure with associated obstruction involving the ascending colon, cecum, and ileum. The appearance was suspicious for neoplasm. There was a small amount of pelvic ascites. A 6.9 mm right lower lobe noncalcified pulmonary nodule was felt to be nonspecific. There was otherwise no evidence of metastatic disease. Colonoscopy on 01/09/2017 showed a partially obstructing malignant appearing mass at the hepatic flexure estimated at 5 x 4 cm. An additional sessile polyp was noted in the distal sigmoid colon and excised by hot snare. Biopsy of the hepatic flexure mass showed poorly differentiated infiltrating adenocarcinoma. The distal sigmoid lesion was a hyperplastic polyp. He underwent laparoscopic right hemicolectomy with ileocolic anastomosis and partial omentectomy on 01/10/2017. Pathology showed moderately differentiated infiltrating adenocarcinoma with invasion of the muscularis propria into rehana-colic tissue. The tumor measured 2.3 x 1.8 cm. The margins were free of tumor. There was evidence of lymphovascular space invasion. A total of 7 lymph nodes were identified in the sample and all were negative for metastatic disease. Final pathologic staging was T3, N0. He had several high risk features including a near obstructing primary tumor, evidence of lymphovascular space invasion, and less then 12 lymph nodes sampled. 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 Follow-up colonoscopy done on 02/06/2018 showed ileocolic anastomosis looked intact without evidence of recurrence and wide patent. In the proximal transverse colon, an abnormality was noted. He was followed by Dr. Willingham His other medical illnesses include hypertension, hyperlipidemia, and type II diabetes. He is a nonsmoker. Follow-up colonoscopy done on 02/26/2019 showed normal findings. Ileocolic anastomosis is widely patent without evidence of local recurrence. CEA repeated on 03/04/2019 was 7.7 compared to 7.2 on 01/07/2019 CT PET scan done on 03/15/2019 showed 3.1 x 2.2 cm mass in the right middle lobe with SUV of 22.1, and an adjacent right middle lobe FDG positive satellite nodule was noted. The right lower lobe perihilar nodule measuring 1.6 cm with SUV of 21.6. Multiple mediastinal nodes are FDG positive, consistent with metastatic disease and index node in the right 4R peritracheal territory measures 1.6 cm with SUV of 23.0 and other similar nodes are evident in the right pericardial, right superior mediastinal, right periesophageal territory. No evidence of metastatic disease to bone or below diaphragm Underwent mediastinoscopy on 04/28/2019 and lymph node biopsy was obtained from paratracheal, station 4R, final pathology report showed metastatic adenocarcinoma, consistent with GI origin. The tumor was positive for CD X2, CK 20; negative for CK 7 and TTF-1. recommended 6 cycles of FOLFIRI/Avastin the restage with followup PET/CT. Mr Yu began cycle 1 on 05/13/2019. He has tolerated it well. Mr. Yu had follow-up PET/CT on 07/19/2019 with [facility]. The findings reported were continued physiological tracer activity at the colonic anastomosis. The right middle lobe mass that previously measured 3.1 x 2.2 cm with an SUV of 22.1 now measures 1.0 x 1.3 cm with an SUV of 7.7, indicating a positive response to therapy. There are similar improvement in the secondary right middle lobe nodule and in the right lower lobe nodule. The index node in the right 4R paratracheal territory now measures 1.5 with an SUV of 5.7 and previously was 1.8 cm with an SUV of 23. Multiple other mediastinal nodes demonstrate similar improvement . reviewed the PET/CT and recommended that Mr. Yu pursue 6 -8 more cycles of chemotherapy. Follow-up CT PET scan done on 10/25/2019, showed right middle lobe nodule that previously measured 1.0 x 1.3 cm with SUV of 7.7, now measure 1.1 x 0.7 cm with SUV of 4.3. A secondary right middle lobe nodule and the right lower lobe nodule are FDG negative. Similar improvement is noted in the mediastinal lymph nodes in the right paratracheal (4R) node now has SUV of 4.7 compared to 5.7 previously. Other nodes since subcarinal, right hilar, right pericardial regions are FDG negative. He has tolerated treatment well. It was recommended that he have 6 additional cycles of treatment then restage to determine further plan of care. Follow-up CT PET scan done on January 10, 2020 showed minimal progression is present in the dominant right middle lobe nodule now SUV 5.6 compared to 4.3. Secondary right middle lobe nodule now has SUV of 4.0 compared to negative on prior study. Medial right lower lobe nodule is unchanged at size 8 mm and remained FDG negative. FDG positive mediastinal adenopathy is generally unchanged, however a right sides. Prevascular node has SUV of 3.6.No herpetic involvement Patient was referred to GI oncology at [facility], as per patient's they were told that there is no clinical trial available at this point that the continue with the treatment locally. Follow-up CT scan of chest abdomen pelvis done on March 09, 2020 showed numerous right-sided pulmonary nodules which have been previously described. Nodules have all increased slight in size. Indeterminate mediastinal mass and right hilar lymph nodes and subcarinal lymph nodes are all unchanged in size. Small amount of soft tissue at anastomotic site in the right abdomen with a few smaller adjacent lymph nodes. No renal mass, no liver mets seen Mr. Yu resumed chemotherapy with FOLFIRI and Avastin on April 07, 2020. He did have a follow-up CT PET scan done on June 26, 2020 which showed dominant right middle lobe nodule now measuring 1.1 x 2.0 cm with SUV of 5.8 up from 1.1 cm with SUV of 5.6 on January 10, 2020. The remaining right middle lobe lung nodule and right lower lobe lung nodule is unchanged at size 8 mm and the main FDG negative mediastinal lymph node are not significantly changed. There are again identified right prevascular, subcarinal, right paratracheal territories. PET/CT scan findings were discussed bu Dr Goodman with Dr. Morrow ,radiologist, and his impression was increase in size of right middle lobe nodule could be due to disease progression or movements during scanning, otherwise stable disease. It was recommended that Mr Yu continue with treatment but the irinotecan was omitted due to declining performance status. He continues just on 5-FU and Avastin alone. We plan to reassess after 6 more cycles. Today's treatment will be the 3rd of 6 planned treatments until he is due for his follow-up PET/CT imaging. Mr. Yu is here today for follow-up. He states overall he is doing great . He states his energy is good for the most part. He states he has a couple of days where after treatment where he is just kind of washed out and just rest and does just minimal activity around the house but then once that is resolved he states he is busy as ever. 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 He has no complaints of pain. Denies any nausea or vomiting. He denies any neuropathy. He states he is had no swallowing problems. He denies any fever or chills. He states his bowels and bladder are normal for him. His ECOG is 0. . Past Medical History: Diabetes type II Hyperlipidemia Hypertension Past Surgical History: Pneumonia Vaccine in 2017 - Given in left deltoid./lc Flu Vacccine in 2017 - Pt stated he had flu vaccine at [facility] 02/26/17./lc Left subclavian venous access device-Dr Willingham in 2017 Right Hemicolectomy in 2017 Allergies: Isosorbide Mononitrate and Succinylcholine Chloride. Medications: Aspirin 1 Tablet (of 81 mg) Oral daily Ativan 1 (0.5 mg) Tablet Oral q 4 hours PRN Atorvastatin Calcium 1 Tablet (of 40 mg) Oral daily B-12 1 Tablet (of 1000 mcg) Oral daily Calcium Carb-Cholecalciferol 1 Capsule (of 500-125 Units/mg) Oral daily Cinnamon 1 (500 mg) Capsule Oral b.i.d. Compazine Tablet Oral q 4 hours PRN Fish Oil 1 (1000 mg) Capsule Oral daily hydroCHLOROthiazide 1 Capsule (of 12.5 mg) Oral at bedtime Lisinopril 1 Tablet (of 40 mg) Oral daily MetFORMIN HCl 1 Tablet (of 500 mg) Oral b.i.d. Metoprolol Tartrate 0.5 Tablet (of 25 mg) Oral b.i.d. Multivitamin Adult 1 Tablet Oral daily Nitroglycerin 1 (0.4 mg) Tablet, sublingual Sublingual PRN Pepcid 1 (20 mg) Tablet Oral daily PRN Vitamin C 1 Tablet (of 500 mg) Oral daily Vitamin E 1 Capsule (of 400 Units) Oral daily Family History: Mr. Yu's mother at age 74: lung cancer. Mr. Yu's father at age 48: heart attack. Social History: Mr. Yu is and he is retired. Mr. Yu has never smoked. He has no history of drinking. Mr. Yu reports the following support systems: lives with spouse, significant other, family, or friends, lives in own house, supportive family/friends willing to assist with needs, and adequate transportation available for expected visits. His diet consists of regular meals. He indicates his activity level as: daily activities. Review Of Symptoms: Constitutional Denies fevers, chills, night sweats, excessive fatigue or weight loss. see above. Allergic/Immunologic No reactions. Eyes Denies significant visual changes. No diplopia. No amaurosis. ENMT Denies changes in hearing, sore throat, mouth sores, difficulty or changes in swallowing ability, and/or sinus drainage. Endocrine No diabetes, thyroid disease or hormone replacement. Denies hot flashes or night sweats. Hematologic/Lymphatic Denies easy bruising or bleeding. The patient denies any tender or palpable lymph nodes. Respiratory Denies dyspnea on exertion, chest pain, cough or hemoptysis. Denies orthopnea. Cardiovascular Denies anginal chest pain, palpitations or orthopnea. Gastrointestinal Denies nausea, vomiting, diarrhea, GI bleeding, or constipation. Denies change in bowel habits and/or stool color, no heartburn or early satiety. Genitourinary (M) Denies hematuria, dysuria, increased frequency, urgency, hesitancy or incontinence. Musculoskeletal Denies joint pain, swelling or redness. No decreased range of motion. Integumentary Denies chronic rashes, inflammation, ulcerations or skin changes. Neurologic Denies headache, blurred vision, and no areas of focal weakness or numbness. Normal gait. No sensory problems. Psychiatric Denies insomnia, depression, alex or mood swings. Vital Signs: Performed on Jul 29, 2020 09:44 Height - 64.00 in Weight - 151.0 lbs (LOW) BSA - 1.74 sq.m BMI - 25.92 Temperature - 97.6 F (LOW) Pulse - 67 /min Respiration - 18 /min BP - 148/70 mm(hg) (HIGH) O2 Sat - 98 % Pain - 0,0 - Fully active, able to carry on all predisease activities without restrictions. (ECOG) Physical Examination: Constitutional Alert, oriented, no acute distress. Skin pink, warm and dry. Head Normocephalic; atraumatic. Eyes Conjunctivae and sclerae are clear and without icterus. Pupils are reactive and equal. Wears glasses. Neck Supple without masses or thyromegaly. No jugular venous distension. Hematologic/Lymphatic No petechiae or purpura. Respiratory Lungs are clear to auscultation without rhonchi or wheezing. Cardiovascular Regular rate and rhythm of heart without murmurs,clicks, gallops or rubs. Chest Left subclavian venous access device insertion site is unremarkable. Back/Spine Non-tender to palpation. Extremities No visible deformities, no cyanosis, clubbing or edema. Musculoskeletal No tenderness or swelling, normal range of motion without obvious weakness. Integumentary No rashes or lesions. Neurologic No sensory or motor deficits, normal cerebellar function, normal gait. Psychiatric Alert and oriented times three. Coherent speech. Verbalizes understanding of our discussions today. Laboratory:Test performed on Jul 29, 2020 08:13 Sodium 136 mmol/L Potassium 4.6 mmol/L Chloride 102 mmol/L CO2 27 mmol/L Anion Gap 11.6 BUN 18 mg/dL Creatinine 0.9 mg/dL Cr Clearance (Est) 66.4800 mL/min Glucose 189 mg/dL Osmolality - Calculated 289 mOsm/kg Calcium 8.9 mg/dL Protein, Total 6.7 g/dL Albumin 4.0 g/dL Globulin 2.7 g/dL Bilirubin, Total 0.4 mg/dL ALT (SGPT) 26 U/L AST (SGOT) 24 U/L Alkaline Phosphatase 70 IU/L WBC 9.2 10 3/uL RBC 3.86 10 6/uL HGB 13.1 g/dL HCT 39.6 % MCV 102.6 fL MCH 33.9 pg MCHC 33.1 g/dL RDW 14.4 % Platelet Count 238 10 3/cmm MPV 9.6 fL Neutrophils 5.99 10 3/uL Lymphocytes 1.6 10 3/uL Monocytes 0.9 10 3/uL Eosinophils 0.5 10 3/uL Basophils 0.1 10 3/uL Neutrophil % 65.3 % Lymphocyte % 17.7 % Monocyte % 10.1 % Eosinophil % 5.8 % Basophils % 0.7 % NRBC % 0 % Test performed on Jul 29, 2020 08:01 Ua Color Yellow Ua Appearance Clear Ua Glucose Norm Ua Bilirubin Neg Ua Ketones Negative Ua Specific [place] 1.020 Ua Blood Neg Ua pH 5 Ua Protein Neg Ua Urobilinogen 1 mg/dL Ua Nitrites Negative Ua Leukocyte Esterase Negative Test performed on Jul 01, 2020 08:10 CEA 9.2 ng/mL Impression: 1. Recurrent adenocarcinoma involving paratracheal lymph node per bronchoscopy/ mediastinoscopy done on 04/28/2019 Immunohistochemistry positive for CDX -2, CK 20 Negative for CK 7, TTF-1 and CEA checked on 05/05/2019 was 10.6 2. 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 He underwent laparoscopic right hemicolectomy on 01/10/2017. High risk features included near obstructing primary tumor, pathologic evidence of lymphovascular space invasion, and less than 12 lymph nodes sampled. 3. s/p adjuvant chemotherapy with modified FOLFOX.???4 from 01/30/2017 through 04/02/2017, FOLFOX minus oxaliplatin ???8 from 04/23/2017 through 07/23/2017. 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 4. He has iron deficiency anemia, resolved . His other medical illnesses include: 5. Hypertension. 6. Hyperlipidemia. 7. Type II diabetes .Follow-up colonoscopy done on 02/06/2018 showed ileocolic anastomosis looked intact without evidence of recurrence, and wide patent. In the proximal transverse colon, an abnormality was noted. Follow-up colonoscopy done on 02/26/2019 showed no abnormality seen, ileocolic anastomosis widely patent without evidence of local recurrence. CEA checked on 01/07/2019 was 7.2 compared to 2.4 on 07/05/2018 and repeat CEA on 03/04/[address] PET scan done on 03/15/2019 showed 3.1 x 2.2 cm mass in the right middle lobe with SUV of 22.1, and adjust in the right middle lobe FDG positive satellite nodule noted. The right lower lobe perihilar nodule measuring 1.6 cm with SUV of 21.6. Multiple mediastinal nodes are FDG positive, consistent with metastatic disease and index node in the right 4R peritracheal territory measures 1.6 cm with SUV of 23.0 and other similar nodes are evident in the right pericardial, right superior mediastinal, right periesophageal territory. No evidence of metastatic disease to bone or below diaphragm. Clinically, patient is doing well, tolerated mediastinoscopy well now surgical wound is healing well. And final pathology report came back metastatic adenocarcinoma, probably GI in origin. Discussed with patient regarding treatment options. 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 He began cycle 1 of 6 on 03/13/2019. He has tolerated it extremly well at this time. recommended 6 cycles of FOLFIRI/Avastin the restage with followup PET/CT. Mr Yu began cycle 1 on 05/13/2019. He has tolerated it well. After 5 cycles of chemotherapy, Mr. Yu had follow-up PET/CT on 07/19/2019 with [facility]. The findings reported were continued physiological tracer activity at the colonic anastomosis. The right middle lobe mass that previously measured 3.1 x 2.2 cm with an SUV of 22.1 now measures 1.0 x 1.3 cm with an SUV of 7.7, indicating a positive response to therapy. There are similar improvement in the secondary right middle lobe nodule and in the right lower lobe nodule. The index node in the right 4R paratracheal territory now measures 1.5 with an SUV of 5.7 and previously was 1.8 cm with an SUV of 23. Multiple other mediastinal nodes demonstrate similar improvement . has reviewed the PET/CT and has recommended that Mr. Yu pursue 6 more cycles of chemotherapy.Follow-up CT PET scan done on June 26, 2020 showed stable disease except right middle lobe of lung shows increased in size 1.1 x 2 cm compared to 1.1 cm with similar SUV on January 10, 2020 On July 01, 2020 irinotecan was discontinued because of related side effects e.g. generalized weakness and fatigue and was started on maintenance therapy with Avastin/5-FU alone. Plan: PROBLEMS ADDRESSED TODAY A. METASTATIC COLON CANCER Dr Goodman discussed with Mr Yu further treatment options. Clinically it appears current regimen FOLFIRI/Avastin now start interfering with performance status e.g. generalized weakness and fatigue for few days after each course, otherwise tolerating reasonably well. His follow-up PET/CT from 06/26/2020 scan shows stable disease except right middle lobe nodule has increased in size but with similar SUV. As per Dr. Morrow it could be due to movements during scanning so at this point we will consider switching him to maintenance therapy with Avastin/5-FU alone, hopefully he will maintain good performance status and disease control. He will proceed with maintenance therapy with Avastin/5-FU and discontinue irinotecan. 1. Proceed with cycle 3/6 of chemotherapy with 5FU/Avastin today. 2. Mr Yu was scheduled for colonoscopy on May 05, 2020 to assess anastomosis site to rule out local recurrence. He had repeat colonoscopy on 06/07/[address] Willingham @ [facility]. 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 Serial balloon dilatations were done starting by 13.5 mmHg up to 16.[address] Willingham was able to traverse the stricture with the scope safely without complications. There is no signs of local recurrence . It was noted that a digital rectal exam was performed and an enlarged prostate was noted. The patient was referred to Dr. Zia Raya and recommend follow-up colonoscopy in 1 year. 3. Today's labs were reviewed in detail and discussed with & Mrs. Yu and a copy was given to them. WBC 9.2, hemoglobin 13.1, platelets 238,000, ANC is 6000. Creatinine 0.9 random glucose 189 potassium 4.6 LFTs are normal. His last CEA was on July 01, 2020 reported at 9.2. His previous CEA on May 19, 2020 was 12.3 up from 7.1 on January 27, 2020. His UA remains negative for protein. His weight is stable at 151. He is afebrile. 4. We will plan to see Mr. Yu back in 2 weeks with CBC CMP & UA. The current plan is to repeat PET CT imaging after 6 cycles from his pet imaging in June 2020. Today is cycle 3 of those 6 planned treatments. B. Hypertension 1. His blood pressure is stable today at 148/70. He states it is running normal at home. He is being monitored by Dr. Simons and cardiology. 5. Mr. Yu has been encouraged to contact us in the interim should questions or problems arise. Signed By: Tripp Gibson-, AOCNP Hayley Goodman MD <<Signature on File>>
== END 2020-07-29 05:49 | disposition home or self-care (01) ==
LOC: ONCMED 05:50
PROVIDERS: PCP Family Medicine; Visit Provider Nurse Practitioner
DX: Z51.11 Encounter for antineoplastic chemotherapy (principal); C18.0 Malignant neoplasm of cecum; C77.1 Secondary and unspecified malignant neoplasm of intrathoracic lymph nodes; E11.9 Type 2 diabetes mellitus without complications; E78.5 Hyperlipidemia, unspecified; I10 Essential (primary) hypertension; Z79.899 Other long term (current) drug therapy
CPT/HCPCS: 80053; 81003; 85025; 96367; 96375; 96411; 96413; 99214; J0640; J1100; J1453; J2469; J3490; J7050; J9035; J9190

== ENCOUNTER 2020-08-26 05:32 | Outpatient (RCR) | payer MEDICARE, OTHER, SELFPAY ==
[2020-08-12 08:29] LABS: Add Urine Microscopic? NO
[2020-08-12 08:38] LABS: Basophils # 0.1 10^3/uL (0.0-0.1); Basophils % 0.6 %; Eosinophils # 0.5 10^3/uL (0.0-0.8); Eosinophils % 6.7 %; Hematocrit 37.9 % (42.0-52.0); Hemoglobin 12.7 g/dL (11.7-16.6); Lymphocytes # 1.3 10^3/uL (0.8-4.8); Lymphocytes % 16.4 %; Mean Corpuscular HGB Conc 33.5 g/dL (30.0-36.0); Mean Corpuscular Hemoglobin 34.1 pg (28.0-34.0); Mean Corpuscular Volume 101.9 fL (80-94); Mean Platelet Volume 10.3 fL (7.4-10.4); Monocytes # 0.8 10^3/uL (0.2-0.9); Monocytes % 9.6 %; Neutrophils # 5.31 10^3/uL (1.8-7.7); Neutrophils % 66.3 %; Nucleated Red Blood Cells % 0 %; Platelet Count 215 10^3/cmm (130-400); Red Blood Count 3.72 10^6/uL (4.1-5.3); Red Cell Distribution Width 13.3 % (12.1-15.1)
[2020-08-12 08:40] LABS: Bilirubin Urine Neg (Negative); Blood Urine Neg (Negative); Glucose Urine UA Norm (Normal); Ketones Urine Negative (Negative); Leukocyte Esterase Urine Negative (Negative); Nitrate Urine Negative (Negative); Protein Urine Neg (Negative); Specific Gravity, Urine 1.015 (1.005-1.030); Urine Appearance Clear (CLEAR); Urine Color Yellow (Yellow); Urobilinogen Urine Norm (Negative); pH Urine 5 (5-7)
[2020-08-12 08:56] LABS: Alanine Aminotransferase 26 U/L (0-41); Albumin Level 3.6 g/dL (3.5-5.2); Alkaline Phosphatase 72 IU/L (40-130); Blood Urea Nitrogen 15 mg/dL (8-23); Calcium 8.9 mg/dL (8.5-10.5); Carbon Dioxide 26 mmol/L (22-29); Chloride 102 mmol/L (98-107); Globulin 2.9 g/dL (1.3-4.6); Glucose 213 mg/dL (65-115); Osmolality Calculated 285 mOsm/kg (285-295); Sodium 134 mmol/L (136-145); Total Bilirubin 0.3 mg/dL (0.15-1.2); Total Protein 6.5 g/dL (6.6-8.7)
[2020-08-12 08:59] LABS: Anion Gap 10.8 (5-19); Aspartate Amino Transferase 28 U/L (0-40); Potassium 4.8 mmol/L (3.5-5.1)
[2020-08-12 10:06] LABS: Carcinoembryonic Antigen 9.9 ng/mL (0.0-4.7)
[2020-08-12] MEDS: sodium chloride 0.9% 250 ML 75 ML IV (10:40)
[2020-08-12] MEDS: famotidine 20 mg/2 mL INJ IVP (10:40)
[2020-08-12] MEDS: palonosetron 0.25 mg/5 mL SDV IV (10:41)
[2020-08-12] MEDS: fosaprepitant 150 MG in sodium chloride 0.9% 150 ML 300 MG IV (11:20)
--- NOTE | 2020-08-23 23:39 | ONC FU_ITS ---
[facility] Patient Note Patient: Geoff Yu Unit #: [id number]: 1945 Dictated By: Tripp GibsonDate of Visit: Aug 12, 2020 Onc MED Follow-Up/Prog Note Chief Complaint: Colon cancer. 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 He had presented with symptoms of abdominal pain and early satiety. CT abdomen/pelvis on 01/05/2017 showed an apple core appearing lesion at the hepatic flexure with associated obstruction involving the ascending colon, cecum, and ileum. The appearance was suspicious for neoplasm. There was a small amount of pelvic ascites. A 6.9 mm right lower lobe noncalcified pulmonary nodule was felt to be nonspecific. There was otherwise no evidence of metastatic disease. Colonoscopy on 01/09/2017 showed a partially obstructing malignant appearing mass at the hepatic flexure estimated at 5 x 4 cm. An additional sessile polyp was noted in the distal sigmoid colon and excised by hot snare. Biopsy of the hepatic flexure mass showed poorly differentiated infiltrating adenocarcinoma. The distal sigmoid lesion was a hyperplastic polyp. He underwent laparoscopic right hemicolectomy with ileocolic anastomosis and partial omentectomy on 01/10/2017. Pathology showed moderately differentiated infiltrating adenocarcinoma with invasion of the muscularis propria into rehana-colic tissue. The tumor measured 2.3 x 1.8 cm. The margins were free of tumor. There was evidence of lymphovascular space invasion. A total of 7 lymph nodes were identified in the sample and all were negative for metastatic disease. Final pathologic staging was T3, N0. He had several high risk features including a near obstructing primary tumor, evidence of lymphovascular space invasion, and less then 12 lymph nodes sampled. 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 Follow-up colonoscopy done on 02/06/2018 showed ileocolic anastomosis looked intact without evidence of recurrence and wide patent. In the proximal transverse colon, an abnormality was noted. He was followed by Dr. Willingham His other medical illnesses include hypertension, hyperlipidemia, and type II diabetes. He is a nonsmoker. Follow-up colonoscopy done on 02/26/2019 showed normal findings. Ileocolic anastomosis is widely patent without evidence of local recurrence. CEA repeated on 03/04/2019 was 7.7 compared to 7.2 on 01/07/2019 CT PET scan done on 03/15/2019 showed 3.1 x 2.2 cm mass in the right middle lobe with SUV of 22.1, and an adjacent right middle lobe FDG positive satellite nodule was noted. The right lower lobe perihilar nodule measuring 1.6 cm with SUV of 21.6. Multiple mediastinal nodes are FDG positive, consistent with metastatic disease and index node in the right 4R peritracheal territory measures 1.6 cm with SUV of 23.0 and other similar nodes are evident in the right pericardial, right superior mediastinal, right periesophageal territory. No evidence of metastatic disease to bone or below diaphragm Underwent mediastinoscopy on 04/28/2019 and lymph node biopsy was obtained from paratracheal, station 4R, final pathology report showed metastatic adenocarcinoma, consistent with GI origin. The tumor was positive for CD X2, CK 20; negative for CK 7 and TTF-1. recommended 6 cycles of FOLFIRI/Avastin the restage with followup PET/CT. Mr Yu began cycle 1 on 05/13/2019. He has tolerated it well. Mr. Yu had follow-up PET/CT on 07/19/2019 with [facility] radiology out [facility]. The findings reported were continued physiological tracer activity at the colonic anastomosis. The right middle lobe mass that previously measured 3.1 x 2.2 cm with an SUV of 22.1 now measures 1.0 x 1.3 cm with an SUV of 7.7, indicating a positive response to therapy. There are similar improvement in the secondary right middle lobe nodule and in the right lower lobe nodule. The index node in the right 4R paratracheal territory now measures 1.5 with an SUV of 5.7 and previously was 1.8 cm with an SUV of 23. Multiple other mediastinal nodes demonstrate similar improvement . reviewed the PET/CT and recommended that Mr. Yu pursue 6 -8 more cycles of chemotherapy. Follow-up CT PET scan done on 10/25/2019, showed right middle lobe nodule that previously measured 1.0 x 1.3 cm with SUV of 7.7, now measure 1.1 x 0.7 cm with SUV of 4.3. A secondary right middle lobe nodule and the right lower lobe nodule are FDG negative. Similar improvement is noted in the mediastinal lymph nodes in the right paratracheal (4R) node now has SUV of 4.7 compared to 5.7 previously. Other nodes since subcarinal, right hilar, right pericardial regions are FDG negative. He has tolerated treatment well. It was recommended that he have 6 additional cycles of treatment then restage to determine further plan of care. Follow-up CT PET scan done on January 10, 2020 showed minimal progression is present in the dominant right middle lobe nodule now SUV 5.6 compared to 4.3. Secondary right middle lobe nodule now has SUV of 4.0 compared to negative on prior study. Medial right lower lobe nodule is unchanged at size 8 mm and remained FDG negative. FDG positive mediastinal adenopathy is generally unchanged, however a right sides. Prevascular node has SUV of 3.6.No herpetic involvement Patient was referred to GI oncology at [facility], as per patient's they were told that there is no clinical trial available at this point that the continue with the treatment locally. Follow-up CT scan of chest abdomen pelvis done on March 09, 2020 showed numerous right-sided pulmonary nodules which have been previously described. Nodules have all increased slight in size. Indeterminate mediastinal mass and right hilar lymph nodes and subcarinal lymph nodes are all unchanged in size. Small amount of soft tissue at anastomotic site in the right abdomen with a few smaller adjacent lymph nodes. No renal mass, no liver mets seen Mr. Yu resumed chemotherapy with FOLFIRI and Avastin on April 07, 2020. He did have a follow-up CT PET scan done on June 26, 2020 which showed dominant right middle lobe nodule now measuring 1.1 x 2.0 cm with SUV of 5.8 up from 1.1 cm with SUV of 5.6 on January 10, 2020. The remaining right middle lobe lung nodule and right lower lobe lung nodule is unchanged at size 8 mm and the main FDG negative mediastinal lymph node are not significantly changed. There are again identified right prevascular, subcarinal, right paratracheal territories. PET/CT scan findings were discussed bu Dr Goodman with Dr. Morrow ,radiologist, and his impression was increase in size of right middle lobe nodule could be due to disease progression or movements during scanning, otherwise stable disease. It was recommended that Mr Yu continue with treatment but the irinotecan was omitted due to declining performance status. He continues just on 5-FU and Avastin alone. We plan to reassess after 6 more cycles. Today's treatment will be the 4th of 6 planned treatments until he is due for his follow-up PET/CT imaging. Mr. Yu is here today for follow-up. He states overall he is still doing great . He states his energy is normal for the most part. He states he has a couple of days where after treatment where he is just kind of washed out and just rest and does just minimal activity around the house but then once that is resolved he states he is busy as ever. He has no complaints of pain. Denies any nausea or vomiting. He denies any neuropathy. He states he has had no swallowing problems. He denies any fever or chills. He states his bowels and bladder are normal for him. He states he has had some slight tingling in his lips after the treatment which is cold-induced but that is resolved presently. He denies any neuropathy in his hands or feet. His ECOG is 0. He does report that he received his first Covid 19 vaccine with [facility] on August 10, 2020. He states he tolerated it well with no side effects other than his arm was just a little sore for a day or 2. Past Medical History: Diabetes type II Hyperlipidemia Hypertension Past Surgical History: Covid 19 vaccine #1??? with [facility] in 2020 Pneumonia Vaccine in 2017 - Given in left deltoid./lc Flu Vacccine in 2017 - Pt stated he had flu vaccine at [facility] 02/26/17./lc Left subclavian venous access device-Dr Willingham in 2017 Right Hemicolectomy in 2017 Allergies: Isosorbide Mononitrate and Succinylcholine Chloride. Medications: Aspirin 1 Tablet (of 81 mg) Oral daily Ativan 1 (0.5 mg) Tablet Oral q 4 hours PRN Atorvastatin Calcium 1 Tablet (of 40 mg) Oral daily B-12 1 Tablet (of 1000 mcg) Oral daily Calcium Carb-Cholecalciferol 1 Capsule (of 500-125 Units/mg) Oral daily Cinnamon 1 (500 mg) Capsule Oral b.i.d. Compazine Tablet Oral q 4 hours PRN Fish Oil 1 (1000 mg) Capsule Oral daily hydroCHLOROthiazide 1 Capsule (of 12.5 mg) Oral at bedtime Lisinopril 1 Tablet (of 40 mg) Oral daily MetFORMIN HCl 1 Tablet (of 500 mg) Oral b.i.d. Metoprolol Tartrate 0.5 Tablet (of 25 mg) Oral b.i.d. Multivitamin Adult 1 Tablet Oral daily Nitroglycerin 1 (0.4 mg) Tablet, sublingual Sublingual PRN Pepcid 1 (20 mg) Tablet Oral daily PRN Vitamin C 1 Tablet (of 500 mg) Oral daily Vitamin E 1 Capsule (of 400 Units) Oral daily Family History: Mr. Yu's mother at age 74: lung cancer. Mr. Yu's father at age 48: heart attack. Social History: Mr. Yu is and he is retired. Mr. Yu has never smoked. He has no history of drinking. Mr. Yu reports the following support systems: lives with spouse, significant other, family, or friends, lives in own house, supportive family/friends willing to assist with needs, and adequate transportation available for expected visits. His diet consists of regular meals. He indicates his activity level as: daily activities. Review Of Symptoms: Constitutional Denies fevers, chills, night sweats, excessive fatigue or weight loss. Allergic/Immunologic No reactions. Eyes Denies significant visual changes. No diplopia. No amaurosis. ENMT Denies changes in hearing, sore throat, mouth sores, difficulty or changes in swallowing ability, and/or sinus drainage. Endocrine No diabetes, thyroid disease or hormone replacement. Denies hot flashes or night sweats. Hematologic/Lymphatic Denies easy bruising or bleeding. The patient denies any tender or palpable lymph nodes. Respiratory Denies dyspnea on exertion, chest pain, cough or hemoptysis. Denies orthopnea. Cardiovascular Denies anginal chest pain, palpitations or orthopnea. Gastrointestinal Denies nausea, vomiting, diarrhea, GI bleeding, or constipation. Denies change in bowel habits and/or stool color, no heartburn or early satiety. Genitourinary (M) Denies hematuria, dysuria, increased frequency, urgency, hesitancy or incontinence. Musculoskeletal Denies joint pain, swelling or redness. No decreased range of motion. Integumentary Denies chronic rashes, inflammation, ulcerations or skin changes. Neurologic Denies headache, blurred vision, and no areas of focal weakness or numbness. Normal gait. No sensory problems. Psychiatric Denies insomnia, depression, alex or mood swings. Vital Signs: Performed on Aug 12, 2020 09:32 Height - 64.00 in Weight - 152.2 lbs (HIGH) BSA - 1.74 sq.m BMI - 26.13 Temperature - 97.7 F (LOW) Pulse - 68 /min Respiration - 19 /min BP - 160/82 mm(hg) (HIGH) O2 Sat - 97 % Pain - 0,0 - Fully active, able to carry on all predisease activities without restrictions. (ECOG) Physical Examination: Constitutional Alert, oriented, no acute distress. Skin pink, warm and dry. Head Normocephalic; atraumatic. Eyes Conjunctivae and sclerae are clear and without icterus. Pupils are reactive and equal. Wears glasses. Neck Supple without masses or thyromegaly. No jugular venous distension. Hematologic/Lymphatic No petechiae or purpura. Respiratory Lungs are clear to auscultation without rhonchi or wheezing. Cardiovascular Regular rate and rhythm of heart without murmurs,clicks, gallops or rubs. Chest Left subclavian venous access device insertion site is unremarkable. Back/Spine Non-tender to palpation. Extremities No visible deformities, no cyanosis, clubbing or edema. Musculoskeletal No tenderness or swelling, normal range of motion without obvious weakness. Integumentary No rashes or lesions. Neurologic No sensory or motor deficits, normal cerebellar function, normal gait. Psychiatric Alert and oriented times three. Coherent speech. Verbalizes understanding of our discussions today. Laboratory:Test performed on Aug 12, 2020 08:20 Ua Color Yellow Ua Appearance Clear Ua Glucose Norm Ua Bilirubin Neg Ua Ketones Negative Ua Specific [place] 1.015 Ua Blood Neg Ua pH 5 Ua Protein Neg Ua Nitrites Negative Ua Leukocyte Esterase Negative Test performed on Aug 12, 2020 08:17 Sodium 134 mmol/L Potassium 4.8 mmol/L Chloride 102 mmol/L CO2 26 mmol/L Anion Gap 10.8 BUN 15 mg/dL Creatinine 0.9 mg/dL Cr Clearance (Est) 66.4800 mL/min Glucose 213 mg/dL Osmolality - Calculated 285 mOsm/kg Calcium 8.9 mg/dL Protein, Total 6.5 g/dL Albumin 3.6 g/dL Globulin 2.9 g/dL Bilirubin, Total 0.3 mg/dL ALT (SGPT) 26 U/L AST (SGOT) 28 U/L Alkaline Phosphatase 72 IU/L WBC 8.0 10 3/uL RBC 3.72 10 6/uL HGB 12.7 g/dL HCT 37.9 % MCV 101.9 fL MCH 34.1 pg MCHC 33.5 g/dL RDW 13.3 % Platelet Count 215 10 3/cmm MPV 10.3 fL Neutrophils 5.31 10 3/uL Lymphocytes 1.3 10 3/uL Monocytes 0.8 10 3/uL Eosinophils 0.5 10 3/uL Basophils 0.1 10 3/uL Neutrophil % 66.3 % Lymphocyte % 16.4 % Monocyte % 9.6 % Eosinophil % 6.7 % Basophils % 0.6 % NRBC % 0 % CEA 9.9 ng/mL Impression: 1. Recurrent adenocarcinoma involving paratracheal lymph node per bronchoscopy/ mediastinoscopy done on 04/28/2019 Immunohistochemistry positive for CDX -2, CK 20 Negative for CK 7, TTF-1 and CEA checked on 05/05/2019 was 10.6 2. 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 He underwent laparoscopic right hemicolectomy on 01/10/2017. High risk features included near obstructing primary tumor, pathologic evidence of lymphovascular space invasion, and less than 12 lymph nodes sampled. 3. s/p adjuvant chemotherapy with modified FOLFOX.???4 from 01/30/2017 through 04/02/2017, FOLFOX minus oxaliplatin ???8 from 04/23/2017 through 07/23/2017. 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 4. He has iron deficiency anemia, resolved . His other medical illnesses include: 5. Hypertension. 6. Hyperlipidemia. 7. Type II diabetes .Follow-up colonoscopy done on 02/06/2018 showed ileocolic anastomosis looked intact without evidence of recurrence, and wide patent. In the proximal transverse colon, an abnormality was noted. Follow-up colonoscopy done on 02/26/2019 showed no abnormality seen, ileocolic anastomosis widely patent without evidence of local recurrence. CEA checked on 01/07/2019 was 7.2 compared to 2.4 on 07/05/2018 and repeat CEA on 03/04/[address] PET scan done on 03/15/2019 showed 3.1 x 2.2 cm mass in the right middle lobe with SUV of 22.1, and adjust in the right middle lobe FDG positive satellite nodule noted. The right lower lobe perihilar nodule measuring 1.6 cm with SUV of 21.6. Multiple mediastinal nodes are FDG positive, consistent with metastatic disease and index node in the right 4R peritracheal territory measures 1.6 cm with SUV of 23.0 and other similar nodes are evident in the right pericardial, right superior mediastinal, right periesophageal territory. No evidence of metastatic disease to bone or below diaphragm. Clinically, patient is doing well, tolerated mediastinoscopy well now surgical wound is healing well. And final pathology report came back metastatic adenocarcinoma, probably GI in origin. Discussed with patient regarding treatment options. 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 He began cycle 1 of 6 on 03/13/2019. He has tolerated it extremly well at this time. recommended 6 cycles of FOLFIRI/Avastin the restage with followup PET/CT. Mr Yu began cycle 1 on 05/13/2019. He has tolerated it well. After 5 cycles of chemotherapy, Mr. Yu had follow-up PET/CT on 07/19/2019 with [facility]. The findings reported were continued physiological tracer activity at the colonic anastomosis. The right middle lobe mass that previously measured 3.1 x 2.2 cm with an SUV of 22.1 now measures 1.0 x 1.3 cm with an SUV of 7.7, indicating a positive response to therapy. There are similar improvement in the secondary right middle lobe nodule and in the right lower lobe nodule. The index node in the right 4R paratracheal territory now measures 1.5 with an SUV of 5.7 and previously was 1.8 cm with an SUV of 23. Multiple other mediastinal nodes demonstrate similar improvement . has reviewed the PET/CT and has recommended that Mr. Yu pursue 6 more cycles of chemotherapy.Follow-up CT PET scan done on June 26, 2020 showed stable disease except right middle lobe of lung shows increased in size 1.1 x 2 cm compared to 1.1 cm with similar SUV on January 10, 2020 On July 01, 2020 irinotecan was discontinued because of related side effects e.g. generalized weakness and fatigue and was started on maintenance therapy with Avastin/5-FU alone. Plan: PROBLEMS ADDRESSED TODAY A. METASTATIC COLON CANCER Dr Goodman discussed with Mr Yu further treatment options. Clinically it appears current regimen FOLFIRI/Avastin now start interfering with performance status e.g. generalized weakness and fatigue for few days after each course, otherwise tolerating reasonably well. His follow-up PET/CT from 06/26/2020 scan shows stable disease except right middle lobe nodule has increased in size but with similar SUV. As per Dr. Morrow it could be due to movements during scanning so at this point we will consider switching him to maintenance therapy with Avastin/5-FU alone, hopefully he will maintain good performance status and disease control. He will proceed with maintenance therapy with Avastin/5-FU and discontinue irinotecan. 1. Proceed with cycle 4/6 of chemotherapy with 5FU/Avastin today. 2. Mr Yu was scheduled for colonoscopy on May 05, 2020 to assess anastomosis site to rule out local recurrence. He had repeat colonoscopy on 06/07/[address] Willingham @ [facility]. 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 Serial balloon dilatations were done starting by 13.5 mmHg up to 16.[address] Willingham was able to traverse the stricture with the scope safely without complications. There is no signs of local recurrence . It was noted that a digital rectal exam was performed and an enlarged prostate was noted. The patient was referred to Dr. Zia Raya and recommend follow-up colonoscopy in 1 year. 3. Today's labs were reviewed in detail and discussed with MrPedro & Mrs. Yu and a copy was given to them. WBC 8.0, Hgb 12.7, platelets 215,000 and ANC = 5310. Creatinine 0.9, K+ 4.8 RBS 213 and LFTs are normal. CEA is pending at this visit. His last CEA was on July 01, 2020 reported at 9.2. His previous CEA on May 19, 2020 was 12.3 up from 7.1 on January 27, 2020. His UA remains negative for protein. His weight is stable at 152. He is afebrile. 4. We will plan to see Mr. Yu back in 2 weeks with CBC CMP & UA. The current plan is to repeat PET CT imaging after 6 cycles from his pet imaging in June 2020. Today is cycle 4 of those 6 planned treatments. B. Hypertension 1. His blood pressure is stable today at 148/70. He states it is running normal at home. He is being monitored by Dr. Simons and cardiology. 5. Mr. Yu has been encouraged to contact us in the interim should questions or problems arise. Signed By: Tripp Gibson-, AOCNP Hayley Goodman MD <<Signature on File>>
[2020-08-26 10:02] LABS: Basophils # 0.1 10^3/uL (0.0-0.1); Basophils % 0.8 %; Eosinophils # 0.6 10^3/uL (0.0-0.8); Eosinophils % 6.4 %; Hematocrit 40.3 % (42.0-52.0); Hemoglobin 13.5 g/dL (11.7-16.6); Lymphocytes # 1.7 10^3/uL (0.8-4.8); Lymphocytes % 18.8 %; Mean Corpuscular HGB Conc 33.5 g/dL (30.0-36.0); Mean Corpuscular Hemoglobin 33.8 pg (28.0-34.0); Mean Platelet Volume 9.6 fL (7.4-10.4); Monocytes # 0.7 10^3/uL (0.2-0.9); Monocytes % 8.2 %; Neutrophils % 65.5 %; Nucleated Red Blood Cells % 0 %; Platelet Count 258 10^3/cmm (130-400); Red Blood Count 3.99 10^6/uL (4.1-5.3); Red Cell Distribution Width 12.9 % (12.1-15.1); White Blood Count 8.9 10^3/uL (4.0-10.0)
[2020-08-26 10:21] LABS: Alanine Aminotransferase 30 U/L (0-41); Albumin Level 3.8 g/dL (3.5-5.2); Alkaline Phosphatase 80 IU/L (40-130); Anion Gap 10.6 (5-19); Aspartate Amino Transferase 25 U/L (0-40); Blood Urea Nitrogen 16 mg/dL (8-23); Calcium 8.5 mg/dL (8.5-10.5); Carbon Dioxide 27 mmol/L (22-29); Chloride 99 mmol/L (98-107); Glucose 142 mg/dL (65-115); Osmolality Calculated 278 mOsm/kg (285-295); Potassium 4.6 mmol/L (3.5-5.1); Sodium 132 mmol/L (136-145); Total Bilirubin 0.2 mg/dL (0.15-1.2); Total Protein 6.8 g/dL (6.6-8.7)
[2020-08-26] MEDS: famotidine 20 mg/2 mL INJ IVP (11:59)
[2020-08-26] MEDS: sodium chloride 0.9% 250 ML 75 ML IV (11:59)
[2020-08-26] MEDS: fosaprepitant 150 MG in sodium chloride 0.9% 150 ML 300 MG IV (12:01)
[2020-08-26] MEDS: palonosetron 0.25 mg/5 mL SDV IVP (12:25)
[2020-08-26] MEDS: sodium chloride 0.9% 1,000 ML 999 ML IV (14:00)
--- NOTE | 2020-09-06 23:27 | ONC FU_ITS ---
[facility] Patient Note Patient: Geoff Yu Unit #: [id number]: 1945 Dictated By: Tripp GibsonDate of Visit: Aug 26, 2020 Onc MED Follow-Up/Prog Note Chief Complaint: Colon cancer. 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 He had presented with symptoms of abdominal pain and early satiety. CT abdomen/pelvis on 01/05/2017 showed an apple core appearing lesion at the hepatic flexure with associated obstruction involving the ascending colon, cecum, and ileum. The appearance was suspicious for neoplasm. There was a small amount of pelvic ascites. A 6.9 mm right lower lobe noncalcified pulmonary nodule was felt to be nonspecific. There was otherwise no evidence of metastatic disease. Colonoscopy on 01/09/2017 showed a partially obstructing malignant appearing mass at the hepatic flexure estimated at 5 x 4 cm. An additional sessile polyp was noted in the distal sigmoid colon and excised by hot snare. Biopsy of the hepatic flexure mass showed poorly differentiated infiltrating adenocarcinoma. The distal sigmoid lesion was a hyperplastic polyp. He underwent laparoscopic right hemicolectomy with ileocolic anastomosis and partial omentectomy on 01/10/2017. Pathology showed moderately differentiated infiltrating adenocarcinoma with invasion of the muscularis propria into rehana-colic tissue. The tumor measured 2.3 x 1.8 cm. The margins were free of tumor. There was evidence of lymphovascular space invasion. A total of 7 lymph nodes were identified in the sample and all were negative for metastatic disease. Final pathologic staging was T3, N0. He had several high risk features including a near obstructing primary tumor, evidence of lymphovascular space invasion, and less then 12 lymph nodes sampled. 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 Follow-up colonoscopy done on 02/06/2018 showed ileocolic anastomosis looked intact without evidence of recurrence and wide patent. In the proximal transverse colon, an abnormality was noted. He was followed by Dr. Willingham His other medical illnesses include hypertension, hyperlipidemia, and type II diabetes. He is a nonsmoker. Follow-up colonoscopy done on 02/26/2019 showed normal findings. Ileocolic anastomosis is widely patent without evidence of local recurrence. CEA repeated on 03/04/2019 was 7.7 compared to 7.2 on 01/07/2019 CT PET scan done on 03/15/2019 showed 3.1 x 2.2 cm mass in the right middle lobe with SUV of 22.1, and an adjacent right middle lobe FDG positive satellite nodule was noted. The right lower lobe perihilar nodule measuring 1.6 cm with SUV of 21.6. Multiple mediastinal nodes are FDG positive, consistent with metastatic disease and index node in the right 4R peritracheal territory measures 1.6 cm with SUV of 23.0 and other similar nodes are evident in the right pericardial, right superior mediastinal, right periesophageal territory. No evidence of metastatic disease to bone or below diaphragm Underwent mediastinoscopy on 04/28/2019 and lymph node biopsy was obtained from paratracheal, station 4R, final pathology report showed metastatic adenocarcinoma, consistent with GI origin. The tumor was positive for CD X2, CK 20; negative for CK 7 and TTF-1. recommended 6 cycles of FOLFIRI/Avastin the restage with followup PET/CT. Mr Yu began cycle 1 on 05/13/2019. He has tolerated it well. Mr. Yu had follow-up PET/CT on 07/19/2019 with [facility]. The findings reported were continued physiological tracer activity at the colonic anastomosis. The right middle lobe mass that previously measured 3.1 x 2.2 cm with an SUV of 22.1 now measures 1.0 x 1.3 cm with an SUV of 7.7, indicating a positive response to therapy. There are similar improvement in the secondary right middle lobe nodule and in the right lower lobe nodule. The index node in the right 4R paratracheal territory now measures 1.5 with an SUV of 5.7 and previously was 1.8 cm with an SUV of 23. Multiple other mediastinal nodes demonstrate similar improvement . reviewed the PET/CT and recommended that Mr. Yu pursue 6 -8 more cycles of chemotherapy. Follow-up CT PET scan done on 10/25/2019, showed right middle lobe nodule that previously measured 1.0 x 1.3 cm with SUV of 7.7, now measure 1.1 x 0.7 cm with SUV of 4.3. A secondary right middle lobe nodule and the right lower lobe nodule are FDG negative. Similar improvement is noted in the mediastinal lymph nodes in the right paratracheal (4R) node now has SUV of 4.7 compared to 5.7 previously. Other nodes since subcarinal, right hilar, right pericardial regions are FDG negative. He has tolerated treatment well. It was recommended that he have 6 additional cycles of treatment then restage to determine further plan of care. Follow-up CT PET scan done on January 10, 2020 showed minimal progression is present in the dominant right middle lobe nodule now SUV 5.6 compared to 4.3. Secondary right middle lobe nodule now has SUV of 4.0 compared to negative on prior study. Medial right lower lobe nodule is unchanged at size 8 mm and remained FDG negative. FDG positive mediastinal adenopathy is generally unchanged, however a right sides. Prevascular node has SUV of 3.6.No herpetic involvement Patient was referred to GI oncology at [facility], as per patient's they were told that there is no clinical trial available at this point that the continue with the treatment locally. Follow-up CT scan of chest abdomen pelvis done on March 09, 2020 showed numerous right-sided pulmonary nodules which have been previously described. Nodules have all increased slight in size. Indeterminate mediastinal mass and right hilar lymph nodes and subcarinal lymph nodes are all unchanged in size. Small amount of soft tissue at anastomotic site in the right abdomen with a few smaller adjacent lymph nodes. No renal mass, no liver mets seen Mr. Yu resumed chemotherapy with FOLFIRI and Avastin on April 07, 2020. He did have a follow-up CT PET scan done on June 26, 2020 which showed dominant right middle lobe nodule now measuring 1.1 x 2.0 cm with SUV of 5.8 up from 1.1 cm with SUV of 5.6 on January 10, 2020. The remaining right middle lobe lung nodule and right lower lobe lung nodule is unchanged at size 8 mm and the main FDG negative mediastinal lymph node are not significantly changed. There are again identified right prevascular, subcarinal, right paratracheal territories. PET/CT scan findings were discussed bu Dr Goodman with Dr. Morrow ,radiologist, and his impression was increase in size of right middle lobe nodule could be due to disease progression or movements during scanning, otherwise stable disease. It was recommended that Mr Yu continue with treatment but the irinotecan was omitted due to declining performance status. He continues just on 5-FU and Avastin alone. We plan to reassess after 6 more cycles. Today's treatment will be the 4th of 6 planned treatments until he is due for his follow-up PET/CT imaging. Mr. Yu is here today for follow-up. He states he has been having chest fullness for 3 to 5 days after his treatment. He also has increased shortness of breath when that happens. He states is now resolved. He states that he is not as active during those days because he just does not feel like doing much. He states that is all better. He is now very active and is chest fullness is gone. He states every now and then he does have a little but nothing like he does 3 to 4 days after treatment. The shortness of breath is much improved as well. He denies any orthopnea. He states he is still having some intermittent neuropathy with slight tingling in his lips after the treatment and has not gone completely away after the last treatment. He has not had irinotecan since his last dose on June 17, 2020. He has continued since then just on Avastin, fluorouracil and leucovorin. He states he has had no swallowing problems. He denies any fever or chills. He states his bowels and bladder are normal for him. He states he has had some slight tingling in his lips after the treatment which is cold-induced but that is resolved presently. He denies any neuropathy in his hands or feet. His ECOG is 0. He does report that he received his [facility] Covid 19 vaccine with [facility] on August 10, 2020. He states he tolerated it well with no side effects other than his arm was just a little sore for a day or 2. . Past Medical History: Diabetes type II Hyperlipidemia Hypertension Past [facility] History[facility] Pneumonia Vaccine in 2017 - Given in left deltoid./lc Flu Vacccine in 2017 - Pt stated he had flu vaccine at [facility] 02/26/17./lc Left subclavian venous access device-Dr Willingham in 2017 Right Hemicolectomy in 2017 Allergies: Isosorbide Mononitrate and Succinylcholine Chloride. Medications: Aspirin 1 Tablet (of 81 mg) Oral daily Ativan 1 (0.5 mg) Tablet Oral q 4 hours PRN Atorvastatin Calcium 1 Tablet (of 40 mg) Oral daily B-12 1 Tablet (of 1000 mcg) Oral daily Calcium Carb-Cholecalciferol 1 Capsule (of 500-125 Units/mg) Oral daily Cinnamon 1 (500 mg) Capsule Oral b.i.d. Compazine Tablet Oral q 4 hours PRN Fish Oil 1 (1000 mg) Capsule Oral daily hydroCHLOROthiazide 1 Capsule (of 12.5 mg) Oral at bedtime Lisinopril 1 Tablet (of 40 mg) Oral daily MetFORMIN HCl 1 Tablet (of 500 mg) Oral b.i.d. Metoprolol Tartrate 0.5 Tablet (of 25 mg) Oral b.i.d. Multivitamin Adult 1 Tablet Oral daily Nitroglycerin 1 (0.4 mg) Tablet, sublingual Sublingual PRN Pepcid 1 (20 mg) Tablet Oral daily PRN Vitamin C 1 Tablet (of 500 mg) Oral daily Vitamin E 1 Capsule (of 400 Units) Oral daily Family History: Mr. Yu's mother at age 74: lung cancer. Mr. Yu's father at age 48: heart attack. Social History: Mr. Yu is and he is retired. Mr. Yu has never smoked. He has no history of drinking. Mr. Yu reports the following support systems: lives with spouse, significant other, family, or friends, lives in own house, supportive family/friends willing to assist with needs, and adequate transportation available for expected visits. His diet consists of regular meals. He indicates his activity level as: daily activities. Review Of Symptoms: Vital Signs: Performed on Aug 26, 2020 11:10 Height - 64.00 in Weight - 153.4 lbs (HIGH) BSA - 1.75 sq.m BMI - 26.33 Temperature - 97.7 F (LOW) Pulse - 68 /min Respiration - 17 /min BP - 179/74 mm(hg) (HIGH) O2 Sat - 97 % Pain - 0,0 - Fully active, able to carry on all predisease activities without restrictions. (ECOG) Physical Examination: Constitutional Alert, oriented, no acute distress. Skin pink, warm and dry. Head Normocephalic; atraumatic. Eyes Conjunctivae and sclerae are clear and without icterus. Pupils are reactive and equal. Wears glasses. Hematologic/Lymphatic No petechiae or purpura. Respiratory Lungs are clear to auscultation without rhonchi or wheezing. Cardiovascular Regular rate and rhythm of heart without murmurs,clicks, gallops or rubs. Chest Left subclavian venous access device insertion site is unremarkable. Back/Spine Non-tender to palpation. Extremities No visible deformities, no cyanosis, clubbing or edema. Musculoskeletal No tenderness or swelling, normal range of motion without obvious weakness. Integumentary No rashes or lesions. Neurologic No sensory or motor deficits, normal cerebellar function, normal gait. Psychiatric Alert and oriented times three. Coherent speech. Verbalizes understanding of our discussions today. Laboratory:Test performed on Aug 26, 2020 09:31 Sodium 132 mmol/L Potassium 4.6 mmol/L Chloride 99 mmol/L CO2 27 mmol/L Anion Gap 10.6 BUN 16 mg/dL Creatinine 0.9 mg/dL Cr Clearance (Est) 66.4800 mL/min Glucose 142 mg/dL Osmolality - Calculated 278 mOsm/kg Calcium 8.5 mg/dL Protein, Total 6.8 g/dL Albumin 3.8 g/dL Globulin 3.0 g/dL Bilirubin, Total 0.2 mg/dL ALT (SGPT) 30 U/L AST (SGOT) 25 U/L Alkaline Phosphatase 80 IU/L WBC 8.9 10 3/uL RBC 3.99 10 6/uL HGB 13.5 g/dL HCT 40.3 % MCV 101.0 fL MCH 33.8 pg MCHC 33.5 g/dL RDW 12.9 % Platelet Count 258 10 3/cmm MPV 9.6 fL Neutrophils 5.80 10 3/uL Lymphocytes 1.7 10 3/uL Monocytes 0.7 10 3/uL Eosinophils 0.6 10 3/uL Basophils 0.1 10 3/uL Neutrophil % 65.5 % Lymphocyte % 18.8 % Monocyte % 8.2 % Eosinophil % 6.4 % Basophils % 0.8 % NRBC % 0 % Test performed on Aug 12, 2020 08:20 Ua Color Yellow Ua Appearance Clear Ua Glucose Norm Ua Bilirubin Neg Ua Ketones Negative Ua Specific Park 1.015 Ua Blood Neg Ua pH 5 Ua Protein Neg Ua Nitrites Negative Ua Leukocyte Esterase Negative Test performed on Aug 12, 2020 08:17 CEA 9.9 ng/mL Test performed on Jul 29, 2020 08:01 Ua Urobilinogen 1 mg/dL Impression: 1. Recurrent adenocarcinoma involving paratracheal lymph node per bronchoscopy/ mediastinoscopy done on 04/28/2019 Immunohistochemistry positive for CDX -2, CK 20 Negative for CK 7, TTF-1 and CEA checked on 05/05/2019 was 10.6 2. 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 He underwent laparoscopic right hemicolectomy on 01/10/2017. High risk features included near obstructing primary tumor, pathologic evidence of lymphovascular space invasion, and less than 12 lymph nodes sampled. 3. s/p adjuvant chemotherapy with modified FOLFOX.???4 from 01/30/2017 through 04/02/2017, FOLFOX minus oxaliplatin ???8 from 04/23/2017 through 07/23/2017. 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 4. He has iron deficiency anemia, resolved . His other medical illnesses include: 5. Hypertension. 6. Hyperlipidemia. 7. Type II diabetes .Follow-up colonoscopy done on 02/06/2018 showed ileocolic anastomosis looked intact without evidence of recurrence, and wide patent. In the proximal transverse colon, an abnormality was noted. Follow-up colonoscopy done on 02/26/2019 showed no abnormality seen, ileocolic anastomosis widely patent without evidence of local recurrence. CEA checked on 01/07/2019 was 7.2 compared to 2.4 on 07/05/2018 and repeat CEA on 03/04/[address] PET scan done on 03/15/2019 showed 3.1 x 2.2 cm mass in the right middle lobe with SUV of 22.1, and adjust in the right middle lobe FDG positive satellite nodule noted. The right lower lobe perihilar nodule measuring 1.6 cm with SUV of 21.6. Multiple mediastinal nodes are FDG positive, consistent with metastatic disease and index node in the right 4R peritracheal territory measures 1.6 cm with SUV of 23.0 and other similar nodes are evident in the right pericardial, right superior mediastinal, right periesophageal territory. No evidence of metastatic disease to bone or below diaphragm. Clinically, patient is doing well, tolerated mediastinoscopy well now surgical wound is healing well. And final pathology report came back metastatic adenocarcinoma, probably GI in origin. Discussed with patient regarding treatment options. 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 He began cycle 1 of 6 on 03/13/2019. He has tolerated it extremly well at this time. recommended 6 cycles of FOLFIRI/Avastin the restage with followup PET/CT. Mr Yu began cycle 1 on 05/13/2019. He has tolerated it well. After 5 cycles of chemotherapy, Mr. Yu had follow-up PET/CT on 07/19/2019 with [facility]. The findings reported were continued physiological tracer activity at the colonic anastomosis. The right middle lobe mass that previously measured 3.1 x 2.2 cm with an SUV of 22.1 now measures 1.0 x 1.3 cm with an SUV of 7.7, indicating a positive response to therapy. There are similar improvement in the secondary right middle lobe nodule and in the right lower lobe nodule. The index node in the right 4R paratracheal territory now measures 1.5 with an SUV of 5.7 and previously was 1.8 cm with an SUV of 23. Multiple other mediastinal nodes demonstrate similar improvement . has reviewed the PET/CT and has recommended that Mr. Yu pursue 6 more cycles of chemotherapy.Follow-up CT PET scan done on June 26, 2020 showed stable disease except right middle lobe of lung shows increased in size 1.1 x 2 cm compared to 1.1 cm with similar SUV on January 10, 2020 On July 01, 2020 irinotecan was discontinued because of related side effects e.g. generalized weakness and fatigue and was started on maintenance therapy with Avastin/5-FU alone. Plan: PROBLEMS ADDRESSED TODAY A. METASTATIC COLON CANCER Dr Goodman discussed with Mr Yu further treatment options. Clinically it appears current regimen FOLFIRI/Avastin now start interfering with performance status e.g. generalized weakness and fatigue for few days after each course, otherwise tolerating reasonably well. His follow-up PET/CT from 06/26/2020 scan shows stable disease except right middle lobe nodule has increased in size but with similar SUV. As per Dr. Morrow it could be due to movements during scanning so at this point we will consider switching him to maintenance therapy with Avastin/5-FU alone, hopefully he will maintain good performance status and disease control. He will proceed with maintenance therapy with Avastin/5-FU and discontinue irinotecan. 1. Proceed with cycle 5/6 of chemotherapy with 5FU/Avastin today. 2. Mr Yu was scheduled for colonoscopy on May 05, 2020 to assess anastomosis site to rule out local recurrence. He had repeat colonoscopy on 06/07/[address] Willingham @ [facility]. 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 Serial balloon dilatations were done starting by 13.5 mmHg up to 16.[address] Willingham was able to traverse the stricture with the scope safely without complications. There is no signs of local recurrence . It was noted that a digital rectal exam was performed and an enlarged prostate was noted. The patient was referred to Dr. Zia Raya and recommend follow-up colonoscopy in 1 year. 3. Today's labs were reviewed in detail and discussed with & Mrs. Yu and a copy was given to them. WBC 8.9, hemoglobin 13.5, platelets 258,000 ANC is 5800. Potassium 4.6 creatinine 0.9 LFTs are normal his UA is negative for protein. His CEA is 9.9. 4. We will plan to see Mr. Yu back in 2 weeks with CBC CMP & UA. The current plan is to repeat PET CT imaging after 6 cycles from his pet imaging in June 2020. Today is cycle 5 of those 6 planned treatments. B. Hypertension 1. His blood pressure is stable today at 179/74. He states it is running normal at home. He is being monitored by Dr. Simons and cardiology. 5. Mr. Yu has been encouraged to contact us in the interim should questions or problems arise. ADDENDUM: I spoke with Dr. Goodman upon his return from being out of the office on Mr. Yu's visit from August 26, 2020. I was concerned regarding his tolerance of the chemotherapy. It was recommended to pursue his follow-up PET CT imaging now versus waiting for 1 more cycle given his current intolerance and declining performance status for those few days after treatment. I did speak with Mrs. Yu and Mr. Yu and they were in agreement to proceed with a PET/CT. We will have that result to review with him at his September 08, 2020 visit. Signed By: Tripp Gibson-, [facility] Hayley Goodman MD, MD <<Signature on File>>
== END 2020-09-01 23:59 | disposition home or self-care (01) ==
LOC: ONCMED 05:32
PROVIDERS: PCP Family Medicine; Visit Provider Nurse Practitioner
DX: C77.1 Secondary and unspecified malignant neoplasm of intrathoracic lymph nodes (principal); R91.8 Other nonspecific abnormal finding of lung field; I10 Essential (primary) hypertension; E78.5 Hyperlipidemia, unspecified; E11.9 Type 2 diabetes mellitus without complications; N40.0 Benign prostatic hyperplasia without lower urinary tract symptoms; R53.1 Weakness; R53.83 Other fatigue; T45.1X5A Adverse effect of antineoplastic and immunosuppressive drugs, initial encounter; Z85.038 Personal history of other malignant neoplasm of large intestine; Z90.49 Acquired absence of other specified parts of digestive tract; Z92.21 Personal history of antineoplastic chemotherapy; Z98.0 Intestinal bypass and anastomosis status; Z79.899 Other long term (current) drug therapy
CPT/HCPCS: 80053; 81003; 82378; 85025; 96361; 96367; 96375; 96413; 96416; 99214; J0640; J1100; J1453; J2469; J3490; J7030; J7050; J9035; J9190

== ENCOUNTER 2020-09-29 06:55 | Outpatient (RCR) | payer MEDICARE, OTHER, SELFPAY ==
--- NOTE | 2020-09-19 21:49 | ONC FU_ITS ---
[facility] Patient Note Patient: Geoff Yu Unit #: [id number]: 1945 Dictated By: Tripp GibsonDate of Visit: Sep 08, 2020 Onc MED Follow-Up/Prog Note I spoke with Mr. Mrs. Yu regarding Mr. Yu his PET/CT from September 04, 2020. This was compared to his prior PET CT from June 2020 as well as studies from January 2020 and October 2019. Primary PET/CT findings: The dominant right middle lobe now measures 1.4 x 3.2 cm with an SUV of 9.6 a significant change from the prior study. The right middle lobe measured 1.1 x 2.0 cm with an SUV of 5.8 from the June 2020 study. The secondary, more lateral right middle lobe nodule is progressed as well, now measuring 1.4 cm with an SUV of 9 (the SUV on the June 2020 study was 3.5). Subcarinal node is progressed on the current study, now with an SUV of 6.5 up from 4.9 previously. The right peritracheal node is minimally improved, now with an SUV of 4.5 down from 6.6 on the June 2020 study. There are no new lesions reported. There were no findings to indicate osseous metastatic disease. There was no significant pelvic or abdominal adenopathy present. Mr. Yu did have [facility] sequencing reported on May 22, 2019. 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 His MSI was stable mismatch repair status was proficient and TKR 1, 2, 3 fusion not detected. Tumor mutational burden was intermediate???9 mutations/Mb. Mr. Yu is treatments to date have included FOLFOX from January 2017 to March 20 at which time the oxaliplatin was dropped due to significant peripheral neuropathy. He continued with 5-FU through July 2017. In May 2019 he did have disease progression and was treated with FOLFIRI. He continued this through June 26, 2020. At that time the irinotecan was dropped and the Avastin and fluorouracil continued. His last treatment with this regimen was August 26, 2020. I have requested guardian 360: Panel for metastatic colon cancer reevaluation. We will hold any treatment decisions until we receive these results. His Caris report is now close to 2 years old and we are reassessing for any potential abnormalities. We will plan to see him back after the results of the guardian 360 are back. A copy of the PET CT was given to them. Mr. Yu states he feels good. He has no questions or complaints today. He was encouraged to contact us in the interim should questions or problems arise. Signed By: Tripp Gibson-[facility] <<Signature on File>>
[2020-09-27 12:02] LABS: Basophils % 0.5 %; Eosinophils # 0.3 10^3/uL (0.0-0.8); Eosinophils % 3.3 %; Hematocrit 42.2 % (42.0-52.0); Hemoglobin 13.9 g/dL (11.7-16.6); Lymphocytes # 1.8 10^3/uL (0.8-4.8); Lymphocytes % 21.3 %; Mean Corpuscular HGB Conc 32.9 g/dL (30.0-36.0); Mean Corpuscular Hemoglobin 33.3 pg (28.0-34.0); Mean Corpuscular Volume 101.2 fL (80-94); Monocytes # 0.8 10^3/uL (0.2-0.9); Monocytes % 9.3 %; Neutrophils # 5.48 10^3/uL (1.8-7.7); Neutrophils % 65.4 %; Nucleated Red Blood Cells % 0 %; Platelet Count 258 10^3/cmm (130-400); Red Blood Count 4.17 10^6/uL (4.1-5.3); Red Cell Distribution Width 12.4 % (12.1-15.1); White Blood Count 8.4 10^3/uL (4.0-10.0)
[2020-09-27 12:37] LABS: Carcinoembryonic Antigen 10.9 ng/mL (0.0-4.7)
[2020-09-27 12:48] LABS: Alanine Aminotransferase 26 U/L (0-41); Alkaline Phosphatase 72 IU/L (40-130); Anion Gap 17.3 (5-19); Aspartate Amino Transferase 30 U/L (0-40); Blood Urea Nitrogen 17 mg/dL (8-23); Calcium 8.6 mg/dL (8.5-10.5); Carbon Dioxide 23 mmol/L (22-29); Chloride 102 mmol/L (98-107); Globulin 2.7 g/dL (1.3-4.6); Glucose 165 mg/dL (65-115); Osmolality Calculated 291 mOsm/kg (285-295); Potassium 4.3 mmol/L (3.5-5.1); Sodium 138 mmol/L (136-145); Total Bilirubin 0.2 mg/dL (0.15-1.2); Total Protein 6.7 g/dL (6.6-8.7)
--- NOTE | 2020-09-29 10:05 | ONC FU_ITS ---
Dr. 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 He had presented with symptoms of abdominal pain and early satiety. CT abdomen/pelvis on 01/05/2017 showed an apple core appearing lesion at the hepatic flexure with associated obstruction involving the ascending colon, cecum, and ileum. The appearance was suspicious for neoplasm. There was a small amount of pelvic ascites. A 6.9 mm right lower lobe noncalcified pulmonary nodule was felt to be nonspecific. There was otherwise no evidence of metastatic disease. Colonoscopy on 01/09/2017 showed a partially obstructing malignant appearing mass at the hepatic flexure estimated at 5 x 4 cm. An additional sessile polyp was noted in the distal sigmoid colon and excised by hot snare. Biopsy of the hepatic flexure mass showed poorly differentiated infiltrating adenocarcinoma. The distal sigmoid lesion was a hyperplastic polyp. He underwent laparoscopic right hemicolectomy with ileocolic anastomosis and partial omentectomy on 01/10/2017. Pathology showed moderately differentiated infiltrating adenocarcinoma with invasion of the muscularis propria into rehana-colic tissue. The tumor measured 2.3 x 1.8 cm. The margins were free of tumor. There was evidence of lymphovascular space invasion. A total of 7 lymph nodes were identified in the sample and all were negative for metastatic disease. Final pathologic staging was T3, N0. He had several high risk features including a near obstructing primary tumor, evidence of lymphovascular space invasion, and less then 12 lymph nodes sampled. 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 Follow-up colonoscopy done on 02/06/2018 showed ileocolic anastomosis looked intact without evidence of recurrence and wide patent. In the proximal transverse colon, an abnormality was noted. He was followed by Dr. Willingham His other medical illnesses include hypertension, hyperlipidemia, and type II diabetes. He is a nonsmoker. Follow-up colonoscopy done on 02/26/2019 showed normal findings. Ileocolic anastomosis is widely patent without evidence of local recurrence. CEA repeated on 03/04/2019 was 7.7 compared to 7.2 on 01/07/2019 CT PET scan done on 03/15/2019 showed 3.1 x 2.2 cm mass in the right middle lobe with SUV of 22.1, and an adjacent right middle lobe FDG positive satellite nodule was noted. The right lower lobe perihilar nodule measuring 1.6 cm with SUV of 21.6. Multiple mediastinal nodes are FDG positive, consistent with metastatic disease and index node in the right 4R peritracheal territory measures 1.6 cm with SUV of 23.0 and other similar nodes are evident in the right pericardial, right superior mediastinal, right periesophageal territory. No evidence of metastatic disease to bone or below diaphragm Underwent mediastinoscopy on 04/28/2019 and lymph node biopsy was obtained from paratracheal, station 4R, final pathology report showed metastatic adenocarcinoma, consistent with GI origin. The tumor was positive for CD X2, CK 20; negative for CK 7 and TTF-1. recommended 6 cycles of FOLFIRI/Avastin the restage with followup PET/CT. Mr Yu began cycle 1 on 05/13/2019. He has tolerated it well. Mr. Yu had follow-up PET/CT on 07/19/2019 with [facility] radiology out [facility]. The findings reported were continued physiological tracer activity at the colonic anastomosis. The right middle lobe mass that previously measured 3.1 x 2.2 cm with an SUV of 22.1 now measures 1.0 x 1.3 cm with an SUV of 7.7, indicating a positive response to therapy. There are similar improvement in the secondary right middle lobe nodule and in the right lower lobe nodule. The index node in the right 4R paratracheal territory now measures 1.5 with an SUV of 5.7 and previously was 1.8 cm with an SUV of 23. Multiple other mediastinal nodes demonstrate similar improvement . reviewed the PET/CT and recommended that Mr. Yu pursue 6 -8 more cycles of chemotherapy. Follow-up CT PET scan done on 10/25/2019, showed right middle lobe nodule that previously measured 1.0 x 1.3 cm with SUV of 7.7, now measure 1.1 x 0.7 cm with SUV of 4.3. A secondary right middle lobe nodule and the right lower lobe nodule are FDG negative. Similar improvement is noted in the mediastinal lymph nodes in the right paratracheal (4R) node now has SUV of 4.7 compared to 5.7 previously. Other nodes since subcarinal, right hilar, right pericardial regions are FDG negative. He has tolerated treatment well. It was recommended that he have 6 additional cycles of treatment then restage to determine further plan of care. Follow-up CT PET scan done on January 10, 2020 showed minimal progression is present in the dominant right middle lobe nodule now SUV 5.6 compared to 4.3. Secondary right middle lobe nodule now has SUV of 4.0 compared to negative on prior study. Medial right lower lobe nodule is unchanged at size 8 mm and remained FDG negative. FDG positive mediastinal adenopathy is generally unchanged, however a right sides. Prevascular node has SUV of 3.6.No herpetic involvement Patient was referred to GI oncology at [facility], as per patient's they were told that there is no clinical trial available at this point that the continue with the treatment locally. Follow-up CT scan of chest abdomen pelvis done on March 09, 2020 showed numerous right-sided pulmonary nodules which have been previously described. Nodules have all increased slight in size. Indeterminate mediastinal mass and right hilar lymph nodes and subcarinal lymph nodes are all unchanged in size. Small amount of soft tissue at anastomotic site in the right abdomen with a few smaller adjacent lymph nodes. No renal mass, no liver mets seen Mr. Yu resumed chemotherapy with FOLFIRI and Avastin on April 07, 2020. He did have a follow-up CT PET scan done on June 26, 2020 which showed dominant right middle lobe nodule now measuring 1.1 x 2.0 cm with SUV of 5.8 up from 1.1 cm with SUV of 5.6 on January 10, 2020. The remaining right middle lobe lung nodule and right lower lobe lung nodule is unchanged at size 8 mm and the main FDG negative mediastinal lymph node are not significantly changed. There are again identified right prevascular, subcarinal, right paratracheal territories. PET/CT scan findings were discussed with Dr. Morrow ,radiologist, and his impression was increase in size of right middle lobe nodule could be due to disease progression or movements during scanning, otherwise stable disease. It was recommended that Mr Yu continue with treatment but the irinotecan was omitted After last dose given on June 17, 2020, due to declining performance status. He continues just on 5-FU and Avastin alone. We plan to reassess after 6 more cycles. So follow-up CT PET scan was done on September 05, 2019 which showed no new lesions, mixed response of mediastinal lymph nodes e.g. right paratracheal lymph node is minimally improved now SUV 4.5 compared to 6.6 previously the subcarinal node is progressed on the current study now with SUV 6.5 compared to 4.9 previously and dominant right middle lobe nodule now measuring 1.4 x 3.2 cm compared to 1.1 x 2 cm with SUV of 5.8 in June 2020 and a secondary, more lateral right middle lobe nodule is progressed as well as now measuring 1.4 cm with SUV of 9. Patient is also developing some new symptoms like dyspnea on exertion and the off and on peripheral numbness, generalized weakness and fatigue, Because of worsening of performance status although follow-up CT PET scan showed mixed response in mediastinal lymph node and mild progression in the right middle lobe with no new lesions, it was decided to discontinue 5-FU/Avastin and recommended Lonsurf 35 mg per metered square based on trifluridine component , orally twice daily with meals from day 1 through 5, day 8 through 12 and repeat every 28 days Came for follow-up, complaining of generalized weakness and fatigue mild dyspnea on exertion now improving since of chemotherapy with FOLFIRI/Avastin, no hemoptysis or hematemesis, no jaundice, no headaches, no new bony pains, no abdominal pain, no diarrhea or constipation.Overall feeling well since of systemic therapy . Medications: Aspirin 1 Tablet (of 81 mg) Oral daily, Ativan 1 (0.5 mg) Tablet Oral q 4 hours PRN, Atorvastatin Calcium 1 Tablet (of 40 mg) Oral daily, B-12 1 Tablet (of 1000 mcg) Oral daily, Calcium Carb-Cholecalciferol 1 Capsule (of 500-125 Units/mg) Oral daily, Cinnamon 1 (500 mg) Capsule Oral b.i.d., Compazine Tablet Oral q 4 hours PRN, Fish Oil 1 (1000 mg) Capsule Oral daily, hydroCHLOROthiazide 1 Capsule (of 12.5 mg) Oral at bedtime, Lisinopril 1 Tablet (of 40 mg) Oral daily, MetFORMIN HCl 1 Tablet (of 500 mg) Oral b.i.d., Metoprolol Tartrate 0.5 Tablet (of 25 mg) Oral b.i.d., Multivitamin Adult 1 Tablet Oral daily, Nitroglycerin 1 (0.4 mg) Tablet, sublingual Sublingual PRN, Pepcid 1 (20 mg) Tablet Oral daily PRN, Vitamin C 1 Tablet (of 500 mg) Oral daily, Vitamin E 1 Capsule (of 400 Units) Oral daily Allergies: Isosorbide Mononitrate and Succinylcholine Chloride. Review of Systems: Review of Systems is not available for this patient. Vital Signs: Performed on Sep 29, 2020 08:52 Height - 64.00 in Weight - 150 lbs BSA - 1.73 sq.m BMI - 25.75 Temperature - 97.6 F (LOW) Pulse - 74 /min Respiration - 18 /min BP - 156/91 mm(hg) (HIGH) O2 Sat - 96 % Pain - 0 Performance Status: 0 - Fully active, able to carry on all predisease activities without restrictions. (ECOG) Physical Examination: ENMT - No mouth sores, no thrush, no jaundice, Respiratory - Lungs are clear to auscultation, Cardiovascular - Regular rate and rhythm of heart , Abdomen - Soft, bowel sounds present, Extremities - No visible edema. Lab/Imaging: Test performed on Aug 26, 2020 09:31 Sodium 132 mmol/L Potassium 4.6 mmol/L Chloride 99 mmol/L CO2 27 mmol/L Anion Gap 10.6 BUN 16 mg/dL Creatinine 0.9 mg/dL Cr Clearance (Est) 66.4800 mL/min Glucose 142 mg/dL Osmolality - Calculated 278 mOsm/kg Calcium 8.5 mg/dL Protein, Total 6.8 g/dL Albumin 3.8 g/dL Globulin 3.0 g/dL Bilirubin, Total 0.2 mg/dL ALT (SGPT) 30 U/L AST (SGOT) 25 U/L Alkaline Phosphatase 80 IU/L WBC 8.9 10 3/uL RBC 3.99 10 6/uL HGB 13.5 g/dL HCT 40.3 % MCV 101.0 fL MCH 33.8 pg MCHC 33.5 g/dL RDW 12.9 % Platelet Count 258 10 3/cmm MPV 9.6 fL Neutrophils 5.80 10 3/uL Lymphocytes 1.7 10 3/uL Monocytes 0.7 10 3/uL Eosinophils 0.6 10 3/uL Basophils 0.1 10 3/uL Neutrophil % 65.5 % Lymphocyte % 18.8 % Monocyte % 8.2 % Eosinophil % 6.4 % Basophils % 0.8 % NRBC % 0 % Test performed on Aug 12, 2020 08:20 Ua Color Yellow Ua Appearance Clear Ua Glucose Norm Ua Bilirubin Neg Ua Ketones Negative Ua Specific [place] 1.015 Ua Blood Neg Ua pH 5 Ua Protein Neg Ua Nitrites Negative Ua Leukocyte Esterase Negative Test performed on Aug 12, 2020 08:17 CEA 9.9 ng/mL Test performed on Jul 29, 2020 08:01 Ua Urobilinogen 1 mg/dL Impression: 1. Recurrent adenocarcinoma involving paratracheal lymph node per bronchoscopy/ mediastinoscopy done on 04/28/2019 Immunohistochemistry positive for CDX -2, CK 20 Negative for CK 7, TTF-1 and CEA checked on 05/05/2019 was 10.6 2. 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 He underwent laparoscopic right hemicolectomy on 01/10/2017. High risk features included near obstructing primary tumor, pathologic evidence of lymphovascular space invasion, and less than 12 lymph nodes sampled. 3. s/p adjuvant chemotherapy with modified FOLFOX.???4 from 01/30/2017 through 04/02/2017, FOLFOX minus oxaliplatin ???8 from 04/23/2017 through 07/23/2017. 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 4. He has iron deficiency anemia, resolved . His other medical illnesses include: 5. Hypertension. 6. Hyperlipidemia. 7. Type II diabetes .Follow-up colonoscopy done on 02/06/2018 showed ileocolic anastomosis looked intact without evidence of recurrence, and wide patent. In the proximal transverse colon, an abnormality was noted. Follow-up colonoscopy done on 02/26/2019 showed no abnormality seen, ileocolic anastomosis widely patent without evidence of local recurrence. CEA checked on 01/07/2019 was 7.2 compared to 2.4 on 07/05/2018 and repeat CEA on 03/04/[address] PET scan done on 03/15/2019 showed 3.1 x 2.2 cm mass in the right middle lobe with SUV of 22.1, and adjust in the right middle lobe FDG positive satellite nodule noted. The right lower lobe perihilar nodule measuring 1.6 cm with SUV of 21.6. Multiple mediastinal nodes are FDG positive, consistent with metastatic disease and index node in the right 4R peritracheal territory measures 1.6 cm with SUV of 23.0 and other similar nodes are evident in the right pericardial, right superior mediastinal, right periesophageal territory. No evidence of metastatic disease to bone or below diaphragm. Clinically, patient is doing well, tolerated mediastinoscopy well now surgical wound is healing well. And final pathology report came back metastatic adenocarcinoma, probably GI in origin. Discussed with patient regarding treatment options. 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 He began cycle 1 of 6 on 03/13/2019. He has tolerated it extremly well at this time. recommended 6 cycles of FOLFIRI/Avastin the restage with followup PET/CT. Mr Yu began cycle 1 on 05/13/2019. He has tolerated it well. After 5 cycles of chemotherapy, Mr. Yu had follow-up PET/CT on 07/19/2019 with [facility] radiology out [facility]. The findings reported were continued physiological tracer activity at the colonic anastomosis. The right middle lobe mass that previously measured 3.1 x 2.2 cm with an SUV of 22.1 now measures 1.0 x 1.3 cm with an SUV of 7.7, indicating a positive response to therapy. There are similar improvement in the secondary right middle lobe nodule and in the right lower lobe nodule. The index node in the right 4R paratracheal territory now measures 1.5 with an SUV of 5.7 and previously was 1.8 cm with an SUV of 23. Multiple other mediastinal nodes demonstrate similar improvement . has reviewed the PET/CT and has recommended that Mr. Yu pursue 6 more cycles of chemotherapy.Follow-up CT PET scan done on June 26, 2020 showed stable disease except right middle lobe of lung shows increased in size 1.1 x 2 cm compared to 1.1 cm with similar SUV on January 10, 2020 On July 01, 2020 irinotecan was discontinued because of related side effects e.g. generalized weakness and fatigue and was started on maintenance therapy with Avastin/5-FU alone. Follow-up CT PET scan done on September 04, 2020 showed mixed response of mediastinal lymph nodes, progression of right middle lobe nodule, but no new lesions seen, Because of progressive dyspnea on exertion, off and on neuropathy, Avastin/5-FU alone was discontinued and was started on Lonsurf orally on September 29, 2020 Plan: Discussed with patient regarding his labs white blood count 8.4 hemoglobin 13.9 hematocrit 42.2 platelets 258,000 CMP within normal limits CEA 10.9 compared to 9.9 previously and follow-up CT PET scan which was done on September 04, 2020 which showed mixed response in the mediastinal lymph nodes but progression of right middle lobe dominant nodule but no new lesions seen Clinically, patient is doing reasonably well, feeling better since he is off systemic therapy, his follow-up CT PET scan shows mild progression in the right middle lobe nodule but mixed response in mediastinal lymph nodes but more importantly no new lesions seen but because of progressive symptoms while on systemic therapy with Avastin and 5-FU, it was decided to discontinue systemic therapy and now considering Lonsurf 35 mg/m??? on trifluridine component based and he will take orally twice a day day 1 through 5 and day 8 through 12 and he will repeat the cycle every 28 days. All the side effects possible benefits associated with therapy including but not limited to nausea vomiting diarrhea, bone marrow suppression were mentioned further teaching done by chemotherapy nurse, will obtain approval from his insurance prior to the treatment and then patient will return to clinic 1 week after his day 12 Lonsurf dose, with CBC and CMP. Signed By: Hayley Goodman M.D. <<Signature on File>>
== END 2020-10-01 23:59 | disposition home or self-care (01) ==
LOC: ONCMED 06:55
PROVIDERS: Nurse Practitioner; PCP Family Medicine; Visit Provider Internal Medicine Hematology & Oncology
DX: C18.0 Malignant neoplasm of cecum (principal); C77.1 Secondary and unspecified malignant neoplasm of intrathoracic lymph nodes; D50.9 Iron deficiency anemia, unspecified; Z45.2 Encounter for adjustment and management of vascular access device; Z79.899 Other long term (current) drug therapy
CPT/HCPCS: 36415; 36591; 80053; 82378; 85025; 96523; 99214

== ENCOUNTER 2020-10-22 05:51 | Outpatient (RCR) | payer MEDICARE, OTHER, SELFPAY | END 2020-11-01 23:59 | disposition home or self-care (01) | LOC: ONCMED 05:51 | PROVIDERS: PCP Family Medicine; Visit Provider Internal Medicine Hematology & Oncology | DX: Z45.2 Encounter for adjustment and management of vascular access device (principal) | CPT/HCPCS: 96523 ==

== ENCOUNTER 2020-11-26 06:42 | Outpatient (RCR) | payer MEDICARE, OTHER, SELFPAY | END 2020-12-01 23:59 | disposition home or self-care (01) | LOC: ONCMED 06:42 | PROVIDERS: PCP Family Medicine; Visit Provider Nurse Practitioner | DX: Z45.2 Encounter for adjustment and management of vascular access device (principal) | CPT/HCPCS: 96523 ==

== ENCOUNTER 2020-12-24 05:47 | Outpatient (RCR) | payer MEDICARE, OTHER, SELFPAY ==
[2020-12-24 12:12] LABS: Basophils % 0.4 %; Eosinophils # 0.1 10^3/uL (0.0-0.8); Eosinophils % 1.7 %; Hematocrit 37.6 % (42.0-52.0); Hemoglobin 12.4 g/dL (11.7-16.6); Lymphocytes # 1.9 10^3/uL (0.8-4.8); Lymphocytes % 22.3 %; Mean Corpuscular Hemoglobin 31.6 pg (28.0-34.0); Mean Corpuscular Volume 95.7 fL (80-94); Mean Platelet Volume 9.7 fL (7.4-10.4); Monocytes # 0.5 10^3/uL (0.2-0.9); Monocytes % 5.8 %; Neutrophils # 5.76 10^3/uL (1.8-7.7); Neutrophils % 69.6 %; Nucleated Red Blood Cells % 0 %; Platelet Count 254 10^3/cmm (130-400); Red Blood Count 3.93 10^6/uL (4.1-5.3); Red Cell Distribution Width 12.9 % (12.1-15.1); White Blood Count 8.3 10^3/uL (4.0-10.0)
[2020-12-24 12:38] LABS: Alanine Aminotransferase 16 U/L (0-41); Albumin Level 3.8 g/dL (3.5-5.2); Alkaline Phosphatase 71 IU/L (40-130); Anion Gap 13.6 (5-19); Aspartate Amino Transferase 18 U/L (0-40); Blood Urea Nitrogen 20 mg/dL (8-23); Carbon Dioxide 24 mmol/L (22-29); Chloride 100 mmol/L (98-107); Globulin 2.4 g/dL (1.3-4.6); Glucose 91 mg/dL (65-115); Osmolality Calculated 278 mOsm/kg (285-295); Potassium 4.6 mmol/L (3.5-5.1); Sodium 133 mmol/L (136-145); Total Bilirubin 0.6 mg/dL (0.15-1.2); Total Protein 6.2 g/dL (6.6-8.7)
[2020-12-24 13:32] LABS: Carcinoembryonic Antigen 29.6 ng/mL (0.0-4.7)
== END 2021-01-01 23:59 | disposition home or self-care (01) ==
LOC: ONCMED 05:47
PROVIDERS: PCP Family Medicine; Visit Provider Internal Medicine Hematology & Oncology
DX: C18.0 Malignant neoplasm of cecum (principal); C77.1 Secondary and unspecified malignant neoplasm of intrathoracic lymph nodes; D50.9 Iron deficiency anemia, unspecified; Z79.899 Other long term (current) drug therapy
CPT/HCPCS: 80053; 82378; 85025; 96523

== ENCOUNTER 2021-02-14 11:51 | Outpatient (CLI) | payer MEDICARE, OTHER, SELFPAY ==
[2021-02-14 13:01] LABS: Basophils % 0.2 %; Eosinophils % 0.4 %; Hematocrit 34.5 % (42.0-52.0); Hemoglobin 11.8 g/dL (11.7-16.6); Lymphocytes # 1.7 10^3/uL (0.8-4.8); Lymphocytes % 36.3 %; Mean Corpuscular HGB Conc 34.2 g/dL (30.0-36.0); Mean Corpuscular Hemoglobin 33.4 pg (28.0-34.0); Mean Corpuscular Volume 97.7 fl (80-94); Monocytes # 0.8 10^3/uL (0.2-0.9); Neutrophils # 2.18 10^3/uL (1.8-7.7); Neutrophils % 45.7 %; Nucleated Red Blood Cells % 0 %; Platelet Count 279 10^3/cmm (130-400); Red Blood Count 3.53 10^6/uL (4.1-5.3); Red Cell Distribution Width 16.4 % (12.1-15.1); White Blood Count 4.8 10^3/uL (4.0-10.0)
[2021-02-14] MEDS: alteplase 1 mg/mL SDV 2 mL 2 MG IV ×2 (13:14→14:21)
[2021-02-14 13:29] LABS: Alanine Aminotransferase 23 U/L (0-41); Alkaline Phosphatase 79 IU/L (40-130); Anion Gap 15.2 (5-19); Aspartate Amino Transferase 25 U/L (0-40); Blood Urea Nitrogen 17 mg/dL (8-23); Calcium 8.6 mg/dL (8.5-10.5); Carbon Dioxide 24 mmol/L (22-29); Chloride 99 mmol/L (98-107); Globulin 2.8 g/dL (1.3-4.6); Glucose 147 mg/dL (65-115); Osmolality Calculated 282 mOsm/kg (285-295); Potassium 4.2 mmol/L (3.5-5.1); Sodium 134 mmol/L (136-145); Total Bilirubin 0.3 mg/dL (0.15-1.2); Total Protein 6.8 g/dL (6.6-8.7)
--- NOTE | 2021-02-14 14:11 | ONC FU_ITS ---
Dr. 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 He had presented with symptoms of abdominal pain and early satiety. CT abdomen/pelvis on 01/05/2017 showed an apple core appearing lesion at the hepatic flexure with associated obstruction involving the ascending colon, cecum, and ileum. The appearance was suspicious for neoplasm. There was a small amount of pelvic ascites. A 6.9 mm right lower lobe noncalcified pulmonary nodule was felt to be nonspecific. There was otherwise no evidence of metastatic disease. Colonoscopy on 01/09/2017 showed a partially obstructing malignant appearing mass at the hepatic flexure estimated at 5 x 4 cm. An additional sessile polyp was noted in the distal sigmoid colon and excised by hot snare. Biopsy of the hepatic flexure mass showed poorly differentiated infiltrating adenocarcinoma. The distal sigmoid lesion was a hyperplastic polyp. He underwent laparoscopic right hemicolectomy with ileocolic anastomosis and partial omentectomy on 01/10/2017. Pathology showed moderately differentiated infiltrating adenocarcinoma with invasion of the muscularis propria into rehana-colic tissue. The tumor measured 2.3 x 1.8 cm. The margins were free of tumor. There was evidence of lymphovascular space invasion. A total of 7 lymph nodes were identified in the sample and all were negative for metastatic disease. Final pathologic staging was T3, N0. He had several high risk features including a near obstructing primary tumor, evidence of lymphovascular space invasion, and less then 12 lymph nodes sampled. 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 Follow-up colonoscopy done on 02/06/2018 showed ileocolic anastomosis looked intact without evidence of recurrence and wide patent. In the proximal transverse colon, an abnormality was noted. He was followed by Dr. Willingham His other medical illnesses include hypertension, hyperlipidemia, and type II diabetes. He is a nonsmoker. Follow-up colonoscopy done on 02/26/2019 showed normal findings. Ileocolic anastomosis is widely patent without evidence of local recurrence. CEA repeated on 03/04/2019 was 7.7 compared to 7.2 on 01/07/2019 CT PET scan done on 03/15/2019 showed 3.1 x 2.2 cm mass in the right middle lobe with SUV of 22.1, and an adjacent right middle lobe FDG positive satellite nodule was noted. The right lower lobe perihilar nodule measuring 1.6 cm with SUV of 21.6. Multiple mediastinal nodes are FDG positive, consistent with metastatic disease and index node in the right 4R peritracheal territory measures 1.6 cm with SUV of 23.0 and other similar nodes are evident in the right pericardial, right superior mediastinal, right periesophageal territory. No evidence of metastatic disease to bone or below diaphragm Underwent mediastinoscopy on 04/28/2019 and lymph node biopsy was obtained from paratracheal, station 4R, final pathology report showed metastatic adenocarcinoma, consistent with GI origin. The tumor was positive for CD X2, CK 20; negative for CK 7 and TTF-1. recommended 6 cycles of FOLFIRI/Avastin the restage with followup PET/CT. Mr Yu began cycle 1 on 05/13/2019. He has tolerated it well. Mr. Yu had follow-up PET/CT on 07/19/2019 with [facility] radiology out [facility]. The findings reported were continued physiological tracer activity at the colonic anastomosis. The right middle lobe mass that previously measured 3.1 x 2.2 cm with an SUV of 22.1 now measures 1.0 x 1.3 cm with an SUV of 7.7, indicating a positive response to therapy. There are similar improvement in the secondary right middle lobe nodule and in the right lower lobe nodule. The index node in the right 4R paratracheal territory now measures 1.5 with an SUV of 5.7 and previously was 1.8 cm with an SUV of 23. Multiple other mediastinal nodes demonstrate similar improvement . reviewed the PET/CT and recommended that Mr. Yu pursue 6 -8 more cycles of chemotherapy. Follow-up CT PET scan done on 10/25/2019, showed right middle lobe nodule that previously measured 1.0 x 1.3 cm with SUV of 7.7, now measure 1.1 x 0.7 cm with SUV of 4.3. A secondary right middle lobe nodule and the right lower lobe nodule are FDG negative. Similar improvement is noted in the mediastinal lymph nodes in the right paratracheal (4R) node now has SUV of 4.7 compared to 5.7 previously. Other nodes since subcarinal, right hilar, right pericardial regions are FDG negative. He has tolerated treatment well. It was recommended that he have 6 additional cycles of treatment then restage to determine further plan of care. Follow-up CT PET scan done on January 10, 2020 showed minimal progression is present in the dominant right middle lobe nodule now SUV 5.6 compared to 4.3. Secondary right middle lobe nodule now has SUV of 4.0 compared to negative on prior study. Medial right lower lobe nodule is unchanged at size 8 mm and remained FDG negative. FDG positive mediastinal adenopathy is generally unchanged, however a right sides. Prevascular node has SUV of 3.6.No herpetic involvement Patient was referred to GI oncology at [facility], as per patient's they were told that there is no clinical trial available at this point that the continue with the treatment locally. Follow-up CT scan of chest abdomen pelvis done on March 09, 2020 showed numerous right-sided pulmonary nodules which have been previously described. Nodules have all increased slight in size. Indeterminate mediastinal mass and right hilar lymph nodes and subcarinal lymph nodes are all unchanged in size. Small amount of soft tissue at anastomotic site in the right abdomen with a few smaller adjacent lymph nodes. No renal mass, no liver mets seen Mr. Yu resumed chemotherapy with FOLFIRI and Avastin on April 07, 2020. He did have a follow-up CT PET scan done on June 26, 2020 which showed dominant right middle lobe nodule now measuring 1.1 x 2.0 cm with SUV of 5.8 up from 1.1 cm with SUV of 5.6 on January 10, 2020. The remaining right middle lobe lung nodule and right lower lobe lung nodule is unchanged at size 8 mm and the main FDG negative mediastinal lymph node are not significantly changed. There are again identified right prevascular, subcarinal, right paratracheal territories. PET/CT scan findings were discussed with Dr. Morrow ,radiologist, and his impression was increase in size of right middle lobe nodule could be due to disease progression or movements during scanning, otherwise stable disease. It was recommended that Mr Yu continue with treatment but the irinotecan was omitted due to declining performance status. He continues just on 5-FU and Avastin alone. We plan to reassess after 6 more cycles. So follow-up CT PET scan was done on September 05, 2019 which showed no new lesions, mixed response of mediastinal lymph nodes e.g. right paratracheal lymph node is minimally improved now SUV 4.5 compared to 6.6 previously the subcarinal node is progressed on the current study now with SUV 6.5 compared to 4.9 previously and dominant right middle lobe nodule now measuring 1.4 x 3.2 cm compared to 1.1 x 2 cm with SUV of 5.8 in June 2020 and a secondary, more lateral right middle lobe nodule is progressed as well as now measuring 1.4 cm with SUV of 9. Patient is also developing some new symptoms like dyspnea on exertion and the off and on peripheral numbness, generalized weakness and fatigue, Because of worsening of performance status although follow-up CT PET scan showed mixed response in mediastinal lymph node and mild progression in the right middle lobe with no new lesions, it was decided to discontinue FOLFIRI/Avastin and recommended Lonsurf 35 mg per metered square based on trifluridine component orally twice daily with meals from day 1 through 5, day 8 through 12 and repeat every 28 days, Which he started on December 17, 2020 Came for follow-up, denies any specific complaints except off-and-on diarrhea with with oral chemotherapy but under control with Imodium, no mouth sores, no skin rash, no jaundice, no hand-foot rash, no hemoptysis or hematemesis, no abdominal pain or fullness tolerating Lonsurf well otherwise . Medications: Aspirin 1 Tablet (of 81 mg) Oral daily, Ativan 1 (0.5 mg) Tablet Oral q 4 hours PRN, Atorvastatin Calcium 1 Tablet (of 40 mg) Oral daily, B-12 1 Tablet (of 1000 mcg) Oral daily, Calcium Carb-Cholecalciferol 1 Capsule (of 500-125 Units/mg) Oral daily, Cinnamon 1 (500 mg) Capsule Oral b.i.d., Compazine Tablet Oral q 4 hours PRN, Fish Oil 1 (1000 mg) Capsule Oral daily, hydroCHLOROthiazide 1 Capsule (of 12.5 mg) Oral at bedtime, Lisinopril 1 Tablet (of 40 mg) Oral daily, MetFORMIN HCl 1 Tablet (of 500 mg) Oral b.i.d., Metoprolol Tartrate 0.5 Tablet (of 25 mg) Oral b.i.d., Multivitamin Adult 1 Tablet Oral daily, Nitroglycerin 1 (0.4 mg) Tablet, sublingual Sublingual PRN, Pepcid 1 (20 mg) Tablet Oral daily PRN, Vitamin C 1 Tablet (of 500 mg) Oral daily, Vitamin E 1 Capsule (of 400 Units) Oral daily Allergies: Isosorbide Mononitrate and Succinylcholine Chloride. Review of Systems: Review of Systems is not available for this patient. Vital Signs: Vitals are not available for this patient. Performance Status: 0 - Fully active, able to carry on all predisease activities without restrictions. (ECOG) Physical Examination: ENMT - No mouth sores, no thrush, no jaundice, Respiratory - Lungs are clear to auscultation, Cardiovascular - Regular rate and rhythm of heart, Abdomen - Soft, bowel sounds present, Extremities - No visible edema. Lab/Imaging: Test performed on Aug 26, 2020 09:31 Sodium 132 mmol/L Potassium 4.6 mmol/L Chloride 99 mmol/L CO2 27 mmol/L Anion Gap 10.6 BUN 16 mg/dL Creatinine 0.9 mg/dL Cr Clearance (Est) 66.4800 mL/min Glucose 142 mg/dL Osmolality - Calculated 278 mOsm/kg Calcium 8.5 mg/dL Protein, Total 6.8 g/dL Albumin 3.8 g/dL Globulin 3.0 g/dL Bilirubin, Total 0.2 mg/dL ALT (SGPT) 30 U/L AST (SGOT) 25 U/L Alkaline Phosphatase 80 IU/L WBC 8.9 10 3/uL RBC 3.99 10 6/uL HGB 13.5 g/dL HCT 40.3 % MCV 101.0 fL MCH 33.8 pg MCHC 33.5 g/dL RDW 12.9 % Platelet Count 258 10 3/cmm MPV 9.6 fL Neutrophils 5.80 10 3/uL Lymphocytes 1.7 10 3/uL Monocytes 0.7 10 3/uL Eosinophils 0.6 10 3/uL Basophils 0.1 10 3/uL Neutrophil % 65.5 % Lymphocyte % 18.8 % Monocyte % 8.2 % Eosinophil % 6.4 % Basophils % 0.8 % NRBC % 0 % Impression: 1. Recurrent adenocarcinoma involving paratracheal lymph node per bronchoscopy/ mediastinoscopy done on 04/28/2019 Immunohistochemistry positive for CDX -2, CK 20 Negative for CK 7, TTF-1 and CEA checked on 05/05/2019 was 10.6 2. 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 He underwent laparoscopic right hemicolectomy on 01/10/2017. High risk features included near obstructing primary tumor, pathologic evidence of lymphovascular space invasion, and less than 12 lymph nodes sampled. 3. s/p adjuvant chemotherapy with modified FOLFOX.???4 from 01/30/2017 through 04/02/2017, FOLFOX minus oxaliplatin ???8 from 04/23/2017 through 07/23/2017. 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 4. He has iron deficiency anemia, resolved . His other medical illnesses include: 5. Hypertension. 6. Hyperlipidemia. 7. Type II diabetes .Follow-up colonoscopy done on 02/06/2018 showed ileocolic anastomosis looked intact without evidence of recurrence, and wide patent. In the proximal transverse colon, an abnormality was noted. Follow-up colonoscopy done on 02/26/2019 showed no abnormality seen, ileocolic anastomosis widely patent without evidence of local recurrence. CEA checked on 01/07/2019 was 7.2 compared to 2.4 on 07/05/2018 and repeat CEA on 03/04/[address] PET scan done on 03/15/2019 showed 3.1 x 2.2 cm mass in the right middle lobe with SUV of 22.1, and adjust in the right middle lobe FDG positive satellite nodule noted. The right lower lobe perihilar nodule measuring 1.6 cm with SUV of 21.6. Multiple mediastinal nodes are FDG positive, consistent with metastatic disease and index node in the right 4R peritracheal territory measures 1.6 cm with SUV of 23.0 and other similar nodes are evident in the right pericardial, right superior mediastinal, right periesophageal territory. No evidence of metastatic disease to bone or below diaphragm. Clinically, patient is doing well, tolerated mediastinoscopy well now surgical wound is healing well. And final pathology report came back metastatic adenocarcinoma, probably GI in origin. Discussed with patient regarding treatment options. 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 He began cycle 1 of 6 on 03/13/2019. He has tolerated it extremly well at this time. recommended 6 cycles of FOLFIRI/Avastin the restage with followup PET/CT. Mr Yu began cycle 1 on 05/13/2019. He has tolerated it well. After 5 cycles of chemotherapy, Mr. Yu had follow-up PET/CT on 07/19/2019 with [facility] radiology out [facility]. The findings reported were continued physiological tracer activity at the colonic anastomosis. The right middle lobe mass that previously measured 3.1 x 2.2 cm with an SUV of 22.1 now measures 1.0 x 1.3 cm with an SUV of 7.7, indicating a positive response to therapy. There are similar improvement in the secondary right middle lobe nodule and in the right lower lobe nodule. The index node in the right 4R paratracheal territory now measures 1.5 with an SUV of 5.7 and previously was 1.8 cm with an SUV of 23. Multiple other mediastinal nodes demonstrate similar improvement . has reviewed the PET/CT and has recommended that Mr. uY pursue 6 more cycles of chemotherapy.Follow-up CT PET scan done on June 26, 2020 showed stable disease except right middle lobe of lung shows increased in size 1.1 x 2 cm compared to 1.1 cm with similar SUV on January 10, 2020 On July 01, 2020 irinotecan was discontinued because of related side effects e.g. generalized weakness and fatigue and was started on maintenance therapy with Avastin/5-FU alone. Follow-up CT PET scan done on September 04, 2020 showed mixed response of mediastinal lymph nodes, progression of right middle lobe nodule, but no new lesions seen, Because of progressive dyspnea on exertion, off and on neuropathy, Avastin/5-FU alone was discontinued and was started on Lonsurf orally Which was prescribed on September 29, 2020 but Started on December 17, 2020 Plan: Discussed with patient regarding his labs white blood count 4.8 hemoglobin 11.8 hematocrit 34.5 platelets 279,000 CMP within normal limit except sodium 134 and glucose 147 Clinically, patient doing well with no new signs symptoms history of disease progression, tolerating Lonsurf well but with expected side effects e.g. diarrhea but under control with Imodium, patient is on day 4 cycle #3 of Lonsurf, will continue and consider follow-up CT PET scan after completion of third cycle of Lonsurf so patient return to clinic in 3 weeks with CBC CMP and follow-up CT PET scan, based on that we will make further recommendations. Signed By: Hayley Goodman M.D. <<Signature on File>>
== END 2021-02-14 11:52 | disposition home or self-care (01) ==
LOC: ONCMED 11:58
PROVIDERS: PCP Family Medicine; Visit Provider Internal Medicine Hematology & Oncology
DX: C78.01 Secondary malignant neoplasm of right lung (principal); C77.8 Secondary and unspecified malignant neoplasm of lymph nodes of multiple regions; Z85.038 Personal history of other malignant neoplasm of large intestine; I10 Essential (primary) hypertension; E78.5 Hyperlipidemia, unspecified; E11.9 Type 2 diabetes mellitus without complications; Z79.899 Other long term (current) drug therapy; Z79.84 Long term (current) use of oral hypoglycemic drugs; Z79.82 Long term (current) use of aspirin
CPT/HCPCS: 36415; 36593; 80053; 85025; 96374; 96376; 99215; J2997

== ENCOUNTER 2021-03-09 12:37 | Outpatient (CLI) | payer MEDICARE, OTHER, SELFPAY ==
[2021-03-09] MEDS: alteplase 1 mg/mL SDV 2 mL 2 MG IV ×2 (13:00→15:35)
[2021-03-09 13:09] LABS: Basophils % 0.4 %; Eosinophils % 1.4 %; Hematocrit 34.9 % (42.0-52.0); Hemoglobin 11.5 g/dL (11.7-16.6); Lymphocytes # 1.3 10^3/uL (0.8-4.8); Lymphocytes % 45.3 %; Mean Corpuscular Hemoglobin 33.5 pg (28.0-34.0); Mean Corpuscular Volume 101.7 fl (80-94); Mean Platelet Volume 8.9 fL (7.4-10.4); Monocytes # 0.7 10^3/uL (0.2-0.9); Monocytes % 24.5 %; Nucleated Red Blood Cells % 0 %; Platelet Count 369 10^3/cmm (130-400); Red Blood Count 3.43 10^6/uL (4.1-5.3); White Blood Count 2.8 10^3/uL (4.0-10.0)
[2021-03-09 13:14] LABS: Neutrophils # 0.78 10^3/uL (1.8-7.7)
[2021-03-09 13:27] LABS: Alanine Aminotransferase 17 U/L (0-41); Albumin Level 3.9 g/dL (3.5-5.2); Alkaline Phosphatase 89 IU/L (40-130); Anion Gap 12.4 (5-19); Aspartate Amino Transferase 20 U/L (0-40); Blood Urea Nitrogen 12 mg/dL (8-23); Calcium 9.2 mg/dL (8.5-10.5); Carbon Dioxide 27 mmol/L (22-29); Chloride 101 mmol/L (98-107); Glucose 130 mg/dL (65-115); Osmolality Calculated 284 mOsm/kg (285-295); Potassium 4.4 mmol/L (3.5-5.1); Sodium 136 mmol/L (136-145); Total Bilirubin 0.3 mg/dL (0.15-1.2); Total Protein 6.9 g/dL (6.6-8.7)
--- NOTE | 2021-03-11 15:57 | ONC FU_ITS ---
Dr. 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 He had presented with symptoms of abdominal pain and early satiety. CT abdomen/pelvis on 01/05/2017 showed an apple core appearing lesion at the hepatic flexure with associated obstruction involving the ascending colon, cecum, and ileum. The appearance was suspicious for neoplasm. There was a small amount of pelvic ascites. A 6.9 mm right lower lobe noncalcified pulmonary nodule was felt to be nonspecific. There was otherwise no evidence of metastatic disease. Colonoscopy on 01/09/2017 showed a partially obstructing malignant appearing mass at the hepatic flexure estimated at 5 x 4 cm. An additional sessile polyp was noted in the distal sigmoid colon and excised by hot snare. Biopsy of the hepatic flexure mass showed poorly differentiated infiltrating adenocarcinoma. The distal sigmoid lesion was a hyperplastic polyp. He underwent laparoscopic right hemicolectomy with ileocolic anastomosis and partial omentectomy on 01/10/2017. Pathology showed moderately differentiated infiltrating adenocarcinoma with invasion of the muscularis propria into rehana-colic tissue. The tumor measured 2.3 x 1.8 cm. The margins were free of tumor. There was evidence of lymphovascular space invasion. A total of 7 lymph nodes were identified in the sample and all were negative for metastatic disease. Final pathologic staging was T3, N0. He had several high risk features including a near obstructing primary tumor, evidence of lymphovascular space invasion, and less then 12 lymph nodes sampled. 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 Follow-up colonoscopy done on 02/06/2018 showed ileocolic anastomosis looked intact without evidence of recurrence and wide patent. In the proximal transverse colon, an abnormality was noted. He was followed by Dr. Willingham His other medical illnesses include hypertension, hyperlipidemia, and type II diabetes. He is a nonsmoker. Follow-up colonoscopy done on 02/26/2019 showed normal findings. Ileocolic anastomosis is widely patent without evidence of local recurrence. CEA repeated on 03/04/2019 was 7.7 compared to 7.2 on 01/07/2019 CT PET scan done on 03/15/2019 showed 3.1 x 2.2 cm mass in the right middle lobe with SUV of 22.1, and an adjacent right middle lobe FDG positive satellite nodule was noted. The right lower lobe perihilar nodule measuring 1.6 cm with SUV of 21.6. Multiple mediastinal nodes are FDG positive, consistent with metastatic disease and index node in the right 4R peritracheal territory measures 1.6 cm with SUV of 23.0 and other similar nodes are evident in the right pericardial, right superior mediastinal, right periesophageal territory. No evidence of metastatic disease to bone or below diaphragm Underwent mediastinoscopy on 04/28/2019 and lymph node biopsy was obtained from paratracheal, station 4R, final pathology report showed metastatic adenocarcinoma, consistent with GI origin. The tumor was positive for CD X2, CK 20; negative for CK 7 and TTF-1. recommended 6 cycles of FOLFIRI/Avastin the restage with followup PET/CT. Mr Yu began cycle 1 on 05/13/2019. He has tolerated it well. Mr. Yu had follow-up PET/CT on 07/19/2019 with [facility] radiology out [facility]. The findings reported were continued physiological tracer activity at the colonic anastomosis. The right middle lobe mass that previously measured 3.1 x 2.2 cm with an SUV of 22.1 now measures 1.0 x 1.3 cm with an SUV of 7.7, indicating a positive response to therapy. There are similar improvement in the secondary right middle lobe nodule and in the right lower lobe nodule. The index node in the right 4R paratracheal territory now measures 1.5 with an SUV of 5.7 and previously was 1.8 cm with an SUV of 23. Multiple other mediastinal nodes demonstrate similar improvement . reviewed the PET/CT and recommended that Mr. Yu pursue 6 -8 more cycles of chemotherapy. Follow-up CT PET scan done on 10/25/2019, showed right middle lobe nodule that previously measured 1.0 x 1.3 cm with SUV of 7.7, now measure 1.1 x 0.7 cm with SUV of 4.3. A secondary right middle lobe nodule and the right lower lobe nodule are FDG negative. Similar improvement is noted in the mediastinal lymph nodes in the right paratracheal (4R) node now has SUV of 4.7 compared to 5.7 previously. Other nodes since subcarinal, right hilar, right pericardial regions are FDG negative. He has tolerated treatment well. It was recommended that he have 6 additional cycles of treatment then restage to determine further plan of care. Follow-up CT PET scan done on January 10, 2020 showed minimal progression is present in the dominant right middle lobe nodule now SUV 5.6 compared to 4.3. Secondary right middle lobe nodule now has SUV of 4.0 compared to negative on prior study. Medial right lower lobe nodule is unchanged at size 8 mm and remained FDG negative. FDG positive mediastinal adenopathy is generally unchanged, however a right sides. Prevascular node has SUV of 3.6.No herpetic involvement Patient was referred to GI oncology at [facility], as per patient's they were told that there is no clinical trial available at this point that the continue with the treatment locally. Follow-up CT scan of chest abdomen pelvis done on March 09, 2020 showed numerous right-sided pulmonary nodules which have been previously described. Nodules have all increased slight in size. Indeterminate mediastinal mass and right hilar lymph nodes and subcarinal lymph nodes are all unchanged in size. Small amount of soft tissue at anastomotic site in the right abdomen with a few smaller adjacent lymph nodes. No renal mass, no liver mets seen Mr. Yu resumed chemotherapy with FOLFIRI and Avastin on April 07, 2020. He did have a follow-up CT PET scan done on June 26, 2020 which showed dominant right middle lobe nodule now measuring 1.1 x 2.0 cm with SUV of 5.8 up from 1.1 cm with SUV of 5.6 on January 10, 2020. The remaining right middle lobe lung nodule and right lower lobe lung nodule is unchanged at size 8 mm and the main FDG negative mediastinal lymph node are not significantly changed. There are again identified right prevascular, subcarinal, right paratracheal territories. PET/CT scan findings were discussed with Dr. Morrow ,radiologist, and his impression was increase in size of right middle lobe nodule could be due to disease progression or movements during scanning, otherwise stable disease. It was recommended that Mr Yu continue with treatment but the irinotecan was omitted due to declining performance status. He continues just on 5-FU and Avastin alone. We plan to reassess after 6 more cycles. So follow-up CT PET scan was done on September 05, 2019 which showed no new lesions, mixed response of mediastinal lymph nodes e.g. right paratracheal lymph node is minimally improved now SUV 4.5 compared to 6.6 previously the subcarinal node is progressed on the current study now with SUV 6.5 compared to 4.9 previously and dominant right middle lobe nodule now measuring 1.4 x 3.2 cm compared to 1.1 x 2 cm with SUV of 5.8 in June 2020 and a secondary, more lateral right middle lobe nodule is progressed as well as now measuring 1.4 cm with SUV of 9. Patient is also developing some new symptoms like dyspnea on exertion and the off and on peripheral numbness, generalized weakness and fatigue, Because of worsening of performance status although follow-up CT PET scan showed mixed response in mediastinal lymph node and mild progression in the right middle lobe with no new lesions, it was decided to discontinue FOLFIRI/Avastin and recommended Lonsurf 35 mg per metered square based on trifluridine component orally twice daily with meals from day 1 through 5, day 8 through 12 and repeat every 28 days, Which he started on December 17, 2020 CT PET scan done on February 26, 2021 shows right middle lobe nodules are progressed on the current study. Dominant nodule no major 3 x 1.9 cm with SUV of 8.9. The more lateral nodule no measured 2.2 x 1.9 cm SUV of 8.1. Mediastinal lymph nodes are progressed as well. The subcarinal node no has SUV of 9.6 compared to 6.5 previously. The right paratracheal node now has SUV of 5.6 compared to 4.5 previously. A 9 mm medial right lower lobe nodule is unchanged from prior study and remain FDG negative Came for follow-up, denies any specific complaints, no fever chills, no nausea or vomiting, no diarrhea constipation, no jaundice, no abdominal pain, no mouth sores, tolerating Lonsurf well otherwise . Medications: Aspirin 1 Tablet (of 81 mg) Oral daily, Ativan 1 (0.5 mg) Tablet Oral q 4 hours PRN, Atorvastatin Calcium 1 Tablet (of 40 mg) Oral daily, B-12 1 Tablet (of 1000 mcg) Oral daily, Calcium Carb-Cholecalciferol 1 Capsule (of 500-125 Units/mg) Oral daily, Cinnamon 1 (500 mg) Capsule Oral b.i.d., Compazine Tablet Oral q 4 hours PRN, Fish Oil 1 (1000 mg) Capsule Oral daily, hydroCHLOROthiazide 1 Capsule (of 12.5 mg) Oral at bedtime, Lisinopril 1 Tablet (of 40 mg) Oral daily, MetFORMIN HCl 1 Tablet (of 500 mg) Oral b.i.d., Metoprolol Tartrate 0.5 Tablet (of 25 mg) Oral b.i.d., Multivitamin Adult 1 Tablet Oral daily, Nitroglycerin 1 (0.4 mg) Tablet, sublingual Sublingual PRN, Pepcid 1 (20 mg) Tablet Oral daily PRN, Vitamin C 1 Tablet (of 500 mg) Oral daily, Vitamin E 1 Capsule (of 400 Units) Oral daily Allergies: Isosorbide Mononitrate and Succinylcholine Chloride. Review of Systems: Review of Systems is not available for this patient. Vital Signs: Performed on Mar 09, 2021 14:26 Height - 64.00 in Weight - 150.4 lbs (HIGH) BSA - 1.73 sq.m BMI - 25.82 Temperature - 97.7 F (LOW) Pulse - 64 /min Respiration - 16 /min BP - 145/70 mm(hg) (HIGH) O2 Sat - 100 % Pain - 0 Fatigue - 0 Performance Status: 0 - Fully active, able to carry on all predisease activities without restrictions. (ECOG) Physical Examination: ENMT - No mouth sores, no thrush, no jaundice, Respiratory - Lungs are clear to auscultation, Cardiovascular - Regular rate and rhythm of heart, Abdomen - Soft, bowel sounds present, Extremities - No visible edema. Lab/Imaging: Most recent lab results are not available for this patient. Impression: 1. Recurrent adenocarcinoma involving paratracheal lymph node per bronchoscopy/ mediastinoscopy done on 04/28/2019 Immunohistochemistry positive for CDX -2, CK 20 Negative for CK 7, TTF-1 and CEA checked on 05/05/2019 was 10.6 2. 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 He underwent laparoscopic right hemicolectomy on 01/10/2017. High risk features included near obstructing primary tumor, pathologic evidence of lymphovascular space invasion, and less than 12 lymph nodes sampled. 3. s/p adjuvant chemotherapy with modified FOLFOX.???4 from 01/30/2017 through 04/02/2017, FOLFOX minus oxaliplatin ???8 from 04/23/2017 through 07/23/2017. 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 4. He has iron deficiency anemia, resolved . His other medical illnesses include: 5. Hypertension. 6. Hyperlipidemia. 7. Type II diabetes .Follow-up colonoscopy done on 02/06/2018 showed ileocolic anastomosis looked intact without evidence of recurrence, and wide patent. In the proximal transverse colon, an abnormality was noted. Follow-up colonoscopy done on 02/26/2019 showed no abnormality seen, ileocolic anastomosis widely patent without evidence of local recurrence. CEA checked on 01/07/2019 was 7.2 compared to 2.4 on 07/05/2018 and repeat CEA on 03/04/[address] PET scan done on 03/15/2019 showed 3.1 x 2.2 cm mass in the right middle lobe with SUV of 22.1, and adjust in the right middle lobe FDG positive satellite nodule noted. The right lower lobe perihilar nodule measuring 1.6 cm with SUV of 21.6. Multiple mediastinal nodes are FDG positive, consistent with metastatic disease and index node in the right 4R peritracheal territory measures 1.6 cm with SUV of 23.0 and other similar nodes are evident in the right pericardial, right superior mediastinal, right periesophageal territory. No evidence of metastatic disease to bone or below diaphragm. Clinically, patient is doing well, tolerated mediastinoscopy well now surgical wound is healing well. And final pathology report came back metastatic adenocarcinoma, probably GI in origin. Discussed with patient regarding treatment options. 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 He began cycle 1 of 6 on 03/13/2019. He has tolerated it extremly well at this time. recommended 6 cycles of FOLFIRI/Avastin the restage with followup PET/CT. Mr Yu began cycle 1 on 05/13/2019. He has tolerated it well. After 5 cycles of chemotherapy, Mr. Yu had follow-up PET/CT on 07/19/2019 with [facility] radiology out [facility]. The findings reported were continued physiological tracer activity at the colonic anastomosis. The right middle lobe mass that previously measured 3.1 x 2.2 cm with an SUV of 22.1 now measures 1.0 x 1.3 cm with an SUV of 7.7, indicating a positive response to therapy. There are similar improvement in the secondary right middle lobe nodule and in the right lower lobe nodule. The index node in the right 4R paratracheal territory now measures 1.5 with an SUV of 5.7 and previously was 1.8 cm with an SUV of 23. Multiple other mediastinal nodes demonstrate similar improvement . has reviewed the PET/CT and has recommended that Mr. Yu pursue 6 more cycles of chemotherapy.Follow-up CT PET scan done on June 26, 2020 showed stable disease except right middle lobe of lung shows increased in size 1.1 x 2 cm compared to 1.1 cm with similar SUV on January 10, 2020 On July 01, 2020 irinotecan was discontinued because of related side effects e.g. generalized weakness and fatigue and was started on maintenance therapy with Avastin/5-FU alone. Follow-up CT PET scan done on September 04, 2020 showed mixed response of mediastinal lymph nodes, progression of right middle lobe nodule, but no new lesions seen, Because of progressive dyspnea on exertion, off and on neuropathy, Avastin/5-FU alone was discontinued and was started on Lonsurf orally Which was prescribed on September 29, 2020 but Started on December 17, 2020 Plan: Discussed with patient regarding his labs white blood count 2.7 hemoglobin 11.5 hematocrit 34.9 platelets 369,000 ANC 780 CMP within normal limits CT PET scan shows no new lesion but progression of existing lesions Clinically, patient doing well with no new signs symptom, good quality of life, tolerating Lonsurf well otherwise, his follow-up CT PET scan shows no new lesions but progression of existing lesion in the thorax. At this point we will fax his PET scan report to Dr. Do, at [facility] oncology and discuss with her regarding evaluation for clinical trial if available followed considering repeating biopsy for guardant 360., Case was discussed with radiologist, his PET scan findings shows mild progression or stable disease but no new lesion, patient is maintaining Lonsurf well with good quality of life, patient will return to clinic in 3 weeks with CBC CMP and CEA unless Dr. Do recommend otherwise. Signed By: Hayley Goodman M.D. <<Signature on File>>
== END 2021-03-09 12:38 | disposition home or self-care (01) ==
LOC: ONCMED 12:39
PROVIDERS: PCP Family Medicine; Visit Provider Internal Medicine Hematology & Oncology
DX: C18.3 Malignant neoplasm of hepatic flexure (principal); C77.8 Secondary and unspecified malignant neoplasm of lymph nodes of multiple regions; G62.0 Drug-induced polyneuropathy; T45.1X5D Adverse effect of antineoplastic and immunosuppressive drugs, subsequent encounter; I10 Essential (primary) hypertension; E78.5 Hyperlipidemia, unspecified; E11.9 Type 2 diabetes mellitus without complications; Z79.899 Other long term (current) drug therapy; Z92.21 Personal history of antineoplastic chemotherapy
CPT/HCPCS: 36415; 36593; 80053; 85025; 96374; 96376; 99214; J2997

== ENCOUNTER 2021-03-16 06:42 | Outpatient (CLI) | payer MEDICARE, OTHER, SELFPAY ==
--- NOTE | 2021-03-16 14:11 | IR_ITS ---
WS: [id number] [place] [id number] REASON FOR EXAM: HAVING DIFFICULTY WITH BLOOD RETURN FROM PORT FLUOROSCOPY TIME: .7 minutes FINDINGS: Port is been previously accessed. Contrast was then injected into the port to the access system and t he port catheter evaluated under fluoroscopy with spot films. A thin stream of contrast emanates from the distal end of the transvenous left subclavian catheter wi th the tip at the junction of the innominate and superior vena cava. Contrast then enters the superio r vena cava with rapid distal flow. IR/[place] [id number] IMPRESSION: Fibrin sheath and catheter tip position are the cause of the inability to obtai n return. Injection of contrast is through a small tract in the fibrin sheath w ith direct communication into the superior vena cava. Injected medications would rapidly reached the circulation with limitation in f low as above.
[2021-03-16 14:14] LABS: Basophils # 0.1 10^3/uL (0.0-0.1); Eosinophils % 0.5 %; Hematocrit 34.1 % (42.0-52.0); Hemoglobin 11.5 g/dL (11.7-16.6); Lymphocytes # 1.5 10^3/uL (0.8-4.8); Lymphocytes % 25.5 %; Mean Corpuscular HGB Conc 33.7 g/dL (30.0-36.0); Mean Corpuscular Volume 100.9 fl (80-94); Mean Platelet Volume 9.4 fL (7.4-10.4); Monocytes # 0.6 10^3/uL (0.2-0.9); Monocytes % 10.1 %; Neutrophils # 3.76 10^3/uL (1.8-7.7); Neutrophils % 62.6 %; Nucleated Red Blood Cells % 0 %; Platelet Count 248 10^3/cmm (130-400); Red Blood Count 3.38 10^6/uL (4.1-5.3); Red Cell Distribution Width 16.7 % (12.1-15.1)
[2021-03-16] MEDS: iohexol 300 mg/mL 50 mL Btl IV (14:42)
== END 2021-03-16 06:43 | disposition home or self-care (01) ==
PROVIDERS: PCP Family Medicine; Visit Provider Internal Medicine Hematology & Oncology
DX: C18.0 Malignant neoplasm of cecum (principal); C77.1 Secondary and unspecified malignant neoplasm of intrathoracic lymph nodes
CPT/HCPCS: 36415; 36598; 85025; 96523; Q9967

== ENCOUNTER 2021-04-20 13:44 | Outpatient (CLI) | payer MEDICARE, OTHER, SELFPAY ==
[2021-04-20 14:40] LABS: Basophils % 0.2 %; Eosinophils % 0.2 %; Hematocrit 27.1 % (42.0-52.0); Hemoglobin 9.3 g/dL (11.7-16.6); Lymphocytes % 23.8 %; Mean Corpuscular HGB Conc 34.3 g/dL (30.0-36.0); Mean Corpuscular Hemoglobin 35.6 pg (28.0-34.0); Mean Corpuscular Volume 103.8 fl (80-94); Mean Platelet Volume 9.7 fL (7.4-10.4); Monocytes # 0.2 10^3/uL (0.2-0.9); Monocytes % 5.8 %; Neutrophils # 2.88 10^3/uL (1.8-7.7); Neutrophils % 69.3 %; Nucleated Red Blood Cells % 0 %; Platelet Count 174 10^3/cmm (130-400); Red Blood Count 2.61 10^6/uL (4.1-5.3); Red Cell Distribution Width 14.8 % (12.1-15.1); White Blood Count 4.2 10^3/uL (4.0-10.0)
[2021-04-20 15:11] LABS: Alanine Aminotransferase 15 U/L (0-41); Albumin Level 4.1 g/dL (3.5-5.2); Alkaline Phosphatase 86 IU/L (40-130); Anion Gap 14.8 (5-19); Aspartate Amino Transferase 17 U/L (0-40); Blood Urea Nitrogen 21 mg/dL (8-23); Calcium 8.3 mg/dL (8.5-10.5); Carbon Dioxide 24 mmol/L (22-29); Chloride 101 mmol/L (98-107); Globulin 2.6 g/dL (1.3-4.6); Glucose 106 mg/dL (65-115); Osmolality Calculated 285 mOsm/kg (285-295); Potassium 3.8 mmol/L (3.5-5.1); Sodium 136 mmol/L (136-145); Total Bilirubin 0.4 mg/dL (0.15-1.2); Total Protein 6.7 g/dL (6.6-8.7)
== END 2021-04-20 13:45 | disposition home or self-care (01) ==
LOC: ONCMED 13:47
PROVIDERS: PCP Family Medicine; Visit Provider Internal Medicine Hematology & Oncology
DX: C18.0 Malignant neoplasm of cecum (principal); C77.1 Secondary and unspecified malignant neoplasm of intrathoracic lymph nodes; Z79.899 Other long term (current) drug therapy; Z45.2 Encounter for adjustment and management of vascular access device
CPT/HCPCS: 36415; 80053; 85025; 96523

== ENCOUNTER 2021-05-13 08:36 | Outpatient (CLI) | payer MEDICARE, OTHER, SELFPAY ==
[2021-05-13 09:47] LABS: Basophils % 0.3 %; Hematocrit 29.6 % (42.0-52.0); Hemoglobin 10.4 g/dL (11.7-16.6); Lymphocytes # 1.3 10^3/uL (0.8-4.8); Lymphocytes % 19.3 %; Mean Corpuscular HGB Conc 35.1 g/dL (30.0-36.0); Mean Corpuscular Hemoglobin 36.9 pg (28.0-34.0); Mean Platelet Volume 9.6 fL (7.4-10.4); Monocytes # 0.4 10^3/uL (0.2-0.9); Neutrophils # 4.71 10^3/uL (1.8-7.7); Neutrophils % 72.7 %; Nucleated Red Blood Cells % 0 %; Platelet Count 371 10^3/cmm (130-400); Red Blood Count 2.82 10^6/uL (4.1-5.3); Red Cell Distribution Width 14.7 % (12.1-15.1); White Blood Count 6.5 10^3/uL (4.0-10.0)
[2021-05-13 10:15] LABS: Carcinoembryonic Antigen 44.9 ng/mL (0.0-4.7)
[2021-05-13 10:28] LABS: Alanine Aminotransferase 21 U/L (0-41); Alkaline Phosphatase 100 IU/L (40-130); Anion Gap 19.6 (5-19); Aspartate Amino Transferase 15 U/L (0-40); Blood Urea Nitrogen 31 mg/dL (8-23); Calcium 8.2 mg/dL (8.5-10.5); Carbon Dioxide 19 mmol/L (22-29); Chloride 99 mmol/L (98-107); Globulin 2.4 g/dL (1.3-4.6); Glucose 202 mg/dL (65-115); Osmolality Calculated 288 mOsm/kg (285-295); Potassium 4.6 mmol/L (3.5-5.1); Sodium 133 mmol/L (136-145); Total Bilirubin 0.4 mg/dL (0.15-1.2); Total Protein 6.4 g/dL (6.6-8.7)
--- NOTE | 2021-05-13 13:09 | ONC FU_ITS ---
Dr. 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 He had presented with symptoms of abdominal pain and early satiety. CT abdomen/pelvis on 01/05/2017 showed an apple core appearing lesion at the hepatic flexure with associated obstruction involving the ascending colon, cecum, and ileum. The appearance was suspicious for neoplasm. There was a small amount of pelvic ascites. A 6.9 mm right lower lobe noncalcified pulmonary nodule was felt to be nonspecific. There was otherwise no evidence of metastatic disease. Colonoscopy on 01/09/2017 showed a partially obstructing malignant appearing mass at the hepatic flexure estimated at 5 x 4 cm. An additional sessile polyp was noted in the distal sigmoid colon and excised by hot snare. Biopsy of the hepatic flexure mass showed poorly differentiated infiltrating adenocarcinoma. The distal sigmoid lesion was a hyperplastic polyp. He underwent laparoscopic right hemicolectomy with ileocolic anastomosis and partial omentectomy on 01/10/2017. Pathology showed moderately differentiated infiltrating adenocarcinoma with invasion of the muscularis propria into rehana-colic tissue. The tumor measured 2.3 x 1.8 cm. The margins were free of tumor. There was evidence of lymphovascular space invasion. A total of 7 lymph nodes were identified in the sample and all were negative for metastatic disease. Final pathologic staging was T3, N0. He had several high risk features including a near obstructing primary tumor, evidence of lymphovascular space invasion, and less then 12 lymph nodes sampled. 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 Follow-up colonoscopy done on 02/06/2018 showed ileocolic anastomosis looked intact without evidence of recurrence and wide patent. In the proximal transverse colon, an abnormality was noted. He was followed by Dr. Willingham His other medical illnesses include hypertension, hyperlipidemia, and type II diabetes. He is a nonsmoker. Follow-up colonoscopy done on 02/26/2019 showed normal findings. Ileocolic anastomosis is widely patent without evidence of local recurrence. CEA repeated on 03/04/2019 was 7.7 compared to 7.2 on 01/07/2019 CT PET scan done on 03/15/2019 showed 3.1 x 2.2 cm mass in the right middle lobe with SUV of 22.1, and an adjacent right middle lobe FDG positive satellite nodule was noted. The right lower lobe perihilar nodule measuring 1.6 cm with SUV of 21.6. Multiple mediastinal nodes are FDG positive, consistent with metastatic disease and index node in the right 4R peritracheal territory measures 1.6 cm with SUV of 23.0 and other similar nodes are evident in the right pericardial, right superior mediastinal, right periesophageal territory. No evidence of metastatic disease to bone or below diaphragm Underwent mediastinoscopy on 04/28/2019 and lymph node biopsy was obtained from paratracheal, station 4R, final pathology report showed metastatic adenocarcinoma, consistent with GI origin. The tumor was positive for CD X2, CK 20; negative for CK 7 and TTF-1. recommended 6 cycles of FOLFIRI/Avastin the restage with followup PET/CT. Mr Yu began cycle 1 on 05/13/2019. He has tolerated it well. Mr. Yu had follow-up PET/CT on 07/19/2019 with [facility] radiology out [facility]. The findings reported were continued physiological tracer activity at the colonic anastomosis. The right middle lobe mass that previously measured 3.1 x 2.2 cm with an SUV of 22.1 now measures 1.0 x 1.3 cm with an SUV of 7.7, indicating a positive response to therapy. There are similar improvement in the secondary right middle lobe nodule and in the right lower lobe nodule. The index node in the right 4R paratracheal territory now measures 1.5 with an SUV of 5.7 and previously was 1.8 cm with an SUV of 23. Multiple other mediastinal nodes demonstrate similar improvement . reviewed the PET/CT and recommended that Mr. Yu pursue 6 -8 more cycles of chemotherapy. Follow-up CT PET scan done on 10/25/2019, showed right middle lobe nodule that previously measured 1.0 x 1.3 cm with SUV of 7.7, now measure 1.1 x 0.7 cm with SUV of 4.3. A secondary right middle lobe nodule and the right lower lobe nodule are FDG negative. Similar improvement is noted in the mediastinal lymph nodes in the right paratracheal (4R) node now has SUV of 4.7 compared to 5.7 previously. Other nodes since subcarinal, right hilar, right pericardial regions are FDG negative. He has tolerated treatment well. It was recommended that he have 6 additional cycles of treatment then restage to determine further plan of care. Follow-up CT PET scan done on January 10, 2020 showed minimal progression is present in the dominant right middle lobe nodule now SUV 5.6 compared to 4.3. Secondary right middle lobe nodule now has SUV of 4.0 compared to negative on prior study. Medial right lower lobe nodule is unchanged at size 8 mm and remained FDG negative. FDG positive mediastinal adenopathy is generally unchanged, however a right sides. Prevascular node has SUV of 3.6.No herpetic involvement Patient was referred to GI oncology at [facility], as per patient's they were told that there is no clinical trial available at this point that the continue with the treatment locally. Follow-up CT scan of chest abdomen pelvis done on March 09, 2020 showed numerous right-sided pulmonary nodules which have been previously described. Nodules have all increased slight in size. Indeterminate mediastinal mass and right hilar lymph nodes and subcarinal lymph nodes are all unchanged in size. Small amount of soft tissue at anastomotic site in the right abdomen with a few smaller adjacent lymph nodes. No renal mass, no liver mets seen Mr. Yu resumed chemotherapy with FOLFIRI and Avastin on April 07, 2020. He did have a follow-up CT PET scan done on June 26, 2020 which showed dominant right middle lobe nodule now measuring 1.1 x 2.0 cm with SUV of 5.8 up from 1.1 cm with SUV of 5.6 on January 10, 2020. The remaining right middle lobe lung nodule and right lower lobe lung nodule is unchanged at size 8 mm and the main FDG negative mediastinal lymph node are not significantly changed. There are again identified right prevascular, subcarinal, right paratracheal territories. PET/CT scan findings were discussed with Dr. Morrow ,radiologist, and his impression was increase in size of right middle lobe nodule could be due to disease progression or movements during scanning, otherwise stable disease. It was recommended that Mr Yu continue with treatment but the irinotecan was omitted due to declining performance status. He continues just on 5-FU and Avastin alone. We plan to reassess after 6 more cycles. So follow-up CT PET scan was done on September 05, 2019 which showed no new lesions, mixed response of mediastinal lymph nodes e.g. right paratracheal lymph node is minimally improved now SUV 4.5 compared to 6.6 previously the subcarinal node is progressed on the current study now with SUV 6.5 compared to 4.9 previously and dominant right middle lobe nodule now measuring 1.4 x 3.2 cm compared to 1.1 x 2 cm with SUV of 5.8 in June 2020 and a secondary, more lateral right middle lobe nodule is progressed as well as now measuring 1.4 cm with SUV of 9. Patient is also developing some new symptoms like dyspnea on exertion and the off and on peripheral numbness, generalized weakness and fatigue, Because of worsening of performance status although follow-up CT PET scan showed mixed response in mediastinal lymph node and mild progression in the right middle lobe with no new lesions, it was decided to discontinue FOLFIRI/Avastin and recommended Lonsurf 35 mg per metered square based on trifluridine component orally twice daily with meals from day 1 through 5, day 8 through 12 and repeat every 28 days, Which he started on December 17, 2020 CT PET scan done on February 26, 2021 shows right middle lobe nodules are progressed on the current study. Dominant nodule no major 3 x 1.9 cm with SUV of 8.9. The more lateral nodule no measured 2.2 x 1.9 cm SUV of 8.1. Mediastinal lymph nodes are progressed as well. The subcarinal node no has SUV of 9.6 compared to 6.5 previously. The right paratracheal node now has SUV of 5.6 compared to 4.5 previously. A 9 mm medial right lower lobe nodule is unchanged from prior study and remain FDG negative Came for follow-up, denies any specific complaints, no fever chills, no nausea or vomiting, no diarrhea constipation, no melena or hematochezia, no hemoptysis hematemesis, no jaundice, no abdominal pain, as per patient last week she developed right big toe swelling and discomfort for which he went to see his primary care physician who ordered CRP testing which was 25.9 mg/L normal being less than 8 mg/L and his uric acid was 6.4 mg/dL normal being less than 8 and his CBC done Day shows white blood count 2.7, hemoglobin 8.7 hematocrit 25.7, patient was given prescription for steroid Dosepak and advised to use epsilon/water dip. With that his symptoms improved and now feeling much better. Also on Lonsurf for metastatic colorectal cancer and he has 4 more days to go to complete 5 cycles and then he is 2 weeks off before we start next cycle. . Medications: Ativan 1 (0.5 mg) Tablet Oral q 4 hours PRN, Atorvastatin Calcium 1 Tablet (of 40 mg) Oral daily, B-12 1 Tablet (of 1000 mcg) Oral daily, Calcium Carb-Cholecalciferol 1 Capsule (of 500-125 Units/mg) Oral daily, Cinnamon 1 (500 mg) Capsule Oral b.i.d., Compazine Tablet Oral q 4 hours PRN, Fish Oil 1 (1000 mg) Capsule Oral daily, hydroCHLOROthiazide 1 Capsule (of 12.5 mg) Oral at bedtime, Lisinopril 1 Tablet (of 40 mg) Oral daily, MetFORMIN HCl 1 Tablet (of 500 mg) Oral b.i.d., Metoprolol Tartrate 0.5 Tablet (of 25 mg) Oral b.i.d., Multivitamin Adult 1 Tablet Oral daily, Nitroglycerin 1 (0.4 mg) Tablet, sublingual Sublingual PRN, Pepcid 1 (20 mg) Tablet Oral daily PRN, Vitamin C 1 Tablet (of 500 mg) Oral daily, Vitamin E 1 Capsule (of 400 Units) Oral daily Allergies: Isosorbide Mononitrate and Succinylcholine Chloride. Review of Systems: Review of Systems is not available for this patient. Vital Signs: Performed on May 13, 2021 11:21 Height - 64.00 in Weight - 143.0 lbs (LOW) BSA - 1.70 sq.m BMI - 24.55 Temperature - 97.6 F (LOW) Pulse - 95 /min Respiration - 18 /min BP - 105/63 mm(hg) O2 Sat - 100 % Pain - 0 Fatigue - 8 Performance Status: 0 - Fully active, able to carry on all predisease activities without restrictions. (ECOG) Physical Examination: ENMT - No mouth sores, no thrush, no jaundice, Respiratory - Lungs are clear to auscultation, Cardiovascular - Regular rate and rhythm of heart, Abdomen - Soft, bowel sounds present, Extremities - No visible edema. Lab/Imaging: Most recent lab results are not available for this patient. Impression: 1. Recurrent adenocarcinoma involving paratracheal lymph node per bronchoscopy/ mediastinoscopy done on 04/28/2019 Immunohistochemistry positive for CDX -2, CK 20 Negative for CK 7, TTF-1 and CEA checked on 05/05/2019 was 10.6 2. 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 He underwent laparoscopic right hemicolectomy on 01/10/2017. High risk features included near obstructing primary tumor, pathologic evidence of lymphovascular space invasion, and less than 12 lymph nodes sampled. 3. s/p adjuvant chemotherapy with modified FOLFOX.???4 from 01/30/2017 through 04/02/2017, FOLFOX minus oxaliplatin ???8 from 04/23/2017 through 07/23/2017. 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 4. He has iron deficiency anemia, resolved . His other medical illnesses include: 5. Hypertension. 6. Hyperlipidemia. 7. Type II diabetes .Follow-up colonoscopy done on 02/06/2018 showed ileocolic anastomosis looked intact without evidence of recurrence, and wide patent. In the proximal transverse colon, an abnormality was noted. Follow-up colonoscopy done on 02/26/2019 showed no abnormality seen, ileocolic anastomosis widely patent without evidence of local recurrence. CEA checked on 01/07/2019 was 7.2 compared to 2.4 on 07/05/2018 and repeat CEA on 03/04/[address] PET scan done on 03/15/2019 showed 3.1 x 2.2 cm mass in the right middle lobe with SUV of 22.1, and adjust in the right middle lobe FDG positive satellite nodule noted. The right lower lobe perihilar nodule measuring 1.6 cm with SUV of 21.6. Multiple mediastinal nodes are FDG positive, consistent with metastatic disease and index node in the right 4R peritracheal territory measures 1.6 cm with SUV of 23.0 and other similar nodes are evident in the right pericardial, right superior mediastinal, right periesophageal territory. No evidence of metastatic disease to bone or below diaphragm. Clinically, patient is doing well, tolerated mediastinoscopy well now surgical wound is healing well. And final pathology report came back metastatic adenocarcinoma, probably GI in origin. Discussed with patient regarding treatment options. 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 He began cycle 1 of 6 on 03/13/2019. He has tolerated it extremly well at this time. recommended 6 cycles of FOLFIRI/Avastin the restage with followup PET/CT. Mr Yu began cycle 1 on 05/13/2019. He has tolerated it well. After 5 cycles of chemotherapy, Mr. Yu had follow-up PET/CT on 07/19/2019 with [facility] radiology out [facility]. The findings reported were continued physiological tracer activity at the colonic anastomosis. The right middle lobe mass that previously measured 3.1 x 2.2 cm with an SUV of 22.1 now measures 1.0 x 1.3 cm with an SUV of 7.7, indicating a positive response to therapy. There are similar improvement in the secondary right middle lobe nodule and in the right lower lobe nodule. The index node in the right 4R paratracheal territory now measures 1.5 with an SUV of 5.7 and previously was 1.8 cm with an SUV of 23. Multiple other mediastinal nodes demonstrate similar improvement . has reviewed the PET/CT and has recommended that Mr. Yu pursue 6 more cycles of chemotherapy.Follow-up CT PET scan done on June 26, 2020 showed stable disease except right middle lobe of lung shows increased in size 1.1 x 2 cm compared to 1.1 cm with similar SUV on January 10, 2020 On July 01, 2020 irinotecan was discontinued because of related side effects e.g. generalized weakness and fatigue and was started on maintenance therapy with Avastin/5-FU alone. Follow-up CT PET scan done on September 04, 2020 showed mixed response of mediastinal lymph nodes, progression of right middle lobe nodule, but no new lesions seen, Because of progressive dyspnea on exertion, off and on neuropathy, Avastin/5-FU alone was discontinued and was started on Lonsurf orally Which was prescribed on September 29, 2020 but Started on December 17, 2020 Plan: Discussed with patient regarding his labs white blood count 6.5 hemoglobin 10.4 g compared to 8.7 g on May 05, 2021 with his PMD, hematocrit 29.6 platelets 371,000 CMP within normal limit except glucose and his CEA is 44.9 compared to 29.6 on December 24, 2020 Clinically, patient doing well with no new signs symptoms just of disease progression, tolerating palliative therapy with Lonsurf well but with expected side effects. Patient is about to finish his fifth cycle in 4 more days, after that he is off for 2 weeks before you start next cycle. His follow-up labs shows progressive CEA level, causing concern for disease progression, at this point we will request Dr. Do, at [facility] department for evaluation, and then patient return to clinic in 3 weeks with CBC CMP and for further discussion. Signed By: Hayley Goodman M.D. <<Signature on File>>
== END 2021-05-13 08:37 | disposition home or self-care (01) ==
PROVIDERS: PCP Family Medicine; Visit Provider Internal Medicine Hematology & Oncology
DX: C18.3 Malignant neoplasm of hepatic flexure (principal); C77.0 Secondary and unspecified malignant neoplasm of lymph nodes of head, face and neck; I10 Essential (primary) hypertension; E78.5 Hyperlipidemia, unspecified; E11.9 Type 2 diabetes mellitus without complications; Z79.899 Other long term (current) drug therapy; Z92.21 Personal history of antineoplastic chemotherapy
CPT/HCPCS: 36415; 80053; 82378; 85025; 99214

== ENCOUNTER 2021-06-02 09:36 | Outpatient (CLI) | payer MEDICARE, OTHER, SELFPAY ==
[2021-06-02 10:21] LABS: Basophils % 0.5 %; Eosinophils # 0.1 10^3/uL (0.0-0.8); Eosinophils % 1.9 %; Hematocrit 29.8 % (42.0-52.0); Hemoglobin 9.9 g/dL (11.7-16.6); Lymphocytes # 1.2 10^3/uL (0.8-4.8); Lymphocytes % 31.1 %; Mean Corpuscular HGB Conc 33.2 g/dL (30.0-36.0); Mean Corpuscular Hemoglobin 35.7 pg (28.0-34.0); Mean Corpuscular Volume 107.6 fl (80-94); Mean Platelet Volume 9.5 fL (7.4-10.4); Monocytes # 0.7 10^3/uL (0.2-0.9); Neutrophils # 1.76 10^3/uL (1.8-7.7); Neutrophils % 47.2 %; Nucleated Red Blood Cells % 0 %; Platelet Count 329 10^3/cmm (130-400); Red Blood Count 2.77 10^6/uL (4.1-5.3); Red Cell Distribution Width 15.2 % (12.1-15.1); White Blood Count 3.7 10^3/uL (4.0-10.0)
[2021-06-02 10:40] LABS: Alanine Aminotransferase 17 U/L (0-41); Albumin Level 3.9 g/dL (3.5-5.2); Alkaline Phosphatase 98 IU/L (40-130); Aspartate Amino Transferase 22 U/L (0-40); Blood Urea Nitrogen 12 mg/dL (8-23); Calcium 8.4 mg/dL (8.5-10.5); Carbon Dioxide 23 mmol/L (22-29); Chloride 103 mmol/L (98-107); Globulin 2.8 g/dL (1.3-4.6); Glucose 98 mg/dL (65-115); Osmolality Calculated 286 mOsm/kg (285-295); Sodium 138 mmol/L (136-145); Total Bilirubin 0.2 mg/dL (0.15-1.2); Total Protein 6.7 g/dL (6.6-8.7)
[2021-06-02 10:45] LABS: Anion Gap 16.4 (5-19); Potassium 4.4 mmol/L (3.5-5.1)
--- NOTE | 2021-06-02 14:22 | ONC FU_ITS ---
Dr. 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 He had presented with symptoms of abdominal pain and early satiety. CT abdomen/pelvis on 01/05/2017 showed an apple core appearing lesion at the hepatic flexure with associated obstruction involving the ascending colon, cecum, and ileum. The appearance was suspicious for neoplasm. There was a small amount of pelvic ascites. A 6.9 mm right lower lobe noncalcified pulmonary nodule was felt to be nonspecific. There was otherwise no evidence of metastatic disease. Colonoscopy on 01/09/2017 showed a partially obstructing malignant appearing mass at the hepatic flexure estimated at 5 x 4 cm. An additional sessile polyp was noted in the distal sigmoid colon and excised by hot snare. Biopsy of the hepatic flexure mass showed poorly differentiated infiltrating adenocarcinoma. The distal sigmoid lesion was a hyperplastic polyp. He underwent laparoscopic right hemicolectomy with ileocolic anastomosis and partial omentectomy on 01/10/2017. Pathology showed moderately differentiated infiltrating adenocarcinoma with invasion of the muscularis propria into rehana-colic tissue. The tumor measured 2.3 x 1.8 cm. The margins were free of tumor. There was evidence of lymphovascular space invasion. A total of 7 lymph nodes were identified in the sample and all were negative for metastatic disease. Final pathologic staging was T3, N0. He had several high risk features including a near obstructing primary tumor, evidence of lymphovascular space invasion, and less then 12 lymph nodes sampled. 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 Follow-up colonoscopy done on 02/06/2018 showed ileocolic anastomosis looked intact without evidence of recurrence and wide patent. In the proximal transverse colon, an abnormality was noted. He was followed by Dr. Willingham His other medical illnesses include hypertension, hyperlipidemia, and type II diabetes. He is a nonsmoker. Follow-up colonoscopy done on 02/26/2019 showed normal findings. Ileocolic anastomosis is widely patent without evidence of local recurrence. CEA repeated on 03/04/2019 was 7.7 compared to 7.2 on 01/07/2019 CT PET scan done on 03/15/2019 showed 3.1 x 2.2 cm mass in the right middle lobe with SUV of 22.1, and an adjacent right middle lobe FDG positive satellite nodule was noted. The right lower lobe perihilar nodule measuring 1.6 cm with SUV of 21.6. Multiple mediastinal nodes are FDG positive, consistent with metastatic disease and index node in the right 4R peritracheal territory measures 1.6 cm with SUV of 23.0 and other similar nodes are evident in the right pericardial, right superior mediastinal, right periesophageal territory. No evidence of metastatic disease to bone or below diaphragm Underwent mediastinoscopy on 04/28/2019 and lymph node biopsy was obtained from paratracheal, station 4R, final pathology report showed metastatic adenocarcinoma, consistent with GI origin. The tumor was positive for CD X2, CK 20; negative for CK 7 and TTF-1. recommended 6 cycles of FOLFIRI/Avastin the restage with followup PET/CT. Mr Yu began cycle 1 on 05/13/2019. He has tolerated it well. Mr. Yu had follow-up PET/CT on 07/19/2019 with [facility] radiology out [facility]. The findings reported were continued physiological tracer activity at the colonic anastomosis. The right middle lobe mass that previously measured 3.1 x 2.2 cm with an SUV of 22.1 now measures 1.0 x 1.3 cm with an SUV of 7.7, indicating a positive response to therapy. There are similar improvement in the secondary right middle lobe nodule and in the right lower lobe nodule. The index node in the right 4R paratracheal territory now measures 1.5 with an SUV of 5.7 and previously was 1.8 cm with an SUV of 23. Multiple other mediastinal nodes demonstrate similar improvement . reviewed the PET/CT and recommended that Mr. Yu pursue 6 -8 more cycles of chemotherapy. Follow-up CT PET scan done on 10/25/2019, showed right middle lobe nodule that previously measured 1.0 x 1.3 cm with SUV of 7.7, now measure 1.1 x 0.7 cm with SUV of 4.3. A secondary right middle lobe nodule and the right lower lobe nodule are FDG negative. Similar improvement is noted in the mediastinal lymph nodes in the right paratracheal (4R) node now has SUV of 4.7 compared to 5.7 previously. Other nodes since subcarinal, right hilar, right pericardial regions are FDG negative. He has tolerated treatment well. It was recommended that he have 6 additional cycles of treatment then restage to determine further plan of care. Follow-up CT PET scan done on January 10, 2020 showed minimal progression is present in the dominant right middle lobe nodule now SUV 5.6 compared to 4.3. Secondary right middle lobe nodule now has SUV of 4.0 compared to negative on prior study. Medial right lower lobe nodule is unchanged at size 8 mm and remained FDG negative. FDG positive mediastinal adenopathy is generally unchanged, however a right sides. Prevascular node has SUV of 3.6.No herpetic involvement Patient was referred to GI oncology at [facility], as per patient's they were told that there is no clinical trial available at this point that the continue with the treatment locally. Follow-up CT scan of chest abdomen pelvis done on March 09, 2020 showed numerous right-sided pulmonary nodules which have been previously described. Nodules have all increased slight in size. Indeterminate mediastinal mass and right hilar lymph nodes and subcarinal lymph nodes are all unchanged in size. Small amount of soft tissue at anastomotic site in the right abdomen with a few smaller adjacent lymph nodes. No renal mass, no liver mets seen Mr. Yu resumed chemotherapy with FOLFIRI and Avastin on April 07, 2020. He did have a follow-up CT PET scan done on June 26, 2020 which showed dominant right middle lobe nodule now measuring 1.1 x 2.0 cm with SUV of 5.8 up from 1.1 cm with SUV of 5.6 on January 10, 2020. The remaining right middle lobe lung nodule and right lower lobe lung nodule is unchanged at size 8 mm and the main FDG negative mediastinal lymph node are not significantly changed. There are again identified right prevascular, subcarinal, right paratracheal territories. PET/CT scan findings were discussed with Dr. Morrow ,radiologist, and his impression was increase in size of right middle lobe nodule could be due to disease progression or movements during scanning, otherwise stable disease. It was recommended that Mr Yu continue with treatment but the irinotecan was omitted due to declining performance status. He continues just on 5-FU and Avastin alone. We plan to reassess after 6 more cycles. So follow-up CT PET scan was done on September 05, 2019 which showed no new lesions, mixed response of mediastinal lymph nodes e.g. right paratracheal lymph node is minimally improved now SUV 4.5 compared to 6.6 previously the subcarinal node is progressed on the current study now with SUV 6.5 compared to 4.9 previously and dominant right middle lobe nodule now measuring 1.4 x 3.2 cm compared to 1.1 x 2 cm with SUV of 5.8 in June 2020 and a secondary, more lateral right middle lobe nodule is progressed as well as now measuring 1.4 cm with SUV of 9. Patient is also developing some new symptoms like dyspnea on exertion and the off and on peripheral numbness, generalized weakness and fatigue, Because of worsening of performance status although follow-up CT PET scan showed mixed response in mediastinal lymph node and mild progression in the right middle lobe with no new lesions, it was decided to discontinue FOLFIRI/Avastin and recommended Lonsurf 35 mg per metered square based on trifluridine component orally twice daily with meals from day 1 through 5, day 8 through 12 and repeat every 28 days, Which he started on December 17, 2020, Which was discontinued on May 17, 2021, Because of progressive shortness of breath, nausea vomiting and intolerance CT PET scan done on February 26, 2021 shows right middle lobe nodules are progressed on the current study. Dominant nodule no major 3 x 1.9 cm with SUV of 8.9. The more lateral nodule no measured 2.2 x 1.9 cm SUV of 8.1. Mediastinal lymph nodes are progressed as well. The subcarinal node no has SUV of 9.6 compared to 6.5 previously. The right paratracheal node now has SUV of 5.6 compared to 4.5 previously. A 9 mm medial right lower lobe nodule is unchanged from prior study and remain FDG negative Follow-up CT chest abdomen pelvis done on May 25, 2021 at [facility] showed metastatic nodules in the right lung along the minor fissure are more confluent and increase in size, largest, more laterally, now measuring 3.1 x 2.8 cm previously 2.3 x [address] component from February 26, 2021 and 1.8 x 1.5 cm on March 09, 2020. There is an additional stable nodule in the right lower lobe. Mildly 8 mm and a smaller nodule which was not identified with certainty on limited prior scans, measuring 4 mm. Mediastinal adenopathy is not significantly changed compared to CT PET scan done on February 26, 2021 and within limits of noncontrast previous CT scan but increased since March 09, 2020. Precarinal lymph node demonstrate heterogeneous enhancement with short axis of 1.4 cm. Bilateral hilar nodes with a short axis of less than 1 cm, probably stable from prior CT PET scan done on February 26, 2021. And there is no evidence of recurrent or metastatic disease in the abdomen or pelvis Came for follow-up, denies any specific complaints, feeling much better since he is off Lonsurf, no more shortness of breath, no more nausea or vomiting overall, feeling more energetic. As per patient he was seen by Dr. Vaughan on on May 31, 2021 and he was referred to radiation oncology for radiation therapy to the liver and was informed that he will need 5 days radiation therapy and then for 3 months no other treatment. And he is scheduled see radiation oncology at [place] on coming Sunday. . Medications: Ativan 1 (0.5 mg) Tablet Oral q 4 hours PRN, Atorvastatin Calcium 1 Tablet (of 40 mg) Oral daily, B-12 1 Tablet (of 1000 mcg) Oral daily, Calcium Carb-Cholecalciferol 1 Capsule (of 500-125 Units/mg) Oral daily, Cinnamon 1 (500 mg) Capsule Oral b.i.d., Compazine Tablet Oral q 4 hours PRN, Fish Oil 1 (1000 mg) Capsule Oral daily, hydroCHLOROthiazide 1 Capsule (of 12.5 mg) Oral at bedtime, Lisinopril 1 Tablet (of 40 mg) Oral daily, MetFORMIN HCl 1 Tablet (of 500 mg) Oral b.i.d., Metoprolol Tartrate 0.5 Tablet (of 25 mg) Oral b.i.d., Multivitamin Adult 1 Tablet Oral daily, Nitroglycerin 1 (0.4 mg) Tablet, sublingual Sublingual PRN, Pepcid 1 (20 mg) Tablet Oral daily PRN, Vitamin C 1 Tablet (of 500 mg) Oral daily, Vitamin E 1 Capsule (of 400 Units) Oral daily Allergies: Isosorbide Mononitrate and Succinylcholine Chloride. Review of Systems: Review of Systems is not available for this patient. Vital Signs: Performed on Jun 02, 2021 12:21 Height - 64.00 in Weight - 144.4 lbs (HIGH) BSA - 1.70 sq.m BMI - 24.79 Temperature - 97.7 F (LOW) Pulse - 60 /min Respiration - 17 /min BP - 110/57 mm(hg) O2 Sat - 98 % Pain - 0 Fatigue - 0 Performance Status: 0 - Fully active, able to carry on all predisease activities without restrictions. (ECOG) Physical Examination: ENMT - Sinuses are nontender. No oral exudates, ulcers, masses, thrush or mucositis. Oropharynx clear. Tongue normal, Respiratory - Lungs are clear to auscultation, Cardiovascular - Regular rate and rhythm of heart, Abdomen - Soft, bowel sounds present, Extremities - No visible edema. Lab/Imaging: Most recent lab results are not available for this patient. Impression: 1. Recurrent adenocarcinoma involving paratracheal lymph node per bronchoscopy/ mediastinoscopy done on 04/28/2019 Immunohistochemistry positive for CDX -2, CK 20 Negative for CK 7, TTF-1 and CEA checked on 05/05/2019 was 10.6 2. 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 He underwent laparoscopic right hemicolectomy on 01/10/2017. High risk features included near obstructing primary tumor, pathologic evidence of lymphovascular space invasion, and less than 12 lymph nodes sampled. 3. s/p adjuvant chemotherapy with modified FOLFOX.???4 from 01/30/2017 through 04/02/2017, FOLFOX minus oxaliplatin ???8 from 04/23/2017 through 07/23/2017. 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 4. He has iron deficiency anemia, resolved . His other medical illnesses include: 5. Hypertension. 6. Hyperlipidemia. 7. Type II diabetes .Follow-up colonoscopy done on 02/06/2018 showed ileocolic anastomosis looked intact without evidence of recurrence, and wide patent. In the proximal transverse colon, an abnormality was noted. Follow-up colonoscopy done on 02/26/2019 showed no abnormality seen, ileocolic anastomosis widely patent without evidence of local recurrence. CEA checked on 01/07/2019 was 7.2 compared to 2.4 on 07/05/2018 and repeat CEA on 03/04/[address] PET scan done on 03/15/2019 showed 3.1 x 2.2 cm mass in the right middle lobe with SUV of 22.1, and adjust in the right middle lobe FDG positive satellite nodule noted. The right lower lobe perihilar nodule measuring 1.6 cm with SUV of 21.6. Multiple mediastinal nodes are FDG positive, consistent with metastatic disease and index node in the right 4R peritracheal territory measures 1.6 cm with SUV of 23.0 and other similar nodes are evident in the right pericardial, right superior mediastinal, right periesophageal territory. No evidence of metastatic disease to bone or below diaphragm. Clinically, patient is doing well, tolerated mediastinoscopy well now surgical wound is healing well. And final pathology report came back metastatic adenocarcinoma, probably GI in origin. Discussed with patient regarding treatment options. 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 He began cycle 1 of 6 on 03/13/2019. He has tolerated it extremly well at this time. recommended 6 cycles of FOLFIRI/Avastin the restage with followup PET/CT. Mr Yu began cycle 1 on 05/13/2019. He has tolerated it well. After 5 cycles of chemotherapy, Mr. Yu had follow-up PET/CT on 07/19/2019 with [facility]. The findings reported were continued physiological tracer activity at the colonic anastomosis. The right middle lobe mass that previously measured 3.1 x 2.2 cm with an SUV of 22.1 now measures 1.0 x 1.3 cm with an SUV of 7.7, indicating a positive response to therapy. There are similar improvement in the secondary right middle lobe nodule and in the right lower lobe nodule. The index node in the right 4R paratracheal territory now measures 1.5 with an SUV of 5.7 and previously was 1.8 cm with an SUV of 23. Multiple other mediastinal nodes demonstrate similar improvement . has reviewed the PET/CT and has recommended that Mr. Yu pursue 6 more cycles of chemotherapy.Follow-up CT PET scan done on June 26, 2020 showed stable disease except right middle lobe of lung shows increased in size 1.1 x 2 cm compared to 1.1 cm with similar SUV on January 10, 2020 On July 01, 2020 irinotecan was discontinued because of related side effects e.g. generalized weakness and fatigue and was started on maintenance therapy with Avastin/5-FU alone. Follow-up CT PET scan done on September 04, 2020 showed mixed response of mediastinal lymph nodes, progression of right middle lobe nodule, but no new lesions seen, Because of progressive dyspnea on exertion, off and on neuropathy, Avastin/5-FU alone was discontinued and was started on Lonsurf orally Which was prescribed on September 29, 2020 but Started on December 17, 2020 Plan: Discussed with patient regarding his labs white blood count 3.7 hemoglobin 9.9 hematocrit 29.8 platelets 329,000 CMP within normal limits and his CEA checked on May 13, 2021 was 44.9 compared to 29.6 previously in December 2020 Clinically, patient doing reasonably well, feeling much better since he is off Lonsurf, more energetic, no more short of breath. Patient went to [facility] for follow-up and was seen by Dr. Do, as per patient, he underwent follow-up CT scan of chest abdomen pelvis at [facility] on May 25, [address] Do on March 31, 2021 and she informed him about CT scan of chest abdomen pelvis findings and referred him to radiation oncology department at [facility] for radiation therapy to his liver, as per patient he was informed that he will take radiation for 5 days and then after that nothing for 3 months. And he is scheduled to see radiation oncologist at [facility] on coming Sunday. Other than that patient is feeling well with no new symptoms rather quality of life is improving. His CT scan of chest abdomen pelvis done at [facility] on May 25, 2021 report was reviewed with patient which showed no evidence of metastatic disease below diaphragm only intrathoracic disease mainly in the right lung, index lesion is 3.1 cm x 2.8 cm compared to 2.3 x [address] PET scan done on February 26, 2021, no evidence of atelectasis, patient has no hemoptysis patient has stable mediastinal lymphadenopathy., We will discuss with Dr. Do regarding biopsy of right lung nodule to see if there is any new targetable mutation or to confirm metastatic colon cancer or second primary. Dr. Do's office was called today, she was not available so we will try again on Sunday, patient was advised to follow-up with radiation oncology at [facility] but request his radiation oncology to call us to clarify whether, he will received radiation therapy to the liver or to the lung He will return to clinic in 1 month with CBC CMP and CEA^, In the meantime, we will discontinue his Lonsurf after last dose was given on May 17, 2021] Signed By: Hayley Goodman M.D. <<Signature on File>>
== END 2021-06-02 09:37 | disposition home or self-care (01) ==
LOC: ONCMED 09:39
PROVIDERS: PCP Family Medicine; Visit Provider Internal Medicine Hematology & Oncology
DX: C96.9 Malignant neoplasm of lymphoid, hematopoietic and related tissue, unspecified (principal); R97.8 Other abnormal tumor markers; Z85.038 Personal history of other malignant neoplasm of large intestine; Z90.49 Acquired absence of other specified parts of digestive tract; E11.9 Type 2 diabetes mellitus without complications; I10 Essential (primary) hypertension; E78.5 Hyperlipidemia, unspecified
CPT/HCPCS: 36415; 80053; 85025; 96523; 99214

== ENCOUNTER 2021-07-05 12:35 | Outpatient (CLI) | payer MEDICARE, OTHER, SELFPAY ==
--- NOTE | 2021-07-12 09:12 | ONC FU_ITS ---
Dr. 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 He had presented with symptoms of abdominal pain and early satiety. CT abdomen/pelvis on 01/05/2017 showed an apple core appearing lesion at the hepatic flexure with associated obstruction involving the ascending colon, cecum, and ileum. The appearance was suspicious for neoplasm. There was a small amount of pelvic ascites. A 6.9 mm right lower lobe noncalcified pulmonary nodule was felt to be nonspecific. There was otherwise no evidence of metastatic disease. Colonoscopy on 01/09/2017 showed a partially obstructing malignant appearing mass at the hepatic flexure estimated at 5 x 4 cm. An additional sessile polyp was noted in the distal sigmoid colon and excised by hot snare. Biopsy of the hepatic flexure mass showed poorly differentiated infiltrating adenocarcinoma. The distal sigmoid lesion was a hyperplastic polyp. He underwent laparoscopic right hemicolectomy with ileocolic anastomosis and partial omentectomy on 01/10/2017. Pathology showed moderately differentiated infiltrating adenocarcinoma with invasion of the muscularis propria into rehana-colic tissue. The tumor measured 2.3 x 1.8 cm. The margins were free of tumor. There was evidence of lymphovascular space invasion. A total of 7 lymph nodes were identified in the sample and all were negative for metastatic disease. Final pathologic staging was T3, N0. He had several high risk features including a near obstructing primary tumor, evidence of lymphovascular space invasion, and less then 12 lymph nodes sampled. 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 Follow-up colonoscopy done on 02/06/2018 showed ileocolic anastomosis looked intact without evidence of recurrence and wide patent. In the proximal transverse colon, an abnormality was noted. He was followed by Dr. Willingham His other medical illnesses include hypertension, hyperlipidemia, and type II diabetes. He is a nonsmoker. Follow-up colonoscopy done on 02/26/2019 showed normal findings. Ileocolic anastomosis is widely patent without evidence of local recurrence. CEA repeated on 03/04/2019 was 7.7 compared to 7.2 on 01/07/2019 CT PET scan done on 03/15/2019 showed 3.1 x 2.2 cm mass in the right middle lobe with SUV of 22.1, and an adjacent right middle lobe FDG positive satellite nodule was noted. The right lower lobe perihilar nodule measuring 1.6 cm with SUV of 21.6. Multiple mediastinal nodes are FDG positive, consistent with metastatic disease and index node in the right 4R peritracheal territory measures 1.6 cm with SUV of 23.0 and other similar nodes are evident in the right pericardial, right superior mediastinal, right periesophageal territory. No evidence of metastatic disease to bone or below diaphragm Underwent mediastinoscopy on 04/28/2019 and lymph node biopsy was obtained from paratracheal, station 4R, final pathology report showed metastatic adenocarcinoma, consistent with GI origin. The tumor was positive for CD X2, CK 20; negative for CK 7 and TTF-1. recommended 6 cycles of FOLFIRI/Avastin the restage with followup PET/CT. Mr Yu began cycle 1 on 05/13/2019. He has tolerated it well. Mr. Yu had follow-up PET/CT on 07/19/2019 with [facility]. The findings reported were continued physiological tracer activity at the colonic anastomosis. The right middle lobe mass that previously measured 3.1 x 2.2 cm with an SUV of 22.1 now measures 1.0 x 1.3 cm with an SUV of 7.7, indicating a positive response to therapy. There are similar improvement in the secondary right middle lobe nodule and in the right lower lobe nodule. The index node in the right 4R paratracheal territory now measures 1.5 with an SUV of 5.7 and previously was 1.8 cm with an SUV of 23. Multiple other mediastinal nodes demonstrate similar improvement . reviewed the PET/CT and recommended that Mr. Yu pursue 6 -8 more cycles of chemotherapy. Follow-up CT PET scan done on 10/25/2019, showed right middle lobe nodule that previously measured 1.0 x 1.3 cm with SUV of 7.7, now measure 1.1 x 0.7 cm with SUV of 4.3. A secondary right middle lobe nodule and the right lower lobe nodule are FDG negative. Similar improvement is noted in the mediastinal lymph nodes in the right paratracheal (4R) node now has SUV of 4.7 compared to 5.7 previously. Other nodes since subcarinal, right hilar, right pericardial regions are FDG negative. He has tolerated treatment well. It was recommended that he have 6 additional cycles of treatment then restage to determine further plan of care. Follow-up CT PET scan done on January 10, 2020 showed minimal progression is present in the dominant right middle lobe nodule now SUV 5.6 compared to 4.3. Secondary right middle lobe nodule now has SUV of 4.0 compared to negative on prior study. Medial right lower lobe nodule is unchanged at size 8 mm and remained FDG negative. FDG positive mediastinal adenopathy is generally unchanged, however a right sides. Prevascular node has SUV of 3.6.No herpetic involvement Patient was referred to GI oncology at [facility], as per patient's they were told that there is no clinical trial available at this point that the continue with the treatment locally. Follow-up CT scan of chest abdomen pelvis done on March 09, 2020 showed numerous right-sided pulmonary nodules which have been previously described. Nodules have all increased slight in size. Indeterminate mediastinal mass and right hilar lymph nodes and subcarinal lymph nodes are all unchanged in size. Small amount of soft tissue at anastomotic site in the right abdomen with a few smaller adjacent lymph nodes. No renal mass, no liver mets seen Mr. Yu resumed chemotherapy with FOLFIRI and Avastin on April 07, 2020. He did have a follow-up CT PET scan done on June 26, 2020 which showed dominant right middle lobe nodule now measuring 1.1 x 2.0 cm with SUV of 5.8 up from 1.1 cm with SUV of 5.6 on January 10, 2020. The remaining right middle lobe lung nodule and right lower lobe lung nodule is unchanged at size 8 mm and the main FDG negative mediastinal lymph node are not significantly changed. There are again identified right prevascular, subcarinal, right paratracheal territories. PET/CT scan findings were discussed with Dr. Morrow ,radiologist, and his impression was increase in size of right middle lobe nodule could be due to disease progression or movements during scanning, otherwise stable disease. It was recommended that Mr Yu continue with treatment but the irinotecan was omitted due to declining performance status. He continues just on 5-FU and Avastin alone. We plan to reassess after 6 more cycles. So follow-up CT PET scan was done on September 05, 2019 which showed no new lesions, mixed response of mediastinal lymph nodes e.g. right paratracheal lymph node is minimally improved now SUV 4.5 compared to 6.6 previously the subcarinal node is progressed on the current study now with SUV 6.5 compared to 4.9 previously and dominant right middle lobe nodule now measuring 1.4 x 3.2 cm compared to 1.1 x 2 cm with SUV of 5.8 in June 2020 and a secondary, more lateral right middle lobe nodule is progressed as well as now measuring 1.4 cm with SUV of 9. Patient is also developing some new symptoms like dyspnea on exertion and the off and on peripheral numbness, generalized weakness and fatigue, Because of worsening of performance status although follow-up CT PET scan showed mixed response in mediastinal lymph node and mild progression in the right middle lobe with no new lesions, it was decided to discontinue FOLFIRI/Avastin and recommended Lonsurf 35 mg per metered square based on trifluridine component orally twice daily with meals from day 1 through 5, day 8 through 12 and repeat every 28 days, Which he started on December 17, 2020, Which was discontinued on May 17, 2021, Because of progressive shortness of breath, nausea vomiting and intolerance CT PET scan done on February 26, 2021 shows right middle lobe nodules are progressed on the current study. Dominant nodule no major 3 x 1.9 cm with SUV of 8.9. The more lateral nodule no measured 2.2 x 1.9 cm SUV of 8.1. Mediastinal lymph nodes are progressed as well. The subcarinal node no has SUV of 9.6 compared to 6.5 previously. The right paratracheal node now has SUV of 5.6 compared to 4.5 previously. A 9 mm medial right lower lobe nodule is unchanged from prior study and remain FDG negative Follow-up CT chest abdomen pelvis done on May 25, 2021 at [facility] showed metastatic nodules in the right lung along the minor fissure are more confluent and increase in size, largest, more laterally, now measuring 3.1 x 2.8 cm previously 2.3 x [address] component from February 26, 2021 and 1.8 x 1.5 cm on March 09, 2020. There is an additional stable nodule in the right lower lobe. Mildly 8 mm and a smaller nodule which was not identified with certainty on limited prior scans, measuring 4 mm. Mediastinal adenopathy is not significantly changed compared to CT PET scan done on February 26, 2021 and within limits of noncontrast previous CT scan but increased since March 09, 2020. Precarinal lymph node demonstrate heterogeneous enhancement with short axis of 1.4 cm. Bilateral hilar nodes with a short axis of less than 1 cm, probably stable from prior CT PET scan done on February 26, 2021. And there is no evidence of recurrent or metastatic disease in the abdomen or pelvis Patient underwent bronchoscopy EBUS/TB NA and core biopsy at [facility] on 06/17/2021 and subcarinal lymph node biopsy was obtained which confirmed metastatic adenocarcinoma, as per discussion with Dr. Do, medical oncologist at [facility], it was confirmed as metastatic colon cancer, and as CT PET scan shows no metastatic disease under diaphragm and most active disease in the lung, patient was referred to radiation oncology at [facility] with the idea of management of active disease with radiation therapy and then gave patient chemotherapy 'holiday to maintain or improve quality of life as patient was experiencing declining performance status while on [facility]. Patient was seen by radiation oncology at [facility] but due to inconvenience of traveling back and forth to [place] from [facility], patient was referred to Dr. Vasquez, radiation oncologist at [facility] in [facility]. Came for follow-up, patient denies any specific complaints except episode of severe reaction couple of hours after bronchoscopy Which was done on 06/17/2021, and presented with severe shakes and chills, lasted for about 6 hours also numbness of the lips, was diagnosed as malignant hypothermia and treated with heating pad, heavy blankets. As per patient he has history of malignant hypothermia in family, Today denies any specific complaints, except mild numbness involving lower lip but now improving, no fever or chills, no nausea or vomiting no hemoptysis or hematemesis, no jaundice, no abdominal pain, no new bony pains, patient is considering radiation therapy to right lung metastatic lesion at [facility] in [place] instead of going to [facility] in [place]. . Medications: Ativan 1 (0.5 mg) Tablet Oral q 4 hours PRN, Atorvastatin Calcium 1 Tablet (of 40 mg) Oral daily, B-12 1 Tablet (of 1000 mcg) Oral daily, Calcium Carb-Cholecalciferol 1 Capsule (of 500-125 Units/mg) Oral daily, Cinnamon 1 (500 mg) Capsule Oral b.i.d., Compazine Tablet Oral q 4 hours PRN, Fish Oil 1 (1000 mg) Capsule Oral daily, hydroCHLOROthiazide 1 Capsule (of 12.5 mg) Oral at bedtime, Lisinopril 1 Tablet (of 40 mg) Oral daily, MetFORMIN HCl 1 Tablet (of 500 mg) Oral b.i.d., Metoprolol Tartrate 0.5 Tablet (of 25 mg) Oral b.i.d., Multivitamin Adult 1 Tablet Oral daily, Nitroglycerin 1 (0.4 mg) Tablet, sublingual Sublingual PRN, Pepcid 1 (20 mg) Tablet Oral daily PRN, Vitamin C 1 Tablet (of 500 mg) Oral daily, Vitamin E 1 Capsule (of 400 Units) Oral daily Allergies: Isosorbide Mononitrate and Succinylcholine Chloride. Review of Systems: Review of Systems is not available for this patient. Vital Signs: Performed on Jul 05, 2021 14:52 Height - 64.00 in Weight - 142.2 lbs (LOW) BSA - 1.69 sq.m BMI - 24.41 Temperature - 98.1 F (LOW) Pulse - 82 /min Respiration - 18 /min BP - 116/63 mm(hg) O2 Sat - 97 % Pain - 0 Fatigue - 2 Performance Status: 0 - Fully active, able to carry on all predisease activities without restrictions. (ECOG) Physical Examination: ENMT - No mouth sores, no thrush, no jaundice, no cervical lymphadenopathy, Respiratory - Lungs are clear to auscultation, Cardiovascular - Regular rate and rhythm of heart, Abdomen - Soft, bowel sounds present, Extremities - No visible edema. Lab/Imaging: Test performed on Jun 29, 2021 12:54 Glucose 130 mg/dL BUN 18 mg/dL Creatinine 0.87 mg/dL Cr Clearance (Est) 67.70 mL/min Sodium 132 mmol/L Potassium 4.8 mmol/L Chloride 98 mmol/L CO2 26 mmol/L Calcium 9.5 mg/dL Protein, Total 7.8 g/dL Albumin 4.1 g/dL Bilirubin, Total 0.3 mg/dL Alkaline Phosphatase 101 International Units/L AST (SGOT) 24 International Units/L ALT (SGPT) 15 International Units/L WBC 10.0 10^9/L RBC 3.25 10^12/L HGB 11.3 g/dL HCT 33.2 % MCV 102.2 fl MCH 34.7 pg RDW 16.0 % Platelet Count 376 10^9/L MPV 6.8 fL Neutrophils (Gran) 7.0 10^9/L Lymphocytes 0.2 10^9/L Monocytes 0.07 10^9/L Eosinophils 0.02 10^9/L Basophils 0 10^9/L NRBCs 0.00 /100 WBC Impression: 1. Recurrent adenocarcinoma involving paratracheal lymph node per bronchoscopy/ mediastinoscopy done on 04/28/2019 And repeat EBUS/TB NA and core biopsy obtained from subcarinal lymph node on 06/17/2021 again confirmed metastatic adenocarcinoma of the colon origin Immunohistochemistry positive for CDX -2, CK 20 Negative for CK 7, TTF-1 and CEA checked on 05/05/2019 was 10.6 2. 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 He underwent laparoscopic right hemicolectomy on 01/10/2017. High risk features included near obstructing primary tumor, pathologic evidence of lymphovascular space invasion, and less than 12 lymph nodes sampled. 3. s/p adjuvant chemotherapy with modified FOLFOX.???4 from 01/30/2017 through 04/02/2017, FOLFOX minus oxaliplatin ???8 from 04/23/2017 through 07/23/2017. 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 4. He has iron deficiency anemia, resolved . His other medical illnesses include: 5. Hypertension. 6. Hyperlipidemia. 7. Type II diabetes .Follow-up colonoscopy done on 02/06/2018 showed ileocolic anastomosis looked intact without evidence of recurrence, and wide patent. In the proximal transverse colon, an abnormality was noted. Follow-up colonoscopy done on 02/26/2019 showed no abnormality seen, ileocolic anastomosis widely patent without evidence of local recurrence. CEA checked on 01/07/2019 was 7.2 compared to 2.4 on 07/05/2018 and repeat CEA on 03/04/[address] PET scan done on 03/15/2019 showed 3.1 x 2.2 cm mass in the right middle lobe with SUV of 22.1, and adjust in the right middle lobe FDG positive satellite nodule noted. The right lower lobe perihilar nodule measuring 1.6 cm with SUV of 21.6. Multiple mediastinal nodes are FDG positive, consistent with metastatic disease and index node in the right 4R peritracheal territory measures 1.6 cm with SUV of 23.0 and other similar nodes are evident in the right pericardial, right superior mediastinal, right periesophageal territory. No evidence of metastatic disease to bone or below diaphragm. Clinically, patient is doing well, tolerated mediastinoscopy well now surgical wound is healing well. And final pathology report came back metastatic adenocarcinoma, probably GI in origin. Discussed with patient regarding treatment options. 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 He began cycle 1 of 6 on 03/13/2019. He has tolerated it extremly well at this time. recommended 6 cycles of FOLFIRI/Avastin the restage with followup PET/CT. Mr Yu began cycle 1 on 05/13/2019. He has tolerated it well. After 5 cycles of chemotherapy, Mr. Yu had follow-up PET/CT on 07/19/2019 with [facility]. The findings reported were continued physiological tracer activity at the colonic anastomosis. The right middle lobe mass that previously measured 3.1 x 2.2 cm with an SUV of 22.1 now measures 1.0 x 1.3 cm with an SUV of 7.7, indicating a positive response to therapy. There are similar improvement in the secondary right middle lobe nodule and in the right lower lobe nodule. The index node in the right 4R paratracheal territory now measures 1.5 with an SUV of 5.7 and previously was 1.8 cm with an SUV of 23. Multiple other mediastinal nodes demonstrate similar improvement . has reviewed the PET/CT and has recommended that Mr. Yu pursue 6 more cycles of chemotherapy.Follow-up CT PET scan done on June 26, 2020 showed stable disease except right middle lobe of lung shows increased in size 1.1 x 2 cm compared to 1.1 cm with similar SUV on January 10, 2020 On July 01, 2020 irinotecan was discontinued because of related side effects e.g. generalized weakness and fatigue and was started on maintenance therapy with Avastin/5-FU alone. Follow-up CT PET scan done on September 04, 2020 showed mixed response of mediastinal lymph nodes, progression of right middle lobe nodule, but no new lesions seen, Because of progressive dyspnea on exertion, off and on neuropathy, Avastin/5-FU alone was discontinued and was started on Lonsurf orally Which was prescribed on September 29, 2020 but Started on December 17, 2020 Plan: Discussed with patient regarding his disease status and treatment options, as per discussion with Dr. Do, medical oncologist at [facility], his recent EBUS/core biopsy obtained from subcarinal lymph node confirmed metastatic adenocarcinoma, with elevated CEA level, most likely colon is a primary. Patient was on Lonsurf and now developing intolerance due to related side effects and his follow-up CT PET scan showed no disease below diaphragm and mostly active disease in the right chest/mediastinum thus patient was referred to radiation oncology at [facility] for palliative radiation therapy to the most active disease site and then give patient chemotherapy 'holiday' with intent to improve and maintain good quality of life. Because of convenience, patient is considering radiation therapy at [facility] in [place], and he was referred by [facility] radiation oncology to Dr. Vasquez, radiation oncologist at at [facility] in [place]. Patient is off Lonsurf, now overall quality of life is improving. And eager to start recommended radiation therapy to the right lung/mediastinum. In the meantime, Dr. Do, medical oncologist at [facility] will order molecular profiling on recently obtained tissue via EBUS from his subcarinal lymph node. He will return to clinic in 6 weeks with CBC CMP and CEA Signed By: Hayley Goodman M.D. <<Signature on File>>
== END 2021-07-05 12:36 | disposition home or self-care (01) ==
LOC: ONCMED 12:41
PROVIDERS: PCP Family Medicine; Visit Provider Internal Medicine Hematology & Oncology
DX: C18.0 Malignant neoplasm of cecum (principal); C77.1 Secondary and unspecified malignant neoplasm of intrathoracic lymph nodes; C78.5 Secondary malignant neoplasm of large intestine and rectum; G62.0 Drug-induced polyneuropathy; T45.1X5A Adverse effect of antineoplastic and immunosuppressive drugs, initial encounter; I10 Essential (primary) hypertension; E78.5 Hyperlipidemia, unspecified; E11.9 Type 2 diabetes mellitus without complications; Z79.899 Other long term (current) drug therapy; Z45.2 Encounter for adjustment and management of vascular access device
CPT/HCPCS: 96523; 99214